=== PATIENT | female | born 1950 | race Caucasian/White ===

== ENCOUNTER 2019-02-12 22:46 | Inpatient (IN) | payer MEDICARE, OTHER, SELFPAY ==
[2018-12-08 14:09] VITALS: BMI 24.0
[2019-02-02 15:24] VITALS: BMI 24.0
--- NOTE | 2019-02-06 11:17 | EKG12_ITS ---
Test Reason : PRE-OP Blood Pressure : / mmHG Vent. Rate : 055 BPM Atrial Rate : 055 BPM P-R Int : 164 ms QRS Dur : 078 ms QT Int : 430 ms P-R-T Axes : 061 -02 071 degrees QTc Int : 411 ms Sinus bradycardia Otherwise normal ECG No previous ECGs available Confirmed by EDWIN GREGORY, JASSI ([id number]), editorial writer ELIZABETH ODOM ([id number]) on 02/09/2019 1:11:28 PM Referred By: Laurel Meier Confirmed By:JASSI PINEDA MD
[2019-02-06 11:29] LABS: Hematocrit 43.3 % (37-47); Hemoglobin 14.3 g/dl (12.0-15.0); Mean Corpuscular Hgb 28.9 pg (27.0-32.0); Mean Corpuscular Volume 87.5 fL (81-99); Mean Platelet Vol. 11.2 fl (6.2-12.0); Platelet Count 158 K/mm3 (150-450); RBC Distribution Width SD 41.7 fl (35.1-43.9); Red Blood Count 4.95 M/mm3 (4.2-5.4); Scan Indicated on CBC? Y/N NO; White Blood Count 7.2 K/mm3 (4.4-11.0)
[2019-02-06 11:50] LABS: Anion Gap 3 (5-15); BUN 8 mg/dL (7-18); Calcium,Total 8.2 mg/dL (8.5-10.1); Chloride 109 mmol/L (98-107); EST Glomerular Filtration Rate 75 mL/min (>60); Est Glom Filt Rate - Afr Amer 91 mL/min (>60); Glucose 91 mg/dL (74-106); Potassium 3.7 mmol/L (3.5-5.1); Sodium Level 141 mmol/L (136-145)
--- NOTE | 2019-02-11 16:24 | HP.PCM_ITS ---
- Problem List (1) Incomplete uterovaginal prolapse Status: Chronic Comment: TVH BSO combo case with dr rodriguez History and Physical Date of Admission: 02/12/19 Intake Vital Signs 02/02/19 Body Mass Index (BMI) 24.0 02/02/19 Height 5 ft 4 in 02/02/19 Weight: 138 lb 6 oz 02/02/19 Body Mass Index (BMI) 23.7 02/02/19 Blood Pressure 140/82 H Intake Visit Reasons: TVH BSO Chief Complaint: pre op appt [facility] BS Permastone Installer Required: No Is patient in pain?: No Allergies amoxicillin Allergy (Verified 02/02/19 15:23) Hives Medications clonazepam 0.5 mg tablet 0.5 mg PO BID 12/08/18 [History Confirmed 02/02/19] dicyclomine 10 mg capsule 10 mg PO ONCE 12/08/18 [History Confirmed 02/02/19] lisinopril 5 mg tablet 5 mg PO DAILY 12/08/18 [History Confirmed 02/02/19] lorazepam 1 mg tablet 1 mg PO QHS PRN 12/08/18 [History Confirmed 02/02/19] sertraline 100 mg tablet 100 mg PO DAILY 12/08/18 [History Confirmed 02/02/19] Is last menstrual period known: No Post menopausal: No Patient : No : No [facility] Medical History Anxiety (Acute) Fibromyalgia (Acute) Hyperlipidemia (Acute) IBS (irritable bowel syndrome) (Acute) Hypertension (Chronic) Surgical History H/O dilation and curettage (Acute) Family History Mother AAA (abdominal aortic aneurysm) Father Multiple sclerosis Brother Heart disease Myocardial infarction Kidney disease Sister Liver disease Social History Smoking Status: Unknown if ever smoked alcohol intake: never substance use type: does not use caffeine: Yes what type of physical activity do you participate in: walking seatbelt use: always do you feel safe at home: Yes additional social history: Ish AGUILAR [facility] BSO: Details: Details: JASON GRIGSBY is a 68 year old who presents for prolapse symptoms- difficulty urinating due to vaginal bulge. she has tried a pessary in the past and was unable to maintain the device in place. she is ready for surgery now. Pregancy History 3 Elective abortions Hx Para 3 Spontaneous abortions Hx # Term Pregnancies Ectopic pregnancies Hx # Pregnancies Multiple births # of living children ROS Const Constitutional: Denies fatigue, fever(s), headache(s), increased appetite, poor appetite, weight gain or weight loss Cardio Card: Denies chest pain Resp Resp: Denies cough or dyspnea GI GI: Reports as per HPI; denies abdominal pain, constipation, nausea or vomiting : Reports as per HPI; denies difficulty urinating, painful urination, nipple discharge, urinary frequency, urinary incontinence, urinary hesitancy, urinary urgency, vaginal discharge, vaginal dryness, vaginal odor or vaginal itching Skin Skin/Breast: Denies change in hair, breast lump, breast pain, breast skin changes or nipple discharge Exam Const General: cooperative, healthy appearing, comfortable, no acute distress, well developed Nutritional Appearance: average body habitus Orientation: alert HENMT Head: normal to inspection, normocephalic Neck Neck: normal visual inspection, trachea midline Thyroid: thyroid normal Resp Effort & Inspection: normal respiratory effort GI Inspection: normal to inspection, non-distended Palpation: soft, no hepatosplenomegaly General: bladder normal to palpation External Female Exam: normal external appearance, normal appearance of the urethra Urethra: normal appearance of the urethra, normal palpation, no discharge Speculum Exam - Vagina: normal appearance of the vagina, normal vaginal discharge Speculum Exam - Cervix: normal appearance of the cervix, nontender Bimanual Exam- Vagina & Uterus: normal bimanual exam, uterine size normal, bladder normal to palpation, uterine shape normal, No cervical tenderness, uterine mobility normal, uterine consistency normal, normal cervical palpation, uterus non-tender Bimanual Exam- Adnexa, other: normal adnexae, adnexae mobile, no adnexal masses, rectocele, cystocele Pelvic Support: cystocele, rectocele Skin General: no rashes or lesions noted Assessment & Plan Problems 1. Incomplete uterovaginal prolapse N81.2 TVH BSO combo case with dr rodriguez Plan discussed surgical risks including risks of anesthesia, infection, bleeding, injury to bowel, bladder or blood vessels, and patient wishes to proceed with surgery. plan TVH BSO combo case with Contreras Coding Level of Care Code No Charge Diagnoses Incomplete uterovaginal prolapse N81.2 UPDATE- I have seen the patient and performed any clinically relevant updates to the history and physical exam. Laurel Meier MD
[2019-02-12] VITALS (14 sets, daily range): BP systolic 107–158; BP diastolic 61–87; PULSE 53–81; RESP 14–18; TEMP 36–36.6; O2SAT 93–100; BMI 23.5
[2019-02-12 06:00] LABS: Bedside Glucose 89 mg/dL (70-110)
[2019-02-12] MEDS: Enoxaparin 40 MG/0.4 ML Syringe SC (06:36)
[2019-02-12] MEDS: Acetaminophen 500 MG Tablet 1000 MG PO ×3 (06:36→18:20)
[2019-02-12] MEDS: Celecoxib 200 MG Capsule 400 MG PO (06:36)
[2019-02-12] MEDS: Gabapentin 600 MG Tablet PO (06:37)
[2019-02-12] MEDS: Scopolamine 1mg/72hr Patch 1 PATCH TRANSDERM. (06:37)
[2019-02-12] MEDS: Lactated Ringers 1,000 ML 40 ML IV (06:50)
[2019-02-12] MEDS: Magnesium Sulfate 4gm/100mL 4 GM/100 ML IV.SOLN. IV (06:52)
[2019-02-12] MEDS: Ciprofloxacin 400 MG/200 ML BAG 200 MG IV (06:54)
[2019-02-12] MEDS: Ondansetron 4 MG/2 ML Vial IV (07:00)
--- NOTE | 2019-02-12 07:30 | HYST_PTH ---
PATIENT: JASON GRIGSBY LOC: MS3 U#:[id number] AGE/SX: 69/F ROOM: MS310 RE02/12/[address]: Dr. Laurel Meier MD : [id number] BED: 1 DIS: 02/13/2019 SPEC #: [id number] RECD: 02/12/19 10:15 STATUS: NATHALY RERadha #: [id number] MUSTAPHA: 02/12/19 07:[address]: Laurel Meier DEPT: SURGICAL PATHOLOGY RECD BY: Xu Singh ENTERED: 02/12/19 11:09 SP TYPE: HYSTERECT OTHR DR: MD Dr. Fe Cha MD Tissues: Uterus, NOS Procedures: Surgery Specimen Level V HEADER OPERATION: ERAS, vaginal hysterectomy PRE-OP DIAGNOSIS: Incomplete uterovaginal prolapse TISSUE SUBMITTED: Uterus MICROSCOPIC DIAGNOSIS Uterus, vaginal hysterectomy: Cervix - chronic inflammation, squamous metaplasia, hyperkeratosis and parakeratosis. Endometrium - proliferative endometrium with focal area of simple endometrial hyperplasia without atypia. Myometrium - focal superficial adenomyosis. SJ:devika 02/13/19 COMMENT Case has been reviewed in consultation with Dr. Floyd who concurs with the above diagnosis. IDC:AM MICROSCOPIC DESCRIPTION Slides are reviewed. GROSS DESCRIPTION Received in fixative is one container labeled with the patient's name and designated uterus. The specimen consists of a hysterectomy specimen consisting of uterus with cervix measuring 10.5 x 3.5 x 2.5 cm and weighing 52 gm. The serosal surface is chery, glistening. The ectocervical mucosa does not show any mass lesion. The external os is circular and pinpoint in contour. The endocervical canal measures 4.5 cm in length and the endocervical mucosa is chery, glistening and without any mass lesion. The triangular endometrial cavity measures 4.5 cm in length and 1.5 cm in width. The endometrium is chery, glistening without any mass lesion and measures <0.1 cm in thickness. Sections of the uterine wall do not reveal any mass lesion and it measures up to 1.5 cm in thickness. Computed Tomography Technologist sections are submitted in six cassettes as follows: 1 - anterior cervix, 2 - posterior cervix, 3 & 4 - anterior uterine wall, 5 & 6 - posterior uterine wall. / SJ:rg 02/12/19 TC:5 CPT: 97711
--- NOTE | 2019-02-12 08:06 | PCM.OPRPT ---
Problem List (1) Incomplete uterovaginal prolapse Status: Chronic Comment: TVH BSO combo case with dr rodriguez Report of Operation Date of Procedure: 02/12/19 Pre-Operative Diagnosis: prolapse Post-Operative Diagnosis: same Surgery/Procedure Performed:: tvh combo case Description of Surgical Findings:: prolapsed uterus pole inspector: Maggie Rodriguez Type of Anesthesia:: Spinal Special Medications: none Specimen's removed: uterus tubes ovaries Drains: dennis Estimated Blood Loss (mL): 100 Fluids Replaced: 1500 Description of Procedure: Patient was taken to the operating room and was placed under general anesthesia was prepped and draped in normal sterile fashion in the dorsal lithotomy position. Preoperative antibiotics and SCDs and Dennis catheter was placed inside the bladder. Weighted speculum was placed in the vagina and the anterior and posterior lip of the cervix was grasped with 2 Katina clamps and circumferentially injected with dilute vasopressin. A circumferential incision was made with a scalpel and the posterior cul-de-sac was entered into sharply and a longneck speculum was placed. The anterior cul-de-sac was also dissected down and entered into sharply and the uterosacral ligaments were clamped cut and suture ligated bilaterally followed by the cardinal ligaments which were Clamped cut and suture ligated bilaterally with 0 Monocryl. The uterus serially descended and progressive bites were taken bilaterally up to the level of the utero-ovarian ligament bilaterally which was clamped transected and double ligated with 0 Monocryl suture and 0 Vicryl free tie. Bilateral fallopian tubes and ovaries were well visualized and noted be within normal limits but severely elevated away from each so the decision was made to leave them in situ. The posterior peritoneum was reapproximated and the vagina was closed with [id number] 0 Vicryl pop offs including the posterior and anterior peritoneum in the reapproximation. Excellent hemostasis was noted. All instruments removed from the vagina clear urine was noted at the end of the procedure and dr rodriguez began her portion. Grafts/Implants Used: mesh, sling - Complications none - Admit VTE Documentation VTE Present on Admission: No VTE Mechan Device Prophylaxis: SCD's
--- NOTE | 2019-02-12 08:09 | OP.PCM_ITS ---
Problem List (1) Incomplete uterovaginal prolapse Status: Chronic Comment: TVH BSO combo case with dr rodriguez Report of Operation Date of Procedure: 02/12/19 Pre-Operative Diagnosis: prolapse Post-Operative Diagnosis: same Surgery/Procedure Performed:: tvh combo case Description of Surgical Findings:: prolapsed uterus hazardous materials tanker driver: Maggie Rodriguez Type of Anesthesia:: Spinal Special Medications: none Specimen's removed: uterus tubes ovaries Drains: dennis Estimated Blood Loss (mL): 100 Fluids Replaced: 1500 Description of Procedure: Patient was taken to the operating room and was placed under general anesthesia was prepped and draped in normal sterile fashion in the dorsal lithotomy position. Preoperative antibiotics and SCDs and Dennis catheter was placed inside the bladder. Weighted speculum was placed in the vagina and the anterior and posterior lip of the cervix was grasped with 2 Katina clamps and circumferentially injected with dilute vasopressin. A circumferential incision was made with a scalpel and the posterior cul-de-sac was entered into sharply and a longneck speculum was placed. The anterior cul-de-sac was also dissected down and entered into sharply and the uterosacral ligaments were clamped cut and suture ligated bilaterally followed by the cardinal ligaments which were Clamped cut and suture ligated bilaterally with 0 Monocryl. The uterus serially descended and progressive bites were taken bilaterally up to the level of the utero-ovarian ligament bilaterally which was clamped transected and double ligated with 0 Monocryl suture and 0 Vicryl free tie. Bilateral fallopian tubes and ovaries were well visualized and noted be within normal limits but severely elevated away from each so the decision was made to leave them in situ. The posterior peritoneum was reapproximated and the vagina was closed with [id number] 0 Vicryl pop offs including the posterior and anterior peritoneum in the reapproximation. Excellent hemostasis was noted. All instruments removed from the vagina clear urine was noted at the end of the procedure and dr rodriguez began her portion. Grafts/Implants Used: mesh, sling - Complications none - Admit VTE Documentation VTE Present on Admission: No VTE Mechan Device Prophylaxis: SCD's
[2019-02-12] MEDS: Vasopressin 20 UNITS/ML Vial (08:20)
[2019-02-12] MEDS: Estrogens,Conj. 1 Tube 1 DOSE (10:45)
--- NOTE | 2019-02-12 11:04 | PCM.OPRPT ---
Problem List (1) Stress incontinence Status: Acute (2) Incomplete uterovaginal prolapse Status: Chronic Comment: TVH BSO combo case with dr rodriguez Report of Operation Date of Procedure: 02/12/19 Pre-Operative Diagnosis: cystocele, rectocele, uterine prolapse, stress urinary incontinence Post-Operative Diagnosis: same Surgery/Procedure Performed:: anterior repair with mesh (Restorelle), posterior repair without mesh, midurethral sling (Altis), cystoscopy with bilatera ureteral catheterization Description of Surgical Findings:: no complications. bilateral ureters patent at conclusion of case. tear down matcher: None - Type of Anesthesia:: General Estimated Blood Loss (mL): 100cc Description of Procedure: The patient is a 69-year-old female with complete uterovaginal prolapse. She underwent office cystoscopy, urodynamics and informed consent was obtained. She agreed to proceed with surgical intervention with mesh in combination with hysterectomy. The patient was taken to the operating room and placed on the operating room table. Anesthesia monitored the head, neck, airway, IV access and vital signs throughout the case. Once anesthesia was appropriately administered the patient was placed in dorsolithotomy and Trendelenburg position and was prepped and draped in usual sterile fashion. I assisted Dr. Meier in vaginal hysterectomy and closure of the vaginal cuff. At this time I injected the submucosa of the anterior vaginal wall with dilute vasopressin for hydrostatic dissection and hemostatic control. A vertical midline incision approximately 2-1/2 cm in length was then made. Both sharp and blunt dissection continued until the ischial spines were palpable bilaterally. The sacrospinous ligaments were cleared and freed from surrounding tissues. The ureters were palpable medially. Due to the positioning of the ureters, I used the Capio to Place Ethibond sutures closer to the ischial spine on the area of the sacral spinous ligament bilaterally. The sutures were then brought through the mesh arms. The mesh was positioned in the medial aspect with 1 interrupted Vicryl suture. The mesh arms were then sutured laterally towards the obturator complexes bilaterally with interrupted Vicryl sutures as well. The mesh was trimmed to length. On the right aspect of the Ethibond suture was brought through the vaginal mucosa at the area of the cuff. The midline incision was closed using running locking 2-0 Vicryl. The Ethibond suture was then tied down. Attention was then turned towards the posterior vaginal wall. This was also sub-mucosally injected with dilute vasopressin. And a small incision was made and sharp and blunt dissection ensued until the rectovaginal fascia was identified. This was brought together in interrupted fashion with 2-0 Vicryl suture in a 2 layer closure. The overlying vaginal mucosa then was closed with running interlocking 2-0 Vicryl. Attention was then turned towards the mid urethra which was once again injected submucosally in an incision and was made in vertical fashion. Sharp and blunt dissection was used to open bilateral periurethral spaces. The alters mid urethral sling trochars were then used to pass the tines into the obturator complexes bilaterally. The sling was positioned in a flat location against the urethra and the tensioning suture was cut. The incision was closed using running interlocking 2-0 Vicryl. The Mathur catheter was removed. The patient was placed into a flat position and a cystourethroscopy was performed. There are no entrances into the urinary bladder or the urethra with mesh or foreign body. There was no bleeding within the urinary bladder. There are no masses, ulcerations or lesions identified. The left ureter had a good ureteral jet but it took quite some time. A 0.035 Glidewire was passed into the ureter without difficulty. There was no blood from the ureter. On the right side a whistle-tip catheter was passed without difficulty to 20 cm. Once again urine was seen coming from the ureter upon entry of the whistle-tip catheter. The Mathur catheter was replaced and the the vagina was packed with Premarin cream and vaginal packing. She was awakened and taken to the recovery room in good condition. There were no complications during this procedure. Grafts/Implants Used: Restorelle mesh and Altis midurethral sling from [employer] - Complications none - Admit VTE Documentation VTE Present on Admission: Yes VTE Mechan Device Prophylaxis: SCD's VTE Pharm Prophylaxis ordered?: No Reason prophylaxis not ordered:: Treatment Not Indicated
[2019-02-12] MEDS: Ketorolac 30 MG/ML Syringe IV ×2 (13:19→18:21)
[2019-02-12] MEDS: Docusate Sodium 100 MG Capsule PO ×2 (13:20→21:16)
[2019-02-12] MEDS: Lactated Ringers 1,000 ML 70 ML IV (13:21)
[2019-02-12] MEDS: Dicyclomine 10 MG Capsule PO (17:03)
[2019-02-12] MEDS: Smz/Tmp Ds Tablet 1 TABLET PO (17:03)
[2019-02-12] MEDS: clonazePAM 0.5 MG Tablet PO (21:16)
[2019-02-13] MEDS: Acetaminophen 500 MG Tablet 1000 MG PO ×2 (00:23→07:13)
[2019-02-13] MEDS: Ketorolac 30 MG/ML Syringe IV ×2 (01:54→06:29)
[2019-02-13 03:08] VITALS: BP 134/75; PULSE 85; RESP 18; TEMP 37.3; O2SAT 92
[2019-02-13] MEDS: Lactated Ringers 1,000 ML 70 ML IV (03:12)
--- NOTE | 2019-02-13 04:34 | DCINST_ITS ---
Discharge Diet: No Restrictions Discharge Activity: Return to Normal Activity, May Not Drive, May Shower May resume sexual activity in: 6-8 weeks Call your doctor if your incision/area has: Continuous Slow Oozing, Sudden Increased Bleeding, Increased Pain/ Swelling, Increased Redness, Foul Smelling Discharge Call your doctor if you observe: Fever of 101 or Higher, Inability to urinate, Inability to have a bowel movement, Using more than one pad per hour Allergies/Adverse Reactions: Allergies amoxicillin Allergy (Verified 02/05/19 13:08) Hives Medications to take at Discharge clonazepam 0.5 mg tablet 0.5 mg PO BID 12/08/18 dicyclomine 10 mg capsule 10 mg PO ONCE 12/08/18 lisinopril 5 mg tablet 5 mg PO DAILY 12/08/18 lorazepam 1 mg tablet 1 mg PO QHS PRN 12/08/18 sertraline 100 mg tablet 100 mg PO DAILY 12/08/18 Estradiol [Divigel] 1 gm TD UD 02/05/19 Naproxen [Naprosyn] 250 - 500 mg PO Q8H PRN PRN #30 tablet 02/13/19 Oxycodone HCl/Acetaminophen [Percocet 5-325] 1 - 2 tablet PO Q4H PRN PRN 7 Days #15 tablet 02/13/19 The following prescriptions were given: Oxycodone HCl/Acetaminophen [Percocet 5-325] 1 - 2 tablet PO Q4H PRN PRN 7 Days #15 tablet PRN Reason: Pain Naproxen [Naprosyn] 250 - 500 mg PO Q8H PRN PRN #30 tablet PRN Reason: MILD PAIN Primary Care Physician: Fe Urbina MD [Primary Care Provider] - Test Results: Test results from this visit will be discussed in further detail at your follow- up appointment, if applicable. Please Follow Up With: Laurel Meier MD - [phone]
[2019-02-13 06:46] LABS: Hematocrit 36.5 % (37-47); Hemoglobin 12.3 g/dl (12.0-15.0); Mean Corp Hgb Conc 33.7 g/gl (32-36); Mean Corpuscular Hgb 29.3 pg (27.0-32.0); Mean Corpuscular Volume 86.9 fL (81-99); Mean Platelet Vol. 11.4 fl (6.2-12.0); Platelet Count 184 K/mm3 (150-450); RBC Distribution Width CV 12.4 % (11.6-14.6); RBC Distribution Width SD 38.4 fl (35.1-43.9); White Blood Count 16.3 K/mm3 (4.4-11.0)
[2019-02-13 06:52] LABS: Scan Indicated on CBC? Y/N NO
[2019-02-13 07:25] VITALS: O2SAT 93
--- NOTE | 2019-02-13 07:54 | PCM.PN.OB ---
Patient Problems: Active and Suspected Problems (Last Reviewed 02/02/19 @ 15:24 by Tete Patel) Stress incontinence (Acute) Subjective: doing well no complaints no cp sob n v - Physical Exam General: Alert, Oriented x3, Cooperative Vital Signs Temp Pulse Resp BP Pulse Ox 99.1 F 85 18 134/75 H 92 02/13/19 03:08 02/13/19 03:08 02/13/19 03:08 02/13/19 03:08 02/13/19 03:08 Oxygen Flow Rate (L/min) 6 Oxygen Delivery Method Room Air Weight: 136 lb 14.513 oz Body Mass Index (BMI) 23.5 Intake and Output for Last 24 Hours 02/11/19 02/12/19 02/13/19 23:59 23:59 23:59 Intake Total 2773 / 2773 1269 / 1269 Output Total 800 / 800 1425 / 1425 Balance 1972 / 1972 -156 / -156 Laboratory Tests Past 24 Hrs 02/13/19 06:02 WBC 16.3 H RBC 4.20 Hgb 12.3 Hct 36.5 L MCV 86.9 MCH 29.3 MCHC 33.7 RDW 12.4 RDW Differential 38.4 Plt Count 184 MPV 11.4 Medical Necessity - Tobacco Use Smoking Status: Never smoker Assessment/Plan All Active Problems (Last Reviewed 02/02/19 @ 15:24 by Tete Patel) Stress incontinence (Acute) 69 yo s/p TVH and pelvic floor repair routine care dc home today
--- NOTE | 2019-02-13 08:43 | PCM.PN.GU ---
Physical Exam Subjective: Resting in bed. Pain controlled. No nausea. Dennis out. - Physical Exam Vital Signs Temp 99.1 F 02/13/19 03:08 Pulse 85 02/13/19 03:08 Resp 18 02/13/19 03:08 BP 134/75 H 02/13/19 03:08 Pulse Ox 93 02/13/19 07:25 Intake & Output 02/11/19 02/12/19 02/13/19 23:59 23:59 23:59 Intake Total 2773 / 2773 1269 / 1269 Output Total 800 / 800 1425 / 1425 Balance 1972 / 1972 -156 / -156 Weight: 62.1 kg Intake: Oral 600 / 600 700 / 700 IV fluid/meds 2173 / 2173 569 / 569 IV #2 1800 / 1800 Output: Urine 800 / 800 1425 / 1425 General: Alert, Oriented x3, Cooperative HEENT: Atraumatic, Normocephalic Oral: Moist Mucosa Neck: Trachea Midline Lungs: Normal air movement Cardiovascular: Regular rate Abdomen: Soft Rectal: Exam deferred Skin: No rashes Musculoskeletal: No Muscle Wasting Neurological: Cranial nerves II-XII grossly intact Psych/Mental Status: Normal Affect Laboratory Tests Past 24 Hrs 02/13/19 06:02 WBC 16.3 H RBC 4.20 Hgb 12.3 Hct 36.5 L MCV 86.9 MCH 29.3 MCHC 33.7 RDW 12.4 RDW Differential 38.4 Plt Count 184 MPV 11.4 Medical Necessity - Tobacco Use Smoking Status: Never smoker Assessment/Plan All Active Problems (Last Reviewed 02/02/19 @ 15:24 by Tete Patel) Stress incontinence (Acute) Trial of void today. Home later, with or without dennis.
--- NOTE | 2019-02-13 08:47 | DCINST_ITS ---
Discharge Diet: No Restrictions Discharge Activity: Return to Normal Activity, May Not Drive, May Shower, - - No tub bathing May resume sexual activity in: 6-8 weeks Additional Activity Instructions:: no lifting, pushing or pulling over 5 pounds. Call your doctor if your incision/area has: Continuous Slow Oozing, Sudden Increased Bleeding, Increased Pain/ Swelling, Increased Redness, Foul Smelling Discharge Call your doctor if you observe: Fever of 101 or Higher, Inability to urinate, Inability to have a bowel movement, Using more than one pad per hour, Chest pain, Calf discomfort, Uncontrolled pain Additional Dressing/Incision Instructions:: continue estrogen cream Allergies/Adverse Reactions: Allergies amoxicillin Allergy (Verified 02/05/19 13:08) Hives Medications to take at Discharge clonazepam 0.5 mg tablet 0.5 mg PO BID 12/08/18 dicyclomine 10 mg capsule 10 mg PO ONCE 12/08/18 lisinopril 5 mg tablet 5 mg PO DAILY 12/08/18 lorazepam 1 mg tablet 1 mg PO QHS PRN 12/08/18 sertraline 100 mg tablet 100 mg PO DAILY 12/08/18 Estradiol [Divigel] 1 gm TD UD 02/05/19 Naproxen [Naprosyn] 250 - 500 mg PO Q8H PRN PRN #30 tablet 02/13/19 Oxycodone HCl/Acetaminophen [Percocet 5-325] 1 - 2 tablet PO Q4H PRN PRN 7 Days #15 tablet 02/13/19 The following prescriptions were given: Oxycodone HCl/Acetaminophen [Percocet 5-325] 1 - 2 tablet PO Q4H PRN PRN 7 Days #15 tablet PRN Reason: Pain Naproxen [Naprosyn] 250 - 500 mg PO Q8H PRN PRN #30 tablet PRN Reason: MILD PAIN Primary Care Physician: Fe Urbina MD [Primary Care Provider] - Test Results: Test results from this visit will be discussed in further detail at your follow- up appointment, if applicable. Please Follow Up With: Maggie Chairez MD When: call office for appt. Proposed Discharge Date: 02/13/19
[2019-02-13 09:35] VITALS: BP 140/60; PULSE 75; RESP 16; TEMP 36.7; O2SAT 95
[2019-02-13] MEDS: Sertraline 100 MG Tablet PO (09:48)
[2019-02-13] MEDS: clonazePAM 0.5 MG Tablet PO (09:48)
[2019-02-13] MEDS: Lisinopril 5 MG Tablet PO (09:49)
[2019-02-13] MEDS: Docusate Sodium 100 MG Capsule PO (09:49)
[2019-02-13] MEDS: Smz/Tmp Ds Tablet 1 TABLET PO (09:49)
[2019-02-13] MEDS: Enoxaparin 40 MG/0.4 ML Syringe SC (09:49)
--- NOTE | 2019-02-13 10:10 | CASEMGMT ---
HANK REYNA Face to Face with patient for initial transition planning/care coordination assessment. RN MARIBELL introduced self and role at [facility]. Patient lying in bed, alert and oriented. Patient willing to participate in assessment and is able to answer all questions appropriately. Care providers, pharmacy, and demographics verified. Patient wishes to discharge home, denies need for home health at this time. Patient lives with in ranch styler home, has cane at home that she could use if needed. will provided transportation. Patient states she has no further needs or concerns at this time. CM to follow for discharge planning needs that may arise. Disposition Plan: Patient to discharge home with family support and follow-up plans in place. Marcela ANGEL, RN, CM
[2019-02-13 14:40] VITALS: BP 143/92; PULSE 67; RESP 16; TEMP 36.8; O2SAT 94
== END 2019-02-13 15:15 | disposition home or self-care (01) | DRG 743 ==
LOC: SDC 22:56 → MS3 02-13 07:18
PROVIDERS: Urology; Admitting Provider Obstetrics & Gynecology; Family Provider Internal Medicine; PCP Internal Medicine; Referring Provider Obstetrics & Gynecology; Visit Provider Obstetrics & Gynecology
PROC: 0UT97ZZ Resection of Uterus, Via Natural or Artificial Opening (ICD-10-PCS; CPT 58260; principal; 2019-02-12 07:10)
PROC: 0JUC0JZ Supplement of Pelvic Region Subcutaneous Tissue and Fascia with Synthetic Substitute, Open Approach (ICD-10-PCS; CPT 57260; 2019-02-12 07:10)
DX: N81.2 Incomplete uterovaginal prolapse (principal); N39.3 Stress incontinence (female) (male); N95.2 Postmenopausal atrophic vaginitis; N87.9 Dysplasia of cervix uteri, unspecified; N88.0 Leukoplakia of cervix uteri; N85.01 Benign endometrial hyperplasia; N80.0 Endometriosis of uterus; R39.14 Feeling of incomplete bladder emptying; I10 Essential (primary) hypertension; M79.7 Fibromyalgia; F41.9 Anxiety disorder, unspecified; K58.9 Irritable bowel syndrome, unspecified; E78.5 Hyperlipidemia, unspecified; Z79.899 Other long term (current) drug therapy
CPT/HCPCS: 36415; 80048; 82962; 85027; 86850; 86900; 87086; 87088; 88307; 93005; 94762; J7120; C1758; C1769; J0744; J2405

== ENCOUNTER 2019-08-04 10:45 | Emergency (ER) | payer MEDICARE, OTHER, SELFPAY ==
[2019-03-25 08:46] VITALS: BMI 23.5
[2019-08-04 10:46] VITALS: BP 154/87; PULSE 55; RESP 9; TEMP 37.1; O2SAT 95; BMI 25.9
--- NOTE | 2019-08-04 11:01 | EKG12_ITS ---
Test Reason : ANIEXTY Blood Pressure : / mmHG Vent. Rate : 055 BPM Atrial Rate : 055 BPM P-R Int : 186 ms QRS Dur : 090 ms QT Int : 430 ms P-R-T Axes : 021 002 068 degrees QTc Int : 411 ms Sinus bradycardia Low Votage QRS (Limb Leads) Poor R- wave progression Non- specific ST segment Abnormality Confirmed by DAVID GREGORY, ARY ([id number]), managing editor RUCHI MADISON ([id number]) on 08/05/2019 2:12:25 PM Referred By: MILI Confirmed By:ARY HERNANDEZ MD
--- NOTE | 2019-08-04 11:02 | ED.DCSUM_ITS ---
History of Present Illness Chief Complaint: Anxiety Informant: Patient, Family Narrative: 2 history sinus congestion with cough intermittent productive. Fever a week ago. Intermittent wheezing. No asthma or COPD history. No history of tobacco. No sick contacts. Last couple days due to coughing episodes, reports anxiety acting up secondary to this. Spouse states she had upper airway wheezing, EMS placed oxygen secondary to this. She did take her clonazepam, currently symptoms are improving. Denies chest pains or abdominal pain. No history of vomiting has chronic loose stools due to IBS history. No urinary symptoms. States had generalized weakness which is improving. Does not ambulate with a cane or walker. Prior similar symptoms: Yes Past Medical History - Allergies and Home Meds Allergies/Adverse Reactions: Allergies amoxicillin Allergy (Verified 08/04/19 10:51) Hives Primary Care Physician: Robert Barnard MD [STAFF PHYSICIAN] - Smoking Status: Never smoker Review of Systems General: Reports: Fever. Denies: Chills, Sweats Eyes: Denies: Visual changes - bilaterally, Diplopia ENT: Denies: Rhinorrhea, Sore throat Cardiovascular: Denies: Chest pain, Palpitations Respiratory: Reports: Dyspnea, Cough. Denies: Dyspnea on exertion Gastrointestinal: Denies: Abdominal pain, Nausea, Vomiting, Diarrhea, Melena, Hematochezia Genitourinary: Denies: Dysuria, Hematuria, Frequency Musculoskeletal: Denies: Back pain, Extremity Pain Skin: Denies: Rash, Wounds Neurological: Denies: Headache, Weakness, Numbness Physical Exam Vital Signs/Narrative: Vital Signs Temp Pulse Resp BP Pulse Ox 08/04/19 10:46 98.7 F 55 L 9 L 154/87 H 95 Inital Vital Signs reviewed: Yes General: Well nourished, Well developed, No Acute Distress Head: Normocephalic, Atraumatic Eyes: Perrl, EOMI ENT: Moist mucous membranes, No rhinorrhea, TM's clear, - - Hearing aids removed. Swollen turbinates bilaterally with no active drainage. No posterior pharyngeal erythema. Neck: Supple, Nontender Cardiovascular: Regular rate, Regular rhythm, No murmurs Respiratory: No distress, CTA bilaterally, Chest nontender Abdomen: Soft, Nontender, Nondistended, Normal bowel sounds Back: Nontender, Normal Inspection Extremities: Nontender, No edema Skin: Normal color, No rash Neurological: Alert, Oriented x3, Cranial nerves II-XII grossly intact, Normal Strength, Normal Sensation Psychological: Normal affect, Normal Mood Diagnostic/Tx/Re-eval Chest X-Ray - ED: 2 View, Read by ED Physician, No Acute Disease Abnormal Lab Results 08/04/19 08/04/19 10:10 10:10 WBC 6.2 RBC 5.01 Hgb 14.5 Hct 43.4 MCV 86.6 MCH 28.9 MCHC 33.4 RDW Std Deviation 39.6 RDW Coeff of Juan 12.6 Plt Count 154 MPV 10.4 Immature Gran % (Auto) 0.200 Neut % (Auto) 64.8 Lymph % (Auto) 23.8 [place] % (Auto) 7.1 Eos % (Auto) 3.5 Baso % (Auto) 0.6 Absolute Neuts (auto) 4.0 Absolute Lymphs (auto) 1.48 Nucleated RBC % 0 Sodium 141 Potassium 3.5 Chloride 111 H Carbon Dioxide 27.0 Anion Gap 3 L BUN 11 Creatinine 0.80 Estim Creat Clear Calc 56.50 Est GFR (MDRD) Af Amer 91 Est GFR (MDRD) Non-Af 75 BUN/Creatinine Ratio 13.7 Glucose 94 Calcium 8.4 L - EKG Initial EKG Interpretation: Sinus Rhythm - Sinus rate of 55, no ST or T wave changes. - Medical Decision Making Abnormal Lab Results 08/04/19 08/04/19 10:10 10:10 WBC 6.2 RBC 5.01 Hgb 14.5 Hct 43.4 MCV 86.6 MCH 28.9 MCHC 33.4 RDW Std Deviation 39.6 RDW Coeff of Juan 12.6 Plt Count 154 MPV 10.4 Immature Gran % (Auto) 0.200 Neut % (Auto) 64.8 Lymph % (Auto) 23.8 [place] % (Auto) 7.1 Eos % (Auto) 3.5 Baso % (Auto) 0.6 Absolute Neuts (auto) 4.0 Absolute Lymphs (auto) 1.48 Nucleated RBC % 0 Sodium 141 Potassium 3.5 Chloride 111 H Carbon Dioxide 27.0 Anion Gap 3 L BUN 11 Creatinine 0.80 Estim Creat Clear Calc 56.50 Est GFR (MDRD) Af Amer 91 Est GFR (MDRD) Non-Af 75 BUN/Creatinine Ratio 13.7 Glucose 94 Calcium 8.4 L Patient currently in no respiratory distress, speaking full sentences on my evaluation. EKG sinus bradycardia with no acute changes. Labs stable chest x- ray reviewed by myself was negative. This time with evaluate concern for sinus congestion with URI symptoms causing her anxiety with symptoms. Pulse ox stable, she is ambulated on room air oxygen actually improved. With her sinus symptoms persisting for 2 weeks now more symptomatic we will place on antibiotics. Due to amoxicillin allergy will place on Zithromax. First dose in the ED. Patient will follow with PCP, signs and symptoms discussed to return. All questions were answered. ED Disposition - Plan for ED Patient: Disposition: Home or Assisted Living Diagnosis: Acute sinusitis, Anxiety Instructions: Anxiety Reaction, SINUSITIS, Abx Tx Prescriptions: Azithromycin [Zithromax] 250 mg PO DAILY #4 tablet Referrals: Robert Barnard MD [STAFF PHYSICIAN] - 3-5 Days
[2019-08-04 11:09] VITALS: O2SAT 95
[2019-08-04 11:18] LABS: Absolute Lymphocyte Count 1.48 X10^3/uL (0.83-4.51); Basophil# 0.04 X10^3/uL; Basophil% 0.6 % (0-1); Eosinophil# 0.22 X10^3/uL; Eosinophils% 3.5 % (0-5); Hematocrit 43.4 % (37-47); Hemoglobin 14.5 g/dL (12.0-15.0); Lymphocyte # 1.48 X10^3/ul (4.0); Lymphocyte % 23.8 % (19-41); Mean Corp Hgb Conc 33.4 g/dL (32-36); Mean Corpuscular Hgb 28.9 pg (27.0-32.0); Mean Corpuscular Volume 86.6 fL (81-99); Mean Platelet Vol. 10.4 fl (6.2-12.0); Monocyte# 0.44 X10^3/uL; Monocyte% 7.1 % (0-10); NRBC Flagged by Analyzer 0 % (0-5); Neutrophil # 4.02 X10^3/uL (2.7-7.7); Neutrophil % 64.8 % (47-70); Platelet Count 154 K/mm3 (150-450); RBC Distribution Width CV 12.6 % (11.6-14.6); RBC Distribution Width SD 39.6 fl (35.1-43.9); Red Blood Count 5.01 M/mm3 (4.2-5.4); White Blood Count 6.2 K/mm3 (4.4-11.0)
--- NOTE | 2019-08-04 11:20 | RAD_ITS ---
STUDY: X-RAY CHEST REASON FOR EXAM: Female, 69 years old. Cough. Anxiety. TECHNIQUE: Frontal and lateral views of the chest. COMPARISON: None. FINDINGS: Mild hyperexpansion. There is no demonstrated pleural abnormality. Borderline cardiomegaly. Normal mediastinum and leila. Normal visualized pulmonary arteries. Aortic tortuosity. Thoracic spondylosis. Normal visualized ribs, clavicles, and shoulders. There is no demonstrated abnormality of the visualized soft tissue structures of the upper abdomen. RAD/Chest PA and Lateral IMPRESSION: No active or acute cardiopulmonary disease. Electronically Signed: Raghav Benoit MD at 12:27 EDT , Service support ,
[2019-08-04 11:33] LABS: Anion Gap 3 (5-15); BUN 11 mg/dL (7-18); BUN/Creat Ratio 13.7 RATIO (10-20); Calcium,Total 8.4 mg/dL (8.5-10.1); Chloride 111 mmol/L (98-107); EST Glomerular Filtration Rate 75 mL/min (>60); Est Glom Filt Rate - Afr Amer 91 mL/min (>60); Glucose 94 mg/dL (74-106); Potassium 3.5 mmol/L (3.5-5.1); Sodium Level 141 mmol/L (136-145)
[2019-08-04 11:55] VITALS: O2SAT 94
[2019-08-04 12:11] VITALS: BP 119/65; PULSE 54; RESP 14; O2SAT 95
[2019-08-04] MEDS: Azithromycin 250 MG Tablet 500 MG PO (12:11)
== END 2019-08-04 12:14 | disposition home or self-care (01) ==
PROVIDERS: Emergency Provider Emergency Medicine; Family Provider Internal Medicine; PCP Internal Medicine
DX: J01.90 Acute sinusitis, unspecified (principal); F41.9 Anxiety disorder, unspecified; K58.9 Irritable bowel syndrome, unspecified; Z79.899 Other long term (current) drug therapy
CPT/HCPCS: 71046; 80048; 85025; 93005; 99285; A4216

== ENCOUNTER 2021-01-31 11:32 | Outpatient (RCR) | payer MEDICARE, OTHER, SELFPAY ==
[2021-01-31] MEDS: COVID-19 VACC, MRNA(PFIZER)/PF 30 MCG/0.3 ML SYRINGE IM (14:32)
[2021-02-21] MEDS: COVID-19 VACC, MRNA(PFIZER)/PF 30 MCG/0.3 ML SYRINGE IM (14:22)
== END 2021-04-25 23:59 ==
LOC: IMMUN 11:32
PROVIDERS: PCP Internal Medicine; Visit Provider Family Medicine
DX: Z23 Encounter for immunization (principal)
CPT/HCPCS: 0001A; 0002A; 91300

== ENCOUNTER 2021-12-24 19:14 | Inpatient (IN) | payer MEDICARE, OTHER, SELFPAY ==
[2021-12-24 19:15] VITALS: BP 99/65; PULSE 88; RESP 16; TEMP 35.8; O2SAT 100; BMI 22.6
--- NOTE | 2021-12-24 19:33 | EDS_ITS ---
HPI History of Present Illness Chief Complaint: Abd Pain Detail of Chief Complaint: Loss of appetite Informant: patient Onset/Context/Timing Onset: Month(s) (2-months) Context: Gradual Onset Narrative Narrative: Patient presents secondary to decreased appetite unable to eat over the past 2 months. Patient states he just has no interest in food and if she does eat only eats 1 or 2 bites. She feels that she has lost weight but is unable to tell me how much. She has not seen her primary care physician about this. She denies fever, chills, vomiting. [facility] Medical History (Updated 12/24/21 @ 21:[address] Irma Lawrence MD) Anxiety Fibromyalgia Hyperlipidemia Hypertension IBS (irritable bowel syndrome) Home Medications clonazepam 0.5 mg tablet 0.5 mg PO BID 12/08/18 [History Last Taken 02/12/19 04:15 0.5 MG] dicyclomine 10 mg capsule 10 mg PO ONCE 12/08/18 [History Last Taken Unknown] lisinopril 5 mg tablet 5 mg PO DAILY 12/08/18 [History Last Taken 02/12/19 04:15 5 MG] lorazepam 1 mg tablet 1 mg PO QHS PRN 12/08/18 [History Last Taken Unknown] sertraline 100 mg tablet 100 mg PO DAILY 12/08/18 [History Last Taken 02/12/19 04:15 100 MG] Allergy/AdvReac Type Severity Reaction Status Date / Time amoxicillin Allergy Hives Verified 08/04/19 10:51 Family History Mother AAA (abdominal aortic aneurysm) Father Multiple sclerosis Brother Heart disease Myocardial infarction Kidney disease Sister Liver disease Surgical History H/O dilation and curettage History of total vaginal hysterectomy (TVH) pelvic floor repair Social History Smoking Status: Never smoker alcohol intake: never substance use type: does not use caffeine: Yes what type of physical activity do you participate in: walking seatbelt use: always do you feel safe at home: Yes additional social history: Ish BELL ED Constitutional Constitutional ED: Denies chills or fever(s) Eyes Eyes: Denies change in vision ENT ENT ED: Denies sore throat Cardiovascular Cardiovascular: Denies chest pain Respiratory/Chest Respiratory/Chest: Denies cough or dyspnea Gastrointestinal Gastrointestinal: Denies abdominal pain, nausea or vomiting Genitourinary Genitourinary ED: Denies dysuria Musculoskeletal Musculoskeletal: Denies back pain or neck pain Integumentary Denies rash Neurologic Neurologic: Reports weakness; Denies headache(s) Allergic/Immunologic Allergic/Immunologic ED: Denies urticaria EXAM Physical Exam Const Vital Signs: 12/24/21 19:15 Temperature 96.5 F L Temperature Source Temporal Pulse Rate 88 Respiratory Rate 16 Blood Pressure 99/65 Blood Pressure Mean 76 Pulse Ox 100 Oxygen Delivery Method Room Air Positive well nourished and well developed General Appearance ED: well developed HEENT Reports moist mucous membranes Eyes PERRL and EOMs intact bilaterally Neck supple Chest Wall inspection of chest normal and palpation of chest normal Resp normal respiratory effort and clear to auscultation bilaterally GI non-tender Auscultation: hypoactive bowel sounds Palpation: soft Extremity normal to inspection Neuro oriented x3 Sensorium / Orientation: alert Psych mental status grossly normal Skin no rashes or lesions noted MDM MDM MDM Narrative Medical decision making narrative: Lab work obtained and patient given IV f luids. Lab Data Attestation: I reviewed the patient's lab results. Labs: Laboratory Results - last 24 hr 12/24/21 12/24/21 19:30 19:30 WBC 14.4 H RBC 4.78 Hgb 14.1 Hct 41.2 MCV 86.2 MCH 29.5 MCHC 34.2 RDW Std Deviation 40.7 RDW Coeff of Juan 13.0 Plt Count 232 MPV 10.7 Immature Gran % (Auto) 0.300 Neut % (Auto) 60.9 Lymph % (Auto) 12.8 L [place] % (Auto) 6.1 Eos % (Auto) 19.4 H Baso % (Auto) 0.5 Absolute Neuts (auto) 8.8 H Absolute Lymphs (auto) 1.83 Nucleated RBC % 0 Differential Comment SCANNED Diff Path Review May foll Sodium 136 Potassium 4.3 Chloride 114 H Carbon Dioxide 12.0 L Anion Gap 10 BUN 77 H Creatinine 8.12 H* Estim Creat Clear Calc 5.41 Est GFR (MDRD) Af Amer 6 L Est GFR (MDRD) Non-Af 5 L BUN/Creatinine Ratio 9.5 L Glucose 106 Calcium 8.6 Total Bilirubin 0.30 Direct Bilirubin 0.12 AST 9 L ALT 10 L Alkaline Phosphatase 107 Total Protein 7.7 Albumin 3.1 L Globulin 4.6 H Radiography Diagnostic Testing: Clinical Impression(s) from Imaging Studies Abdomen/Pelvis CT 12/24/21 20:17 IMPRESSION: No acute or inflammatory disease or bowel obstruction. Electronically Signed: Jean Marie Chaves MD at 21:22 EST , Treatment and Re-Evaluation Comments:: Lab work significant for renal failure with a BUN of 77 and creatinine of 8.12. Last lab work available for comparison is from 2019 at that time she had normal renal function. CT flank is obtained that shows no acute abnormalities of the renal system. Patient is being given IV hydration and will be discussed with hospitalist for admission. Discharge Plan Triage Chief Complaint: Abd Pain ED Provider: Irma Lawrence Dx/Rx/DC Orders Clinical Impression: Renal failure Prescriptions: No Action lisinopril 5 mg tablet 5 mg PO DAILY RF: 0 lorazepam [Ativan] 1 mg tablet 1 mg PO QHS PRN (Reason: Anxiety) RF: 0 clonazepam 0.5 mg tablet 0.5 mg PO BID RF: 0 sertraline [Zoloft] 100 mg tablet 100 mg PO DAILY RF: 0 dicyclomine 10 mg capsule 10 mg PO ONCE RF: 0 Primary Care Provider: Fe Urbina Referrals: Fe Urbina MD [Primary Care Provider] - Disposition Disposition: Acute Care [facility]
[2021-12-24] MEDS: 0.9% Normal Saline 1,000 ML 999 ML IV ×2 (19:40→20:50)
[2021-12-24 19:50] LABS: Absolute Lymphocyte Count 1.83 X10^3/uL (0.83-4.51); Absolute Neutrophil Count 8.8 X10^3/uL (2.0-7.7); Basophil# 0.07 X10^3/uL; Basophil% 0.5 % (0-1); Eosinophils% 19.4 % (0-5); Hematocrit 41.2 % (37-47); Hemoglobin 14.1 g/dL (12.0-15.0); Lymphocyte # 1.83 X10^3/ul (0.83-4.51); Lymphocyte % 12.8 % (19-41); Mean Corp Hgb Conc 34.2 g/dL (32-36); Mean Corpuscular Hgb 29.5 pg (27.0-32.0); Mean Corpuscular Volume 86.2 fL (81-99); Mean Platelet Vol. 10.7 fl (6.2-12.0); Monocyte# 0.87 X10^3/uL; Monocyte% 6.1 % (0-10); NRBC Flagged by Analyzer 0 % (0-5); Neutrophil # 8.75 X10^3/uL (2.7-7.7); Neutrophil % 60.9 % (47-70); POSITIVE DIFFERENTIAL YES; Platelet Count 232 K/mm3 (150-450); RBC Distribution Width SD 40.7 fl (35.1-43.9); Red Blood Count 4.78 M/mm3 (4.2-5.4); White Blood Count 14.4 K/mm3 (4.4-11.0)
[2021-12-24 20:11] LABS: AST(SGOT) 9 U/L (15-37); Alanine Aminotransfer ALT/SGPT 10 U/L (13-56); Albumin, Serum 3.1 g/dL (3.2-5.0); Alkaline Phosphatase 107 U/L (45-117); Anion Gap 10 (5-15); BUN 77 mg/dL (7-18); BUN/Creat Ratio 9.5 RATIO (10-20); Bilirubin, Direct 0.12 mg/dL (0.00-0.30); Calcium,Total 8.6 mg/dL (8.5-10.1); Chloride 114 mmol/L (98-107); Creatinine, Serum 8.12 mg/dL (0.55-1.02); EST Glomerular Filtration Rate 5 mL/min (>60); Est Glom Filt Rate - Afr Amer 6 mL/min (>60); Estimated Creatinine Clearance 5.41 ml/min; Globulin 4.6 g/dL (2.2-4.2); Glucose 106 mg/dL (74-106); Potassium 4.3 mmol/L (3.5-5.1); Protein, Total 7.7 g/dL (6.4-8.2); Sodium Level 136 mmol/L (136-145)
[2021-12-24 20:14] LABS: Differential Indicated SCAN CRITERIA MET; Eosinophil# 2.78 X10^3/uL
[2021-12-24 20:15] LABS: Differential Comment SCANNED
--- NOTE | 2021-12-24 20:17 | CT_ITS ---
EXAM: CT ABDOMEN AND PELVIS WITHOUT INTRAVENOUS CONTRAST CLINICAL INDICATION: renal failure TECHNIQUE: Helically acquired images were obtained of the abdomen and pelvis without intravenous contrast. CTDIvol = ( 6.30 ) mGy, DLP = ( 310.18 ) mGycm This CT exam was performed using one or more of the following dose reduction techniques: automated exposure control, adjustment of the mA and/or kV according to patient size, and/or use of iterative reconstruction technique. This report was created using Pre[employer] report generation technology. COMPARISON: None. FINDINGS: LOWER THORAX: Small hiatal hernia. Lung bases are clear. No cardiomegaly. No significant pericardial effusion. ABDOMEN: LIVER: Unremarkable. Homogeneous. GALLBLADDER AND BILE DUCTS: Unremarkable. No calcified gallstones. No gallbladder distention or wall edema. No intra- or extrahepatic biliary ductal dilation. PANCREAS: Unremarkable. No focal cystic mass. SPLEEN: Unremarkable. Normal size without focal cystic or solid mass. ADRENALS: Unremarkable. No nodules. KIDNEYS AND URETERS: Right extra renal pelvis. Small exophytic right renal cyst. No other renal abnormalities. Normal renal size and position. No hydronephrosis. STOMACH AND BOWEL: Unremarkable. No stomach or bowel distention. No focal inflammatory change. PELVIS: APPENDIX: No evidence of acute appendicitis. BLADDER: Unremarkable. REPRODUCTIVE: Unremarkable as visualized. No mass. ABDOMEN and PELVIS: INTRAPERITONEAL SPACE: Unremarkable. No ascites or other fluid collection. No free air. BONES/JOINTS: Degenerative changes of the pubic symphysis and SI joints. No unusual lytic or sclerotic lesions of bone. SOFT TISSUES: Unremarkable. No discrete abdominal or pelvic wall hernia. VASCULATURE: Unremarkable. Abdominal aorta is non-dilated. LYMPH NODES: Unremarkable. No enlarged lymph nodes. CT/Abdomen/Pelvis without Cont IMPRESSION: No acute or inflammatory disease or bowel obstruction. Electronically Signed: Jean Marie Chaves MD at 21:22 EST ,
[2021-12-24 21:15] VITALS: BP 119/59; PULSE 84; RESP 14
[2021-12-24] MEDS: 0.9% Normal Saline 1,000 ML 150 ML IV (21:30)
--- NOTE | 2021-12-24 22:03 | PCM.HP.STD ---
[facility] - General General Date of Admission: 12/24/21 HPI Narrative JASON GRIGSBY, is a 71 F with a significant history of fibromyalgia; IBS; depression anxiety on clonazepam who presents to the emergency department with anorexia that started since the middle of November 2021. Her symptoms are progressively worsening. She eats only about 1 or 2 bites of food. Associated with her symptoms is weakness and lethargy. Her who was at the bedside reported that patient has been sleeping excessively and when she wakes up she appears very tired. She reports loose yellow stools and occasionally pencil thin stools. She thinks that her current stool pattern is different from her history of irritable bowel disease. However on the day of presentation she had no loose stools. She reports left upper quadrant abdominal pain. She has an appointment scheduled with Dr. Sneed, wallcovering hanger for January 2022. She reports chronic tremor that has increased recently. [facility] Medical History Anxiety Fibromyalgia Hyperlipidemia Hypertension IBS (irritable bowel syndrome) Home Medications clonazepam 0.5 mg tablet 0.5 mg PO BID 12/08/18 [History Last Taken 02/12/19 04:15 0.5 MG] dicyclomine 10 mg capsule 10 mg PO ONCE 12/08/18 [History Last Taken Unknown] lisinopril 5 mg tablet 5 mg PO DAILY 12/08/18 [History Last Taken 02/12/19 04:15 5 MG] lorazepam 1 mg tablet 1 mg PO QHS PRN 12/08/18 [History Last Taken Unknown] sertraline 100 mg tablet 100 mg PO DAILY 12/08/18 [History Last Taken 02/12/19 04:15 100 MG] cholecalciferol (vitamin D3) [Vitamin D3] 2,000 unit PO DAILY 12/24/21 [History Last Taken Unknown] omeprazole 40 mg PO DAILY 12/24/21 [History Last Taken Unknown] rosuvastatin 5 mg PO QHS 12/24/21 [History Last Taken Unknown] Allergy/AdvReac Type Severity Reaction Status Date / Time amoxicillin Allergy Hives Verified 08/04/19 10:51 Family History Mother AAA (abdominal aortic aneurysm) Father Multiple sclerosis Brother Heart disease Myocardial infarction Kidney disease Sister Liver disease Surgical History H/O dilation and curettage History of total vaginal hysterectomy (TVH) pelvic floor repair Social History Smoking Status: Never smoker alcohol intake: never substance use type: does not use caffeine: Yes what type of physical activity do you participate in: walking seatbelt use: always do you feel safe at home: Yes additional social history: Ish Thacker Constitutional: Reports fatigue and anorexia. Denies fever, chills, and change in weight Eyes: Denies blurry vision, change in eye color, change in vision, discharge from eye(s), double vision, erythema, eye pain, loss of vision or other HEENT: Denies abnormal hearing, dysphagia, ear pain, epistaxis, headache(s), hearing loss, nasal congestion, nasal discharge, post nasal drip, sinus pressure, sore throat or other Cardiovascular: Denies chest pain or palpitations. Denies dyspnea on exertion, orthopnea and paroxysmal nocturnal dyspnea Respiratory/Chest: Denies cough, excessive phlegm production, shortness of breath with exertion and wheezing Gastrointestinal: Reports abdominal pain. Reports loose stools. Denies abdominal pain, coffee ground emesis, constipation, dyspepsia, hematemesis, hematochezia, melena, nausea, vomiting or other Genitourinary: Denies burning urination, difficulty urinating, dysuria, hematuria, nocturia, urinary frequency, urinary hesitancy, urinary incontinence, urinary urgency or other Musculoskeletal: Denies arthralgias, back pain, joint pain, joint stiffness, joint swelling, myalgias, neck pain or other Neurologic: Reports tremors. Denies abnormal gait, abnormal speech, confusion, disequilibrium, dizziness, focal weakness, headache(s), numbness, paresthesias, seizure-like activity, seizures, syncope, tingling, or other Psychiatric: Denies anxiety, homicidal ideation, suicidal ideation or other Endocrinology: Denies change in body appearance, cold intolerance, excessive sweating, heat intolerance, polydipsia, polyuria or other Hematologic/Lymphatic: Denies anemia, easy bleeding, easy bruising, lymphadenopathy or other Integumentary: Denies rashes Allergic/Immunologic: Denies rhinitis, hives, eczema, asthma or other Vital Signs Vital Signs Vital Signs: 12/24/21 19:15 12/24/21 21:15 Temperature 96.5 F L Temperature Source Temporal Pulse Rate 88 84 Respiratory Rate 16 14 Blood Pressure 99/65 119/59 L Blood Pressure Mean 76 79 Pulse Ox 100 Oxygen Delivery Method Room Air Weight Weight: 59.874 kg Body Mass Index (BMI) 22.6 Physical Exam Narrative Physical exam: General: Well-nourished, well-developed. Head: Normocephalic, atraumatic, no tenderness Eyes: PERRLA, EOMI ENT, no trauma, moist mucous membranes, no rhinorrhea Neck: Nontender, full range of motion, no spinal tenderness, deformities, step-off CVS: Regular rate and rhythm. S1-S2 present. No murmur, gallop or rub. Respiratory : clear to auscultation bilaterally, chest wall nontender, no wheezing Abdomen: Soft, nontender, nondistended, normal bowel sounds, no masses : Deferred Back: Nontender, no CVA tenderness, no midline spinal tenderness, deformities, step-offs Extremities: Nontender full range of motion, no trauma Skin: Normal color, no trauma, abrasions Neuro: Alert, oriented, cranial nerves II through XII grossly intact. Psychiatry: Appears depressed and anxious. Results Lab / Micro Data Result Diagrams: 12/24/21 19:30 12/24/21 19:30 Labs: Laboratory Results - last 24 hr 12/24/21 19:30: WBC 14.4 H, RBC 4.78, Hgb 14.1, Hct 41.2, MCV 86.2, MCH 29.5, MCHC 34.2, RDW Std Deviation 40.7, RDW Coeff of Juan 13.0, Plt Count 232, MPV 10.7, Immature Gran % (Auto) 0.300, Neut % (Auto) 60.9, Lymph % (Auto) 12.8 L, [place] % (Auto) 6.1, Eos % (Auto) 19.4 H, Baso % (Auto) 0.5, Absolute Neuts (auto) 8.8 H, Absolute Lymphs (auto) 1.83, Nucleated RBC % 0, Differential Comment SCANNED, Diff Path Review March12/24/21 19:30: Sodium 136, Potassium 4.3, Chloride 114 H, Carbon Dioxide 12.0 L, Anion Gap 10, BUN 77 H, Creatinine 8.12 H*, Estim Creat Clear Calc 5.41, Est GFR (MDRD) Af Amer 6 L, Est GFR (MDRD) Non-Af 5 L, BUN/Creatinine Ratio 9.5 L, Glucose 106, Calcium 8.6, Total Bilirubin 0.30, Direct Bilirubin 0.12, AST 9 L, ALT 10 L, Alkaline Phosphatase 107, Total Protein 7.7, Albumin 3.1 L, Globulin 4.6 H Radiology Impression Abdomen/Pelvis CT 12/24/21 20:17 IMPRESSION: No acute or inflammatory disease or bowel obstruction. Electronically Signed: Jean Marie Chaves MD at 21:22 EST , Assessment & Plan Assessment/Plan (1) Renal failure: PLAN: LIBERTAD Her creatinine on presentation was 8.12. Review of records show that her creatinine in 2019 was 0.80. BUN is 77. BUN over creatinine is 9.5. Abdomen pelvis CT was visualized and independently interpreted at the radiologist impression of no acute or inflammatory disease or bowel obstruction. Small exophytic right renal cyst noted. Also with right extra renal pelvis. We will get ultrasound of kidney and bladder to further evaluate right kidney. Likely prerenal and ATN Urine electrolytes ordered. Also noted to have chronic hyperchloremia. Lactated Ringer's ordered. Trend BMP. Avoid nephrotoxins. Hold lisinopril. Anorexia Nutrition consult. Glucerna ordered Hypertension Blood pressure is stable. Hold lisinopril in the setting of LIBERTAD. Trend blood pressure . As needed hydralazine ordered. Leukocytosis Review of labs showed white count of 14.4. Urinalysis reviewed showed 1+ bacteria with 10-25 squamous cells. Denies urinary symptoms. Denies respiratory symptoms. Likely reactive. Trend CBC. DVT prophylaxis: Subcutaneous Lovenox ordered Charges/Coding Visit Charges Inpatient E&M: 16977 Init Hosp L3
[2021-12-24 22:16] LABS: Color, Urine Straw (Yellow); Glucose, Dipstick Normal (Normal); Ketone-Dipstick Negative (Negative); Leukocyte Esterase-Dipstick 500 /ul (Negative); Mucous, Urine 0 SEEN /hpf (<or=2+); Nitrite-Dipstick Negative (Negative); Occult Blood-Urine 50 /ul (Negative); Protein-Dipstick 30 mg/dl (Negative); Red Blood Cells-Urine 0 SEEN /hpf (0-5); Urine Bilirubin Dipstick Negative (Negative); Urine Clarity Sl. Cloudy (Clear); Urine Urobilinogen Normal (Normal)
[2021-12-24 22:28] LABS: Squamous Epithelial Cells - UA 10-25 SEEN /hpf (5-10); White Blood Cells 25-50 SEEN /hpf (0-5)
[2021-12-24 22:29] LABS: Bacteria 1+ /hpf (None Seen)
[2021-12-24 22:46] VITALS: BP 111/89; PULSE 80; RESP 16; TEMP 36.6
[2021-12-24 22:52] VITALS: BMI 22.2
--- NOTE | 2021-12-24 23:08 | US_ITS ---
STUDY: RENAL ULTRASOUND - COMPLETE REASON FOR EXAM: Female, 71 years old. LIBERTAD TECHNIQUE: Ultrasound evaluation of the kidneys was performed with real-time and static finch-scale imaging. COMPARISON: None. FINDINGS: RIGHT KIDNEY: Normal location of the right kidney, which is normal in size. The right kidney measures 10.6 cm x 5.1 cm x 5.7 cm. There is a normal cortex of the right kidney. The renal cortex measures 1.4 cm. 2 cysts are seen. The larger measures 1.3 cm x 1.3 cm x 1.4 cm. There are no right renal calculi. There is an extra-renal pelvis of the right kidney. There is no distention of the renal calyces. DISTAL RIGHT URETER: There is non-visualization of the distal right ureter. There is no demonstrated right ureterovesical junction calculus. There is a visualized right ureteral jet. LEFT KIDNEY: Normal location of the left kidney, which is normal in size. The left kidney measures 9.85 x 4.6 cm x 5.5 cm. There is a normal cortex of the left kidney. The renal cortex measures 1.5 cm. There is no left renal mass or cyst. There are no left renal calculi. There is no left hydronephrosis. DISTAL LEFT URETER: There is non-visualization of the distal left ureter. There is no demonstrated left ureterovesical junction calculus. There is no demonstrated left ureteral jet. BLADDER: The distended urinary bladder has a volume of 138 ml. There is a normal wall thickness of the distended urinary bladder. There is no demonstrated mass within the urinary bladder. There are no demonstrated bladder calculi. US/Kidney and Bladder IMPRESSION: There are 2 right renal cysts. Electronically Signed: Scott Joya MD at 15:34 EST ,
[2021-12-24 23:24] VITALS: BP 101/40; PULSE 70; RESP 16; TEMP 36.6; O2SAT 97
[2021-12-24] MEDS: Lactated Ringers 1,000 ML 100 ML IV (23:41)
[2021-12-25 03:51] LABS: Osmolality, Urine 211 mOsm/KG
[2021-12-25 04:03] LABS: Urine Sodium 69 mmol/L (Not Establ.)
[2021-12-25 05:24] VITALS: BP 117/58; PULSE 86; RESP 16; TEMP 36.6; O2SAT 97
[2021-12-25 06:02] LABS: Absolute Lymphocyte Count 0.99 X10^3/uL (0.83-4.51); Absolute Neutrophil Count 6.5 X10^3/uL (2.0-7.7); Basophil# 0.07 X10^3/uL; Basophil% 0.7 % (0-1); Eosinophil# 1.66 X10^3/uL; Eosinophils% 16.9 % (0-5); Hematocrit 33.6 % (37-47); Hemoglobin 11.2 g/dL (12.0-15.0); Lymphocyte # 0.99 X10^3/ul (0.83-4.51); Lymphocyte % 10.1 % (19-41); Mean Corp Hgb Conc 33.3 g/dL (32-36); Mean Corpuscular Hgb 28.9 pg (27.0-32.0); Mean Corpuscular Volume 86.6 fL (81-99); Mean Platelet Vol. 10.6 fl (6.2-12.0); Monocyte# 0.57 X10^3/uL; Monocyte% 5.8 % (0-10); NRBC Flagged by Analyzer 0 % (0-5); Neutrophil % 66.2 % (47-70); Platelet Count 145 K/mm3 (150-450); RBC Distribution Width CV 13.2 % (11.6-14.6); Red Blood Count 3.88 M/mm3 (4.2-5.4); White Blood Count 9.8 K/mm3 (4.4-11.0)
[2021-12-25 06:21] LABS: Anion Gap 9 (5-15); BUN 73 mg/dL (7-18); BUN/Creat Ratio 10.4 RATIO (10-20); Calcium,Total 7.7 mg/dL (8.5-10.1); Chloride 123 mmol/L (98-107); Creatinine, Serum 7.04 mg/dL (0.55-1.02); EST Glomerular Filtration Rate 6 mL/min (>60); Est Glom Filt Rate - Afr Amer 7 mL/min (>60); Estimated Creatinine Clearance 6.24 ml/min; Glucose 87 mg/dL (74-106); Sodium Level 143 mmol/L (136-145)
--- NOTE | 2021-12-25 08:11 | PCM.PN.HOSP ---
Subjective Subjective Patient admitted with acute kidney injury with symptoms of lethargy, sleepiness, tiredness, weakness, not very communicative since mid November 2021. Patient had mild loose bowel movement with history of IBD, diarrhea predominant but denies any severe and prolonged diarrhea. Objective Data Objective Data Vital Signs: Vital Signs Temp Pulse Resp BP Pulse Ox 97.9 F 86 16 117/58 L 97 12/25/21 05:24 12/25/21 05:24 12/25/21 05:24 12/25/21 05:24 12/25/21 05:24 Oxygen Delivery Method Room Air Weight: 130 lb 4.691 oz Body Mass Index (BMI) 22.2 Intake & Output: Intake and Output for Last 24 Hours 12/23/21 12/24/21 12/25/21 23:59 23:59 23:59 Intake Total 2360 / 2360 200 / 200 Output Total 450 / 450 Balance 2360 / 2360 -250 / -250 Lab / Micro Data Result Diagrams: 12/25/21 05:40 12/25/21 05:40 Labs: Laboratory Results - last 24 hr 12/24/21 19:30: WBC 14.4 H, RBC 4.78, Hgb 14.1, Hct 41.2, MCV 86.2, MCH 29.5, MCHC 34.2, RDW Std Deviation 40.7, RDW Coeff of Juan 13.0, Plt Count 232, MPV 10.7, Immature Gran % (Auto) 0.300, Neut % (Auto) 60.9, Lymph % (Auto) 12.8 L, [place] % (Auto) 6.1, Eos % (Auto) 19.4 H, Baso % (Auto) 0.5, Absolute Neuts (auto) 8.8 H, Absolute Lymphs (auto) 1.83, Nucleated RBC % 0, Differential Comment SCANNED, Diff Path Review March12/24/21 19:30: Sodium 136, Potassium 4.3, Chloride 114 H, Carbon Dioxide 12.0 L, Anion Gap 10, BUN 77 H, Creatinine 8.12 H*, Estim Creat Clear Calc 5.41, Est GFR (MDRD) Af Amer 6 L, Est GFR (MDRD) Non-Af 5 L, BUN/Creatinine Ratio 9.5 L, Glucose 106, Calcium 8.6, Total Bilirubin 0.30, Direct Bilirubin 0.12, AST 9 L, ALT 10 L, Alkaline Phosphatase 107, Total Protein 7.7, Albumin 3.1 L, Globulin 4.6 H 12/24/21 21:50: Urine Color Straw, Urine Clarity Sl. Cloudy, Urine pH 6.0, Ur Specific [place] 1.010, Urine Protein 30 H, Urine Glucose (UA) Normal, Urine Ketones Negative, Urine Occult Blood 50 H, Urine Nitrite Negative, Urine Bilirubin Negative, Urine Urobilinogen Normal, Ur Leukocyte Esterase 500 H, Urine RBC 0 SEEN, Urine WBC 25-50 SEEN, Ur Squamous Epith Cells 10-25 SEEN, Urine Bacteria 1+, Urine Mucus 0 SEEN 12/25/21 03:30: Urine Osmolality 211, Ur Random Sodium 69, Urine Creatinine 23.70 12/25/21 05:40: WBC 9.8, RBC 3.88 L, Hgb 11.2 L, Hct 33.6 L, MCV 86.6, MCH 28.9, MCHC 33.3, RDW Std Deviation 41.0, RDW Coeff of Juan 13.2, Plt Count 145 L, MPV 10.6, Immature Gran % (Auto) 0.300, Neut % (Auto) 66.2, Lymph % (Auto) 10.1 L, [place] % (Auto) 5.8, Eos % (Auto) 16.9 H, Baso % (Auto) 0.7, Absolute Neuts (auto) 6.5, Absolute Lymphs (auto) 0.99, Nucleated RBC % 0 12/25/21 05:40: Sodium 143, Potassium 5.0, Chloride 123 H, Carbon Dioxide 11.0 L, Anion Gap 9, BUN 73 H, Creatinine 7.04 H, Estim Creat Clear Calc 6.24, Est GFR (MDRD) Af Amer 7 L, Est GFR (MDRD) Non-Af 6 L, BUN/Creatinine Ratio 10.4, Glucose 87, Calcium 7.7 L Radiography Diagnostic Testing: Radiology Impression Abdomen/Pelvis CT 12/24/21 20:17 IMPRESSION: No acute or inflammatory disease or bowel obstruction. Electronically Signed: Jean Marie Chaves MD at 21:22 EST , Physical Exam Narrative General: Lethargic, oriented x3. HEENT: Atraumatic, PERRLA, EOMI, Normocephalic Oral: No Gingival or Mucosal Lesions/ Ulcerations Neck: Supple, No JVD, Negative Carotid Bruits Lungs: Air entry diminished in bilateral lung bases. No crepitation/rhonchi Cardiovascular: Regular rate, Regular Rhythm, Normal S1, Normal S2, No murmurs Abdomen: Bowel Sounds Present, Soft, Non Tender, Non-Distended : No renal angle tenderness. No suprapubic tenderness. Extremities: No edema, Capillary Refill Less than 3 Seconds Skin: No rashes, No breakdown Musculoskeletal: No Tenderness to Palpation of Joints or Extremities Neurological: Tremors of both hands cranial nerves II-XII grossly intact, DTR 2+/4 Psych/Mental Status: Flat affect Assessment & Plan Assessment/Plan (1) Renal failure: PLAN: 1. Acute kidney injury with normal anion gap metabolic acidosis with high-priority of progression to ATN: [facility]. Patient admitted with creatinine 8.12. Her creatinine was 0.[address] abdomen reviewed and does not show clinical cause for LIBERTAD. Ultrasound kidney and bladder ordered. I talked to home restoration service cleaner and requested for consult. Patient on Ringer lactate. Avoid nephrotoxins. Hold lisinopril. Urine osmolarity 211, random sodium 69. Serum sodium normal. Hyperchloremia. 2 genitourinary surgery: It is unclear whether patient had obstructive LIBERTAD. Bladder scan every 6 hourly. Patient had surgery for cystocele, rectocele uterine prolapse and stress related incontinence in January [address] Chairez and Dr. Cazares anterior repair with mesh (Restorelle), posterior repair without mesh, midurethral sling (Altis), cystoscopy with bilatera ureteral catheterization. Patient denies any recent decrease in urine output, although color dark yellow. UA RBC 0, WBC 25-50 cells, squamous epithelial 825 cells. 3. Hypertension Blood pressure is stable. On IV hydralazine as needed 4 leukocytosis with neutrophilia, uncertain significance: Repeat WBC count is normal. No fever. More probably reactive. DVT prophylaxis: Heparin 5000 units subcutaneous twice daily Charges/Coding Visit Charges Inpatient E&M: 07039 Subs Hosp L2
[2021-12-25] MEDS: Glucerna Shake 120 ML LIQUID PO ×2 (08:53→12:51)
[2021-12-25] MEDS: Lactated Ringers 1,000 ML 100 ML IV (08:53)
[2021-12-25 08:54] VITALS: BP 103/56; PULSE 76; RESP 18; TEMP 36.8; O2SAT 98
[2021-12-25] MEDS: Cholecalciferol (VIT D3) 25 MCG TABLET (1,000 UNITS) 50 MCG PO (09:13)
[2021-12-25] MEDS: Sertraline 100 MG Tablet PO (09:14)
[2021-12-25] MEDS: Pantoprazole Sodium 40 MG Tablet PO (09:14)
[2021-12-25] MEDS: Heparin Injection (Vial) 5,000 UNIT/ML VIAL 5000 UNIT SC ×2 (09:14→21:01)
--- NOTE | 2021-12-25 11:00 | CASEMGMT ---
RN CM Face to Face with patient for initial transition planning/care coordination assessment. RN CM introduced self and role at [facility]. Patient sitting in chair, alert and oriented, at bedside. Patient willing to participate in assessment and is able to answer all questions appropriately. Care providers, pharmacy, and demographics verified. Patient wishes to discharge home, denies need for home health at this time. Patient states she has no further needs or concerns at this time. CM to follow for discharge planning needs that may arise. PCP: Carlitos Specialists: kerline Chairez Preferred Pharmacy: [facility] Insurance: [facility], [facility] Prescription Benefit: yes Living Will/HPOA: none LNOK: Living Arrangements: Patient lives with in a single story home with 2 steps to enter the home. Patient states she is independent at home. Transportation: self, DME/HHC: patient states she has cane at home. No previous HHC or SNF. Disposition Plan: Patient to discharge home with family support and follow-up plans in place. Marcela ANGEL, RN, CM
[2021-12-25 13:47] VITALS: O2SAT 99
[2021-12-25 15:07] LABS: Pathologist Review Reviewed
--- NOTE | 2021-12-25 15:07 | PCM.CONS.R ---
Assessment & Plan Assessment/Plan (1) Acute kidney injury: (2) Hypertension: (3) Leukocytosis: (4) Metabolic acidosis: PLAN: Patient was admitted after she presented to the emergency room with extreme fatigue, weakness, and poor oral intake for the past month, lab work in the emergency room showed creatinine of 8.12 mg/dL. LIBERTAD is likely prerenal in setting of extreme poor oral intake, diarrhea, dehydration with concurrent LILLIE inhibitor use. Patient has normal baseline creatinine as of July 2019, creatinine was 0.80. Today creatinine 7.04 mg/dL. Patient is nonoliguric. Upon exam patient appears to be hypovolemic. Recommend to continue with IV fluids but will change to bicarb drip. Lisinopril is on hold. Recommend to continue holding lisinopril. Blood pressures on the low side. She is not on any antihypertensives except for hydralazine as needed. At this time there is no acute indication for PRE SALES TECHNICAL CONSULTANT, no significant uremic symptoms, potassium acceptable and patient is making urine. Renal ultrasound done, report pending. Random UA showed 30 of protein, 50 occult blood, 0 RBCs. Urine Osmo 211, urine random sodium 69. Urinalysis did show leukocyte esterase, can send urine culture. Okay for patient to be on a regular diet, she does not need any renal diet restrictions. Further orders will be forthcoming as hospitalization evolves. Thank you for letting us participate in the care of Ms. Grigsby. HPI Consult Data Date of Consult: 12/25/21 HPI Narrative HPI Narrative: JASON GRIGSBY, is a 71 F who has past medical history significant for fibromyalgia, irritable bowel syndrome, depression/anxiety, hypertension was brought to the emergency room by her as patient was noted to become more weaker, lethargic, and confused at home. Patient had lab work in the emergency room which showed a creatinine of 8, hemoglobin 14, bicarb 12. Patient was started on IV fluids and admitted for further evaluation and treatment. We were consulted for renal insufficiency. Patient has not been evaluated by a tube inspector in the past. Most information is gathered from patient however her is at bedside and able to confirm information as patient has some intermittent confusion. Apparently patient was diagnosed with Covid end of October and since then appetite has been poor. No nausea or vomiting per patient or however patient does have a history of irritable bowel syndrome and recently stools have been watery/loose and yellow in color. No NSAIDs. Despite not feeling well patient continued to take her medications which included lisinopril. Patient stated she had some dizziness upon standing at home with difficult time getting from chair to the bathroom because of weakness and dizziness. No falls. Patient states she lost weight but unable to say how much. [facility] Medical History (Updated 12/25/21 @ 15:15 by MADISON Sprague) Anxiety Fibromyalgia Hyperlipidemia Hypertension IBS (irritable bowel syndrome) Home Medications clonazepam 0.5 mg tablet 0.5 mg PO BID 12/08/18 [History Last Taken 02/12/19 04:15 0.5 MG] dicyclomine 10 mg capsule 10 mg PO ONCE PRN 12/08/18 [History Last Taken Unknown] lisinopril 5 mg tablet 5 mg PO DAILY 12/08/18 [History Last Taken 02/12/19 04:15 5 MG] lorazepam 1 mg tablet 1 mg PO QHS PRN 12/08/18 [History Last Taken Unknown] sertraline 100 mg tablet 100 mg PO DAILY 12/08/18 [History Last Taken 02/12/19 04:15 100 MG] cholecalciferol (vitamin D3) [Vitamin D3] 2,000 unit PO DAILY 12/24/21 [History Last Taken Unknown] omeprazole 40 mg PO DAILY 12/24/21 [History Last Taken Unknown] rosuvastatin 5 mg PO QHS 12/24/21 [History Last Taken Unknown] Allergy/AdvReac Type Severity Reaction Status Date / Time amoxicillin Allergy Hives Verified 08/04/19 10:51 Family History Mother AAA (abdominal aortic aneurysm) Father Multiple sclerosis Brother Heart disease Myocardial infarction Kidney disease Sister Liver disease Surgical History H/O dilation and curettage History of total vaginal hysterectomy (TVH) pelvic floor repair Social History Smoking Status: Never smoker alcohol intake: never substance use type: does not use caffeine: Yes what type of physical activity do you participate in: walking seatbelt use: always do you feel safe at home: Yes additional social history: Ish Physical Exam Narrative Const: Alert and oriented x3, NAD HEENT: oral mucosa dry, lips dry Respiratory: Lung sounds clear anteriorly and posteriorly, no wheezes rhonchi rales noted Cardiovascular: S1, S2, rhythm rate regular GI: Abdomen soft, nontender, positive bowel sounds Extremities: No pitting edema Medical Records Data Medical Nutrition Assessment Dietitian: Malnutrition Criteria Met Start: 12/25/21 13:30 Freq: Status: Active Protocol: Document 12/25/21 13:31 [facility] (Rec: 12/25/21 13:31 [facility] [id number]) Nutrition Malnutrition Evidence of Malnutrition Exists Yes Malnutrition (severe): Acute Illness/Injury Evidenced By Suboptimal Energy Intake ( Severe),Weight Loss (Severe) Clinical Problem Acute Disease or Injury Related Malnutrition Etiology related to acute illness making it difficulty for pt to consume adequate nutrition to meet est nutritional needs Signs/Symptoms as evidenced by 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 Problem Recommendation Dietitian Recommendations/Changes Will change diet to liberal Regular d/t signs/symptoms of malnutrition Will change glucerna shake to ensure compact tid w/ medpass Lab / Micro Data Result Diagrams: 12/25/21 05:40 12/25/21 05:40 Labs: Laboratory Results - last 24 hr 12/24/21 19:30: WBC 14.4 H, RBC 4.78, Hgb 14.1, Hct 41.2, MCV 86.2, MCH 29.5, MCHC 34.2, RDW Std Deviation 40.7, RDW Coeff of Juan 13.0, Plt Count 232, MPV 10.7, Immature Gran % (Auto) 0.300, Neut % (Auto) 60.9, Lymph % (Auto) 12.8 L, [place] % (Auto) 6.1, Eos % (Auto) 19.4 H, Baso % (Auto) 0.5, Absolute Neuts (auto) 8.8 H, Absolute Lymphs (auto) 1.83, Nucleated RBC % 0, Differential Comment SCANNED, Diff Path Review Reviewed 12/24/21 19:30: Sodium 136, Potassium 4.3, Chloride 114 H, Carbon Dioxide 12.0 L, Anion Gap 10, BUN 77 H, Creatinine 8.12 H*, Estim Creat Clear Calc 5.41, Est GFR (MDRD) Af Amer 6 L, Est GFR (MDRD) Non-Af 5 L, BUN/Creatinine Ratio 9.5 L, Glucose 106, Calcium 8.6, Total Bilirubin 0.30, Direct Bilirubin 0.12, AST 9 L, ALT 10 L, Alkaline Phosphatase 107, Total Protein 7.7, Albumin 3.1 L, Globulin 4.6 H 12/24/21 21:50: Urine Color Straw, Urine Clarity Sl. Cloudy, Urine pH 6.0, Ur Specific [place] 1.010, Urine Protein 30 H, Urine Glucose (UA) Normal, Urine Ketones Negative, Urine Occult Blood 50 H, Urine Nitrite Negative, Urine Bilirubin Negative, Urine Urobilinogen Normal, Ur Leukocyte Esterase 500 H, Urine RBC 0 SEEN, Urine WBC 25-50 SEEN, Ur Squamous Epith Cells 10-25 SEEN, Urine Bacteria 1+, Urine Mucus 0 SEEN 12/25/21 03:30: Urine Osmolality 211, Ur Random Sodium 69, Urine Creatinine 23.70 12/25/21 05:40: WBC 9.8, RBC 3.88 L, Hgb 11.2 L, Hct 33.6 L, MCV 86.6, MCH 28.9, MCHC 33.3, RDW Std Deviation 41.0, RDW Coeff of Juan 13.2, Plt Count 145 L, MPV 10.6, Immature Gran % (Auto) 0.300, Neut % (Auto) 66.2, Lymph % (Auto) 10.1 L, [place] % (Auto) 5.8, Eos % (Auto) 16.9 H, Baso % (Auto) 0.7, Absolute Neuts (auto) 6.5, Absolute Lymphs (auto) 0.99, Nucleated RBC % 0 12/25/21 05:40: Sodium 143, Potassium 5.0, Chloride 123 H, Carbon Dioxide 11.0 L, Anion Gap 9, BUN 73 H, Creatinine 7.04 H, Estim Creat Clear Calc 6.24, Est GFR (MDRD) Af Amer 7 L, Est GFR (MDRD) Non-Af 6 L, BUN/Creatinine Ratio 10.4, Glucose 87, Calcium 7.7 L Radiology Impression Abdomen/Pelvis CT 12/24/21 20:17 IMPRESSION: No acute or inflammatory disease or bowel obstruction. Electronically Signed: Jean Marie Chaves MD at 21:22 EST ,
--- NOTE | 2021-12-25 15:09 | CHAPLAIN ---
Type of Pastoral Visit _x__ Initial Visit ___ Follow-up Visit ___ On-call Visit ___ General Patient Visit ___ Spiritual Assessment ___ Family Conference ___ Bereavement ___ Rapid Response ___ Code Blue ___ Other (describe below) Pastoral Care Referral From _x__ Patient ___ Family ___ Nurse ___ Physician ___ Compensation Business Partner ___ Chemical Equipment Repairer ___ Other (describe below) Sacrament/Intervention _x__ Active listening ___ Anointing ___ Hinduism ___ Bereavement ___ Communion ___ Candida exploration ___ ___ Life review _x__ Prayer ___ Reconciliation ___ Sacrament of Sick _x__ Supportive presence ___ Wedding ___ Other (describe below) Pastoral Comments patient initially does not seek more than a prayer; however with a couple of questions the patient begins to give more life details and reveals some family concerns; support and prayer given; spouse is also in the room
[2021-12-25 16:27] VITALS: BP 109/45; PULSE 75; RESP 18; TEMP 36.8; O2SAT 98
[2021-12-25 20:58] VITALS: BP 113/58; PULSE 82; RESP 16; TEMP 36.4; O2SAT 97
[2021-12-25] MEDS: Atorvastatin Calcium 10 MG Tablet PO (21:01)
[2021-12-26] VITALS (8 sets, daily range): BP systolic 121–143; BP diastolic 49–58; PULSE 69–88; RESP 16–18; TEMP 36.6–36.9; O2SAT 95–98
[2021-12-26 04:24] LABS: Absolute Lymphocyte Count 1.33 X10^3/uL (0.83-4.51); Absolute Neutrophil Count 3.4 X10^3/uL (2.0-7.7); Basophil# 0.03 X10^3/uL; Basophil% 0.5 % (0-1); Eosinophil# 0.77 X10^3/uL; Eosinophils% 12.5 % (0-5); Hematocrit 28.1 % (37-47); Hemoglobin 9.5 g/dL (12.0-15.0); Lymphocyte # 1.33 X10^3/ul (0.83-4.51); Lymphocyte % 21.7 % (19-41); Mean Corp Hgb Conc 33.8 g/dL (32-36); Mean Corpuscular Hgb 27.9 pg (27.0-32.0); Mean Corpuscular Volume 82.6 fL (81-99); Mean Platelet Vol. 10.7 fl (6.2-12.0); Monocyte# 0.56 X10^3/uL; Monocyte% 9.1 % (0-10); NRBC Flagged by Analyzer 0 % (0-5); Neutrophil # 3.44 X10^3/uL (2.7-7.7); Platelet Count 137 K/mm3 (150-450); RBC Distribution Width SD 39.4 fl (35.1-43.9); White Blood Count 6.1 K/mm3 (4.4-11.0)
[2021-12-26 04:48] LABS: Anion Gap 7 (5-15); BUN 61 mg/dL (7-18); BUN/Creat Ratio 10.3 RATIO (10-20); Calcium,Total 7.3 mg/dL (8.5-10.1); Chloride 117 mmol/L (98-107); Creatinine, Serum 5.95 mg/dL (0.55-1.02); EST Glomerular Filtration Rate 7 mL/min (>60); Est Glom Filt Rate - Afr Amer 9 mL/min (>60); Estimated Creatinine Clearance 7.38 ml/min; Glucose 132 mg/dL (74-106); Potassium 3.3 mmol/L (3.5-5.1); Sodium Level 145 mmol/L (136-145)
[2021-12-26] MEDS: Pantoprazole Sodium 40 MG Tablet PO (10:25)
[2021-12-26] MEDS: Sertraline 100 MG Tablet PO (10:25)
[2021-12-26] MEDS: Cholecalciferol (VIT D3) 25 MCG TABLET (1,000 UNITS) 50 MCG PO (10:25)
[2021-12-26] MEDS: Heparin Injection (Vial) 5,000 UNIT/ML VIAL 5000 UNIT SC ×2 (10:25→20:14)
--- NOTE | 2021-12-26 11:45 | PCM.PN.REN ---
Subjective Subjective No new complaints. Still has diarrhea. Urine output is better. No breathing difficulties. Objective Data Objective Data Vital Signs: Vital Signs Temp Pulse Resp BP Pulse Ox 97.8 F 75 18 122/58 H 98 12/26/21 08:58 12/26/21 08:58 12/26/21 09:22 12/26/21 08:58 12/26/21 10:22 Oxygen Delivery Method Room Air Weight: 59.1 kg Body Mass Index (BMI) 22.2 Intake & Output: Intake and Output for Last 24 Hours 12/24/21 12/25/21 12/26/21 23:59 23:59 23:59 Intake Total 2360 / 2360 3970 / 3970 1425 / 1425 Output Total 1900 / 1900 Balance 2360 / 2360 2070 / 2070 1425 / 1425 Medical Nutrition Assessment Dietitian: Malnutrition Criteria Met Start: 12/25/21 13:30 Freq: Status: Active Protocol: Document 12/25/21 13:31 ANDREW (Rec: 12/25/21 13:31 ANDREW [id number]) Nutrition Malnutrition Evidence of Malnutrition Exists Yes Malnutrition (severe): Acute Illness/Injury Evidenced By Suboptimal Energy Intake ( Severe),Weight Loss (Severe) Clinical Problem Acute Disease or Injury Related Malnutrition Etiology related to acute illness making it difficulty for pt to consume adequate nutrition to meet est nutritional needs Signs/Symptoms as evidenced by 7% wt loss 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 Problem Recommendation Dietitian Recommendations/Changes Will change diet to liberal Regular d/t signs/symptoms of malnutrition Will change glucerna shake to ensure compact tid w/ medpass Lab / Micro Data Result Diagrams: 12/26/21 03:43 12/26/21 03:43 Labs: Laboratory Results - last 24 hr 12/24/21 19:30: Diff Path Review Reviewed 12/26/21 03:43: Sodium 145, Potassium 3.3 L, Chloride 117 H, Carbon Dioxide 21.0, Anion Gap 7, BUN 61 H, Creatinine 5.95 H, Estim Creat Clear Calc 7.38, Est GFR (MDRD) Af Amer 9 L, Est GFR (MDRD) Non-Af 7 L, BUN/Creatinine Ratio 10.3, Glucose 132 H, Calcium 7.3 L 12/26/21 03:43: WBC 6.1, RBC 3.40 L, Hgb 9.5 L, Hct 28.1 L, MCV 82.6, MCH 27.9, MCHC 33.8, RDW Std Deviation 39.4, RDW Coeff of Juan 13.0, Plt Count 137 L, MPV 10.7, Immature Gran % (Auto) 0.200, Neut % (Auto) 56.0, Lymph % (Auto) 21.7, [place] % (Auto) 9.1, Eos % (Auto) 12.5 H, Baso % (Auto) 0.5, Absolute Neuts (auto) 3.4, Absolute Lymphs (auto) 1.33, Nucleated RBC % 0 Radiography Diagnostic Testing: Radiology Impression Renal Ultrasound 12/24/21 23:08 IMPRESSION: There are 2 right renal cysts. Electronically Signed: Scott Joya MD at 15:34 EST , Physical Exam Narrative Alert awake oriented x 3 no obvious distress no pallor no icterus no JVD s1s2 no murmurs lungs clear abdomen soft no organomegaly no edema no cyanosis Assessment & Plan Assessment/Plan (1) Acute kidney injury: PLAN: Normal baseline creatinine as of 2 years ago. Likely all volume depletion. Renal ultrasound without any hydronephrosis. Urine analysis does show some leukocytes, urine culture shows gram-positive. Management as per primary team. Creatinine is significantly better with fluids alone. Continue fluids 1 more day. If creatinine continues to trend down tomorrow, can discharge home. (2) Hypertension: (3) Leukocytosis: (4) Metabolic acidosis: PLAN: [place] acidosis, due to diarrhea. Bicarbonate levels are improved. Stop IV bicarbonate and change to IV normal saline.
[2021-12-26] MEDS: 0.9% Normal Saline 1,000 ML 100 ML IV ×2 (13:15→22:05)
--- NOTE | 2021-12-26 15:28 | PCM.PN.HOSP ---
Subjective Subjective Patient urine output 1600 mL. 2 bowel movement. No burning micturition.I went over the ultrasound findings Objective Data Objective Data Vital Signs: Vital Signs Temp Pulse Resp BP Pulse Ox 97.8 F 75 18 122/58 H 98 12/26/21 08:58 12/26/21 08:58 12/26/21 09:22 12/26/21 08:58 12/26/21 10:22 Oxygen Delivery Method Room Air Weight: 130 lb 4.691 oz Body Mass Index (BMI) 22.2 Intake & Output: Intake and Output for Last 24 Hours 12/24/21 12/25/21 12/26/21 23:59 23:59 23:59 Intake Total 2360 / 2360 3970 / 3970 3375 / 3375 Output Total 1900 / 1900 800 / 800 Balance 2360 / 2360 2070 / 2070 2575 / 2575 Medical Nutrition Assessment Dietitian: Malnutrition Criteria Met Start: 12/25/21 13:30 Freq: Status: Active Protocol: Document 12/25/21 13:31 ANDREW (Rec: 12/25/21 13:31 ANDREW [id number]) Nutrition Malnutrition Evidence of Malnutrition Exists Yes Malnutrition (severe): Acute Illness/Injury Evidenced By Suboptimal Energy Intake ( Severe),Weight Loss (Severe) Clinical Problem Acute Disease or Injury Related Malnutrition Etiology related to acute illness making it difficulty for pt to consume adequate nutrition to meet est nutritional needs Signs/Symptoms as evidenced by 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 Problem Recommendation Dietitian Recommendations/Changes Will change diet to liberal Regular d/t signs/symptoms of malnutrition Will change glucerna shake to ensure compact tid w/ medpass Lab / Micro Data Result Diagrams: 12/26/21 03:43 12/26/21 03:43 Labs: Laboratory Results - last 24 hr 12/26/21 03:43: Sodium 145, Potassium 3.3 L, Chloride 117 H, Carbon Dioxide 21.0, Anion Gap 7, BUN 61 H, Creatinine 5.95 H, Estim Creat Clear Calc 7.38, Est GFR (MDRD) Af Amer 9 L, Est GFR (MDRD) Non-Af 7 L, BUN/Creatinine Ratio 10.3, Glucose 132 H, Calcium 7.3 L 12/26/21 03:43: WBC 6.1, RBC 3.40 L, Hgb 9.5 L, Hct 28.1 L, MCV 82.6, MCH 27.9, MCHC 33.8, RDW Std Deviation 39.4, RDW Coeff of Juan 13.0, Plt Count 137 L, MPV 10.7, Immature Gran % (Auto) 0.200, Neut % (Auto) 56.0, Lymph % (Auto) 21.7, [place] % (Auto) 9.1, Eos % (Auto) 12.5 H, Baso % (Auto) 0.5, Absolute Neuts (auto) 3.4, Absolute Lymphs (auto) 1.33, Nucleated RBC % 0 Radiography Diagnostic Testing: Radiology Impression Renal Ultrasound 12/24/21 23:08 IMPRESSION: There are 2 right renal cysts. Electronically Signed: Scott Joya MD at 15:34 EST Reading Location ID and State: [address] [place] [address] , Service support , Physical Exam Narrative General: Alert, awake and oriented x3 HEENT: Atraumatic, PERRLA, EOMI, Normocephalic Oral: No Gingival or Mucosal Lesions/ Ulcerations Neck: Supple, No JVD, Negative Carotid Bruits Lungs: Air entry diminished in bilateral lung bases. No crepitation/rhonchi Cardiovascular: Regular rate, Regular Rhythm, Normal S1, Normal S2, No murmurs Abdomen: Bowel Sounds Present, Soft, Non Tender, Non-Distended : No renal angle tenderness. No suprapubic tenderness. Urine output adequate. Extremities: No edema, Capillary Refill Less than 3 Seconds Skin: No rashes, No breakdown Musculoskeletal: No Tenderness to Palpation of Joints or Extremities Neurological: Tremors of both hands cranial nerves II-XII grossly intact, DTR 2+/4 Psych/Mental Status: Flat affect Assessment & Plan Assessment/Plan (1) Renal failure: PLAN: 1. Acute kidney injury with normal anion gap metabolic acidosis with high-priority of progression to [facility]N: [facility]. Patient admitted with creatinine 8.12. Her creatinine was 0.[address] abdomen reviewed and does not show clinical cause for LIBERTAD. Ultrasound kidney and bladder ordered. I talked to manager of project management and requested for consult. Patient on Ringer lactate. Avoid nephrotoxins. Hold lisinopril. Urine osmolarity 211, random sodium 69. Serum sodium normal. Hyperchloremia. 12/26: Improvement in BUN/creatinine. Discussed with the manager of project management. Ultrasound findings discussed with the patient shows 2 right renal cysts. Mild hypokalemia, potassium replaced. Wildlife Control Agent note reviewed. Stop IV bicarb drip continues to worsen. 2 genitourinary surgery: It is unclear whether patient had obstructive LIBERTAD. Bladder scan every 6 hourly. Patient had surgery for cystocele, rectocele uterine prolapse and stress related incontinence in January [address] Chairez and Dr. Cazares anterior repair with mesh (Restorelle), posterior repair without mesh, midurethral sling (Altis), cystoscopy with bilatera ureteral catheterization. Patient denies any recent decrease in urine output, although color dark yellow. UA RBC 0, WBC 25-50 cells, squamous epithelial 825 cells. 3. Hypertension Blood pressure is stable. On IV hydralazine as needed 4 leukocytosis with neutrophilia, uncertain significance: Repeat WBC count is normal. No fever. More probably reactive. DVT prophylaxis: Heparin 5000 units subcutaneous twice daily Charges/Coding Visit Charges Inpatient E&M: 30364 Subs Hosp L2
[2021-12-26] MEDS: Potassium Chloride Oral Tablet 20 MEQ 40 MEQ PO (16:48)
[2021-12-26] MEDS: Atorvastatin Calcium 10 MG Tablet PO (20:14)
[2021-12-26] MEDS: Sodium Chloride 0.65% 1 SPRAY SPRAY.BTL NASAL (22:43)
[2021-12-27 02:24] VITALS: BP 139/50; PULSE 73; RESP 16; TEMP 36.9; O2SAT 96
[2021-12-27 07:37] VITALS: O2SAT 97
--- NOTE | 2021-12-27 08:08 | PCM.DC ---
Discharge Instructions Diet Discharge Diet: 2000 mg Sodium Diet Activity Discharge Activity: Return to Normal Activity and May Not Drive Weight Bearing Status: Weight bearing as tolerated Dressing / Incision Call your doctor if you observe: Fever of 101 or Higher, Coldness, Increased Pain, Numbness or Tingling, Change in Color, Inability to urinate, Inability to have a bowel movement, Using more than 1 pad per hour, Shortness of breath, Dizziness, Fainting spells, Swelling in the ankles, Chest pain, Prolonged hiccupping, Increased palpitations (irregular heartbeat), Calf discomfort and Uncontrolled pain Follow Up Care Test Results: Test results from this visit will be discussed in further detail at your follow-up appointment, if applicable. Discharge Plan Admission Admit Date/Time: 12/24/21 22:05 Primary Reason for Your Visit: Acute kidney injury Attending Provider: Miles Kraus Primary Care Provider: Fe Urbina Consulting Providers: Tiesha Magana Discharge Orders/Prescriptions Prescriptions: Continued lorazepam [Ativan] 1 mg tablet 1 mg PO QHS PRN (Reason: Anxiety) RF: 0 clonazepam 0.5 mg tablet 0.5 mg PO BID RF: 0 sertraline [Zoloft] 100 mg tablet 100 mg PO DAILY RF: 0 dicyclomine 10 mg capsule 10 mg PO ONCE PRN (Reason: IBS) RF: 0 omeprazole 40 mg capsule,delayed release(DR/EC) 40 mg PO DAILY RF: 0 rosuvastatin 5 mg tablet 5 mg PO QHS RF: 0 cholecalciferol (vitamin D3) [Vitamin D3] 50 mcg (2,000 unit) Capsule 2,000 unit PO DAILY RF: 0 Held lisinopril 5 mg tablet 5 mg PO DAILY RF: 0 Hold Instructions: Hold for about 2 weeks until kidney function returns to normal baseline. BMP 1 week from now follow-up with dicer operator Referrals / Follow Up: Fe Urbina MD [Primary Care Provider] - Disposition Disposition (needs filled in before D/C Order can be placed): Home, Self Care
--- NOTE | 2021-12-27 08:09 | DS.PCM_ITS ---
Providers Date of Admission: 12/24/21 Date of Discharge: 12/27/21 Primary Care Physician: Dr. Fe Urbina MD Consultations 12/25/21 08:15 Consult: Nephrology Routine Consulting Provider: Tiesha Magana Reason for Consult: LIBERTAD EMERGENT Consult: No MD Notified: Yes Date Notified: 12/25/21 Time Notified: 08:15 Method of Notification: Verbal Reason For Visit: LIBERTAD Diagnosis Discharge Diagnosis (1) Renal failure: Status: Acute Code(s): N19 - Unspecified kidney failure Medications at Discharge Home Medications clonazepam 0.5 mg tablet 0.5 mg PO BID 12/08/18 dicyclomine 10 mg capsule 10 mg PO ONCE PRN 12/08/18 lisinopril 5 mg tablet 5 mg PO DAILY 12/08/18 lorazepam 1 mg tablet 1 mg PO QHS PRN 12/08/18 sertraline 100 mg tablet 100 mg PO DAILY 12/08/18 cholecalciferol (vitamin D3) [Vitamin D3] 2,000 unit PO DAILY 12/24/21 omeprazole 40 mg PO DAILY 12/24/21 rosuvastatin 5 mg PO QHS 12/24/21 Hospital Course Summary of Care Provided Hospital Course: 71-year-old female with multiple comorbidities was admitted with generalized weakness, lethargy, hypersomnia since mid-November 2021. In ED she was found to be LIBERTAD 1. Acute kidney injury with normal anion gap metabolic acidosis most likely prerenal with possibility of ATN: Patient admitted to [facility] floor. Patient admitted with creatinine 8.12. Her creatinine was 0.[address] abdomen reviewed and does not show clinical cause for LIBERTAD. Ultrasound kidney and bladder ordered. I talked to promotions representative and requested for consult. Patient on Ringer lactate. Avoid nephrotoxins. Hold lisinopril. Urine osmolarity 211, random sodium 69. Serum sodium normal. Hyperchloremia. During hospital course, there was improvement in BUN/creatinine. Discussed with the promotions representative. Ultrasound findings discussed with the patient shows 2 right renal cysts. Mild hypokalemia, potassium replaced. Patient was treated with IV fluid sodium bicarbonate and normal saline. Advised BMP in 1 week and follow-up with promotions representative. 2 genitourinary surgery: It is unclear whether patient had obstructive LIBERTAD. Bladder scan every 6 hourly. Patient had surgery for cystocele, rectocele uterine prolapse and stress related incontinence in January [address] Chairez and Dr. Cazares anterior repair with mesh (Restorelle), posterior repair without mesh, midurethral sling (Altis), cystoscopy with bilatera ureteral catheterization. Patient denies any recent decrease in urine output, although color dark yellow. UA RBC 0, WBC 25-50 cells, squamous epithelial 825 cells. 3. Hypertension Blood pressure is stable. On IV hydralazine as needed 4 leukocytosis with neutrophilia, uncertain significance: Repeat WBC count is normal. No fever. More probably reactive. DVT prophylaxis: Heparin 5000 units subcutaneous twice daily Discharge medication reconciliation done. Discharge follow-up instructions completed. Discharge process discussed with the patient and all questions were answered to patient's satisfaction. Hold lisinopril at least 2 weeks and then decide after BMP result. BMP 1 week from now and follow with PCP or promotions representative. Total time spent, exact 35 minutes on discharge meds reconciliation, examination, coordination of care with nurses and ancillary staff, review of imaging and blood test and discussion with the patient on follow-up instructions Physical Exam Narrative Seen and examined. The patient does not have burning micturition. UA shows a squamous epithelial cells 10-25 cells therefore not a good sample is usually less than 5 cells per hpf, LE 500 patient has not had burning micturition. Urine output 2000 mL in the last 24 hours. Creatinine improving General: Alert, awake and oriented x3 HEENT: Atraumatic, PERRLA, EOMI, Normocephalic Oral: No Gingival or Mucosal Lesions/ Ulcerations Neck: Supple, No JVD, Negative Carotid Bruits Lungs: Air entry diminished in bilateral lung bases. No crepitation/rhonchi Cardiovascular: Regular rate, Regular Rhythm, Normal S1, Normal S2, No murmurs Abdomen: Bowel Sounds Present, Soft, Non Tender, Non-Distended : No renal angle tenderness. No suprapubic tenderness. Urine output adequate. Extremities: No edema, Capillary Refill Less than 3 Seconds Skin: No rashes, No breakdown Musculoskeletal: No Tenderness to Palpation of Joints or Extremities Neurological: Tremors of both hands cranial nerves II-XII grossly intact, DTR 2+/4 Psych/Mental Status: Flat affect Medical Records Data Medical Nutrition Assessment Dietitian: Malnutrition Criteria Met Start: 12/25/21 13:30 Freq: Status: Active Protocol: Document 12/25/21 13:31 ANDREW (Rec: 12/25/21 13:31 SLA [id number]) Nutrition Malnutrition Evidence of Malnutrition Exists Yes Malnutrition (severe): Acute Illness/Injury Evidenced By Suboptimal Energy Intake ( Severe),Weight Loss (Severe) Clinical Problem Acute Disease or Injury Related Malnutrition Etiology related to acute illness making it difficulty for pt to consume adequate nutrition to meet est nutritional needs Signs/Symptoms as evidenced by 7% wt loss and <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 Problem Recommendation Dietitian Recommendations/Changes Will change diet to liberal Regular d/t signs/symptoms of malnutrition Will change glucerna shake to ensure compact tid w/ medpass Weight / BMI Weight Weight: 130 lb 4.691 oz Body Mass Index (BMI) 22.2 ABG / Lab / Microbiology Data Result Diagrams: 12/26/21 03:43 12/27/21 08:27 Meaningful Use Info Meaningful Use Diagnoses (Choose all that apply): None applicable Discharge Plan Admission Admit Date/Time: 12/24/21 22:05 Primary Reason for Your Visit: Acute kidney injury Attending Provider: Miles Kraus Primary Care Provider: Fe Urbina Consulting Providers: Tiesha Magana Discharge Orders/Prescriptions Prescriptions: Continued lorazepam [Ativan] 1 mg tablet 1 mg PO QHS PRN (Reason: Anxiety) RF: 0 clonazepam 0.5 mg tablet 0.5 mg PO BID RF: 0 sertraline [Zoloft] 100 mg tablet 100 mg PO DAILY RF: 0 dicyclomine 10 mg capsule 10 mg PO ONCE PRN (Reason: IBS) RF: 0 omeprazole 40 mg capsule,delayed release(DR/EC) 40 mg PO DAILY RF: 0 rosuvastatin 5 mg tablet 5 mg PO QHS RF: 0 cholecalciferol (vitamin D3) [Vitamin D3] 50 mcg (2,000 unit) Capsule 2,000 unit PO DAILY RF: 0 Held lisinopril 5 mg tablet 5 mg PO DAILY RF: 0 Hold Instructions: Hold for about 2 weeks until kidney function returns to normal baseline. BMP 1 week from now follow-up with promotions representative Referrals / Follow Up: Fe Urbina MD [Primary Care Provider] - Disposition Disposition (needs filled in before D/C Order can be placed): Home, Self Care Charges/Coding Visit Charges Inpatient E&M: 22739 Disch Hosp
[2021-12-27] MEDS: Pantoprazole Sodium 40 MG Tablet PO (08:12)
[2021-12-27] MEDS: Heparin Injection (Vial) 5,000 UNIT/ML VIAL 5000 UNIT SC (08:12)
[2021-12-27] MEDS: Sertraline 100 MG Tablet PO (08:12)
[2021-12-27] MEDS: Cholecalciferol (VIT D3) 25 MCG TABLET (1,000 UNITS) 50 MCG PO (08:12)
[2021-12-27] MEDS: 0.9% Normal Saline 1,000 ML 100 ML IV (08:14)
[2021-12-27] MEDS: Potassium Chloride Oral Tablet 20 MEQ 40 MEQ PO (08:17)
[2021-12-27 08:27] VITALS: O2SAT 95
[2021-12-27 08:59] LABS: Anion Gap 5 (5-15); BUN 46 mg/dL (7-18); BUN/Creat Ratio 9.5 RATIO (10-20); Calcium,Total 7.3 mg/dL (8.5-10.1); Chloride 117 mmol/L (98-107); Creatinine, Serum 4.85 mg/dL (0.55-1.02); EST Glomerular Filtration Rate 9 mL/min (>60); Est Glom Filt Rate - Afr Amer 11 mL/min (>60); Estimated Creatinine Clearance 9.05 ml/min; Glucose 105 mg/dL (74-106); Potassium 3.7 mmol/L (3.5-5.1); Sodium Level 146 mmol/L (136-145)
[2021-12-27 11:00] VITALS: BP 133/82; PULSE 80; RESP 16; TEMP 36.8; O2SAT 96
--- NOTE | 2021-12-27 11:05 | CASEMGMT ---
HANK CM in to pt room. Pt getting dressed to go home, at bedside. Pt states she feels fine to go home. States she goes line dancing every . Pt denies further needs.
== END 2021-12-27 11:15 | disposition home or self-care (01) | DRG 682 ==
LOC: ED 22:11 → MS3 12-25 01:26
PROVIDERS: Nurse Practitioner Adult Health; Admitting Provider Hospitalist; Emergency Provider Emergency Medicine; PCP Internal Medicine; Visit Provider Internal Medicine
DX: N17.0 Acute kidney failure with tubular necrosis (principal); E43 Unspecified severe protein-calorie malnutrition; E87.2 Acidosis; E87.8 Other disorders of electrolyte and fluid balance, not elsewhere classified; E78.5 Hyperlipidemia, unspecified; I10 Essential (primary) hypertension; M79.7 Fibromyalgia; F41.9 Anxiety disorder, unspecified; E87.6 Hypokalemia; K58.9 Irritable bowel syndrome, unspecified; N28.1 Cyst of kidney, acquired; Z68.22 Body mass index [BMI] 22.0-22.9, adult; Z79.899 Other long term (current) drug therapy; F32.A Depression, unspecified; R63.0 Anorexia
CPT/HCPCS: 36415; 74176; 76770; 80048; 80076; 81001; 82570; 83935; 84300; 85025; 97110; 97162; 97166; 97530; 97535; 97802; 99284; J7030; J7120; A4216

== ENCOUNTER 2022-01-31 16:11 | Outpatient (CLI) | payer MEDICARE, OTHER, SELFPAY ==
[2022-01-31 16:16] LABS: Mucous, Urine 0 SEEN /hpf (<or=2+)
[2022-01-31 16:53] LABS: Absolute Lymphocyte Count 1.32 X10^3/uL (0.83-4.51); Absolute Neutrophil Count 6.2 X10^3/uL (2.0-7.7); Basophil# 0.06 X10^3/uL; Basophil% 0.7 % (0-1); Eosinophil# 0.27 X10^3/uL; Eosinophils% 3.2 % (0-5); Hematocrit 28.2 % (37-47); Hemoglobin 9.3 g/dL (12.0-15.0); Lymphocyte # 1.32 X10^3/ul (0.83-4.51); Lymphocyte % 15.7 % (19-41); Mean Corpuscular Hgb 28.5 pg (27.0-32.0); Mean Corpuscular Volume 86.5 fL (81-99); Mean Platelet Vol. 10.7 fl (6.2-12.0); Monocyte# 0.52 X10^3/uL; Monocyte% 6.2 % (0-10); NRBC Flagged by Analyzer 0 % (0-5); Neutrophil # 6.22 X10^3/uL (2.7-7.7); Neutrophil % 73.8 % (47-70); Platelet Count 171 K/mm3 (150-450); RBC Distribution Width SD 47.8 fl (35.1-43.9); Red Blood Count 3.26 M/mm3 (4.2-5.4); White Blood Count 8.4 K/mm3 (4.4-11.0)
[2022-01-31 17:01] LABS: Color, Urine Straw (Yellow); Glucose, Dipstick Normal (Normal); Ketone-Dipstick Negative (Negative); Leukocyte Esterase-Dipstick 500 /ul (Negative); Nitrite-Dipstick Negative (Negative); Occult Blood-Urine 150 /ul (Negative); Protein-Dipstick Negative (Negative); Specific Gravity, Urine 1.015 (1.002-1.030); Urine Bilirubin Dipstick Negative (Negative); Urine Clarity Sl. Cloudy (Clear); Urine Urobilinogen Normal (Normal)
[2022-01-31 17:20] LABS: White Blood Cells 25-50 SEEN /hpf (0-5)
[2022-01-31 17:21] LABS: Squamous Epithelial Cells - UA 5-10 SEEN /hpf (5-10)
[2022-01-31 17:23] LABS: Bacteria RARE /hpf (None Seen); Red Blood Cells-Urine 0-5 SEEN /hpf (0-5)
[2022-01-31 17:30] LABS: AST(SGOT) 14 U/L (15-37); Alanine Aminotransfer ALT/SGPT 15 U/L (13-56); Albumin, Serum 3.5 g/dL (3.2-5.0); Alkaline Phosphatase 67 U/L (45-117); Anion Gap 6 (5-15); BUN 45 mg/dL (7-18); BUN/Creat Ratio 15.3 RATIO (10-20); CPK Total, Creatine Kinase 49 U/L (26-192); CRP < 2.90 mg/L (0.0-3.0); Calcium,Total 8.4 mg/dL (8.5-10.1); Chloride 113 mmol/L (98-107); Creatinine, Serum 2.94 mg/dL (0.55-1.02); EST Glomerular Filtration Rate 17 mL/min (>60); Est Glom Filt Rate - Afr Amer 20 mL/min (>60); Ferritin 370 ng/mL (8-252); Globulin 3.6 g/dL (2.2-4.2); Glucose 92 mg/dL (74-106); Iron 82 ug/dL (50-170); Iron Binding Capacity,Total 258 ug/dL (250-450); LDH 162 U/L (84-246); PERCENT IRON SATURATION 31.8 % (15.0-55.0); Potassium 3.9 mmol/L (3.5-5.1); Protein, Total 7.1 g/dL (6.4-8.2); Sodium Level 139 mmol/L (136-145)
[2022-01-31 17:37] LABS: Erythrocyte Sedimentation Rate 31 mm/hr (0-30)
[2022-02-02 13:08] LABS: Anti-Centromere B Ab <0.2 AI (0.0-0.9); Anti-Chromatin <0.2 AI (0.0-0.9); Anti-Jo <0.2 AI (0.0-0.9); Anti-Scleroderma-70 AB <0.2 AI (0.0-0.9); RNP Ab <0.2 AI (0.0-0.9); SJOGREN'S Anti-SS-A test < 0.2 AI (0.0-0.9); SJOGREN'S Anti-SS-B test < 0.2 AI (0.0-0.9); Smith Ab <0.2 AI (0.0-0.9)
[2022-02-02 16:07] LABS: Anti-dsDNA Ab <1 IU/mL (0-9)
[2022-02-05 12:09] LABS: Complement C3 141 mg/dL (82-167); Cytoplasmic Ab (C-ANCA) <1:20 titer (Neg:<1:20); Endomysial Antibody IgA Negative (Negative); Immunoglobulin A 234 mg/dL (64-422); Immunoglobulin E 12 IU/mL (6-495); Immunoglobulin G 1067 mg/dL (586-1602); Immunoglobulin M 59 mg/dL (26-217)
[2022-02-05 13:27] LABS: Complement CH50 > 60 U/mL (>41); Perinuclear Ab (P-ANCA) <1:20 titer (Neg:<1:20); t-Transglutaminase IgA <2 U/mL (0-3)
== END 2022-01-31 23:59 | disposition home or self-care (01) ==
LOC: LAB 16:12
PROVIDERS: PCP Internal Medicine; Visit Provider Internal Medicine Gastroenterology
DX: N19 Unspecified kidney failure (principal)
CPT/HCPCS: 36415; 80053; 81001; 82550; 82728; 82784; 82785; 83516; 83540; 83550; 83615; 85025; 85652; 86140; 86160; 86162; 86225; 86235; 86255; 86256

== ENCOUNTER 2022-02-20 12:00 | Outpatient (CLI) | payer MEDICARE, OTHER, SELFPAY ==
[2022-02-20 13:21] LABS: Albumin, Serum 3.6 g/dL (3.2-5.0); BUN 35 mg/dL (7-18); Calcium,Total 8.8 mg/dL (8.5-10.1); Chloride 112 mmol/L (98-107); Creatinine, Serum 2.69 mg/dL (0.55-1.02); EST Glomerular Filtration Rate 18 mL/min (>60); Est Glom Filt Rate - Afr Amer 22 mL/min (>60); Glucose 93 mg/dL (74-106); Phosphorus 3.2 mg/dL (2.5-4.9); Potassium 4.1 mmol/L (3.5-5.1); Sodium Level 140 mmol/L (136-145)
== END 2022-02-20 23:59 | disposition home or self-care (01) ==
LOC: POLAB3 12:02
PROVIDERS: PCP Internal Medicine; Visit Provider Internal Medicine Nephrology
DX: N17.9 Acute kidney failure, unspecified (principal)
CPT/HCPCS: 36415; 80069

== ENCOUNTER → 2022-03-19 | Outpatient (CLI) | payer MEDICARE, OTHER, SELFPAY ==
[2022-03-19 12:43] LABS: Albumin, Serum 3.3 g/dL (3.2-5.0); BUN 38 mg/dL (7-18); Calcium,Total 8.5 mg/dL (8.5-10.1); Chloride 112 mmol/L (98-107); Creatinine, Serum 2.38 mg/dL (0.55-1.02); EST Glomerular Filtration Rate 21 mL/min (>60); Est Glom Filt Rate - Afr Amer 26 mL/min (>60); Glucose 98 mg/dL (74-106); Phosphorus 3.4 mg/dL (2.5-4.9); Potassium 4.2 mmol/L (3.5-5.1); Sodium Level 140 mmol/L (136-145)
== END | disposition home or self-care (01) ==
LOC: POLAB3 09:29
PROVIDERS: PCP Internal Medicine; Visit Provider Internal Medicine Nephrology
DX: N17.9 Acute kidney failure, unspecified (principal)
CPT/HCPCS: 36415; 80069

== ENCOUNTER 2022-04-19 07:51 | Day surgery (SDC) | payer MEDICARE, OTHER, SELFPAY ==
--- NOTE | 2022-04-18 10:55 | PCM.HP.STD ---
HPI - General HPI Narrative JASON GRIGSBY, is a 72 F who presentsIntake Intake Visit Reasons: TROUBLE EATING/ABDOMEN PAIN Chief Complaint: inability to keep food down. weakness Allergies amoxicillin Allergy (Verified 08/04/19 10:51) Hives [facility] Medical History (Updated 01/31/22 @ 18:[address] Campbell Friend, DO) Acute kidney injury Anxiety Fibromyalgia Hyperlipidemia Hypertension IBS (irritable bowel syndrome) Surgical History H/O dilation and curettage History of total vaginal hysterectomy (TVH) pelvic floor repair Family History Mother AAA (abdominal aortic aneurysm) Father Multiple sclerosis Brother Heart disease Myocardial infarction Kidney disease Sister Liver disease Social History Smoking Status: Never smoker alcohol intake: never substance use type: does not use caffeine: Yes what type of physical activity do you participate in: walking seatbelt use: always do you feel safe at home: Yes additional social history: [facility] HPI Chief Complaint: inability to keep food down. weakness Details: JASON GRIGSBY, is a 72 F who presents to the office today for Evaluation of abdominal pain and difficulty eating. Jason established with this clinic 01.31.22 for small pebble stools alternating with diarrhea with associated abdominal pain/cramping and difficulty eating. She has lost approximately 12 pounds in the last 2 months. Additional medical history includes anxiety and depression, IBS, fibromyalgia, COVID infection . She was recently hospitalized 12.24.21 through 12.27.21 for management of LIBERTAD with possible obstructive origin; genitourinary surgery for cystocele, rectocele uterine prolapse and stress related incontinence [address]airez and Dr. Cazares; hypertension, stable; leukocytosis with neutrophilia, likely reactive state.While she was in the hospital she was also discovered to have acute anemia and thrombocytopenia. When she was discharged from the hospital her creatinine was 4.3. She does have a scheduled visit with urologist in approximately [address] abd/pel 2.05.09 found no acute or chronic disease state. ROS Const Constitutional: No anorexia, fatigue, fever(s), weight change or sleep problems Eyes Eyes: No change in vision ENT ENT: No abnormal hearing, difficulty swallowing, mouth lesions, tongue swelling or throat swelling Resp Respiratory: No cough or shortness of breath Cardio Cardiology: No chest pain at rest, chest pain with exertion, shortness of breath or dyspnea on exertion Gastro GI: No difficulty swallowing Genitourinary-Female: No difficulty urinating or burning urination Musc Musculoskeletal: No joint pain, joint swelling, muscle weakness or decreased muscle mass Skin Skin: No hair loss in leg, yellowing of the eye, itchy eyes, rash, skin ulcer or skin swelling Neuro Neurology: No abnormal hearing, abnormal movements, confusion, unsteady gait/balance or memory loss Psych Psychiatric: No anxiety, No confusion and No memory loss Endo Endocrine: No fatigue or weight change Aller/Imm Allergy/Immunologic: No itchy eyes, throat swelling or tongue swelling Ric/Lymp Hematologic/Lymphatic: No easy bleeding, easy bruising or enlarged lymph nodes Exam Const General: cooperative and comfortable Nutritional Appearance: average body habitus and well nourished HENMT Head: normal to inspection Ears: hearing grossly normal bilaterally Nose: external nose normal Face and sinus: normal facial exam Mouth: oral mucosae normal Throat: posterior oropharynx normal Eyes General: appearance normal, both eyes and all related structures Neck Neck: normal visual inspection Chest Chest palpation & inspection: normal inspection of the chest and normal palpation of entire chest wall Resp Effort & Inspection: normal respiratory effort Auscultation: Bilateral: Clear to Auscultation Cardio Palpation: normal PMI Rate: regular rate Rhythm: regular rhythm GI Inspection: normal to inspection Auscultation: normal bowel sounds Percussion: normal to percussion Palpation: no hepatosplenomegaly Skin General: no rashes or lesions noted Neuro General: patient alert Extrem General: normal to inspection Psych Affect: normal affect Quality Reporting Tobacco Screening ([facility] 138) Smoking Status: Never smoker Assessment and Plan Assessment and Plan (1) Anemia: Status: Acute Plan - Dr. Campbell Friend, DO: The differential diagnosis for anemia could be chronic blood loss anemia secondary to celiac disease, peptic ulcer disease, neoplasia. She should undergo an upper endoscopy evaluate her upper and lower GI tract and also to perform biopsies to look for signs of villous atrophy associated with celiac disease or a enteropathy.Also different diagnosis would include bone marrow suppression given the fact that her platelet count is also depressed. (2) Thrombocytopenia: Status: Acute Plan - Dr. Campbell Friend, DO: Thrombocytopenia could be secondary to acute phase reactant. We will recheck her CBC along with iron studies. (3) Diarrhea: Status: Acute Plan - Dr. Campbell Friend, DO: Differential diagnosis for her diarrhea could be IBS with diarrhea, microscopic colitis, infectious colitis. She should undergo colonoscopy for evaluation of her lower GI tract. She was explained alternatives, risk, benefits including not withstanding bleeding, infection, sepsis, perforation, need for emergent surgery . She will have an ASA of 1. Coding Level of Care Code Off vis,new,level 3 Diagnoses Anemia D64.9 Thrombocytopenia D69.6 Diarrhea R19.7 01/31/22 1840<Electronically signed by Adrian Sneed DO>Date Adrian Sneed DO Cosigner Signature:Date (if applicable) CC: ~ I agree with the information contained within this document and have no updates to contribute; allow it to serve as my H&P. [facility] Medical History (Updated 04/17/22 @ 13:48 by Yolanda Del Real) Acute kidney injury Anxiety Benign essential tremor Bruising Fibromyalgia Gastric reflux High cholesterol History of edema History of hiatal hernia History of IBS History of renal disease Hyperlipidemia Hypertension IBS (irritable bowel syndrome) Non-smoker Wears glasses Wears hearing aid Home Medications clonazepam 0.5 mg tablet 0.5 mg PO BID 12/08/18 [History Last Taken 02/12/19 04:15 0.5 MG] lorazepam 1 mg tablet 1 mg PO QHS PRN 12/08/18 [History Last Taken Unknown] sertraline 100 mg tablet 100 mg PO DAILY 12/08/18 [History Last Taken 02/12/19 04:15 100 MG] cholecalciferol (vitamin D3) [Vitamin D3] 2,000 unit PO DAILY 12/24/21 [History Last Taken Unknown] omeprazole 40 mg PO DAILY 12/24/21 [History Last Taken Unknown] rosuvastatin 5 mg PO QHS 12/24/21 [History Last Taken Unknown] Allergy/AdvReac Type Severity Reaction Status Date / Time amoxicillin Allergy Hives Verified 08/04/19 10:51 Family History Mother AAA (abdominal aortic aneurysm) Father Multiple sclerosis Brother Heart disease Myocardial infarction Kidney disease Sister Liver disease Surgical History H/O dilation and curettage History of total vaginal hysterectomy (TVH) pelvic floor repair Social History Smoking Status: Never smoker alcohol intake: never substance use type: does not use caffeine: Yes what type of physical activity do you participate in: walking seatbelt use: always do you feel safe at home: Yes additional social history: [employer]
[2022-04-19] VITALS (7 sets, daily range): BP systolic 82–136; BP diastolic 41–66; PULSE 53–61; RESP 16; TEMP 35.9–36.5; O2SAT 95–100; BMI 22.3
[2022-04-19] MEDS: Lactated Ringers 1,000 ML 15 ML IV (08:28)
--- NOTE | 2022-04-19 09:00 | IMM_PTH ---
PATIENT: JASON GRIGSBY LOC: EN U#:[id number] AGE/SX: 72/F ROOM: RE04/19/[address]: Dr. Adrian Sneed DO : 1950 BED: DIS: 04/19/2022 SPEC #: [id number] RECD: 04/19/22 14:20 STATUS: NATHALY REQ #: [id number] MUSTAPHA: 04/19/22 09:[address]: Adrian Sneed DEPT: IMMUNOHISTOCHEMISTRY RECD BY: Jihan Blank ENTERED: 04/19/22 14:20 SP TYPE: IMMUNO OTHR DR: Dr. Fe Urbina MD Tissues: B - Stomach, NOS Procedures: H Pylori (initial) KI-67 (add) P53 (add) PHYSICIAN & INSTITUTION [place] [id number] SPECIMEN INFORMATION: Tissue Source: B ? Gastric body biopsy Clinical Info: Anemia, thrombocytopenia, diarrhea, anemia Specimen Number: [id number] CPT code: 11792, 67399 x2 METHODOLOGY: Deparaffinized sections of prefer/formalin-fixed tissue or PAP/DQ stained slides are incubated with monoclonal/polyclonal antibodies/oligonucleotide probes. Localization is made via biotin free immunoperoxidase method. Appropriate controls are performed and reacted as expected. Results on target cell population are indicated in the following table: RESULTS: ANTIBODY / CLONE RESULT Block B H Pylori (polyclonal) negative P53 (DO-7) negative Ki-67 (30-9) positive, low These tests were developed and their performance characteristics determined by [facility]. They may not have been cleared or approved by the U.S. Food and Drug Administration. The FDA has determined that such clearance or approval is not necessary. The above immunohistochemical/dualISH markers are ordered and reviewed by the Pathologist. INTERPRETATION: B. Gastric body, biopsy: Negative for Helicobacter pylori organisms. No evidence of dysplasia. AM:devika 04/24/2022
--- NOTE | 2022-04-19 09:00 | EGD_PTH ---
PATIENT: JASON GRIGSBY LOC: EN U#:[id number] AGE/SX: 72/F ROOM: RE04/19/[address]: Dr. Adrian Sneed DO : 1950 BED: DIS: 04/19/2022 SPEC #: [id number] RECD: 04/19/22 11:26 STATUS: NATHALY PAULINO #: [id number] MUSTAPHA: 04/19/22 09:[address]: Adrian Sneed DEPT: SURGICAL PATHOLOGY RECD BY: Lesli Morrissey ENTERED: 04/19/22 13:01 SP TYPE: EGD BIOPSY [facility]: Dr. Fe Urbina MD Tissues: A - Pylorus B - Gastric mucous membrane C - Esophagus, NOS D - COLON BIOPSY Procedures: Special Stain Group II Surgery Specimen Level IV Alcian Blue/PAS (control) HEADER OPERATION: [place] [place] PRE-OP DIAGNOSIS: Anemia, thrombocytopenia, diarrhea TISSUE SUBMITTED: A ? Pylorus biopsy, B ? Gastric body biopsy, C ? Distal esophagus biopsy, D ? Random colon biopsy MICROSCOPIC DIAGNOSIS A. Pylorus, biopsy: Mild chronic inflammation. Focal intestinal metaplasia. No evidence of dysplasia. See comment. B. Gastric body, biopsy: Chronic gastritis. C. Distal esophagus, biopsy: Gastroesophageal junctional mucosa with mild chronic inflammation. Focal changes of reflux. No evidence of goblet cell metaplasia. See comment. D. Colon, random biopsy: No pathologic change. AM:devika 04/20/2022 COMMENT A. The results of immunohistochemistry for Helicobacter pylori will be reported separately ([id number]). Alcian blue/PAS stain with matched control supports the above diagnosis. Immunohistochemistry ([id number]) for P53 and Ki-67 will be performed and results will be reported separately. C. Alcian blue/PAS stain with matched control supports the above diagnosis. MICROSCOPIC DESCRIPTION Slides are reviewed. GROSS DESCRIPTION A - Received in fixative is one container labeled with the patient's name and designated pylorus biopsy. The specimen consists of two irregular fragments of light chery soft tissue that in aggregate measure 0.6 x 0.5 x 0.1 cm. The specimen is totally submitted in one cassette. B - Received in fixative is one container labeled with the patient's name and designated gastric body biopsy. The specimen consists of two irregular fragments of light chery soft tissue that in aggregate measure 0.6 x 0.6 x 0.1 cm. The specimen is totally submitted in one cassette. C - Received in fixative is one container labeled with the patient's name and designated distal esophagus biopsy. The specimen consists of two irregular fragments of light chery soft tissue that in aggregate measure 0.5 x 0.3 x 0.1 cm. The specimen is totally submitted in one cassette. D - Received in fixative is one container labeled with the patient's name and designated random colon biopsy. The specimen consists of multiple irregular fragments of light chery soft tissue that in aggregate measure 2 x 0.6 x 0.1 cm. The specimen is totally submitted in one cassette. / AM:devika 04/19/2022 TC:3 CPT: 82391 x4, 05569 x2
--- NOTE | 2022-04-19 09:53 | OP.EGD_ITS ---
Patient Name: Abril Christine Procedure Date: 04/19/2022 8:58 AM Date of : 1950 Age: 72 Procedure: Upper GI endoscopy Indications: Dysphagia Providers: Adrian Sneed DO Medicines: Monitored Anesthesia Care Patient Profile: This is a 72 year old female. Refer to note in patient chart for documentation of history and physical. Patient has symptoms of chronic abdominal cramping, chronic abdominal distention, acute epigastric abdominal pain and acute dysphagia. Complications: No immediate complications. Procedure: Pre-Anesthesia Assessment: - Prior to the procedure, a History and Physical was performed, and patient medications and allergies were reviewed. The risks and benefits of the procedure and the sedation options and risks were discussed with the patient. All questions were answered and informed consent was obtained. Patient identification and proposed procedure were verified by the physician in the pre-procedure area. Mental Status Examination: alert and oriented. Airway Examination: normal oropharyngeal airway and neck mobility. Respiratory Examination: clear to auscultation. CV Examination: normal. Prophylactic Antibiotics: The patient does not require prophylactic antibiotics. Prior Anticoagulants: The patient has taken no previous anticoagulant or antiplatelet agents. ASA Grade Assessment: II - A patient with mild systemic disease. After reviewing the risks and benefits, the patient was deemed in satisfactory condition to undergo the procedure. The anesthesia plan was to use moderate sedation / analgesia (conscious sedation). Immediately prior to administration of medications, the patient was re-assessed for adequacy to receive sedatives. The heart rate, respiratory rate, oxygen saturations, blood pressure, adequacy of pulmonary ventilation, and response to care were monitored throughout the procedure. The physical status of the patient was re-assessed after the procedure. After obtaining informed consent, the endoscope was passed under direct vision. Throughout the procedure, the patient's blood pressure, pulse, and oxygen saturations were monitored continuously. The colonoscope was introduced through the mouth, and advanced to the second part of duodenum. The upper GI endoscopy was accomplished without difficulty. The patient tolerated the procedure well. Scope In: 9:11:52 AM Scope Out: 9:18:04 AM Total Procedure Duration Time 0 hours 6 minutes 12 seconds Findings: One benign-appearing, intrinsic stenosis was found 20 to 21 cm from the incisors. This stenosis was moderately severe and measured 3 mm (inner diameter) x 3 cm (in length). The stenosis was traversed. A guidewire was placed under fluoroscopic guidance and the scope was withdrawn. Dilation was performed with a Savary dilator with no resistance at 36 Fr. The dilation site was examined following endoscope reinsertion and showed mild improvement in luminal narrowing. Estimated blood loss was minimal. LA Grade A (one or more mucosal breaks less than 5 mm, not extending between tops of 2 mucosal folds) esophagitis with no bleeding was found 35 to 37 cm from the incisors. Biopsies were taken with a cold forceps for histology. Verification of patient identification for the specimen was done. Estimated blood loss was minimal. Patchy erythematous mucosa without bleeding was found in the gastric body. Biopsies were taken with a cold forceps for histology. Verification of patient identification for the specimen was done. Estimated blood loss was minimal. A benign-appearing, intrinsic moderate stenosis was found at the pylorus. This was traversed. There also was a small hiatal hernia seen in the stomach. The second portion of the duodenum was normal. Biopsies were taken with a cold forceps for histology. Impression: - Benign-appearing esophageal stenosis. Dilated. - LA Grade A reflux esophagitis. Biopsied. - Erythematous mucosa in the gastric body. Biopsied. - Gastric stenosis was found at the pylorus. - Normal second portion of the duodenum. Biopsied. Recommendation: - Await pathology results. - Continue present medications. Procedure Code(s): --- Professional --- 82507, Esophagogastroduodenoscopy, flexible, transoral; with insertion of guide wire followed by passage of dilator(s) through esophagus over guide wire 04104, 59, Esophagogastroduodenoscopy, flexible, transoral; with biopsy, single or multiple 58881, 26, Intraluminal dilation of strictures and/or obstructions (eg, esophagus), radiological supervision and interpretation CPT copyright 2017 [employer]. All rights reserved. The codes documented in this report are preliminary and upon ems educator review may be revised to meet current compliance requirements. Adrian Sneed DO 04/19/2022 9:53:12 AM This report has been signed electronically. Number of Addenda: 1 Note Initiated On: 04/19/2022 8:58 AM Addendum Number: 1 Addendum Date: 08/21/2022 6:30:59 AM MAC was used as sedation for this procedure. Adrian Sneed DO 08/21/2022 6:31:03 AM This report has been signed electronically.
--- NOTE | 2022-04-19 09:54 | OP.CCLET_ITS ---
08/21/2022 [address] [place] [address] Re : Upper GI endoscopy procedure for Abril [place] Dear Dr. Urbina This procedure was performed on April. My impressions and recommendations are as follows: Impressions : - Benign-appearing esophageal stenosis. Dilated. - LA Grade A reflux esophagitis. Biopsied. - Erythematous mucosa in the gastric body. Biopsied. - Gastric stenosis was found at the pylorus. - Normal second portion of the duodenum. Biopsied. Recommendations : - Await pathology results. - Continue present medications. My findings are described in the full procedure note, which is enclosed. If I can be of further assistance, please feel free to contact me at . Sincerely, Adrian Sneed, 04/19/2022 9:53:12 AM This report has been signed electronically.
--- NOTE | 2022-04-19 09:58 | OP.COLON_ITS ---
Patient Name: Abril Christine Procedure Date: 04/19/2022 9:18 AM Date of : 1950 Age: 72 Procedure: Colonoscopy Indications: Abdominal pain in the left lower quadrant, Iron deficiency anemia Providers: Adrian Sneed DO Medicines: Monitored Anesthesia Care Patient Profile: This is a 72 year old female. Refer to note in patient chart for documentation of history and physical. Patient has symptoms of chronic abdominal cramping, chronic abdominal distention, acute epigastric abdominal pain and acute dysphagia. Last Colonoscopy: none. The patient's first colonoscopy is today. Complications: No immediate complications. Procedure: Pre-Anesthesia Assessment: - Prior to the procedure, a History and Physical was performed, and patient medications and allergies were reviewed. The risks and benefits of the procedure and the sedation options and risks were discussed with the patient. All questions were answered and informed consent was obtained. Patient identification and proposed procedure were verified by the physician in the pre-procedure area. Mental Status Examination: alert and oriented. Airway Examination: normal oropharyngeal airway and neck mobility. Respiratory Examination: clear to auscultation. CV Examination: normal. Prophylactic Antibiotics: The patient does not require prophylactic antibiotics. Prior Anticoagulants: The patient has taken no previous anticoagulant or antiplatelet agents. ASA Grade Assessment: II - A patient with mild systemic disease. After reviewing the risks and benefits, the patient was deemed in satisfactory condition to undergo the procedure. The anesthesia plan was to use moderate sedation / analgesia (conscious sedation). Immediately prior to administration of medications, the patient was re-assessed for adequacy to receive sedatives. The heart rate, respiratory rate, oxygen saturations, blood pressure, adequacy of pulmonary ventilation, and response to care were monitored throughout the procedure. The physical status of the patient was re-assessed after the procedure. After I obtained informed consent, the scope was passed under direct vision. Throughout the procedure, the patient's blood pressure, pulse, and oxygen saturations were monitored continuously. The colonoscope was introduced through the anus and advanced to the terminal ileum. The colonoscopy was performed without difficulty. The patient tolerated the procedure well. The quality of the bowel preparation was good. Scope In: 9:20:12 AM Scope Withdrawal Time 0 hours 14 minutes 50 seconds Scope Out: 9:37:48 AM Total Procedure Duration Time 0 hours 17 minutes 36 seconds Findings: A few small-mouthed diverticula were found in the sigmoid colon. An area of mildly congested mucosa was found in the recto-sigmoid colon, at the splenic flexure and at the hepatic flexure. Biopsies were taken with a cold forceps for histology. Verification of patient identification for the specimen was done. Estimated blood loss was minimal. There was also poor rectal tone and mild rectal prolapse seen. The terminal ileum appeared normal. Impression: - Diverticulosis in the sigmoid colon. - Congested mucosa in the recto-sigmoid colon, at the splenic flexure and at the hepatic flexure. Biopsied. - The examined portion of the ileum was normal. -Poor rectal tone and mild rectal prolapse. Recommendation: - Written discharge instructions were provided to the patient. - The signs and symptoms of potential delayed complications were discussed with the patient. - Patient has a contact number available for emergencies. - Return to normal activities tomorrow. - Resume previous diet. - Continue present medications. - Await pathology results. - Repeat colonoscopy is recommended for surveillance. The colonoscopy date will be determined after pathology results from today's exam become available for review. Procedure Code(s): --- Professional --- 63289, Colonoscopy, flexible; with biopsy, single or multiple CPT copyright 2017 [employer]. All rights reserved. The codes documented in this report are preliminary and upon surgical services asst review may be revised to meet current compliance requirements. Adrian Sneed DO 04/19/2022 9:57:52 AM This report has been signed electronically. Number of Addenda: 1 Note Initiated On: 04/19/2022 9:18 AM Addendum Number: 1 Addendum Date: 08/21/2022 6:31:12 AM MAC was used as sedation for this procedure. Adrian Sneed DO 08/21/2022 6:31:16 AM This report has been signed electronically.
--- NOTE | 2022-04-19 09:59 | OP.CCLET_ITS ---
08/21/2022 [address] [place] [address] Re : Colonoscopy procedure for Abril [place] Dear Dr. Urbina This procedure was performed on April. My impressions and recommendations are as follows: Impressions : - Diverticulosis in the sigmoid colon. - Congested mucosa in the recto-sigmoid colon, at the splenic flexure and at the hepatic flexure. Biopsied. - The examined portion of the ileum was normal. -Poor rectal tone and mild rectal prolapse. Recommendations : - Written discharge instructions were provided to the patient. - The signs and symptoms of potential delayed complications were discussed with the patient. - Patient has a contact number available for emergencies. - Return to normal activities tomorrow. - Resume previous diet. - Continue present medications. - Await pathology results. - Repeat colonoscopy is recommended for surveillance. The colonoscopy date will be determined after pathology results from today's exam become available for review. My findings are described in the full procedure note, which is enclosed. If I can be of further assistance, please feel free to contact me at . Sincerely, Adrian Sneed, 04/19/2022 9:57:52 AM This report has been signed electronically.
== END 2022-04-19 10:39 | disposition home or self-care (01) ==
LOC: EN 07:52 → AC 07:53
PROVIDERS: PCP Internal Medicine; Referring Provider Internal Medicine; Visit Provider Internal Medicine Gastroenterology
PROC: 0DJD8ZZ Inspection of Lower Intestinal Tract, Via Natural or Artificial Opening Endoscopic (ICD-10-PCS; CPT 45378; principal; 2022-04-19 08:55)
DX: K29.50 Unspecified chronic gastritis without bleeding (principal); N17.9 Acute kidney failure, unspecified; D69.6 Thrombocytopenia, unspecified; K21.00 Gastro-esophageal reflux disease with esophagitis, without bleeding; K31.A19 Gastric intestinal metaplasia without dysplasia, unspecified site; F41.9 Anxiety disorder, unspecified; M79.7 Fibromyalgia; E78.5 Hyperlipidemia, unspecified; K58.9 Irritable bowel syndrome, unspecified; Z79.899 Other long term (current) drug therapy; Z86.16 Personal history of COVID-19; F32.A Depression, unspecified; D50.9 Iron deficiency anemia, unspecified; K57.30 Diverticulosis of large intestine without perforation or abscess without bleeding; K62.3 Rectal prolapse; K22.2 Esophageal obstruction; K44.9 Diaphragmatic hernia without obstruction or gangrene
CPT/HCPCS: 45380; 43239; 43248; 36415; 80069; 88305; 88313; 88341; 88342; J7120; J2405

== ENCOUNTER → 2022-04-19 | Outpatient (CLI) | payer MEDICARE, OTHER, SELFPAY ==
[2022-04-19 12:47] LABS: Albumin, Serum 3.4 g/dL (3.2-5.0); BUN 23 mg/dL (7-18); BUN/Creat Ratio 11.9 RATIO (10-20); Calcium,Total 8.7 mg/dL (8.5-10.1); Chloride 108 mmol/L (98-107); Creatinine, Serum 1.94 mg/dL (0.55-1.02); EST Glomerular Filtration Rate 27 mL/min (>60); Est Glom Filt Rate - Afr Amer 33 mL/min (>60); Glucose 95 mg/dL (74-106); Phosphorus 3.4 mg/dL (2.5-4.9); Potassium 4.1 mmol/L (3.5-5.1); Sodium Level 135 mmol/L (136-145)
== END | disposition home or self-care (01) ==
LOC: POLAB3 10:57
PROVIDERS: PCP Internal Medicine; Visit Provider Internal Medicine Nephrology
DX: N17.9 Acute kidney failure, unspecified (principal)
CPT/HCPCS: 36415; 80069

== ENCOUNTER → 2022-04-26 | Outpatient (CLI) | payer MEDICARE, OTHER, SELFPAY ==
[2022-04-26 11:49] LABS: Mucous, Urine 0 SEEN /hpf (<or=2+)
[2022-04-26 12:16] LABS: Color, Urine Yellow (Yellow); Glucose, Dipstick Normal (Normal); Ketone-Dipstick Negative (Negative); Leukocyte Esterase-Dipstick 500 /ul (Negative); Nitrite-Dipstick Negative (Negative); Occult Blood-Urine 25 /ul (Negative); Protein-Dipstick Negative (Negative); Urine Bilirubin Dipstick Negative (Negative); Urine Clarity Sl. Cloudy (Clear); Urine Urobilinogen Normal (Normal)
[2022-04-26 12:28] LABS: Bacteria 1+ /hpf (None Seen); Red Blood Cells-Urine 0-5 SEEN /hpf (0-5); Squamous Epithelial Cells - UA 0-5 SEEN /hpf (5-10); White Blood Cells 25-50 SEEN /hpf (0-5)
== END | disposition home or self-care (01) ==
LOC: LABSPEC 11:47
PROVIDERS: PCP Internal Medicine; Visit Provider Internal Medicine Nephrology
DX: N17.9 Acute kidney failure, unspecified (principal); R82.81 Pyuria
CPT/HCPCS: 81001

== ENCOUNTER → 2022-05-08 | Outpatient (CLI) | payer MEDICARE, OTHER, SELFPAY ==
[2022-05-08] VITALS (13 sets, daily range): BP systolic 128–178; BP diastolic 42–121; PULSE 52–63; RESP 10–20; TEMP 36.7; O2SAT 99–100; BMI 22.4
--- NOTE | 2022-05-08 07:58 | CT_ITS ---
PROCEDURE: CT-guided random left renal biopsy. DATE OF EXAMINATION: 05/08/2022 INDICATION: Female, 72 years old. Acute kidney failure. PHYSICIAN: Cameron Coker DO RADIATION DOSAGE (If Supplied By Facility): CTDIvol = ( 27.89 ) mGy, DLP = ( 1246.72 ) mGycm CONSENT: The risks, benefits and alternatives to the procedure were explained to the patient, and the patient agreed to the procedure and signed the consent. SEDATION: 1 mg of VERSED. 50 mcg of FENTANYL. Sedation start time: 11:02 AM Sedation stop time: 12:10 AM STERILE BARRIER TECHNIQUE: The following sterile barrier precautions were used during the procedure: hand hygiene, mask, sterile gown, sterile gloves, and a large sterile sheet. PROCEDURE/TECHNIQUE: (All elements of maximal sterile barrier technique followed, including US elements as applicable) The risks, benefits, and alternatives to the procedure were explained to patient, and the patient agreed to the procedure and signed a consent form for the procedure. A timeout was performed to confirm the patient''s identity, the type of procedure, to be performed and the site of entry. Initial negative cutter CT of the abdomen was performed. An appropriate trajectory in the patient''s left kidney, lower pole was selected and the skin was marked. The skin surface was prepared with IODINE prep. 10 mL of LIDOCAINE was used for local anesthetic and injected to the cortex of the left kidney using CT guidance. A 17-gauge trocar introducer was guided into the left lower pole renal cortex using periodic CT guidance. An 18-gauge Corvacet biopsy needle was then inserted and 3 core samples were obtained and sent for pathology. Immediate CT intraoperative image demonstrated a small amount of perinephric/left retroperitoneal hemorrhage and foci of iatrogenic air. The needle was removed and the exam was completed. There were no immediate complications and the patient tolerated the procedure well. The patient was observed in the nursing bay and was reimaged with CT 2.5 hours post procedure. There was no change in the small amount of perinephric/left retroperitoneal hemorrhage and foci of iatrogenic air. The patient was discharged home in stable condition with appropriate discharge instructions. CT/Biopsy/Inj or Needle Placement IMPRESSION: CT-guided random left renal biopsy as detailed above. Electronically Signed: Cameron Coker, at 15:30 EDT ,
[2022-05-08 08:00] LABS: Hematocrit 39.2 % (37-47); Hemoglobin 12.9 g/dL (12.0-15.0); Mean Corp Hgb Conc 32.9 g/dL (32-36); Mean Corpuscular Hgb 29.9 pg (27.0-32.0); Mean Corpuscular Volume 90.7 fL (81-99); Mean Platelet Vol. 10.7 fl (6.2-12.0); Platelet Count 162 K/mm3 (150-450); RBC Distribution Width CV 11.5 % (11.6-14.6); RBC Distribution Width SD 38.2 fl (35.1-43.9); Red Blood Count 4.32 M/mm3 (4.2-5.4); White Blood Count 7.4 K/mm3 (4.4-11.0)
[2022-05-08 08:57] LABS: Prothrombin Time (Protime)PT. 12.8 SECONDS (11.7-14.9)
[2022-05-08 08:58] LABS: Partial Thromboplast Time 27.9 Seconds (24.1-36.2)
[2022-05-08] MEDS: 0.9% Normal Saline 250 ML IV.SOLN. (11:01)
[2022-05-08] MEDS: Midazolam 2 MG/2 ML Syringe IV (11:02)
[2022-05-08] MEDS: fentaNYL 100 MCG/2 ML Ampul IV (11:05)
[2022-05-08] MEDS: Lidocaine 2% (20 ml mdv) 20 ML Vial INFILT (11:30)
--- NOTE | 2022-05-08 11:55 | KID_PTH ---
PATIENT: JASON GRIGSBY LOC: CT U#:[id number] AGE/SX: 72/F ROOM: RE05/08/[address]: Dr. Delmi Odom DO : 1950 BED: DIS: 05/08/2022 SPEC #: [id number] RECD: 05/08/22 12:32 STATUS: NATHALY PAULINO #: [id number] MUSTAPHA: 05/08/22 11:[address]: Delmi Odom DEPT: SURGICAL PATHOLOGY RECD BY: Lesli Morrissey ENTERED: 05/08/22 12:42 SP TYPE: KIDNEY OTHR DR: MD Delmi Aldridge MD Tissues: Kidney, NOS Procedures: Electron Microscopy (ACH) Fluorescent Antibody (ACH) Sp St Grp II Kidney (ACH) Kidney Biopsy (ACH) Fluorescent antibody (ACH) add'l HEADER OPERATION: CT-guided renal biopsy PRE-OP DIAGNOSIS: Acute renal failure TISSUE SUBMITTED: Lower pole left kidney 18-gauge core x3 MICROSCOPIC DIAGNOSIS Kidney, left, renal biopsy: Acute/allergic interstitial nephritis, moderate. Hypertensive vascular (large and intermediate-sized) disease, moderate. Hypertensive glomerulosclerosis, mild to moderate. Interstitial fibrosis (25%). COMMENT The findings are those of mild to moderate hypertensive vascular and small vascular disease as well as glomerulosclerosis with a total of 7 sclerotic glomeruli out of total of 23 (total) glomeruli present for evaluation. Also identified throughout the biopsy specimen and better evaluated by thin sections (H&E as well as ultrastructural ?operations and maintenance specialist? Toluidine blue sections) are multifocal lymphocyte predominant inflammatory infiltrates within tubular interstitium. Some of these also demonstrate an admixture of eosinophils. Pattern best fits with allergic/acute interstitial nephritis, mild to moderate. Also present are hypertensive vascular disease, moderate and hypertensive glomerulosclerosis, mild to moderate. Clinical correlation is essential. MICROSCOPIC DESCRIPTION LIGHT MICROSCOPY: Good biopsy specimen consisting of roughly equal portions of renal cortex and medulla and up to 12 glomeruli or portions of glomeruli for histologic evaluation. Four glomeruli demonstrate global sclerosis and oval shrunken nature/diameter while remaining glomeruli demonstrate open capillary loops with normal mesangial matrix and cellularity and normal thickness glomerular basement membranes. Mild to moderate arteriolar hyalinosis is seen. Intermediate sized vascular structures demonstrate mild hypertensive change. Large diameter artery demonstrates a moderate intimal fibrosis. Intact tubules are seen throughout. Multifocal interstitial chronic inflammation is seen both in cortex and medulla, some foci of which demonstrate an admixture of rare eosinophils. No areas of infarct are seen. No glomerular epithelial crescents are seen. PAS stain highlights globally sclerotic glomeruli in addition to thyroidization of tubules associated with sclerotic glomeruli. Multifocal interstitial inflammatory infiltrates are seen. These consists predominantly of lymphocytes with rare, admixed eosinophils mesangial matrix within open glomeruli is otherwise unremarkable. No protein resorption droplets are identified. Cisneros (silver) stain demonstrates normal thickness glomerular basement membranes within open glomeruli without areas of ?splits,? ?breaks? or irregular luminal outlines. Ischemic changes and collapse are identified in 1 open glomerulus with Holland capsule fibrosis (ischemic/vascular change). Trichrome stain is negative for fuchsinophilic deposits within open glomeruli and demonstrates glomerular sclerosis and rare glomeruli and arteriosclerosis and intermediate sized vascular structures and mild to moderate anterior hyalinosis. Interstitial inflammatory infiltrates are seen, multifocal, throughout with rare admixture of eosinophils in addition to predominantly lymphocyte population. Interstitial (cortical) fibrosis is estimated at 25%. Congo red stain is negative for congophilia as well as birefringence and dichromatism by polarization microscopy. IMMUNOFLUORESCENCE: Tissue submitted for immunofluorescence microscopy demonstrates renal cortex and medulla and up to 4 glomeruli or portions of glomeruli for histologic evaluation. All glomeruli demonstrate open capillary loops with normal mesangial matrix and cellularity. IgA demonstrates 2+ positivity within tubular contents (nonspecific), but is negative in glomeruli and vascular strictures. Lambda light chain demonstrates 1+ positivity within tubular contents (nonspecific staining), but is negative in vascular structures and glomeruli. Lambda light chain demonstrates 2+ positivity within tubular contents (nonspecific staining), but is negative in vascular structures and glomeruli. IgG, IgM, C3, C1q, fibrin and albumin are negative in glomeruli, tubules and vascular structures. ELECTRON MICROSCOPY: Toluidine blue-stained sections (thick/?operations and maintenance specialist? sections) reveal 7 (total) glomeruli, 3 of which demonstrate global sclerosis and overall shrunken nature while 4 glomeruli demonstrate open capillary loops with normal mesangial matrix and cellularity. Of note, multifocal interstitial inflammatory infiltrates (lymphocyte-rich) are also identified. Ultrastructure examination interstitial inflammatory infiltrates with lymphocytes predominant as well as an admixture of eosinophils are identified within interstitium of the renal parenchyma. Glomeruli demonstrate normal thickness glomerular basement membranes without electron dense deposits. Normal pattern podocyte arrangement is also identified. No epithelial crescents are seen. GROSS DESCRIPTION The specimen is sent entirely to [facility] for diagnosis. Received in transport medium labeled with the patient?s name and ?left kidney,? the specimen consists of four cylindrical pieces of chery-yellow renal parenchyma that are 0.7 to 1.7 cm in maximum dimension. Freezer Worker section is submitted for immunofluorescent microscopy. Freezer Worker section is submitted for electron microscopy studies. The remainder of the specimen is entirely submitted as A1.
== END | disposition home or self-care (01) ==
PROVIDERS: PCP Internal Medicine; Visit Provider Internal Medicine Nephrology
DX: N10 Acute pyelonephritis (principal); N17.9 Acute kidney failure, unspecified; M79.7 Fibromyalgia; E78.5 Hyperlipidemia, unspecified; K21.9 Gastro-esophageal reflux disease without esophagitis; E55.9 Vitamin D deficiency, unspecified; K58.9 Irritable bowel syndrome, unspecified; Z79.899 Other long term (current) drug therapy
CPT/HCPCS: 50200; 36415; 77012; 85027; 85610; 85730; 88305; 88313; 88346; 88348; 88350; 99156; 99157; J7050; A4216

== ENCOUNTER → 2022-05-31 | Outpatient (CLI) | payer MEDICARE, OTHER, SELFPAY ==
[2022-05-31 12:49] LABS: Hematocrit 38.3 % (37-47); Hemoglobin 12.4 g/dL (12.0-15.0); Mean Corp Hgb Conc 32.4 g/dL (32-36); Mean Corpuscular Volume 89.7 fL (81-99); Mean Platelet Vol. 11.5 fl (6.2-12.0); Platelet Count 153 K/mm3 (150-450); RBC Distribution Width SD 39.2 fl (35.1-43.9); Red Blood Count 4.27 M/mm3 (4.2-5.4); White Blood Count 6.2 K/mm3 (4.4-11.0)
[2022-05-31 12:57] LABS: Albumin, Serum 3.3 g/dL (3.2-5.0); BUN 35 mg/dL (7-18); BUN/Creat Ratio 18.5 RATIO (10-20); Calcium,Total 8.6 mg/dL (8.5-10.1); Chloride 111 mmol/L (98-107); Creatinine, Serum 1.89 mg/dL (0.55-1.02); EST Glomerular Filtration Rate 28 mL/min (>60); Est Glom Filt Rate - Afr Amer 34 mL/min (>60); Glucose 96 mg/dL (74-106); Phosphorus 3.6 mg/dL (2.5-4.9); Potassium 4.5 mmol/L (3.5-5.1); Sodium Level 140 mmol/L (136-145)
== END | disposition home or self-care (01) ==
LOC: POLAB3 10:23
PROVIDERS: PCP Internal Medicine; Visit Provider Internal Medicine Nephrology
DX: N17.9 Acute kidney failure, unspecified (principal)
CPT/HCPCS: 36415; 80069; 85027

== ENCOUNTER 2022-06-23 13:00 | Emergency (ER) | payer MEDICARE, OTHER, SELFPAY ==
[2022-06-23 13:01] VITALS: BP 160/74; PULSE 61; RESP 17; TEMP 36.8; O2SAT 99; BMI 22.9
--- NOTE | 2022-06-23 13:51 | EX.ED.DYSGE1 ---
HPI History of Present Illness Chief Complaint: Anxiety Informant: patient Narrative Narrative: Patient is a 72-year-old female with history of longstanding anxiety as well as renal failure presenting after panic attack. Patient states they have a puppy and the dog chewed up her 's phone in the case of an iPad. Patient states she had not taken her daily clonazepam yet and this set her off. She then started hyperventilating and then started having numbness and spasm around her mouth as well as in her hands. She did take her clonazepam as well as her rescue lorazepam however her grandson called EMS and she was brought to the emergency room. Patient initially was having stuttering speech however this is since resolved. Patient feels that she is currently back at her baseline. She feels that she is calm down. She has no complaints at this time. She does not see a counselor or psychiatrist. She states she is not interested in that. [facility] Medical History Acute kidney injury Anxiety Benign essential tremor Bruising Fibromyalgia Gastric reflux High cholesterol History of edema History of hiatal hernia History of IBS History of renal disease Hyperlipidemia Hypertension IBS (irritable bowel syndrome) Non-smoker Wears glasses Wears hearing aid Home Medications clonazepam 0.5 mg tablet 0.5 mg PO BID FIBROMYALGIA 12/08/18 [History Last Taken 06/23/22 12:10] lorazepam 1 mg tablet (Ativan) 1 mg PO QHS PRN Anxiety 12/08/18 [History Last Taken 06/23/22 12:10] sertraline 100 mg tablet (Zoloft) 100 mg PO DAILY Check with primary doctor 12/08/18 [History Last Taken 05/08/22] cholecalciferol (vitamin D3) 50 mcg (2,000 unit) capsule (Vitamin D3) 2,000 unit PO DAILY supplement 12/24/21 [History Last Taken 05/08/22] omeprazole 40 mg capsule,delayed release 40 mg PO DAILY indigestion 12/24/21 [History Last Taken 05/07/22] rosuvastatin 5 mg tablet 5 mg PO QHS cholesterol 12/24/21 [History Last Taken 05/07/22] doxycycline monohydrate 100 mg capsule 100 mg PO DAILY 05/03/22 [History Last Taken 05/07/22] Allergy/AdvReac Type Severity Reaction Status Date / Time amoxicillin Allergy Hives Verified 06/23/22 13:04 Family History Mother AAA (abdominal aortic aneurysm) Father Multiple sclerosis Brother Heart disease Myocardial infarction Kidney disease Sister Liver disease Surgical History H/O dilation and curettage History of total vaginal hysterectomy (TVH) pelvic floor repair Social History Smoking Status: Never smoker alcohol intake: never substance use type: does not use caffeine: Yes what type of physical activity do you participate in: walking seatbelt use: always do you feel safe at home: Yes additional social history: Ish BELL ED Constitutional Constitutional ED: Denies chills or fever(s) Eyes Eyes: Denies blurry vision or change in vision ENT ENT ED: Denies rhinorrhea or sore throat Cardiovascular Cardiovascular: Denies chest pain or palpitations Respiratory/Chest Respiratory/Chest: Denies cough Gastrointestinal Gastrointestinal: Denies abdominal pain, nausea or vomiting Genitourinary Genitourinary ED: Denies dysuria Musculoskeletal Musculoskeletal: Denies arthralgias or myalgias Integumentary Denies rash Neurologic Neurologic: Reports paresthesias; Denies headache(s) or weakness Psychiatric Psychiatric: Reports anxiety; Denies depression, suicidal ideation or suicidal thoughts EXAM Physical Exam Const Vital Signs: 06/23/22 13:01 Temperature 98.2 F Temperature Source Oral Pulse Rate 61 Respiratory Rate 17 Blood Pressure 160/74 H Blood Pressure Mean 102 Pulse Ox 99 Positive well nourished and well developed General Appearance ED: well developed and NAD HEENT Reports moist mucous membranes Eyes PERRL and EOMs intact bilaterally Neck supple and no JVD Chest Wall inspection of chest normal and palpation of chest normal Resp normal respiratory effort and clear to auscultation bilaterally Cardio regular rate and regular rhythm GI normal to inspection, nondistended, normoactive bowel sounds and non-tender Neuro oriented x3, CN's II-XII intact bilaterally and no sensory deficits noted Sensorium / Orientation: alert Motor Exam: Negative for general weakness Skin no rashes or lesions noted and no wounds MDM MDM MDM Narrative Medical decision making narrative: Patient is evaluated for what sounds like a panic attack. She has no neurologic deficits. She seems calm down. She does have an extensive history of anxiety. I do not think this was a [employer] process or TIA. Patient will be discharged back home. She is amenable for this. She has no further concerns. She will follow-up with her primary care doctor as needed. She is encouraged to work with a counselor to help with her anxiety if she feels up to it. Patient feels that she has good support from her at home. Discharged home in stable condition. Discharge Plan Triage Chief Complaint: Anxiety ED Provider: Nikkie Muñoz Dx/Rx/DC Orders Clinical Impression: Anxiety attack Instructions: ED Panic Attack Prescriptions: No Action lorazepam [Ativan] 1 mg tablet 1 mg PO QHS PRN (Reason: Anxiety) clonazepam 0.5 mg tablet 0.5 mg PO BID sertraline [Zoloft] 100 mg tablet 100 mg PO DAILY doxycycline monohydrate 100 mg capsule 100 mg PO DAILY Label Comments: TAKE 1 CAPSULE BY MOUTH TWICE A DAY FOR 5 DAYS omeprazole 40 mg capsule,delayed release(DR/EC) 40 mg PO DAILY Label Comments: TAKE 1 CAPSULE BY MOUTH EVERY DAY rosuvastatin 5 mg tablet 5 mg PO QHS Label Comments: TAKE 1 TABLET BY MOUTH EVERYDAY AT BEDTIME cholecalciferol (vitamin D3) [Vitamin D3] 50 mcg (2,000 unit) Capsule 2,000 unit PO DAILY Primary Care Provider: Fe Urbina Referrals: Fe Urbina MD [Primary Care Provider] - Activity Restrictions/Additional Instructions: Please follow-up with your primary care doctor as needed. If you start to have more panic attacks please discuss this with your primary care doctor to see if any medication changes can be made to help you. Please return if you have any further symptoms or concerns. Disposition Disposition: Home, Self Care
[2022-06-23 14:05] VITALS: BP 135/74
== END 2022-06-23 14:05 | disposition home or self-care (01) ==
PROVIDERS: Emergency Provider Emergency Medicine; PCP Internal Medicine; Visit Provider Emergency Medicine
DX: F41.0 Panic disorder [episodic paroxysmal anxiety] (principal); I10 Essential (primary) hypertension; E78.00 Pure hypercholesterolemia, unspecified; M79.7 Fibromyalgia; K58.9 Irritable bowel syndrome, unspecified; G25.0 Essential tremor; Z79.899 Other long term (current) drug therapy
CPT/HCPCS: 99285

== ENCOUNTER → 2022-09-06 | Outpatient (CLI) | payer MEDICARE, OTHER, SELFPAY ==
[2022-09-06 12:20] LABS: Mean Corp Hgb Conc 33.3 g/dL (32-36); Mean Corpuscular Hgb 29.7 pg (27.0-32.0); Mean Corpuscular Volume 89.2 fL (81-99); Mean Platelet Vol. 11.3 fl (6.2-12.0); Platelet Count 146 K/mm3 (150-450); RBC Distribution Width CV 12.6 % (11.6-14.6); RBC Distribution Width SD 41.4 fl (35.1-43.9); Red Blood Count 4.37 M/mm3 (4.2-5.4); White Blood Count 6.4 K/mm3 (4.4-11.0)
[2022-09-06 12:34] LABS: Albumin, Serum 3.3 g/dL (3.2-5.0); BUN 32 mg/dL (7-18); BUN/Creat Ratio 18.7 RATIO (10-20); Calcium,Total 8.3 mg/dL (8.5-10.1); Chloride 109 mmol/L (98-107); Creatinine, Serum 1.71 mg/dL (0.55-1.02); EST Glomerular Filtration Rate 31 mL/min (>60); Est Glom Filt Rate - Afr Amer 38 mL/min (>60); Glucose 92 mg/dL (74-106); Phosphorus 3.1 mg/dL (2.5-4.9); Potassium 4.2 mmol/L (3.5-5.1); Sodium Level 140 mmol/L (136-145)
[2022-09-06 12:44] LABS: PTHIN 161.5 pg/mL (18.4-80.1)
== END | disposition home or self-care (01) ==
LOC: POLAB3 10:10
PROVIDERS: PCP Internal Medicine; Visit Provider Internal Medicine Nephrology
DX: N17.9 Acute kidney failure, unspecified (principal)
CPT/HCPCS: 36415; 80069; 83970; 85027

== ENCOUNTER → 2022-12-20 | Outpatient (CLI) | payer MEDICARE, OTHER, SELFPAY ==
[2022-12-20 13:29] LABS: 24HR. UA Prot. Total Volume 2800 mL
[2022-12-20 13:46] LABS: Albumin, Serum 3.3 g/dL (3.2-5.0); BUN 26 mg/dL (7-18); BUN/Creat Ratio 15.7 RATIO (10-20); Calcium,Total 8.4 mg/dL (8.5-10.1); Chloride 109 mmol/L (98-107); Creatinine, Serum 1.66 mg/dL (0.55-1.02); EST Glomerular Filtration Rate 32 mL/min (>60); Est Glom Filt Rate - Afr Amer 39 mL/min (>60); Glucose 110 mg/dL (74-106); Phosphorus 3.2 mg/dL (2.5-4.9); Potassium 3.9 mmol/L (3.5-5.1); Sodium Level 141 mmol/L (136-145)
[2022-12-20 13:48] LABS: Urine Protein (24 Hour) < 6.0 mg/dL (<11.9)
[2022-12-20 13:51] LABS: Creat.Clear Total Volume 2800 mL; Creatinine Clearance 30 ml/min (100-200); Creatinine Serum Creat 1.7 mg/dL (0.6-1.0); Creatinine Urine 25.6 mg/dL (NO RANGE EST.); EST Glomerular Filtration Rate 32 mL/min (>60); Est Glom Filt Rate - Afr Amer 39 mL/min (>60)
== END | disposition home or self-care (01) ==
LOC: POLAB3 12:07
PROVIDERS: PCP Internal Medicine; Visit Provider Internal Medicine Nephrology
DX: N17.9 Acute kidney failure, unspecified (principal)
CPT/HCPCS: 36415; 80069; 81050; 82575

== ENCOUNTER 2023-04-29 07:07 | Day surgery (SDC) | payer MEDICARE, OTHER, SELFPAY ==
[2023-04-29] VITALS (7 sets, daily range): BP systolic 108–145; BP diastolic 53–71; PULSE 53–59; RESP 14; TEMP 36.3–36.5; O2SAT 94–98; BMI 22.4
[2023-04-29] MEDS: Lactated Ringers 1,000 ML 15 ML IV (07:37)
--- NOTE | 2023-04-29 08:03 | PCM.HP.BLA ---
History and Physical Date of Admission: 04/29/23 73 F who presents to the office today for [facility] hospitalization 2.05.09-12.27.21 for management of LIBERTAD with possible obstructive origin; genitourinary surgery for cystocele, rectocele uterine prolapse and stress related incontinence by Dr. Chairez and Dr. Cazares; hypertension, stable; leukocytosis with neutrophilia, likely reactive state. ?CT abd/pel 12.24.21?found no acute or chronic disease state. *BGI established 01.31.22 for small pebble stools alternating with diarrhea with associated abdominal pain/cramping and difficulty eating. PMH includes anxiety and depression, IBS, fibromyalgia, COVID infection . EGD and colonoscopy 04.19.22.?EGD found Benign esophageal stenosis, Savary dilation 36F; LA Grade A reflux esophagitis; erythematous mucosa of gastric body; gastric stenosis at pylorus with metaplasia without dysplasia. H.Pylori negative. Colonoscopy found diverticulosis in sigmoid colon; congested mucosa of RS colon, splenic flexure and hepatic flexure; poor rectal tone with mild rectal prolapse. No pathological changes. OV 6.16. with occasional fecal incontinence; increase fiber intake. Diarrhea?doxycycline. GI metaplasia in stomach without ability to use PPI r/t renal failure. OV 9.8.22 BM approximately two times a week which will vary between hard small trini, normal and loose stools. Does not recall taking doxycycline and if it was helpful. OV 1.6.23 with improvement using fiber supplement. Diarrhea now occurring 1-2/month. OV 3.28.23 BM are now alternating between no BM with lower abdominal discomfort and flatulence for several days and then looser, multiple movements with abdominal discomfort resolution when she does have a BM. Will also have normal BM 2-3 days/week. Feels diet is a factor (greasy foods). Fiber supplement continues. ROS Musc Musculoskeletal: Positive for back pain Psych Psychiatric: Positive for anxiety and Positive for depression Exam Const General: cooperative and comfortable Nutritional Appearance: average body habitus and well nourished [facility] Head: normal to inspection Ears: hearing grossly normal bilaterally Nose: external nose normal Face and sinus: normal facial exam Mouth: oral mucosae normal Throat: posterior oropharynx normal Eyes General: appearance normal, both eyes and all related structures Neck Neck: normal visual inspection Chest Chest palpation & inspection: normal inspection of the chest and normal palpation of entire chest wall Resp Effort & Inspection: normal respiratory effort Auscultation: Bilateral: Clear to Auscultation Cardio Palpation: normal PMI Rate: regular rate Rhythm: regular rhythm GI Inspection: normal to inspection Auscultation: normal bowel sounds Percussion: normal to percussion Palpation: no hepatosplenomegaly Skin General: no rashes or lesions noted Neuro General: patient alert Extrem General: normal to inspection Psych Affect: normal affect Quality Reporting Tobacco Screening ([facility] 138) Smoking Status: Never smoker Assessment and Plan Assessment and Plan (1) Alternating constipation and diarrhea: ?Status:?Chronic ?Plan: We will introduce Amitiza 8mcg twice a day (2) Rectal prolapse: ?Status:?Chronic ?Plan: I would like her to take a fiber supplement such as a Metamucil tablet nightly to thicken up her stools for her grade 2 rectal prolapse.? She is comfortable wearing a adult diaper when she goes out.? We also talked about pelvic floor retraining but due to some problems with her grandson currently living with her she does not feel that she can get to appointments for pelvic floor training. ( (3) Gastric intestinal metaplasia: ?Status:?Chronic ?Plan: She will undergo repeat upper endoscopy in a year we will do surveillance on the gastrointestinal metaplasia.? If it looks like it is starting to transform into dysplasia then we will offer her ablation. (4) Diarrhea: ?Status:?Inactive ?Plan: . (2) Diarrhea: ?Status:?Chronic ?Plan: I think her diarrhea is overflow incontinence secondary to poor rectal compliance.? Again I encourage supplements and if that does not work we will add cholestyramine or colestipol. ? ? ? Medications: New lubiprostone (Amitiza) 8 mcg PO BID 120 caps 3RF 60 days ? ? I have examined the patient and the H&P has been reviewed. There are no clinical changes since date of exam.
--- NOTE | 2023-04-29 08:15 | IMM_PTH ---
PATIENT: JASON GRIGSBY LOC: EN U#:[id number] AGE/SX: 73/F ROOM: RE04/29/[address]: Dr. Adrian Sneed DO : 1950 BED: DIS: 04/29/2023 SPEC #: [id number] RECD: 04/29/23 13:08 STATUS: NATHALY RERadha #: [id number] MUSTAPHA: 04/29/23 08:[address]: Adrian Sneed DEPT: IMMUNOHISTOCHEMISTRY RECD BY: Jihan Blank ENTERED: 04/29/23 13:08 SP TYPE: IMMUNO OTHR DR: Dr. Fe Urbina MD Tissues: Stomach, NOS Procedures: H Pylori (initial) PHYSICIAN & INSTITUTION [place] [address] SPECIMEN INFORMATION: Tissue Source: Gastric ulcer Clinical Info: GI metaplasia Specimen Number: [id number] CPT code: 82394 METHODOLOGY: Deparaffinized sections of prefer/formalin-fixed tissue or PAP/DQ stained slides are incubated with monoclonal/polyclonal antibodies/oligonucleotide probes. Localization is made via biotin free immunoperoxidase method. Appropriate controls are performed and reacted as expected. Results on target cell population are indicated in the following table: RESULTS: ANTIBODY / CLONE RESULT H Pylori (polyclonal) negative These tests were developed and their performance characteristics determined by [facility]. They may not have been cleared or approved by the U.S. Food and Drug Administration. The FDA has determined that such clearance or approval is not necessary. The above immunohistochemical/dualISH markers are ordered and reviewed by the Pathologist. INTERPRETATION: Gastric ulcer, biopsy: Negative for Helicobacter pylori organisms. SJ:devika 04/30/2023
--- NOTE | 2023-04-29 08:15 | EGD_PTH ---
PATIENT: JASON GRIGSBY LOC: EN U#:[id number] AGE/SX: 73/F ROOM: RE04/29/[address]: Dr. Adrian Sneed DO : 1950 BED: DIS: 04/29/2023 SPEC #: [id number] RECD: 04/29/23 09:37 STATUS: NATHALY PAULINO #: [id number] MUSTAPHA: 04/29/23 08:[address]: Adrian Sneed DEPT: SURGICAL PATHOLOGY RECD BY: Boni Porter ENTERED: 04/29/23 11:59 SP TYPE: EGD BIOPSY OT DR: Dr. Fe Urbina MD Tissues: Gastric mucous membrane Procedures: Special Stain Group II Surgery Specimen Level IV Alcian Blue/PAS (control) HEADER OPERATION: EGD ([facility]) with biopsies and bipolar electrohemostasis PRE-OP DIAGNOSIS: GI metaplasia TISSUE SUBMITTED: Gastric ulcer biopsy MICROSCOPIC DIAGNOSIS Gastric ulcer, biopsy: Fragments of gastric mucosa with ulceration, fibrinous exudation, acute and chronic inflammation. Focal intestinal metaplasia (goblet cell metaplasia). Negative for dysplasia. See comment. NASH:devika 04/30/2023 COMMENT The results of immunohistochemistry for Helicobacter pylori will be reported separately ([id number]). Alcian blue/PAS stain with matched control is used in the evaluation of the specimen. MICROSCOPIC DESCRIPTION Slides are reviewed. GROSS DESCRIPTION Received in fixative is one container labeled with the patient's name and designated gastric ulcer biopsy. The specimen consists of two irregular fragments of light chery soft tissue that in aggregate measure 0.8 x 0.3 x 0.1 cm. The specimen is totally submitted in one cassette. / NASH:devika 04/29/2023 TC:2 CPT: 78551, 77571
--- NOTE | 2023-04-29 08:37 | OP.CCLET_ITS ---
04/29/2023 Fe Urbina [address] [place] [address] Re : Upper GI endoscopy procedure for Abril Bradford Dear Dr. Urbina This procedure was performed on Saturday, April 29, 2023. My impressions and recommendations are as follows: Impressions : - LA Grade B reflux esophagitis. - Small hiatal hernia. - Oozing gastric ulcer with a visible vessel. Injected. - Oozing gastric ulcer with pigmented material. Treated with a heater probe. - Non-bleeding gastric ulcer with no stigmata of bleeding. Biopsied. - No gross lesions in the first portion of the duodenum. Recommendations : - Discharge patient to home. - Resume previous diet. - No aspirin, ibuprofen, naproxen, or other non-steroidal anti-inflammatory drugs for 12 weeks. - Await pathology results. - Repeat upper endoscopy in 3 months for surveillance. - Use Protonix (pantoprazole) 40 mg PO BID for 3 months. My findings are described in the full procedure note, which is enclosed. If I can be of further assistance, please feel free to contact me at . Sincerely, Adrian Sneed, 04/29/2023 8:37:29 AM This report has been signed electronically.
--- NOTE | 2023-04-29 08:37 | OP.EGD_ITS ---
Patient Name: Abril Christine Procedure Date: 04/29/2023 8:12 AM Date of : 1950 Age: 73 Procedure: Upper GI endoscopy Indications: Chronic peptic ulcer with hemorrhage Providers: Adrian Sneed DO Medicines: Monitored Anesthesia Care Patient Profile: This is a 73 year old female. Refer to note in patient chart for documentation of history and physical. Patient has symptoms of acute epigastric abdominal pain. Complications: No immediate complications. Procedure: Pre-Anesthesia Assessment: - Prior to the procedure, a History and Physical was performed, and patient medications and allergies were reviewed. The risks and benefits of the procedure and the sedation options and risks were discussed with the patient. All questions were answered and informed consent was obtained. Patient identification and proposed procedure were verified by the physician in the pre-procedure area. Mental Status Examination: alert and oriented. Airway Examination: normal oropharyngeal airway and neck mobility. Respiratory Examination: clear to auscultation. Prophylactic Antibiotics: The patient does not require prophylactic antibiotics. Prior Anticoagulants: The patient has taken no previous anticoagulant or antiplatelet agents. After reviewing the risks and benefits, the patient was deemed in satisfactory condition to undergo the procedure. The anesthesia plan was to use minimal sedation / analgesia (anxiolysis). Immediately prior to administration of medications, the patient was re-assessed for adequacy to receive sedatives. The heart rate, respiratory rate, oxygen saturations, blood pressure, adequacy of pulmonary ventilation, and response to care were monitored throughout the procedure. The physical status of the patient was re-assessed after the procedure. After obtaining informed consent, the endoscope was passed under direct vision. Throughout the procedure, the patient's blood pressure, pulse, and oxygen saturations were monitored continuously. The gastroscope was introduced through the mouth, and advanced to the second part of duodenum. The upper GI endoscopy was accomplished without difficulty. The patient tolerated the procedure well. Scope In: 8:15:42 AM Scope Out: 8:28:16 AM Total Procedure Duration Time 0 hours 12 minutes 34 seconds Findings: LA Grade B (one or more mucosal breaks greater than 5 mm, not extending between the tops of two mucosal folds) esophagitis with no bleeding was found 36 to 39 cm from the incisors. A small hiatal hernia was present. One oozing cratered gastric ulcer with a visible vessel was found in the prepyloric region of the stomach. The lesion was 6 mm in largest dimension. Area was successfully injected with 5 mL of a 1:10,000 solution of epinephrine for drug delivery. Estimated blood loss was minimal. One oozing cratered gastric ulcer with pigmented material was found in the prepyloric region of the stomach. The lesion was 6 mm in largest dimension. Coagulation for hemostasis using heater probe was successful. Estimated blood loss was minimal. One non-bleeding cratered gastric ulcer with no stigmata of bleeding was found in the prepyloric region of the stomach. The lesion was 6 mm in largest dimension. Biopsies were taken with a cold forceps for histology. Verification of patient identification for the specimen was done. Estimated blood loss was minimal. No gross lesions were noted in the first portion of the duodenum. Impression: - LA Grade B reflux esophagitis. - Small hiatal hernia. - Oozing gastric ulcer with a visible vessel. Injected. - Oozing gastric ulcer with pigmented material. Treated with a heater probe. - Non-bleeding gastric ulcer with no stigmata of bleeding. Biopsied. - No gross lesions in the first portion of the duodenum. Recommendation: - Discharge patient to home. - Resume previous diet. - No aspirin, ibuprofen, naproxen, or other non-steroidal anti-inflammatory drugs for 12 weeks. - Await pathology results. - Repeat upper endoscopy in 3 months for surveillance. - Use Protonix (pantoprazole) 40 mg PO BID for 3 months. Procedure Code(s): --- Professional --- 88277, 59, Esophagogastroduodenoscopy, flexible, transoral; with control of bleeding, any method 91370, 59, Esophagogastroduodenoscopy, flexible, transoral; with directed submucosal injection(s), any substance 05764, Esophagogastroduodenoscopy, flexible, transoral; with biopsy, single or multiple CPT copyright 2017 [employer]. All rights reserved. The codes documented in this report are preliminary and upon haulpak driver review may be revised to meet current compliance requirements. Adrian Sneed DO 04/29/2023 8:37:29 AM This report has been signed electronically. Number of Addenda: 0 Note Initiated On: 04/29/2023 8:12 AM
== END 2023-04-29 09:31 | disposition home or self-care (01) ==
LOC: EN 07:10 → AC 07:11
PROVIDERS: PCP Internal Medicine; Referring Provider Internal Medicine; Visit Provider Internal Medicine Gastroenterology
PROC: 0DJ08ZZ Inspection of Upper Intestinal Tract, Via Natural or Artificial Opening Endoscopic (ICD-10-PCS; CPT 43235; principal; 2023-04-29 08:10)
DX: K25.9 Gastric ulcer, unspecified as acute or chronic, without hemorrhage or perforation (principal); K44.9 Diaphragmatic hernia without obstruction or gangrene; K31.89 Other diseases of stomach and duodenum; R19.7 Diarrhea, unspecified; K62.3 Rectal prolapse; K21.00 Gastro-esophageal reflux disease with esophagitis, without bleeding
CPT/HCPCS: 43239; 43255; 88305; 88313; 88342; J7120; J2405

== ENCOUNTER → 2023-06-24 | Outpatient (CLI) | payer MEDICARE, OTHER, SELFPAY ==
[2023-06-24 12:51] LABS: Hematocrit 43.7 % (37-47); Hemoglobin 13.9 g/dL (12.0-15.0); Mean Corp Hgb Conc 31.8 g/dL (32-36); Mean Platelet Vol. 11.4 fl (6.2-12.0); Platelet Count 146 K/mm3 (150-450); RBC Distribution Width CV 12.7 % (11.6-14.6); RBC Distribution Width SD 42.1 fl (35.1-43.9); White Blood Count 5.7 K/mm3 (4.4-11.0)
[2023-06-24 13:06] LABS: Albumin, Serum 3.3 g/dL (3.2-5.0); BUN 24 mg/dL (7-18); BUN/Creat Ratio 14.4 RATIO (10-20); Calcium,Total 8.5 mg/dL (8.5-10.1); Chloride 111 mmol/L (98-107); Creatinine, Serum 1.67 mg/dL (0.55-1.02); EST Glomerular Filtration Rate 32 mL/min (>60); Est Glom Filt Rate - Afr Amer 39 mL/min (>60); Glucose 94 mg/dL (74-106); Phosphorus 2.8 mg/dL (2.5-4.9); Potassium 4.1 mmol/L (3.5-5.1); Sodium Level 141 mmol/L (136-145)
[2023-06-24 13:15] LABS: PTHIN 91.5 pg/mL (18.4-80.1)
== END | disposition home or self-care (01) ==
LOC: POLAB3 06-25 12:41
PROVIDERS: PCP Internal Medicine; Visit Provider Internal Medicine Nephrology
DX: N18.32 Chronic kidney disease, stage 3b (principal)
CPT/HCPCS: 36415; 80069; 83970; 85027

== ENCOUNTER 2023-07-09 09:25 | Emergency (ER) | payer MEDICARE, OTHER, SELFPAY ==
[2023-07-09 09:25] VITALS: BP 196/96; PULSE 70; RESP 22; TEMP 35.9; O2SAT 100
[2023-07-09 09:31] VITALS: BMI 23.0
--- NOTE | 2023-07-09 09:41 | CT_ITS ---
INDICATION: Head Injury EXAMINATION: CT BRAIN - CT Head or Brain W/O Contrast Injection TECHNIQUE: Multiple axial images were obtained of the head without intravenous contrast. A radiation dose optimization technique was used for this scan. IV Contrast dosage and agent: None. RADIATION DOSAGE (If Supplied By Facility): CTDIvol = ( 44.99 ) mGy, DLP = ( 762.36 ) mGycm COMPARISON: No prior examinations are available for comparison. FINDINGS: BRAIN PARENCHYMA: No intra- or extra-axial hemorrhage. No evidence of acute infarct. No intracranial mass or mass effect. There is preservation of the bazzi/white matter interface. Posterior fossa structures are unremarkable. Atherosclerotic calcifications of the cavernous internal carotid arteries. CSF SPACES: Appropriate for age. No hydrocephalus. Basal cisterns are patent. CALVARIUM, SKULL BASE, PARANASAL SINUSES AND MASTOID AIR CELLS: Large right occipital scalp hematoma. No evidence of calvarial fracture. ORBITS: Both globes, extraocular muscles, optic nerves and retrobulbar fat appear unremarkable. CT/Brain/Head without Contrast IMPRESSION: 1. No acute intracranial process. 2. Large right occipital scalp hematoma. Electronically Signed: Stan Kenyon MD at 10:21 EDT ,
--- NOTE | 2023-07-09 09:41 | EDS_ITS ---
HPI History of Present Illness Chief Complaint: Head Injury Narrative Narrative: 73-year-old female presents with her because of mechanical fall when she took the dog out this morning. They state that they have relatively large, strong dog who pulled on its leash. The chain snapped and the patient fell backwards, striking her head against the concrete. While she does not take blood thinners, she does state that there is now a large knot on the back of her head mainly on the right side. She denies any neck pain, no loss of consciousness, no other injury except for pain in her left wrist. She is right- hand dominant. She was able to get up eventually and ambulate. She does state that when she gets a panic attack, sometimes she has problems moving her left side. She is having a minor panic attack currently. She presents mainly because of the head injury, and left wrist pain. [facility] Medical History Acute kidney injury Anxiety Benign essential tremor Bruising Fibromyalgia Gastric reflux High cholesterol History of edema History of hiatal hernia History of IBS History of renal disease Hyperlipidemia Hypertension IBS (irritable bowel syndrome) Non-smoker Wears glasses Wears hearing aid Home Medications clonazepam 0.5 mg tablet 0.5 mg PO BID FIBROMYALGIA 12/08/18 [History Last Taken 07/09/23] lorazepam 1 mg tablet (Ativan) 1 mg PO QHS PRN Anxiety 12/08/18 [History Last Taken 06/23/22 12:10] sertraline 100 mg tablet (Zoloft) 75 mg PO DAILY Check with primary doctor 12/08/18 [History Last Taken 07/09/23] cholecalciferol (vitamin D3) 50 mcg (2,000 unit) capsule (Vitamin D3) 2,000 unit PO DAILY supplement 12/24/21 [History Last Taken 07/09/23] rosuvastatin 5 mg tablet 5 mg PO QHS cholesterol 12/24/21 [History Last Taken 07/08/23] pantoprazole 40 mg tablet,delayed release (Protonix) 40 mg PO DAILY #30 tabs 05/22/23 [Rx Last Taken 07/09/23] Allergy/AdvReac Type Severity Reaction Status Date / Time amoxicillin Allergy Hives Verified 07/09/23 09:25 Family History Mother AAA (abdominal aortic aneurysm) Father Multiple sclerosis Brother Heart disease Myocardial infarction Kidney disease Sister Liver disease Surgical History H/O dilation and curettage History of esophagogastroduodenoscopy (EGD) History of total vaginal hysterectomy (TVH) pelvic floor repair Social History Smoking Status: Never smoker alcohol intake: never substance use type: does not use caffeine: Yes what type of physical activity do you participate in: walking seatbelt use: always do you feel safe at home: Yes additional social history: Ish BELL ED ROS Narrative Constitutional: No fever, no chills. HEENT: No sore throat. No neck pain. No loss of vision. No rhinorrhea. Large knot on back of right hand. Cardiovascular: No chest pain. No palpitations. No pedal edema. Respiratory: No cough, no shortness of breath. Abdominal: No abdominal pain. No nausea. No vomiting. Genitourinary: No dysuria. No hematuria. Musculoskeletal: No myalgias. Left wrist pain worse with movement. Neurologic: No headaches. No dizziness. No lightheadedness. Skin: No rash. No change in color. Psychiatric: No depression. No anxiety. EXAM Physical Exam Narrative Exam Narrative: Afebrile. Vital signs noted. GCS 15. ABCs are intact. HEENT: Normocephalic. Positive hematoma with tenderness on the right portion of occiput. PERRL, EOMI. Neck soft and supple. No point tenderness or step off. Cardiovascular: Regular rate and rhythm. No murmurs, rubs, or gallops appreciated. Respiratory: No tachypnea. Lungs clear to auscultation bilaterally. Gastrointestinal: Abdomen soft, nontender, with normoactive bowel sounds. No rebound or guarding. Neurological: Awake. Alert. Nonfocal, nonlateralizing. Skin: No rash. Normal color. No pallor. Musculoskeletal: No pedal edema. Full range of motion extremities. Mild tenderness to palpation left distal radius, no obvious deformity. Palpable radial pulse. Able to oppose thumb without difficulty. Good capillary refill. Const Vital Signs: 07/09/23 09:25 07/09/23 09:45 Temperature 96.7 F L Temperature Source Temporal Pulse Rate 70 Respiratory Rate 22 H Respiratory Effort Normal Non-Labored Respiratory Depth Normal Respiratory Pattern Normal Blood Pressure 196/96 H Blood Pressure Mean 129 Pulse Ox 100 Oxygen Delivery Method Room Air Room Air MDM MDM MDM Narrative Medical decision making narrative: Given the patient's large hematoma, initial concern would be for intracranial hemorrhage or skull fracture. She may just have a closed head injury with scalp hematoma. I do feel CT imaging is indicated. She has full range of motion of her neck without step-off so I do not feel that CT of the C-spine is indicated. I will obtain x-rays of her left wrist to rule out fracture versus sprain. With the thought that she may have an intracranial hemorrhage, initially I will wait on administering any type of oral analgesic. I did review and interpreted her CT imaging and see no evidence of an intracranial hemorrhage, but there is a large right occipital scalp hematoma. I reviewed the radiology report which confirms my independent interpretation. Additionally, I reviewed and interpreted her left wrist x-rays in 3 views, and see no evidence of an acute fracture. I do feel she has more of a wrist sprain. Additionally, I reviewed the radiology report which confirms my independent interpretation of her left wrist x-rays. She was offered a Velcro splint versus Uriah wrap and declined both. She will continue ice and elevation at home. She agreed to Tylenol here in the emergency department for analgesia and will take [id number] medication as needed. I do not feel she requires observation at this time, and I feel that she can be discharged to follow-up with her [facility] care provider. Return instructions to the emergency department were reviewed. Disposition is discharged home in stable condition. History & Record Review Discussion w/independent historian: Patient and Family Additional record(s) reviewed:: Prior ED visit (Previous anxiety attacks.) Radiography Diagnostic Testing: Clinical Impression(s) from Imaging Studies Brain CT 07/09/23 09:41 IMPRESSION: 1. No acute intracranial process. 2. Large right occipital scalp hematoma. Electronically Signed: Stan Kenyon MD at 10:21 EDT , Wrist X-Ray 07/09/23 10:00 IMPRESSION: No evidence of acute osseous injury. Electronically Signed: Stan Kenyon MD at 10:25 EDT , Discharge Plan Triage Chief Complaint: Head Injury ED Provider: Naresh Jean Dx/Rx/DC Orders Clinical Impression: Hematoma of occipital region of scalp, Fall, Left wrist sprain Instructions: ED Scalp Contusion, ED Head Injury (Adult), ED Hematoma, ED Wrist Sprain Prescriptions: No Action lorazepam [Ativan] 1 mg tablet 1 mg PO QHS PRN (Reason: Anxiety) clonazepam 0.5 mg tablet 0.5 mg PO BID sertraline [Zoloft] 100 mg tablet 75 mg PO DAILY rosuvastatin 5 mg tablet 5 mg PO QHS Patient Comments: TAKE 1 TABLET BY MOUTH EVERYDAY AT BEDTIME cholecalciferol (vitamin D3) [Vitamin D3] 50 mcg (2,000 unit) Capsule 2,000 unit PO DAILY pantoprazole [Protonix] 40 mg tablet,delayed release (DR/EC) 40 mg PO DAILY Qty: 30 3RF Primary Care Provider: Fe Urbina Referrals: Fe Urbina MD [Primary Care Provider] - 1 Week if not improving Activity Restrictions/Additional Instructions: Take [id number] Tylenol as needed for pain. Continue ice and elevation of your left wrist, and apply ice to your hematoma on your scalp as needed. Disposition Disposition: Home, Self Care
--- NOTE | 2023-07-09 10:00 | RAD_ITS ---
INDICATION: Trauma EXAMINATION/TECHNIQUE: X-RAY - LEFT XR Wrist Min 3 Views 3 VIEWS COMPARISON: None. FINDINGS: SOFT TISSUES: No soft tissue swelling or gas. No radiopaque foreign body. BONES/JOINTS: No acute fracture or subluxation.. Normal alignment. Preservation of the joint space.. No sclerotic or destructive changes observed. RAD/Wrist min 3 Views IMPRESSION: No evidence of acute osseous injury. Electronically Signed: Stan Kenyon MD at 10:25 EDT ,
[2023-07-09] MEDS: Acetaminophen 325 MG Tablet 650 MG PO (10:45)
[2023-07-09 10:49] VITALS: BP 157/70; PULSE 53; RESP 16; TEMP 36.8; O2SAT 98
--- NOTE | 2023-07-09 10:52 | CM.ED ---
Social Work SW performed chart review, AD not on file. SW met with patient and patient's and introduced self and role as [facility] SW. Patient lying on hospital bed and agreeable to speak with SW with present. SW inquired about completion of advanced directives. Patient reports both are completed but is unable to recall HCPOA, explaining it would be either her or daughter. SW encouraged patient to review documents and provide a copy to be added to her chart. Patient voiced understanding and voices no other needs. Keke Whitehead SEARCH DIRECTOR, [place]
== END 2023-07-09 10:51 | disposition home or self-care (01) ==
PROVIDERS: Emergency Provider Emergency Medicine; PCP Internal Medicine; Visit Provider Emergency Medicine
DX: S00.03XA Contusion of scalp, initial encounter (principal); I10 Essential (primary) hypertension; E78.00 Pure hypercholesterolemia, unspecified; S63.92XA Sprain of unspecified part of left wrist and hand, initial encounter; M79.7 Fibromyalgia; F41.9 Anxiety disorder, unspecified; K21.9 Gastro-esophageal reflux disease without esophagitis; Z79.899 Other long term (current) drug therapy; Z90.710 Acquired absence of both cervix and uterus; W18.39XA Other fall on same level, initial encounter; Y93.K9 Activity, other involving animal care
CPT/HCPCS: 70450; 73110; 99283

== ENCOUNTER 2023-12-18 07:48 | Day surgery (SDC) | payer MEDICARE, OTHER, SELFPAY ==
[2023-12-18] VITALS (7 sets, daily range): BP systolic 91–145; BP diastolic 50–82; PULSE 51–64; RESP 16–18; TEMP 36–36.6; O2SAT 93–98; BMI 23.1
--- OUTSIDE RECORDS SUMMARY | 2023-12-18 08:18 | XMS RPT_ITS | CCD ---
Author Name Unknown Address [address] [place] [address] Organization [facility] Care Team Providers Care Stunt Double Name Role Phone Guzman Urbina MD Primary Care Provider GUZMAN URBINA Primary Care Unavailable CARLIE BOWENS Referring Unavailable TALAMPSWETHA GUZMAN D Primary Care Unavailable TALAYO GUZMAN Moses Primary Care Unavailable SAMEERA VALLE Attending Unavailable GUZMAN URBINA Attending Unavailable CHALINO GUZMAN Moses Primary Care Unavailable SAMEERA VALLE Referring Unavailable TALAMPSWETHA, GUZMAN D Primary Care Unavailable TALAMPSWETHA, GUZMAN D Primary Care Unavailable Allergies Allergy Classification Reported Allergen(s) Allergy Type Date of Onset Reaction(s) Facility (15 sources) Amoxicillin; Translations: [AMOXICILLIN] Drug Allergy 11-15-[address] [facility] (15 sources) atorvastatin; Translations: [ATORVASTATIN CALCIUM] Drug Allergy 06-12-20 16 Other: See Comments [facility] (15 sources) Erythromycin; Translations: [ERYTHROMYCIN] Drug Allergy 11-15-20 05 GI Upset [facility] (15 sources) hydroCHLOROthiazide / Triamterene; Translations: [TRIAMTERENE-HYDROCHLOR OTHIAZID] Drug Allergy 05-20-20 [address] [facility] (15 sources) Ramipril; Translations: [RAMIPRIL] Drug Allergy 08-28-20 13 Mental Status Change [facility] Medications Current Medications Medication Drug Class(es) Dates Sig (Normalized) Sig (Original) ciprofloxacin 500 mg oral tablet (1 source) Quinolone Antimicrobial Start: 04-10-2022 End: 04-13-2022 take 1 tablet by mouth once daily ciprofloxacin HCl (CIPRO) 500 mg tablet Take 1 tablet by mouth once daily for 3 days. 3 tablet 0 04/10/2022 04/13/2022 Active Completed/Discontinued Medications Medication Drug Class(es) Dates Sig (Normalized) Sig (Original) benzocaine 15 mg / menthol 2.6 mg oral lozenge (3 sources) Standardized Chemical Allergen Start: 11-30-2021 End: 04-10-2022 benzocaine-menthol (CEPACOL SORE THROAT, SHAYLA-MEN,) 15-2.6 mg lozg lozenge Take 1 Lozenge by mouth every 3 hours as needed. 30 Lozenge 1 11/30/2021 04/10/2022 Discontinued Problems Active Problems Problem Classification Problem Date Documented Da te Episodic/Chronic Acute and unspecified renal failure (1 source) Acute injury of kidney; Translations: [Acute kidney failure, unspecified] Episodic Adjustment disorders (18 sources) Stress and adjustment reaction; Translations: [Adjustment disorder with other symptoms] Onset: 6 01-11-2016 Chronic Anxiety disorders (20 sources) Anxiety state; Translations: [Generalized anxiety disorder] Onset: 6 Chronic Chronic kidney disease (9 sources) Chronic kidney disease stage 3B ; Translations: [Stage 3b chronic kidney disease (HCC)] Onset: 3 Chronic Chronic kidney disease (1 source) Chronic kidney disease; Translations: [Stage 3b chronic kidney disease (HCC)] Onset: 3 Coagulation and hemorrhagic disorders (2 sources) Thrombocytopenic disorder; Translations: [Thrombocytopenia, unspecified] Onset: 3 Chronic Deficiency and other anemia (2 sources) Anemia; Translations: [Anemia, unspecified] Episodic Disorders of lipid metabolism (17 sources) Hyperlipidemia; Translations: [Hyperlipidemia, unspecified] Onset: 2 10-23-2012 Chronic E Codes: Natural/environment (1 source) Dog bite - wound; Translations: [Bitten by dog, initial encounter] Episodic Essential hypertension (19 sources) Hypertensive disorder; Translations: [Essential (primary) hypertension] Onset: 3 08-30-2013 Chronic Gastroduodenal ulcer (except hemorrhage) (1 source) Personal history of peptic ulcer disease; Translations: [History of bleeding peptic ulcer] Onset: 3 Episodic Genitourinary symptoms and ill-defined conditions (1 source) Increased frequency of urination; Translations: [Frequency of micturition] Episodic Nutritional deficiencies (2 sources) Vitamin D deficiency; Translations: [Vitamin D deficiency, unspecified] Onset: 3 Chronic Other aftercare (6 sources) Patient encounter status; Translations: [Other exterminator termite (current) drug therapy] Episodic Other diseases of kidney and ureters (2 sources) Renal impairment; Translations: [Disorder of kidney and ureter, unspecified] Episodic Other gastrointestinal disorders (16 sources) Irritable bowel syndrome; Translations: [Irritable bowel syndrome without diarrhea] Onset: 5 07-08-2015 Chronic Other gastrointestinal disorders (1 source) Irritable bowel syndrome without diarrhea; Translations: [Irritable bowel syndrome, unspecified type] Onset: 5 Chronic Other lower respiratory disease (1 source) Cough; Translations: [Acute cough] Episodic Other lower respiratory disease (1 source) Pleuritic pain; Translations: [Pleurodynia] Episodic Other nervous system disorders (3 sources) Tremor; Translations: [Tremor, unspecified] Episodic Other upper respiratory infections (1 source) Acute pansinusitis; Translations: [Acute pansinusitis, unspecified] 08-30-2023 Episodic Prolapse of female genital organs (14 sources) Third degree uterine prolapse; Translations: [Complete uterovaginal prolapse] Onset: 4 11-15-2014 Chronic Residual codes; unclassified (1 source) Asymptomatic menopausal state; Translations: [Asymptomatic postmenopausal status] Onset: 3 Episodic Spondylosis; intervertebral disc disorders; other back problems (1 source) Lumbago with sciatica, left side; Translations: [Acute left-sided low back pain with left-sided sciatica] Onset: 3 Episodic Unclassified (1 source) Acute cough; Translations: [Acute cough] Onset: 3 Past or Other Problems Problem Classification Problem Date Documented Date Episodic/Chronic Fracture of upper limb (14 sources) Fracture of distal end of radius and ulna ; Translations: [Unspecified fracture of the lower end of unspecified radius, initial encounter for closed fracture] Onset: 01-11-2014 01-11-2014 Episodic Immunizations and screening for infectious disease (2 sources) Vaccination needed; Translations: [Encounter for immunization] Onset: 04-19-2023 Episodic Other connective tissue disease (14 sources) Metatarsalgia of left foot; Translations: [Metatarsalgia, left foot] Onset: 10-23-2012 10-23-2012 Episodic Other female genital disorders (14 sources) Disorder of female genital system; Translations: [Unspecified condition associated with female genital organs and menstrual cycle] Onset: 01-11-2017 01-11-2017 Episodic Other nervous system disorders (1 source) Tremor, unspecified; Translations: [Tremor] Onset: 04-19-2023 Episodic Other screening for suspected conditions (not mental disorders or infectious disease) (3 sources) Serum ferritin high; Translations: [Other specified abnormal findings of blood chemistry] Onset: 04-19-2023 Episodic Other skin disorders (14 sources) Vesicular eczema; Translations: [Dyshidrosis [pompholyx]] Onset: 10-23-2012 10-23-2012 Episodic Other skin disorders (14 sources) Dry skin dermatitis; Translations: [Xerosis cutis] Onset: 11-09-2019 11-09-2019 Episodic Results Test Name Value Interpretation Reference Range Facil ity Vital Signs Date Time Vital Sign Value Performing Clinician Faci lity 08-30-2023 12:43-0400 Body temperature 98.91 [degF] Rosa Reardon APRN.CNP Work Phone: [facility] 08-30-2023 12:43-0400 Body weight 61.42 kg Rosa Reardon APRN.CNP Work Phone: [facility] 08-30-2023 12:43-0400 Diastolic blood pressure 66 mm[Hg] Rosa Reardon APRN.CNP Work Phone: [facility] 08-30-2023 12:43-0400 Heart rate 60 /min Rosa Reardon APRN.CNP Work Phone: [facility] 08-30-2023 12:43-0400 Respiratory rate 18 /min Rosa Reardon APRN.CNP Work Phone: [facility] 08-30-2023 12:43-0400 SaO2% (BldA) [Mass fraction] 99 % Rosa Reardon APRN.CNP Work Phone: [facility] 08-30-2023 12:43-0400 Systolic blood pressure 144 mm[Hg] Rosa Alvesk ORE FEEDER.PLASTICS FACTORY WORKER Work Phone: [facility] 05-17-2023 11:47-0400 Body temperature 98.01 [degF] Carlie Praisler-Wood ORE FEEDER.PLASTICS FACTORY WORKER Work Phone: [facility] 05-17-2023 11:47-0400 Body weight 60.78 kg Carlie Praisler-Wood ORE FEEDER.PLASTICS FACTORY WORKER Work Phone: [facility] 05-17-2023 11:47-0400 Diastolic blood pressure 76 mm[Hg] Carlie Praisler-Wood ORE FEEDER.PLASTICS FACTORY WORKER Work Phone: [facility] 05-17-2023 11:47-0400 Heart rate 55 /min Carlie Praisler-Wood ORE FEEDER.PLASTICS FACTORY WORKER Work Phone: [facility] 05-17-2023 11:47-0400 Respiratory rate 18 /min Carlie Praisler-Wood ORE FEEDER.PLASTICS FACTORY WORKER Work Phone: [facility] 05-17-2023 11:47-0400 SaO2% (BldA) [Mass fraction] 99 % Carlie Praisler-Wood ORE FEEDER.PLASTICS FACTORY WORKER Work Phone: [facility] 05-17-2023 11:47-0400 Systolic blood pressure 138 mm[Hg] Carlie Praisler-Wood ORE FEEDER.PLASTICS FACTORY WORKER Work Phone: [facility] 04-19-2023 13:35-0400 Body weight 59.88 kg Sameera Valle ORE FEEDER.SERVICE CREW SUPERVISOR Work Phone: [facility] 04-19-2023 13:35-0400 Diastolic blood pressure 70 mm[Hg] Sameera Valle ORE FEEDER.SERVICE CREW SUPERVISOR Work Phone: [facility] 04-19-2023 13:35-0400 Heart rate 70 /min Sameera Valle ORE FEEDER.SERVICE CREW SUPERVISOR Work Phone: [facility] 04-19-2023 13:35-0400 Respiratory rate 16 /min Sameera Valle ORE FEEDER.SERVICE CREW SUPERVISOR Work Phone: [facility] 04-19-2023 13:35-0400 Systolic blood pressure 154 mm[Hg] Sameeravipul Colonroselyn MCGOWAN.SERVICE CREW SUPERVISOR Work Phone: [facility] 10-19-2022 16:05-0500 Body weight 59.42 kg Guzman Urbina MD Work Phone: [facility] 10-19-2022 16:05-0500 Diastolic blood pressure 80 mm[Hg] Guzman Urbina MD Work Phone: [facility] 10-19-2022 16:05-0500 Heart rate 65 /min Guzman Urbina MD Work Phone: [facility] 10-19-2022 16:05-0500 Respiratory rate 18 /min Guzman Urbina MD Work Phone: [facility] 10-19-2022 16:05-0500 SaO2% (BldA) [Mass fraction] 96 % Guzman Urbina MD Work Phone: [facility] 10-19-2022 16:05-0500 Systolic blood pressure 136 mm[Hg] Guzman Urbina MD Work Phone: [facility] 04-28-2022 12:09-0400 Body temperature 98.2 [degF] Brandy Pinzon APRN.PLASTICS FACTORY WORKER Work Phone: [facility] 04-28-2022 12:09-0400 Body weight 59.51 kg Brandy Pinzon APRN.PLASTICS FACTORY WORKER Work Phone: [facility] 04-28-2022 12:09-0400 Diastolic blood pressure 64 mm[Hg] Brandy Pinzon APRN.PLASTICS FACTORY WORKER Work Phone: [facility] 04-28-2022 12:09-0400 Heart rate 70 /min Brandy Pinzon APRN.PLASTICS FACTORY WORKER Work Phone: [facility] 04-28-2022 12:09-0400 Respiratory rate 21 /min Brandy Pinzon APRN.PLASTICS FACTORY WORKER Work Phone: [facility] 04-28-2022 12:09-0400 SaO2% (BldA) [Mass fraction] 98 % Brandy James ORE FEEDER.PLASTICS FACTORY WORKER Work Phone: [facility] 04-28-2022 12:09-0400 Systolic blood pressure 142 mm[Hg] Brandy Jeromy ORE FEEDER.PLASTICS FACTORY WORKER Work Phone: [facility] 04-10-2022 10:09-0400 Diastolic blood pressure 71 mm[Hg] Sameera Valle ORE FEEDER.SERVICE CREW SUPERVISOR Work Phone: [facility] 04-10-2022 10:09-0400 Heart rate 55 /min Sameera Valle ORE FEEDER.SERVICE CREW SUPERVISOR Work Phone: [facility] 04-10-2022 10:09-0400 Systolic blood pressure 147 mm[Hg] Sameera Valle ORE FEEDER.SERVICE CREW SUPERVISOR Work Phone: [facility] 04-10-2022 10:00-0400 Body weight 59.42 kg Sameera Valle ORE FEEDER.SERVICE CREW SUPERVISOR Work Phone: [facility] 04-10-2022 10:00-0400 Respiratory rate 16 /min [facility] ORE FEEDER.SERVICE CREW SUPERVISOR Work Phone: [facility] 04-10-2022 10:00-0400 SaO2% (BldA) [Mass fraction] 100 % [facility] ORE FEEDER.SERVICE CREW SUPERVISOR Work Phone: [facility] Encounters Encounter Date Encounter Type Care Provider Facility Start: 10-22-2023 End: 10-23-2023 ambulatory GUZMAN URBINA Facility:[facility] Start: 10-16-2023 End: 10-17-2023 ambulatory SAMEERA VALLE Facility:[facility] Start: 09-18-2023 ambulatory Guzman dempsey MD Work Phone: [facility] Start: 08-30-2023 End: 08-30-2023 ambulatory Guzman Urbina MD Work Phone: [facility] Procedures Date Procedure Procedure Detail Performing Clinician Start: 10-15-2022 Lipid 1996 panel - S lucina or Plasma Guzman Urbina MD Work Phone: Start: 04-19-2022 Colonoscopy Brandy Pinzon APRN.CNP Work Phone: Start: 04-17-2022 PFIZER-BIONTECH COVI D-19 VACCINE, AGE 12+ YR (MEDINA TOP) Guzman Urbina MD Work Phone: Start: 06-28-2021 Adult depression scr eening assessment Guzman Urbina MD Work Phone: Start: 09-23-2020 Mammography Guzman marie MD Work Phone: Plan of Treatment Date Care Activity Detail Author Start: 10-15-2027 Lipid 1996 panel - S lucina or Plasma Lipid Screening [facility] Start: 10-15-2027 LIPID SCREEN LIPID SCREEN [facility] Start: 06-23-2026 LIPID SCREEN LIPID SCREEN [facility] Start: 10-15-2025 DIABETES SCREEN DIABETES SCREEN [facility] Start: 10-15-2025 Diabetes Screening Diabetes Screenin g [facility] Start: 04-03-2025 DIABETES SCREEN DIABETES SCREEN [facility] Start: 01-15-2025 DIABETES SCREEN DIABETES SCREEN [facility] Start: 04-19-2024 BP CONTROLLED (<130/80) BP CONTROLLE D (<130/80) [facility] Start: 02-23-2024 Urine microalbumin profile [facility] Start: 10-19-2023 ANNUAL PCP TEAM GROUP HOME WORKER BECCA DISEASE VISIT ANNUAL PCP TEAM CHRONIC DISEASE VISIT [facility] Start: 10-19-2023 Pneumococcal Vaccine : 65+ (1 - PCV) Pneumococcal Vaccine: 65+ (1 - PCV) [facility] Immunizations Immunization Date Immunization Notes Care Provider Fa cility 04-17-2022 COVID-19 vaccine, ag e 12+ yr (PFIZER-BIONTECH - MEDINA TOP) [facility] Work Phone: [facility] Work Phone: 10-28-2018 influenza virus vaccine, unspecified formulation Guzman Urbina MD Work Phone: [facility] 02-22-2014 tetanus toxoid, redu emily diphtheria toxoid, and acellular pertussis vaccine, adsorbed Guzman Urbina MD Work Phone: [facility] 05-13-1995 diphtheria and tetan us toxoids, adsorbed for pediatric use Guzman Urbina MD Work Phone: [facility] Work Phone: Payers Date Payer Category Payer Medicare MEDICARE MEDICAR E A AND B [id number] 2015-Present [phone] [place] [address] Medicare [id number] 2015 Medicare MEDICARE MEDICAR E A AND B [id number] 2015-Present [phone] [place] [address] Medicare [id number] 2015 Medicare [id number] 2015 Medicare [id number] 2015 Unknown [employer] [place] [employer] [place] MEDICARE SUPPLEMENT [id number] 2015-Present [id number] [place] [address] Indemnity [id number] 2015 Unknown [employer] [place] [employer] [place] MEDICARE SUPPLEMENT [id number] 2015-Present [phone] [place] [address] Indemnity [id number] Social History Date Type Detail Facility Start: 04-17-2013 End: 10-19-2022 Tobacco smoking status NHIS Never smoked tobacco [facility] Start: 01-15-2022 End: 08-30-2023 Alcohol intake Current drinker of alcohol (finding) [facility] Start: 11-15-2020 History SDOH Alcohol Frequency [address] [facility] Start: 01-11-2017 History SDOH Alcohol Comment Rarely [facility] Start: 11-15-2020 History SDOH Social Connections Phone [address] [facility] Start: 11-15-2020 History SDOH Social Connections Get Together [address] [facility] Start: 11-15-2020 History SDOH Financial [address] [facility] Start: 11-15-2020 Education [address] [facility] Start: 1950 Sex Assigned At Female [facility] Start: 02-25-2022 End: 10-19-2022 Exposure to SARS-CoV-2 (event) Not sure [facility] Work Phone: Start: 04-17-2013 End: 10-19-2022 Tobacco use and exposure Smokeless tobacco non-user [facility] Start: 11-15-2020 End: 04-19-2023 History of Social function [facility] Start: 11-15-2020 End: 04-19-2023 Social connection and isolation panel [facility] Do you belong to any clubs or organizations such as yarsanism groups, unions, fraSimplesurance or athletic groups, or school groups? Yes [facility] Are you now , , , , never or living with a partner? [facility] How often to you hav e a drink containing alcohol? Never [facility] Average Number of Drinks Not on file [facility] Work Phone: How hard is it for y ou to pay for the very basics like food, housing, medical care, and heating Not very hard [facility] (I/We) worried whechacho er (my/our) food would run out before (I/we) got money to buy more. Sometimes true [facility] The food that (I/we) bought just didn't last, and (I/we) didn't have money to get more. Never true [facility] In the past 12 month s, was there a time when you were not able to pay the mortgage or rent on time? No [facility] Start: 09-27-2020 Gender identity Identifies as female gender (finding) [facility] Clinical Notes 06-12-2016 to 10-22-2023 Rosa eRardon APRN.PLASTICS FACTORY WORKER - 08/30/2023 12:54 PM EDTPatient InstructionsTelephone Encounter - Desean MaIno - 08/30/2023 11:52 AM EDTTelephone Encounter - Maritza Ramirez - 08/30/2023 10:57 AM EDT Note Date & Type Note Facility 10-22-2023 Note HNO ID: [id number] Author: GUZMAN URBINA MD Service: ? Author Type: Physician Type: Progress Notes Filed: 11/24/2023 01:29 Note Text: This note was created using [employer]. Subjective Abril Grigsby is a 73 year old female. HISTORY Abril Grigsby is a 73 year old lady here for yearly exam and follow up appointment. Noted has had some falls from dog. Also outside when hit head on sidewalk--hit head and had hematoma; also had face plant and hit left knee. Also dog jumped on back and lost her balance and landed on linoleum. Another time tripped on dog and landed on buttock--hurts around lower rib cage and buttocks; knots along lateral thigh. Noted has been to ER at [facility] in June--Ct scan noted large hematoma in occipital area; on ICH. Has sore at edge of hairline that keeps picking at. Can gets sore and sometimes swell up. Left occipital area. Left face tingling can come and go. Doesn't last long and does not pay too much attention to it. Reviewed had bleeding ulcers on EGD done April [address] Sneed. Has follow up November. Follow up with computing services director. Getting tired of drinking water but still drinking water. Getting 6 to 8 cups water in every day. Noted stressors dealing with grandson. Issues with car deal. Had more panic attacks when he was living with her and her . Triggers tremors. Decreased clonazepam to once daily most days since had issue with pharmacy not wanting to fill refills monthly. Ativan for panic attacks. Clonazepam for tremors. Also noted dog bites on hand. No signs of infection. See assessment and plan for other issues addressed. PAST MEDICAL HISTORY Diagnosis Date Anxiety state, unspecified Depressive disorder, not elsewhere classified Irritable bowel syndrome Myalgia and myositis, unspecified Fibromyalgia Thrombocytopenia (HCC) 04/19/2023 Current Outpatient Medications Medication Sig pantoprazole DR (PROTONIX) 40 mg tablet Take 40 mg by mouth once daily. GEMTESA 75 mg tablet rosuvastatin (CRESTOR) 5 mg tablet Take 1 tablet by mouth daily at bedtime. sertraline (ZOLOFT) 50 mg tablet Take 1 tablet by mouth once daily. Take this in addition to 25 mg tablet once daily for a total of 75 mg daily sertraline (ZOLOFT) 25 mg tablet Take 1 tablet by mouth once daily. Take this in addition to 50 mg tablet once daily for a total of 75 mg daily Cholecalciferol, Vitamin D3, 50 mcg (2,000 unit) cap Take 1 capsule by mouth once daily. clonazePAM (KLONOPIN) 0.5 mg tablet Take 1 tablet by mouth every morning. May also take 1 tablet once daily as needed (Breakthrough tremor in the evening). Do all this for 120 days. LORazepam (ATIVAN) 1 mg tablet Take 1 tablet by mouth once daily as needed (Panic attacks) for up to 30 days. sucralfate (CARAFATE) 1 gram tablet Take 1 g by mouth three times daily. lactulose 10 gram/15 mL solution (Patient not taking: Reported on 05/17/2023) lubiprostone (AMITIZA) 8 mcg capsule psyllium husk 0.4 gram cap Take by mouth. dicyclomine (BENTYL) 10 mg capsule Take 1 capsule by mouth four times daily as needed. With meals estriol 0.1% cream (CPD) Use 1 g vaginally two times a week. No current facility-administered medications for this visit. ALLERGIES Allergen Reactions Amoxicillin Hives yeast infections, urticaria Erythromycin GI Upset can take Zpak Lipitor [Atorvastat* Other: See Comments didnt feel right Maxzide [Triamteren* Intolerance back pain,santiago,fatigue/trial / tab same Ramipril Mental Status Change sleepy FAMILY HISTORY Problem Relation Age of Onset Emphysema Mother AAA other (MS) Father Aneurysm other ([place]) Daughter other (Testicular Cancer) Son other (Abd. Aneurysm) Maternal Uncle Cancer Maternal Grandfather skin Cancer Maternal Uncle Throat Diabetes Brother Heart Brother Kidney Disease Brother other (IBS) Brother Thyroid Sister other (Primary Biliary Cirrhosis) Sister Heart Maternal Grandmother Heart Paternal Grandfather Social History Tobacco Use Smoking status: Never Smokeless tobacco: Never Substance Use Topics Alcohol use: Yes Comment: Rarely Drug use: No Review of Systems Objective BP 160/92 Pulse 65 Temp 36 ?C (96.8 ?F) Resp 18 Ht 157.3 cm (5' 1.91 ) Wt 57.3 kg (126 lb 6.4 oz) SpO2 100% BMI 23.19 kg/m? Physical Exam Component Latest Ref Rng AND Units 01/15/2022 04/03/2022 10/15/2022 10/16/2023 WBC 3.70 - 11.00 k/uL 7.58 6.24 7.40 7.41 RBC 3.90 - 5.20 m/uL 3.78 (L) 3.85 (L) 4.55 4.74 Hemoglobin 11.5 - 15.5 g/dL 10.6 (L) 11.5 13.2 13.6 Hematocrit 36.0 - 46.0 % 33.9 (L) 35.9 (L) 40.4 42.6 MCV 80.0 - 100.0 fL 89.7 93.2 88.8 89.9 MCH 26.0 - 34.0 pg 28.0 29.9 29.0 28.7 MCHC 30.5 - 36.0 g/dL 31.3 32.0 32.7 31.9 RDW-CV 11.5 - 15.0 % 13.7 12.5 12.3 13.1 Platelet Count 150 - 400 k/uL 223 173 197 169 MPV 9.0 - 12.7 fL 11.5 11.3 11.0 11.7 Neut% % 64.9 68.2 64.8 Abs Neut (ANC) 1.45 - 7.50 k/uL 4.92 (more content not included)... [facility] 09-18-2023 Note Patient Outreach (IN [facility]) ABRIL GRIGSBY ([id number]) 1950 F Date Time Provider Department 09/18/23 GUZMAN URBINA During your visit today, we recorded the following information about you: Allergies As of Date: 09/18/2023 Noted Allergy Reaction AMOXICILLIN 11/15/2005 4 - Hives Comments: yeast infections, urticaria ERYTHROMYCIN 11/15/2005 8 - GI Upset Comments: can take Zpak LIPITOR (ATORVASTATIN CALCIUM) 06/12/2016 14 - Other: See Comments Comments: didnt feel right MAXZIDE (TRIAMTERENE-HYDROCHLOROT*2012 5 - Intolerance Comments: back pain,santiago,fatigue/trial 11/19 tab same RAMIPRIL 08/28/2013 1 - Mental Status Change Comments: sleepy Date Reviewed: 08/30/2023 Reviewed by: Rosa Reardon APRN.PLASTICS FACTORY WORKER - Fully Assessed Visit Diagnosis:Encounter for screening mammogram for breast cancer [Z12.31] Order(s):[facility] SCREENING [[id number]] Order #: [id number] FUTURE Prescriptions as of 09/23/2023 - GEMTESA 75 mg tablet - sucralfate (CARAFATE) 1 gram tablet Take 1 g by mouth three times daily. - lactulose 10 gram/15 mL solution - rosuvastatin (CRESTOR) 5 mg tablet Take 1 tablet by mouth daily at bedtime. - lubiprostone (AMITIZA) 8 mcg capsule - sertraline (ZOLOFT) 50 mg tablet Take 1 tablet by mouth once daily. Take this in addition to 25 mg tablet once daily for a total of 75 mg daily - sertraline (ZOLOFT) 25 mg tablet Take 1 tablet by mouth once daily. Take this in addition to 50 mg tablet once daily for a total of 75 mg daily - clonazePAM (KLONOPIN) 0.5 mg tablet Take 1 tablet by mouth twice daily for 120 days. - LORazepam (ATIVAN) 1 mg tablet Take 1 mg by mouth as needed. - psyllium husk 0.4 gram cap Take by mouth. - dicyclomine (BENTYL) 10 mg capsule Take 1 capsule by mouth four times daily as needed. With meals - omeprazole (PRILOSEC) 40 mg capsule Take 40 mg by mouth once daily. - estriol 0.1% cream (CPD) Use 1 g vaginally two times a week. - Cholecalciferol, Vitamin D3, 50 mcg (2,000 unit) cap Take 1 capsule by mouth once daily. 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 Author Type: Nurse Practitioner Type: Progress Notes Filed: 08/30/2023 1:04 PM Note Text: Subjective The history is provided by the patient. No speech and language clinician was used. HPI Abril Grigsby is a 73 year old female who presents today for CC of sinus pressure, congestion and green drainage for 1. 5 weeks. She has tried otc cough drops with out relief. No testing done. Denies any known exposure. BP 144/66 Pulse 60 Temp 37.2 ?C (98.9 ?F) Resp 18 Wt 61.4 kg (135 lb 6.4 oz) SpO2 99% BMI 23.80 kg/m? Social History Tobacco Use Smoking status: Never Smokeless tobacco: Never Substance Use Topics Alcohol use: Yes Comment: Rarely Drug use: No PAST MEDICAL HISTORY Diagnosis Date Anxiety state, unspecified Depressive disorder, not elsewhere classified Irritable bowel syndrome Myalgia and myositis, unspecified Fibromyalgia Thrombocytopenia (HCC) 04/19/2023 I have confirmed and edited as necessary, the [facility] Review of Systems Constitutional: Negative for chills and fever. HENT: Positive for congestion and sinus pain. Negative for ear pain and sore throat. Respiratory: Positive for cough. Negative for sputum production, shortness of breath and wheezing. Cardiovascular: Negative for chest pain. Musculoskeletal: Negative for myalgias. Neurological: Positive for headaches. Objective Physical Exam Vitals and nursing note reviewed. HENT: Head: Normocephalic and atraumatic. Right Ear: Tympanic membrane, ear canal and external ear normal. Left Ear: Tympanic membrane, ear canal and external ear normal. Nose: Mucosal edema, congestion and rhinorrhea present. Right Sinus: No maxillary sinus tenderness or frontal sinus tenderness. Left Sinus: No maxillary sinus tenderness or frontal sinus tenderness. Mouth/Throat: Pharynx: Uvula midline. No oropharyngeal exudate or posterior oropharyngeal erythema. Cardiovascular: Rate and Rhythm: Normal rate and regular rhythm. Heart sounds: Normal heart sounds. Pulmonary: Effort: Pulmonary effort is normal. Breath sounds: Normal breath sounds. Lymphadenopathy: Head: Right side of head: No submental, submandibular or tonsillar adenopathy. Left side of head: No submental, submandibular or tonsillar adenopathy. Cervical: No cervical adenopathy. Skin: General: Skin is warm and dry. Neurological: Mental Status: She is alert. Psychiatric: Mood and Affect: Affect normal. ASSESSMENT/PLAN: 1. Acute non-recurrent pansinusitis - ICD9: 461.8, ICD10: J01.40 - Will begin treatment with Doxycycline - Supportive care with plenty of fluids, rest, and analgesia prn. - Follow up in one week if symptoms persist or worsen. Diagnosis and treatment plan were discussed and questions were answered to the patient's satisfaction. Pt acknowledged understanding of concepts and follow up plan. Specific signs and symptoms that would indicate the need for higher level of care were discussed in detail warranting prompt ER evaluation. Rosa Reardon APRN.[facility] 08-30-2023 History of Presen t illness Narrative Subjective The history is provided by the patient. No speech and language clinician was used. HPI Abril Grigsby is a 73 year old female who presents today for CC of sinus pressure, congestion and green drainage for 1. 5 weeks. She has tried otc cough drops with out relief. No testing done. Denies any known exposure. BP 144/66 Pulse 60 Temp 37.2 C (98.9 F) Resp 18 Wt 61.4 kg (135 lb 6.4 oz) SpO2 99% BMI 23.80 kg/m Social History Tobacco Use Smoking status: Never Smokeless tobacco: Never Substance Use Topics Alcohol use: Yes Comment: Rarely Drug use: No PAST MEDICAL HISTORY Diagnosis Date Anxiety state, unspecified Depressive disorder, not elsewhere classified Irritable bowel syndrome Myalgia and myositis, unspecified Fibromyalgia Thrombocytopenia (HCC) 04/19/2023 I have confirmed and edited as necessary, the [facility] Review of Systems Constitutional: Negative for chills and fever. HENT: Positive for congestion and sinus pain. Negative for ear pain and sore throat. Respiratory: Positive for cough. Negative for sputum production, shortness of breath and wheezing. Cardiovascular: Negative for chest pain. Musculoskeletal: Negative for myalgias. Neurological: Positive for headaches. Objective Physical Exam Vitals and nursing note reviewed. HENT: Head: Normocephalic and atraumatic. Right Ear: Tympanic membrane, ear canal and external ear normal. Left Ear: Tympanic membrane, ear canal and external ear normal. Nose: Mucosal edema, congestion and rhinorrhea present. Right Sinus: No maxillary sinus tenderness or frontal sinus tenderness. Left Sinus: No maxillary sinus tenderness or frontal sinus tenderness. Mouth/Throat: Pharynx: Uvula midline. No oropharyngeal exudate or posterior oropharyngeal erythema. Cardiovascular: Rate and Rhythm: Normal rate and regular rhythm. Heart sounds: Normal heart sounds. Pulmonary: Effort: Pulmonary effort is normal. Breath sounds: Normal breath sounds. Lymphadenopathy: Head: Right side of head: No submental, submandibular or tonsillar adenopathy. Left side of head: No submental, submandibular or tonsillar adenopathy. Cervical: No cervical adenopathy. Skin: General: Skin is warm and dry. Neurological: Mental Status: She is alert. Psychiatric: Mood and Affect: Affect normal. ASSESSMENT/PLAN: 1. Acute non-recurrent pansinusitis - ICD9: 461.8, ICD10: J01.40 - Will begin treatment with Doxycycline - Supportive care with plenty of fluids, rest, and analgesia prn. - Follow up in one week if symptoms persist or worsen. Diagnosis and treatment plan were discussed and questions were answered to the patient's satisfaction. Pt acknowledged understanding of concepts and follow up plan. Specific signs and symptoms that would indicate the need for higher level of care were discussed in detail warranting prompt ER evaluation. Rosa Reardon APRN.CNP documented in this encounter [facility] 08-30-2023 Instructions Rosa Rearodn APRN.CNP - 08/30/2023 12:53 PM EDT Doxycycline as ordered Hold Carafate while taking -Increase fluid intake. --Rest as much as possible. - Nasal saline spray, elzbieta pot, flonase Take the entire course of antibiotics as prescribed. DO NOT stop taking it early, even if you are feeling better. -Monitor for signs of worsening infection: increased temperature, pain in face, ear pain or headaches or increase in nasal congestion/mucous that is not improving. -Educated patient on side effects of medication. documented in this encounter [facility] 08-30-2023 Miscellaneous Notes Spoke with patient - [facility]. Abril Grigsby is calling Guzman Urbina MD today with concern regarding stuffy nose, cough and sore throat. Patient has had these symptoms for two weeks, Please call to advise at phone Patient has been identified by name and birthdate. Duration of symptoms: 2 weeks Person calling: self Call patient at: on cell [phone] (cell) Was an appointment scheduled: No Closing statement: Symptom Call: Thank you for calling [facility], your call is very important. A nurse will call in approximately 2-4 hours during business hours. If this is an emergency, please contact 911Mari Jerome documented in this encounter [facility] 05-17-2023 Note HNO ID: [id number] Author: RT Graeme(R) Service: Radiology Author Type: Technologist Type: Progress Notes Filed: 05/17/2023 12:34 PM Note Text: Radiology Service Progress Note PATIENT NAME: Abril Grigsby DATE OF SERVICE: May 17, 2023 TIME: 12:25 PM PATIENT IDENTITY VERIFICATION COMPLETED USING TWO (2) IDENTIFIERS: Name and Date of confirmed by patient verbally. FALL SCREENING: Has the patient had 2 falls in the last year or 1 fall with injury or currently using an Ambulatory Assistive Device (Walker, Cane, Wheelchair, Crutches, etc.)? No PATIENT GENDER DATA: Female. status: : No status: NO. PATIENT RELEVANT IMPLANT DATA REVIEWED: Yes RADIOLOGY DEPARTMENT: General X-ray: Exam(s) Completed: Chest X-Ray PERIPHERAL IV DATA: Not applicable SIGNED BY: RT Graeme(R) May 17, 2023 12:25 PM [facility] 05-17-2023 Note HNO ID: [id number] Author: Carlie Bowens APRN.[employer] FACTORY WORKER Service: ? Author Type: Nurse Practitioner Type: Progress Notes Filed: 05/17/2023 1:27 PM Note Text: Subjective Shortness of Breath Pertinent negatives include no fever, sputum production or wheezing. Abril Grigsby is a 73 year old female who presents with a cough and nasal congestion for the past 3 days. She also has pain in her right upper back. Pain increases with deep breaths. She has not had a fever. Cough is not productive. She denies shortness of breath. Review of Systems Constitutional: Negative for chills, fever and malaise/fatigue. HENT: Positive for congestion. Respiratory: Positive for cough. Negative for sputum production, shortness of breath and wheezing. Cardiovascular: Negative. Musculoskeletal: Positive for back pain. BP 138/76 Pulse (!) 55 Temp 36.7 ?C (98 ?F) (Temporal) Resp 18 Wt 60.8 kg (134 lb) SpO2 99% BMI 23.55 kg/m? PAST MEDICAL HISTORY Diagnosis Date Anxiety state, unspecified Depressive disorder, not elsewhere classified Irritable bowel syndrome Myalgia and myositis, unspecified Fibromyalgia Thrombocytopenia (HCC) 04/19/2023 PAST SURGICAL HISTORY Procedure Laterality Date DILATION AND CURETTAGE DXAND/THER NONOBSTETRIC Dilation AND curettage PAST SURGICAL HISTORY OF cervical conization S PROLIFT ANTERIOR REPAIR PFRA01 02/12/2019 S PROLIFT REPAIR POSTERIOR PFRP01 02/12/2019 VAG HYST 250 GM/< W/RMVL TUBEAND/OVARY 02/12/2019 ALLERGIES Amoxicillin, Erythromycin, Lipitor [Atorvastatin Calcium], Maxzide [Triamterene-Hydrochlorothiazid] , and Ramipril MEDICATIONS rosuvastatin (CRESTOR) 5 mg tablet Take 1 tablet by mouth daily at bedtime. lubiprostone (AMITIZA) 8 mcg capsule sertraline (ZOLOFT) 50 mg tablet Take 1 tablet by mouth once daily. Take this in addition to 25 mg tablet once daily for a total of 75 mg daily sertraline (ZOLOFT) 25 mg tablet Take 1 tablet by mouth once daily. Take this in addition to 50 mg tablet once daily for a total of 75 mg daily LORazepam (ATIVAN) 1 mg tablet Take 1 tablet by mouth as needed (breakthrough anxiety if clonazepam not effective) for up to 30 days. clonazePAM (KLONOPIN) 0.5 mg tablet Take 1 tablet by mouth twice daily for 120 days. LORazepam (ATIVAN) 1 mg tablet Take 1 mg by mouth as needed. psyllium husk 0.4 gram cap Take by mouth. dicyclomine (BENTYL) 10 mg capsule Take 1 capsule by mouth four times daily as needed. With meals estriol 0.1% cream (CPD) Use 1 g vaginally two times a week. Cholecalciferol, Vitamin D3, 50 mcg (2,000 unit) cap Take 1 capsule by mouth once daily. sucralfate (CARAFATE) 1 gram tablet Take 1 g by mouth three times daily. lactulose 10 gram/15 mL solution (Patient not taking: Reported on 05/17/2023) omeprazole (PRILOSEC) 40 mg capsule Take 40 mg by mouth once daily. (Patient not taking: Reported on 05/17/2023) FAMILY HISTORY Problem Relation Age of Onset Emphysema Mother AAA other (MS) Father Aneurysm other ([place] Palsey) Daughter other (Testicular Cancer) Son other (Abd. Aneurysm) Maternal Uncle Cancer Maternal Grandfather skin Cancer Maternal Uncle Throat Diabetes Brother Heart Brother Kidney Disease Brother other (IBS) Brother Thyroid Sister other (Primary Biliary Cirrhosis) Sister Heart Maternal Grandmother Heart Paternal Grandfather Social History Tobacco Use Smoking status: Never Smokeless tobacco: Never Substance Use Topics Alcohol use: Yes Comment: Rarely Drug use: No Objective Physical Exam Vitals and nursing note reviewed. Constitutional: General: She is not in acute distress. Appearance: Normal appearance. She is not ill-appearing. HENT: Nose: Nose normal. No mucosal edema, congestion or rhinorrhea. Mouth/Throat: Mouth: Mucous membranes are moist. Pharynx: Oropharynx is clear. Cardiovascular: Rate and Rhythm: Normal rate and regular rhythm. Heart sounds: Normal heart sounds. Pulmonary: Effort: Pulmonary effort is normal. No respiratory distress. Breath sounds: Normal breath sounds. No wheezing or rales. Skin: General: Skin is warm and dry. Neurological: Mental Status: She is alert. ASSESSMENT/PLAN: 1. Acute cough - ICD9: 786.2, ICD10: R05.1 (primary diagnosis) - XR CHEST 2V FRONTAL/LAT Radiologist RESULT: Lines, tubes, and devices: None. Lungs and pleura: No consolidation. No lung mass. No pleural effusion. No pneumothorax. Cardiomediastinal silhouette: Normal cardiomediastinal silhouette. Bones and soft tissues: Unremarkable. IMPRESSION: No acute radiographic abnormality. Ingredient Mixer: KENIA Transcribe Date/Time: May 17 2023 12:40P Dictated by : DIPESH PARHAM MD 2. Pleuritic pain - ICD9: 786.52, ICD10: R07.81 Atypical chest pain, symptoms are not consistent with cardiac ischemia due to nonexertional nature of symptom, pleuritic nature of pain, and localization of the pain possible etiology (more content not included)... [facility] 05-17-2023 Instructions Carlie Bowens APRN.[facility] - 05/17/2023 1:26 PM EDT ASSESSMENT/PLAN: 1. Acute cough - ICD9: 786.2, ICD10: R05.1 (primary diagnosis) - XR CHEST 2V FRONTAL/LAT Radiologist RESULT: Lines, tubes, and devices: None. Lungs and pleura: No consolidation. No lung mass. No pleural effusion. No pneumothorax. Cardiomediastinal silhouette: Normal cardiomediastinal silhouette. Bones and soft tissues: Unremarkable. IMPRESSION: No acute radiographic abnormality. Ingredient Mixer: KENIA Transcribe Date/Time: May 17 2023 12:40P Dictated by : DIPESH PARHAM MD 2. Pleuritic pain - ICD9: 786.52, ICD10: R07.81 Atypical chest pain, symptoms are not consistent with cardiac ischemia due to nonexertional nature of symptom, pleuritic nature of pain, and localization of the pain possible etiology include Costochondritis/chest wall pain, musculoskeletal, and Pleurisy - Treatment with prednisone - Chest X-ray today. My reading: normal, no signs of acute disease. Discussed my reading with patient. Radiologist report to follow. - Oxygen saturation 99% - PREDNISONE 20 MG TABLET - Follow-up with your PCP in 3-5 days if symptoms have not improved or sooner if symptoms worsen - Discussed red flags and need for immediate medical evaluation if any occur. - Discussed supportive care treatment with fluids, rest and analgesia. - Discussed expected course of illness Carlie Bowens APRN.PLAST[employer] FACTORY WORKER documented in this encounter [facility] 05-17-2023 History of Presen t illness Narrative Subjective Shortness of Breath Pertinent negatives include no fever, sputum production or wheezing. Abril Grigsby is a 73 year old female who presents with a cough and nasal congestion for the past 3 days. She also has pain in her right upper back. Pain increases with deep breaths. She has not had a fever. Cough is not productive. She denies shortness of breath. Review of Systems Constitutional: Negative for chills, fever and malaise/fatigue. HENT: Positive for congestion. Respiratory: Positive for cough. Negative for sputum production, shortness of breath and wheezing. Cardiovascular: Negative. Musculoskeletal: Positive for back pain. BP 138/76 Pulse (!) 55 Temp 36.7 C (98 F) (Temporal) Resp 18 Wt 60.8 kg (134 lb) SpO2 99% BMI 23.55 kg/m PAST MEDICAL HISTORY Diagnosis Date Anxiety state, unspecified Depressive disorder, not elsewhere classified Irritable bowel syndrome Myalgia and myositis, unspecified Fibromyalgia Thrombocytopenia (HCC) 04/19/2023 PAST SURGICAL HISTORY Procedure Laterality Date DILATION & CURETTAGE DX&/THER NONOBSTETRIC Dilation & curettage PAST SURGICAL HISTORY OF cervical conization S PROLIFT ANTERIOR REPAIR PFRA01 02/12/2019 S PROLIFT REPAIR POSTERIOR PFRP01 02/12/2019 VAG HYST 250 GM/< W/RMVL TUBE&/OVARY 02/12/2019 ALLERGIES Amoxicillin, Erythromycin, Lipitor [Atorvastatin Calcium], Maxzide [Triamterene-Hydrochlorothiazid] , and Ramipril MEDICATIONS rosuvastatin (CRESTOR) 5 mg tablet Take 1 tablet by mouth daily at bedtime. lubiprostone (AMITIZA) 8 mcg capsule sertraline (ZOLOFT) 50 mg tablet Take 1 tablet by mouth once daily. Take this in addition to 25 mg tablet once daily for a total of 75 mg daily sertraline (ZOLOFT) 25 mg tablet Take 1 tablet by mouth once daily. Take this in addition to 50 mg tablet once daily for a total of 75 mg daily LORazepam (ATIVAN) 1 mg tablet Take 1 tablet by mouth as needed (breakthrough anxiety if clonazepam not effective) for up to 30 days. clonazePAM (KLONOPIN) 0.5 mg tablet Take 1 tablet by mouth twice daily for 120 days. LORazepam (ATIVAN) 1 mg tablet Take 1 mg by mouth as needed. psyllium husk 0.4 gram cap Take by mouth. dicyclomine (BENTYL) 10 mg capsule Take 1 capsule by mouth four times daily as needed. With meals estriol 0.1% cream (CPD) Use 1 g vaginally two times a week. Cholecalciferol, Vitamin D3, 50 mcg (2,000 unit) cap Take 1 capsule by mouth once daily. sucralfate (CARAFATE) 1 gram tablet Take 1 g by mouth three times daily. lactulose 10 gram/15 mL solution (Patient not taking: Reported on 05/17/2023) omeprazole (PRILOSEC) 40 mg capsule Take 40 mg by mouth once daily. (Patient not taking: Reported on 05/17/2023) FAMILY HISTORY Problem Relation Age of Onset Emphysema Mother AAA other (MS) Father Aneurysm other ([place] Palsey) Daughter other (Testicular Cancer) Son other (Abd. Aneurysm) Maternal Uncle Cancer Maternal Grandfather skin Cancer Maternal Uncle Throat Diabetes Brother Heart Brother Kidney Disease Brother other (IBS) Brother Thyroid Sister other (Primary Biliary Cirrhosis) Sister Heart Maternal Grandmother Heart Paternal Grandfather Social History Tobacco Use Smoking status: Never Smokeless tobacco: Never Substance Use Topics Alcohol use: Yes Comment: Rarely Drug use: No Objective Physical Exam Vitals and nursing note reviewed. Constitutional: General: She is not in acute distress. Appearance: Normal appearance. She is not ill-appearing. HENT: Nose: Nose normal. No mucosal edema, congestion or rhinorrhea. Mouth/Throat: Mouth: Mucous membranes are moist. Pharynx: Oropharynx is clear. Cardiovascular: Rate and Rhythm: Normal rate and regular rhythm. Heart sounds: Normal heart sounds. Pulmonary: Effort: Pulmonary effort is normal. No respiratory distress. Breath sounds: Normal breath sounds. No wheezing or rales. Skin: General: Skin is warm and dry. Neurological: Mental Status: She is alert. ASSESSMENT/PLAN: 1. Acute cough - ICD9: 786.2, ICD10: R05.1 (primary diagnosis) - XR CHEST 2V FRONTAL/LAT Radiologist RESULT: Lines, tubes, and devices: None. Lungs and pleura: No consolidation. No lung mass. No pleural effusion. No pneumothorax. Cardiomediastinal silhouette: Normal cardiomediastinal silhouette. Bones and soft tissues: Unremarkable. IMPRESSION: No acute radiographic abnormality. Ingredient Mixer: KENIA Transcribe Date/Time: May 17 2023 12:40P Dictated by : DIPESH PARHAM MD 2. Pleuritic pain - ICD9: 786.52, ICD10: R07.81 Atypical chest pain, symptoms are not consistent with cardiac ischemia due to nonexertional nature of symptom, pleuritic nature of pain, and localization of the pain possible etiology include Costochondritis/chest wall pain, musculoskeletal, and Pleurisy - Treatment with prednisone - Chest X-ray today. My reading: normal, no signs of acute disease. Discussed my reading with patient. Radiologist report to follow. - Oxygen saturation 99% - PREDNISONE 20 MG TABLET - Follow-up with your PCP in 3-5 days if symptoms have not improved or sooner if symptoms worsen - Discussed red flags and need for immediate medical evaluation if any occur. - Discussed supportive care treatment with fluids, rest and analgesia. - Discussed expected course of illness Carlie Bowens APRN.PL[employer] FACTORY WORKER documented in this encounter [facility] 04-19-2023 Note HNO ID: [id number] Author: Sameera Valle APRN.SERVICE CREW SUPERVISOR Service: ? Author Type: Nurse Specialist Type: Progress Notes Filed: 04/19/2023 2:04 PM Note Text: SUBJECTIVE: MAMMOGRAM due on 09/23/2021 COVID-19 VACCINE(4 - Booster for Pfizer series) due on 06/12/2022 DEPRESSION ASSESSMENT Never done HPI Abril Grigsby is a 73 year old female. PMH signficnt for ACTIVE PROBLEM LIST Anxiety State Stress and Adjustment Reaction Metatarsalgia of Left Foot Dyshidrotic Eczema Hyperlipidemia Essential Hypertension Fracture of Radius and Ulna, Distal Uterine Procidentia Ibs (Irritable Bowel Syndrome) Genital Atrophy of Female Dry Skin Dermatitis Stage 3b Chronic Kidney Disease (Hcc) HPI excerpted from previous visits: She was admitted to [facility] December 24 through December 27 for acute kidney injury, renal failure. She presents the emergency department with generalized weakness lethargy and hypersomnia since mid November 2021. In the emergency department she is found to be in acute kidney injury status. Creatinine 8.[address] abdomen was completed and did not show concerning findings regarding kidney. Ultrasound kidney and bladder were completed. To renal cysts were noted. No obstructive renal findings were found. Teletypewriter Operator was consulted. Lisinopril was held. Avoid nephrotoxins recommended. She was rehydrated during hospitalization with improvement in BUN and creatinine. She was advised to follow-up in 1 week with metabolic panel and follow-up with computing services director as an outpatient. Today notes she is feeling improved but not yet back to baseline. Notes she is feeling less fatigue. Not sleeping as much as she was before. She feels less fuzzy than previous to admission. Notes she has increased fluid intake. Notes she had Covid infection and perhaps dehydration occurred related to that. She has not made an appointment with computing services director yet. She notes normal urine output since discharge home. She has remained off of lisinopril. Seen by Guzman Urbina MD 12/2021. Noted to still have signs of LIBERTAD. Advised to push fluids. Complete lab work. Since last seen she has been in to see Dr. Odom, computing services director. She is getting lab work every [address] [facility]. No additional testing ordered for patient. She reports EGD and colonoscopy have been scheduled April [address] Sneed. She notes no dysuria, frequency and urgency is present. Lower abdominal and low back pain present. Afebrile. She notes routinely taking clonazepam, typically 1- 2 tablets/day for anxiety or panic attack. Occasional use of lorazepam if not feeling sufficiently improved with clonazepam. Continues on Zoloft. No known counseling. Sees Dr. Connor, urologist. She notes some urge incontinence recently. Has upcoming appointment. Has been using topical estrogen cream. Last seen by PCP October 2022. Continued with lorazepam for anxiety. Today reports feeling shaky all over. Stress in increased lately.Counseling: No current.Continues on Zoloft. Notes has cancer. Family in home and having legal problems. Teletypewriter Operator, Dr. Odom CKD. Last seen December 2022. Customer Service Administrator, Friend : EGD/colonoscopy completed 04/19/2022 [facility].Last visit November 23, 2022. Noted rectal prolapse, diarrhea, metaplasia of gastric mucosa. Lactulose and luboprostone per Dr Sneed. Has upcoming EGD scheduled. Urologist, Dr. Connor: Review of Systems Constitutional: Positive for fatigue. Respiratory: Negative. Cardiovascular: Negative. Genitourinary: Negative. Objective BP 154/70 Pulse 70 Resp 16 Wt 59.9 kg (132 lb) BMI 23.20 kg/m? Physical Exam Vitals and nursing note reviewed. Constitutional: Appearance: Normal appearance. HENT: Head: Normocephalic and atraumatic. Eyes: Conjunctiva/sclera: Conjunctivae normal. Cardiovascular: Rate and Rhythm: Normal rate and regular rhythm. Pulses: Carotid pulses are 2+ on the right side and 2+ on the left side. Radial pulses are 2+ on the right side and 2+ on the left side. Heart sounds: Normal heart sounds. Pulmonary: Effort: Pulmonary effort is normal. Breath sounds: Normal breath sounds. Musculoskeletal: Right lower leg: No edema. Left lower leg: No edema. Skin: General: Skin is warm and dry. Neurological: Mental Status: She is alert. Mental status is at baseline. ALLERGIES Allergen Reactions Amoxicillin Hives yeast infections, urticaria Erythromycin GI Upset can take Zpak Lipitor [Atorvastat* Other: See Comments didnt feel right Maxzide [Triamteren* Intolerance back pain,santiago,fatigue/trial 1/2 tab same Ramipril Mental Status Change sleepy Medications lactulose 10 gram/15 mL solution clonazePAM (KLONOPIN) 0.5 mg tablet Take 1 tablet by mouth twice daily for 120 days. LORazepam (ATIVAN) 1 mg tablet Take 1 mg by mouth as needed. dicyclomine (BENTYL) 10 mg capsule Take 1 capsule by (more content not included)... [facility] documented as of this encounter (statuses as of 04/19/2023) [facility]06-02-2023 History of Past illness Narrative* Problem Noted Date Resolved Date Thrombocytopenia 04/19/2023 04/19/2023 Myalgia and myositis, unspecified 06/12/2016 Overview: Fibromyalgia documented as of this encounter (statuses as of 05/17/2023) [facility]06-02-2023 History of Past illness Narrative* Problem Noted Date Diagnosed Date Resolved Date Thrombocytopenia 04/19/2023 04/19/2023 Myalgia and myositis, unspecified 06/12/2016 Overview: Fibromyalgia documented as of this encounter (statuses as of 08/30/2023) [facility]-02[facility] History of Past illness Narrative* Problem Noted Date Diagnosed Date Resolved Date Thrombocytopenia 04/19/2023 04/19/2023 Myalgia and myositis, unspecified 06/12/2016 Overview: Fibromyalgia documented as of this encounter (statuses as of 08/30/2023) [facility]-02[facility]20[facility] History of Past illness Narrative* Problem Noted Date Diagnosed Date Resolved Date Thrombocytopenia 04/19/2023 04/19/2023 Myalgia and myositis, unspecified 06/12/2016 Overview: Fibromyalgia documented as of this encounter (statuses as of 09/24/2023) [facility]06-02-2023 Instructions* Patient Instructions* Sameera Valle APRN.CNS - 04/19/2023 1:52 PM EDT Stop taking one half 100 mg sertraline daily (50 mg daily) Start taking sertraline 25 mg and 50 mg once daily for a total of 75 mg daily Let us know if you are interested in counseling. documented in this [facility] History of Present illness Narrative* Sameera Valle APRN.CNS - 04/19/2023 1:20 PM EDT SUBJECTIVE: MAMMOGRAM due on 09/23/2021 COVID-19 VACCINE(4 - Booster for Pfizer series) due on 06/12/2022 DEPRESSION ASSESSMENT Never done HPI Abril Grigsby is a 73 year old female. PMH signficnt for ACTIVE PROBLEM LIST Anxiety State Stress and Adjustment Reaction Metatarsalgia of Left Foot Dyshidrotic Eczema Hyperlipidemia Essential Hypertension Fracture of Radius and Ulna, Distal Uterine Procidentia Ibs (Irritable Bowel Syndrome) Genital Atrophy of Female Dry Skin Dermatitis Stage 3b Chronic Kidney Disease (Hcc) HPI excerpted from previous visits: She was admitted to [facility] December 24 through December 27 for acute kidney injury, renal failure. She presents the emergency department with generalized weakness lethargy and hypersomnia since mid November 2021. In the emergency department she is found to be in acute kidney injurystatus. Creatinine 8.[address] abdomen was completed and did not show concerning findings regarding kidney. Ultrasound kidney and bladder were completed. To renal cysts were noted. No obstructive renal findings were found. Teletypewriter Operator was consulted. Lisinopril was held. Avoid nephrotoxins recommended. She was rehydrated during hospitalization with improvement in BUN and creatinine. She was advised to follow-up in 1 week with metabolic panel and follow-up with computing services director as an outpatient. Today notes she is feeling improved but not yet back to baseline. Notes she is feeling less fatigue. Not sleeping as much as she was before. She feels less fuzzy than previous to admission. Notes shehas increased fluid intake. Notes she had Covid infection and perhaps dehydration occurred related to that. She has not made an appointment with computing services director yet. She notes normal urine output since discharge home. She has remained off of lisinopril. Seen by Guzman Urbina MD 12/2021. Noted to still have signs of LIBERTAD. Advised to push fluids. Complete lab work. Since last seen she has been in to see Dr. Odom, computing services director. She is getting lab work every 2 weeksat the office/[facility]. No additional testing ordered for patient. She reports EGD and colonoscopy have been scheduled [address] Sneed. She notes no dysuria, frequency and urgency is present. Lower abdominal and low back pain present. Afebrile. She notes routinely taking clonazepam, typically 1- 2 tablets/day for anxiety or panic attack. Occasional use of lorazepam if not feeling sufficiently improved with clonazepam. Continues on Zoloft. No known counseling. Sees Dr. oCnnor, urologist. She notes some urge incontinence recently. Has upcoming appointment. Has been using topical estrogen cream. Last seen by PCP October 2022. Continued with lorazepam for anxiety. Today reports feeling shaky all over. Stress in increased lately.Counseling: No current.Continues on Zoloft. Notes has cancer. Family in home and having legal problems. Teletypewriter Operator, Dr. Odom CKD. Last seen December 2022. Customer Service Administrator, Dr. Sneed : EGD/colonoscopy completed 04/19/2022 [facility].Last visit November 23, 2022.Noted rectal prolapse, diarrhea, metaplasia of gastric mucosa. Lactulose and luboprostone per Dr Sneed. Has upcoming EGD scheduled. Urologist, Dr. Connor: Review of Systems Constitutional: Positive for fatigue. Respiratory: Negative. Cardiovascular: Negative. Genitourinary: Negative. Objective BP 154/70 Pulse 70 Resp 16 Wt 59.9 kg (132 lb) BMI 23.20 kg/m Physical Exam Vitals and nursing note reviewed. Constitutional: Appearance: Normal appearance. HENT: Head: Normocephalic and atraumatic. Eyes: Conjunctiva/sclera: Conjunctivae normal. Cardiovascular: Rate and Rhythm: Normal rate and regular rhythm. Pulses: Carotid pulses are 2+ on the right side and 2+ on the left side. Radial pulses are 2+ on the right side and 2+ on the left side. Heart sounds: Normal heart sounds. Pulmonary: Effort: Pulmonary effort is normal. Breath sounds: Normal breath sounds. Musculoskeletal: Right lower leg: No edema. Left lower leg: No edema. Skin: General: Skin is warm and dry. Neurological: Mental Status: She is alert. Mental status is at baseline. ALLERGIES Allergen Reactions Amoxicillin Hives yeast infections, urticaria Erythromycin GI Upset can take Zpak Lipitor [Atorvastat* Other: See Comments didnt feel right Maxzide [Triamteren* Intolerance back pain,santiago,fatigue/trial 1/2 tab same Ramipril Mental Status Change sleepy Medications lactulose 10 gram/15 mL solution clonazePAM (KLONOPIN) 0.5 mg tablet Take 1 tablet by mouth twice daily for 120 days. LORazepam (ATIVAN) 1 mg tablet Take 1 mg by mouth as needed. dicyclomine (BENTYL) 10 mg capsule Take 1 capsule by mouth four times daily as needed. With meals estriol 0.1% cream (CPD) Use 1 g vaginally two times a week. Cholecalciferol, Vitamin D3, 50 mcg (2,000 unit) cap Take 1 capsule by mouth once daily. rosuvastatin (CRESTOR) 5 mg tablet Take 1 tablet by mouth daily at bedtime. lubiprostone (AMITIZA) 8 mcg capsule sertraline (ZOLOFT) 50 mg tablet Take 1 tablet by mouth once daily. Take this in addition to 25 mg tablet once daily for a total of 75 mg daily sertraline (ZOLOFT) 25 mg tablet Take 1 tablet by mouth once daily. Take this in addition to 50 mg tablet once daily for a total of 75 mg daily LORazepam (ATIVAN) 1 mg tablet Take 1 tablet by mouth as needed (breakthrough anxiety if clonazepamnot effective) for up to 30 days. psyllium husk 0.4 gram cap Take by mouth. (Patient not taking: Reported on 04/19/2023) omeprazole (PRILOSEC) 40 mg capsule Take 40 mg by mouth once daily. (Patient not taking: No sig reported) PAST MEDICAL HISTORY Diagnosis Date Anxiety state, unspecified Depressive disorder, not elsewhere classified Irritable bowel syndrome Myalgia and myositis, unspecified Fibromyalgia Thrombocytopenia (HCC) 04/19/2023 Social History Tobacco Use Smoking status: Never Smokeless tobacco: Never Substance Use Topics Alcohol use: Yes Comment: Rarely Drug use: No Component Latest Ref Rng & Units 04/03/2022 10/15/2022 WBC 3.70 - 11.00 k/uL 6.24 7.40 RBC 3.90 - 5.20 m/uL 3.85 (L) 4.55 Hemoglobin 11.5 - 15.5 g/dL 11.5 13.2 Hematocrit 36.0 - 46.0 % 35.9 (L) 40.4 MCV 80.0 - 100.0 fL 93.2 88.8 MCH 26.0 - 34.0 pg 29.9 29.0 MCHC 30.5 - 36.0 g/dL 32.0 32.7 RDW-CV 11.5 - 15.0 % 12.5 12.3 Platelet Count 150 - 400 k/uL 173 197 MPV 9.0 - 12.7 fL 11.3 11.0 Neut% % 68.2 Abs Neut (ANC) 1.45 - 7.50 k/uL 5.04 Lymph% % 20.4 Abs Lymph 1.00 - 4.00 k/uL 1.51 [place]% % 6.6 Abs [place] <0.87 k/uL 0.49 Eosin% % 3.6 Abs Eosin <0.46 k/uL 0.27 Baso% % 0.9 Abs Baso <0.11 k/uL 0.07 Immature Gran % % 0.3 IMMATURE GRANS (ABS) <0.10 k/uL <0.03 NRBC /100 WBC 0.0 Absolute nRBC <0.01 k/uL <0.01 <0.01 DTYPE Auto Protein, Total 6.3 - 8.0 g/dL 6.7 6.6 Albumin 3.9 - 4.9 g/dL 4.1 3.7 (L) Calcium 8.5 - 10.2 mg/dL 9.0 8.8 Bilirubin, Total 0.2 - 1.3 mg/dL 0.3 0.2 Alkaline Phosphatase 34 - 123 U/L 85 79 AST 13 - 35 U/L 18 19 ALT 7 - 38 U/L 10 10 Glucose 74 - 99 mg/dL 87 89 BUN 7 - 21 mg/dL 29 (H) 25 (H) Creatinine 0.58 - 0.96 mg/dL 2.24 (H) 1.68 (H) Sodium 136 - 144 mmol/L 143 143 Potassium 3.7 - 5.1 mmol/L 4.0 4.4 Chloride 97 - 105 mmol/L 111 (H) 110 (H) CO2 22 - 30 mmol/L 20 (L) 24 Anion Gap 9 - 18 mmol/L 12 9 eGFR >=60 mL/min/1.73m 23 (L) 32 (L) Cholesterol, Total <200 mg/dL 162 Triglyceride <150 mg/dL 186 (H) HDL Cholesterol >39 mg/dL 45 Non HDL Cholesterol <130 mg/dL 117 Fasting Time hrs 13 VLDL Cholesterol <30 mg/dL 37 (H) TC:HDL Ratio <5.10 3.60 LDL Cholesterol <100 mg/dL 80 LDL:HDL Ratio <2.54 1.78 Iron 41 - 186 ug/dL 56 TIBC 232 - 386 ug/dL 259 Transferrin Saturation 15 - 57 % 22 Ferritin 14.7 - 205.1 ng/mL 291.0 (H) Magnesium 1.7 - 2.3 mg/dL 2.2 Vitamin D 25 Hydroxy 31.0 - 80.0 ng/mL 36.0 Component Latest Ref Rng & Units 06/23/2021 01/15/2022 04/03/2022 10/15/2022 WBC 3.70 - 11.00 k/uL 6.43 7.58 6.24 7.40 RBC 3.90 - 5.20 m/uL 5.02 3.78 (L) 3.85 (L) 4.55 Hemoglobin 11.5 - 15.5 g/dL 14.6 10.6 (L) 11.5 13.2 Hematocrit 36.0 - 46.0 % 45.5 33.9 (L) 35.9 (L) 40.4 MCV 80.0 - 100.0 fL 90.6 89.7 93.2 88.8 MCH 26.0 - 34.0 pg 29.1 28.0 29.9 29.0 MCHC 30.5 - 36.0 g/dL 32.1 31.3 32.0 32.7 RDW-CV 11.5 - 15.0 % 12.7 13.7 12.5 12.3 Platelet Count 150 - 400 k/uL 157 223 173 197 MPV 9.0 - 12.7 fL 11.7 11.5 11.3 11.0 Neut% % 64.9 68.2 Abs Neut (ANC) 1.45 - 7.50 k/uL 4.92 5.04 Lymph% % 17.4 20.4 Abs Lymph 1.00 - 4.00 k/uL 1.32 1.51 [place]% % 7.9 6.6 Abs [place] <0.87 k/uL 0.60 0.49 Eosin% % 8.7 3.6 Abs Eosin <0.46 k/uL 0.66 (H) 0.27 Baso% % 0.8 0.9 Abs Baso <0.11 k/uL 0.06 0.07 Immature Gran % % 0.3 0.3 IMMATURE GRANS (ABS) <0.10 k/uL <0.03 <0.03 NRBC /100 WBC 0.0 0.0 Absolute nRBC <0.01 k/uL <0.01 <0.01 <0.01 <0.01 DTYPE Auto Auto Depression Screening 12/18/2016 06/17/2018 06/28/2021 04/19/2023 PHQ-2 Score 2 0 0 4 Depression screening tool completed and reviewed. Based on score and interview, patient is already diagnosed with depression. Screening tool discussed with patient, and I recommended no further intervention at this time. ASSESSMENT/PLAN: 1. Encounter for immunization - ICD9: V03.89, ICD10: Z23 - [employer] COVID-19 BIVALENT VACCINE, AGE 12+ YR 2. Screening for colon cancer - ICD9: V76.51, ICD10: Z12.[address] Sneed 3. Tremor - ICD9: 781.0, ICD10: R25.1 4. Anxiety state - ICD9: 300.00, ICD10: F41.1 (primary diagnosis) 5. Stress and adjustment reaction - ICD9: 309.89, ICD10: F43.29 Recommend increasing sertraline from 50 mg to 75 mg daily Consider counseling - SERTRALINE 50 MG TABLET - LORAZEPAM 1 MG TABLET 6. Stage 3b chronic kidney disease (HCC) - ICD9: 585.3, ICD10: N18.32 Stable, followed by computing services director 7. Thrombocytopenia (HCC) - ICD9: 287.5, ICD10: D69.6 resolved 6 mo follow up Guzman Urbina MD, labs prior Sameera Valle APRN.SERVICE CREW SUPERVISOR Medical Decision Making: Medical Decision Making Level: 1 - N/A documented [facility] Miscellaneous Notes* Telephone Encounter - Guzman Urbina MD - 02/15/2023 7:53 PM EDT The following approved medication requests have been transmitted electronically. Requested Prescriptions Signed Prescriptions Disp Refills clonazePAM (KLONOPIN) 0.5 mg tablet 60 tablet 3 Sig: Take 1 tablet by mouth twice daily for 120 days. Authorizing Provider: GUZMAN URBINA LORazepam (ATIVAN) 1 mg tablet 30 tablet 0 Sig: Take 1 tablet by mouth as needed (breakthrough anxiety if clonazepam not effective) for up to 30 days. Authorizing Provider: GUZMAN URBINA MD * Telephone Encounter - Nasrin Wright RN - 02/14/2023 10:51 AM EDT Medication refill requested by Patient Please review and advise. Requested Prescriptions Pending Prescriptions Disp Refills clonazePAM (KLONOPIN) 0.5 mg tablet 60 tablet 3 Sig: Take 1 tablet by mouth twice daily for 120 days. LORazepam (ATIVAN) 1 mg tablet 30 tablet 0 Sig: Take 1 tablet by mouth as needed (breakthrough anxiety if clonazepam not effective) for up to 30 days. Last appt: 10/19/2022 Next appt: 04/19/2023 Last 1 Encounter BP Readings: Date: BP: 10/19/2022 136/80 WBC (k/uL) Date Value 10/15/2022 7.40 Hemoglobin (g/dL) Date Value 10/15/2022 13.2 Platelet Count (k/uL) Date Value 10/15/2022 197 Glucose (mg/dL) Date Value 10/15/2022 89 BUN (mg/dL) Date Value 10/15/2022 25 (H) Creatinine (mg/dL) Date Value 10/15/2022 1.68 (H) Sodium (mmol/L) Date Value 10/15/2022 143 Potassium (mmol/L) Date Value 10/15/2022 4.4 Calcium, Total (mg/dL) Date Value 10/15/2022 8.8 Alkaline Phosphatase (U/L) Date Value 10/15/2022 79 Bilirubin, Total (mg/dL) Date Value 10/15/2022 0.2 AST (U/L) Date Value 10/15/2022 19 ALT (U/L) Date Value 10/15/2022 10 Cholesterol, Total (mg/dL) Date Value 10/15/2022 162 Triglyceride (mg/dL) Date Value 10/15/2022 186 (H) TSH (uU/mL) Date Value 08/25/2021 2.770 Current Outpatient Medications on File Prior to Visit Medication Sig LORazepam (ATIVAN) 1 mg tablet Take 1 mg by mouth as needed. psyllium husk (METAMUCIL) 0.4 gram cap Take by mouth. clonazePAM (KLONOPIN) 0.5 mg tablet Take 1 tablet by mouth twice daily for 120 days. rosuvastatin (CRESTOR) 5 mg tablet Take 1 tablet by mouth daily at bedtime. dicyclomine (BENTYL) 10 mg capsule Take 1 capsule by mouth four times daily as needed. With meals sertraline (ZOLOFT) 100 mg tablet Take 0.5 tablets by mouth once daily. omeprazole (PRILOSEC) 40 mg capsule Take 40 mg by mouth once daily. (Patient not taking: Reported on 10/19/2022) estriol 0.1% cream (CPD) Use 1 g vaginally two times a week. Cholecalciferol, Vitamin D3, 50 mcg (2,000 unit) cap Take 1 capsule by mouth once daily. Nasrin Wright RN documented in this [facility]12[facility] History of Present illness Narrative* Guzman Urbina MD - 10/19/2022 4:43 PM EST This note was created using NoteWriter. Subjective Abril Grigsby is a 72 year old female. Patient presents with: Follow Up: 6 month SUBJECTIVE: Abril Grigsby is a 72 year old year old lady here today for 6 month follow up appointment for reviewof medical conditions. Had report from Dr. Sneed evaluation Noted that did not tolerate the metamucil wafer. Taking the capsules Metamucil 3-in-1 Fiber one daily. Seemed to help so fewer episodes of loose stools--just once or twice a month. Is better than before. Does have follow up with Dr. Sneed. Since doing better, no need to add cholestyramine or colestipol at this time. Follows with Dr. Delmi Odom. Drinking 8 glasses of water daily. Needs to avoid straws. Cr has slowly improved Had panic attack and went to [facility] ER 06/23/22. Family called 911. Completed antibiotic for ears and sinus infection. Treated by Dr. Lopez. Still not hearing as well as did prior to infection. Tendency to back upper lumbar area. Can be sharp. Hard to get out of chair. Noted that nails break off easy. Reviewed had neuro eval for tremors. MRI was okay. Gets depressed easy. Anxious and does not want to leave home. Has dog. Big dog that does not listen. Dog has bitten her or scratched her skin. Ring finger laceration from when but her hand. Noted stressors with taking care of family. PAST MEDICAL HISTORY Diagnosis Date Anxiety state, unspecified Depressive disorder, not elsewhere classified Irritable bowel syndrome Myalgia and myositis, unspecified Fibromyalgia Current Outpatient Medications Medication Sig LORazepam (ATIVAN) 1 mg tablet Take 1 mg by mouth as needed. psyllium husk (METAMUCIL) 0.4 gram cap Take by mouth. rosuvastatin (CRESTOR) 5 mg tablet Take 1 tablet by mouth daily at bedtime. dicyclomine (BENTYL) 10 mg capsule Take 1 capsule by mouth four times daily as needed. With meals sertraline (ZOLOFT) 100 mg tablet Take 0.5 tablets by mouth once daily. estriol 0.1% cream (CPD) Use 1 g vaginally two times a week. Cholecalciferol, Vitamin D3, 50 mcg (2,000 unit) cap Take 1 capsule by mouth once daily. clonazePAM (KLONOPIN) 0.5 mg tablet Take 1 tablet by mouth twice daily for 90 days. omeprazole (PRILOSEC) 40 mg capsule Take 40 mg by mouth once daily. (Patient not taking: Reported on 10/19/2022) No current facility-administered medications for this visit. Review of Systems Objective BP 136/80 Pulse 65 Resp 18 Wt 59.4 kg (131 lb) SpO2 96% BMI 23.02 kg/m Physical Exam Constitutional: Appearance: Normal appearance. HENT: Head: Normocephalic. Eyes: Conjunctiva/sclera: Conjunctivae normal. Cardiovascular: Rate and Rhythm: Normal rate and regular rhythm. Heart sounds: Normal heart sounds. Pulmonary: Effort: Pulmonary effort is normal. Breath sounds: Normal breath sounds. Skin: General: Skin is warm and dry. Neurological: General: No focal deficit present. Mental Status: She is alert and oriented to person, place, and time. Psychiatric: Mood and Affect: Mood normal. Behavior: Behavior normal. Thought Content: Thought content normal. Judgment: Judgment normal. Component Latest Ref Rng & Units 01/15/2022 04/03/2022 10/15/2022 WBC 3.70 - 11.00 k/uL 7.58 6.24 7.40 RBC 3.90 - 5.20 m/uL 3.78 (L) 3.85 (L) 4.55 Hemoglobin 11.5 - 15.5 g/dL 10.6 (L) 11.5 13.2 Hematocrit 36.0 - 46.0 % 33.9 (L) 35.9 (L) 40.4 MCV 80.0 - 100.0 fL 89.7 93.2 88.8 MCH 26.0 - 34.0 pg 28.0 29.9 29.0 MCHC 30.5 - 36.0 g/dL 31.3 32.0 32.7 RDW-CV 11.5 - 15.0 % 13.7 12.5 12.3 Platelet Count 150 - 400 k/uL 223 173 197 MPV 9.0 - 12.7 fL 11.5 11.3 11.0 Neut% % 64.9 68.2 Abs Neut (ANC) 1.45 - 7.50 k/uL 4.92 5.04 Lymph% % 17.4 20.4 Abs Lymph 1.00 - 4.00 k/uL 1.32 1.51 [place]% % 7.9 6.6 Abs [place] <0.87 k/uL 0.60 0.49 Eosin% % 8.7 3.6 Abs Eosin <0.46 k/uL 0.66 (H) 0.27 Baso% % 0.8 0.9 Abs Baso <0.11 k/uL 0.06 0.07 Immature Gran % % 0.3 0.3 IMMATURE GRANS (ABS) <0.10 k/uL <0.03 <0.03 NRBC /100 WBC 0.0 0.0 Absolute nRBC <0.01 k/uL <0.01 <0.01 <0.01 DTYPE Auto Auto Protein, Total 6.3 - 8.0 g/dL 7.2 6.7 6.6 Albumin 3.9 - 4.9 g/dL 4.0 4.1 3.7 (L) Calcium 8.5 - 10.2 mg/dL 8.9 9.0 8.8 Bilirubin, Total 0.2 - 1.3 mg/dL 0.2 0.3 0.2 Alkaline Phosphatase 34 - 123 U/L 73 85 79 AST 13 - 35 U/L 15 18 19 ALT 7 - 38 U/L 9 10 10 Glucose 74 - 99 mg/dL 89 87 89 BUN 7 - 21 mg/dL 41 (H) 29 (H) 25 (H) Creatinine 0.58 - 0.96 mg/dL 3.99 (H) 2.24 (H) 1.68 (H) Sodium 136 - 144 mmol/L 140 143 143 Potassium 3.7 - 5.1 mmol/L 4.4 4.0 4.4 Chloride 97 - 105 mmol/L 110 (H) 111 (H) 110 (H) CO2 22 - 30 mmol/L 16 (L) 20 (L) 24 Anion Gap 9 - 18 mmol/L 14 12 9 eGFR >=60 mL/min/1.73m 11 (L) 23 (L) 32 (L) Cholesterol, Total <200 mg/dL 162 Triglyceride <150 mg/dL 186 (H) HDL Cholesterol >39 mg/dL 45 Non HDL Cholesterol <130 mg/dL 117 Fasting Time hrs 13 VLDL Cholesterol <30 mg/dL 37 (H) TC:HDL Ratio <5.10 3.60 LDL Cholesterol <100 mg/dL 80 LDL:HDL Ratio <2.54 1.78 Iron 41 - 186 ug/dL 78 56 TIBC 232 - 386 ug/dL 256 259 Transferrin Saturation 15 - 57 % 30 22 Vitamin B12 232-1,245 pg/mL 625 Folate >4.7 ng/mL 6.1 Ferritin 14.7 - 205.1 ng/mL 656.0 (H) 291.0 (H) Vitamin D 25 Hydroxy 31.0 - 80.0 ng/mL 37.9 36.0 Magnesium 1.7 - 2.3 mg/dL 1.9 2.2 Assessment and Plan Encounter Diagnosis ICD-10-CM 1. Anxiety state F41.1 LORazepam (ATIVAN) 1 mg tablet clonazePAM (KLONOPIN) 0.5 mg tablet LORazepam (ATIVAN) 1 mg tablet lorazepam to take as needed for severe anxiety not covered by clonazepam 2. Essential hypertension I10 3. Irritable bowel syndrome, unspecified type K58.9 4. Stage 3b chronic kidney disease (HCC) N18.32 Improving eGFR; continues to follow with Dr. Odom 5. Stress and adjustment reaction F43.29 6. Tremor R25.1 LORazepam (ATIVAN) 1 mg tablet clonazePAM (KLONOPIN) 0.5 mg tablet Above issues addressed with patient. Patient involved in shared decision making for management of medical issues. History and medications reviewed. Epic updated as needed Refills and/or prescriptions taken care of and meds adjusted as indicated after reviewed history, exam and labs. Health Maintenance reviewed. Updated record and/or ordered tests as recorded. Encouraged on efforts at healthy diet and regular exercise and adequate sleep. Stable with control of anxiety. At this time benefits outweigh risks. Continue to monitor for adverse effects and indications for decreasing dose or tapering off. No signs of diversion or abuse of medication(s); no adverse effects. Continue present management. Guzman Urbina MD documented in this encounterMer[facility]07-[facility]-2022 Miscellaneous Notes* Telephone Encounter - Julia Perry APRN.CNP - 06/01/2022 1:53 PM EDT Patient completed course of antibiotics, no longer relevant Julia Perry APRN.CNP documented in this encounterMercy Health St. [facility]06-11-2022 History of Present illness Narrative* Brandy Pinzon APRN.CNP - 04/28/2022 12:17 PM EDT Images from the original note were not included. Subjective Patient came in with complaints of dog bite on right hand. patient has a new puppy and was being aggressive during play. Patient has some swelling. Has two lacerations on hand. Bleeding has stopped. The history is provided by the patient. No speech and language clinician was used. Animal Bite Review of Systems Constitutional: Negative. Skin: Negative. Objective Physical Exam Constitutional: Appearance: Normal appearance. Pulmonary: Effort: Pulmonary effort is normal. Musculoskeletal: Hands: Comments: Patient has two 1cm lacerations superficial. Mild swelling noted. No briusing. Neurological: Mental Status: She is alert. PAST MEDICAL HISTORY Diagnosis Date Anxiety state, unspecified Depressive disorder, not elsewhere classified Irritable bowel syndrome Myalgia and myositis, unspecified Fibromyalgia PAST SURGICAL HISTORY Procedure Laterality Date DILATION & CURETTAGE DX&/THER NONOBSTETRIC Dilation & curettage PAST SURGICAL HISTORY OF cervical conization S PROLIFT ANTERIOR REPAIR [id number] 02/12/2019 S PROLIFT REPAIR POSTERIOR [id number] 02/12/2019 VAG HYST 250 GM/< W/RMVL TUBE&/OVARY 02/12/2019 ALLERGIES Amoxicillin, Erythromycin, Lipitor [Atorvastatin Calcium], Maxzide [Triamterene-Hydrochlorothiazid], and Ramipril MEDICATIONS rosuvastatin (CRESTOR) 5 mg tablet Take 1 tablet by mouth daily at bedtime. dicyclomine (BENTYL) 10 mg capsule Take 1 capsule by mouth four times daily as needed. With meals LORazepam (ATIVAN) 1 mg tablet Lorazepam Active 1 MG AT BEDTIME December 08, 2018 2:03pm clonazePAM (KLONOPIN) 0.5 mg tablet Take 1 tablet by mouth twice daily for 90 days. sertraline (ZOLOFT) 100 mg tablet Take 0.5 tablets by mouth once daily. omeprazole (PRILOSEC) 40 mg capsule Take 40 mg by mouth once daily. estriol 0.1% cream (CPD) Use 1 g vaginally two times a week. Cholecalciferol, Vitamin D3, 50 mcg (2,000 unit) cap Take 1 capsule by mouth once daily. doxycycline monohydrate (MONODOX) 100 mg capsule Take 1 capsule by mouth twice daily for 5 days. metroNIDAZOLE (FLAGYL) 500 mg tablet Take 1 tablet by mouth three times daily for 5 days. FAMILY HISTORY Problem Relation Age of Onset Emphysema Mother AAA other (MS) Father Aneurysm other ([place] Palsey) Daughter other (Testicular Cancer) Son other (Abd. Aneurysm) Maternal Uncle Cancer Maternal Grandfather skin Cancer Maternal Uncle Throat Diabetes Brother Heart Brother Kidney Disease Brother other (IBS) Brother Thyroid Sister other (Primary Biliary Cirrhosis) Sister Heart Maternal Grandmother Heart Paternal Grandfather Social History Tobacco Use Smoking status: Never Smoker Smokeless tobacco: Never Used Substance Use Topics Alcohol use: Yes Comment: Rarely Drug use: No ASSESSMENT/PLAN: 1. Dog bite, initial encounter - ICD9: 879.8, E906.0, ICD10: W54.0XXA Doxycycline bid for 5 days and flagyl 3 times a day for 5 days. refused an updated tetanus vaccine.Educated about red flags and tetanus to watch for and report to ER if any of these red flags occur.Patient was okay with this care plan. Brandy Pinzon APRN.CNP documented in this [facility] History of Present illness Narrative* Tiesha Gill LPN - 04/17/2022 10:29 AM EDT Patient presents for COVID booster. Denies any problems at this time. Tolerated injection well. Tiesha Gill LPN documented in this [facility]05-24-2022 Instructions* Patient Instructions* Sameera Valle APRN.CNS - 04/10/2022 10:25 AM EDT Need to keep up efforts at staying hydrated and getting at least 8 cups noncaffeinated fluids per day. documented in this [facility]05-24-2022 History of Present illness Narrative* Sameera Valle APRN.CNS - 04/10/2022 9:40 AM EDT SUBJECTIVE: SHINGRIX VACCINE(1 of 2) Never done PNEUMOCOCCAL: 65+(1 - PCV) Never done COVID-19 VACCINE(3 - Booster for Pfizer series) due on 07/24/2021 MAMMOGRAM due on 09/23/2021 ADVANCE DIRECTIVE DISCUSSION Never done HPI Abril Grigsby is a 71 year old female. PMH signficnt for ACTIVE PROBLEM LIST Anxiety State Stress and Adjustment Reaction Metatarsalgia of Left Foot Dyshidrotic Eczema Hyperlipidemia Hypertension Fracture of Radius and Ulna, Distal Uterine Procidentia Ibs (Irritable Bowel Syndrome) Genital Atrophy of Female Dry Skin Dermatitis HPI excerpted from previous visit: She was admitted to [facility] December 24 through December 27 for acute kidney injury, renal failure. She presents the emergency department with generalized weakness lethargy and hypersomnia since mid November 2021. In the emergency department she is found to be in acute kidney injurystatus. Creatinine 8.[address] abdomen was completed and did not show concerning findings regarding kidney. Ultrasound kidney and bladder were completed. To renal cysts were noted. No obstructive renal findings were found. Teletypewriter Operator was consulted. Lisinopril was held. Avoid nephrotoxins recommended. She was rehydrated during hospitalization with improvement in BUN and creatinine. She was advised to follow-up in 1 week with metabolic panel and follow-up with computing services director as an outpatient. Today notes she is feeling improved but not yet back to baseline. Notes she is feeling less fatigue. Not sleeping as much as she was before. She feels less fuzzy than previous to admission. Notes shehas increased fluid intake. Notes she had Covid infection and perhaps dehydration occurred related to that. She has not made an appointment with computing services director yet. She notes normal urine output since discharge home. She has remained off of lisinopril. Seen by Guzman Urbina MD 12/2021. Noted to still have signs of LIBERTAD. Advised to push fluids. Complete lab work. Since last seen she has been in to see Dr. Odom, computing services director. She is getting lab work every [facility] weeksat the office/[facility]. No additional testing ordered for patient. She reports EGD and colonoscopy have been scheduled April [address] Sneed. She notes no dysuria, frequency and urgency is present. Lower abdominal and low back pain present. Afebrile. She notes routinely taking clonazepam, typically 1- 2 tablets/day for anxiety or panic attack. Occasional use of lorazepam if not feeling sufficiently improved with clonazepam. Continues on Zoloft. No known counseling. Sees Dr. Connor, urologist. She notes some urge incontinence recently. Has upcoming appointment. Has been using topical estrogen cream. Review of Systems Constitutional: Positive for fatigue. Respiratory: Negative. Cardiovascular: Negative. Genitourinary: Negative. Objective BP 147/71 Pulse (!) 55 Resp 16 Wt 59.4 kg (131 lb) SpO2 100% BMI 23.02 kg/m Physical Exam Vitals and nursing note reviewed. Constitutional: Appearance: Normal appearance. HENT: Head: Normocephalic and atraumatic. Eyes: Conjunctiva/sclera: Conjunctivae normal. Cardiovascular: Rate and Rhythm: Normal rate and regular rhythm. Pulses: Carotid pulses are 2+ on the right side and 2+ on the left side. Radial pulses are 2+ on the right side and 2+ on the left side. Heart sounds: Normal heart sounds. Pulmonary: Effort: Pulmonary effort is normal. Breath sounds: Normal breath sounds. Musculoskeletal: Right lower leg: No edema. Left lower leg: No edema. Skin: General: Skin is warm and dry. Neurological: Mental Status: She is alert. Mental status is at baseline. ALLERGIES Allergen Reactions Amoxicillin Hives yeast infections, urticaria Erythromycin GI Upset can take Zpak Lipitor [Atorvastat* Other: See Comments didnt feel right Maxzide [Triamteren* Intolerance back pain,santiago,fatigue/trial 1/2 tab same Ramipril Mental Status Change sleepy Medications rosuvastatin (CRESTOR) 5 mg tablet, Take 1 tablet by mouth daily at bedtime. dicyclomine (BENTYL) 10 mg capsule, Take 1 capsule by mouth four times daily as needed. With meals clonazePAM (KLONOPIN) 0.5 mg tablet, Take 1 tablet by mouth twice daily for 90 days. sertraline (ZOLOFT) 100 mg tablet, Take 0.5 tablets by mouth once daily. omeprazole (PRILOSEC) 40 mg capsule, Take 40 mg by mouth once daily. estriol 0.1% cream (CPD), Use 1 g vaginally two times a week. Cholecalciferol, Vitamin D3, 50 mcg (2,000 unit) cap, Take 1 capsule by mouth once daily. LORazepam (ATIVAN) 1 mg tablet, Lorazepam Active 1 MG AT BEDTIME December 08, 2018 2:03pm ciprofloxacin HCl (CIPRO) 500 mg tablet, Take 1 tablet by mouth once daily for 3 days. PAST MEDICAL HISTORY Diagnosis Date Anxiety state, unspecified Depressive disorder, not elsewhere classified Irritable bowel syndrome Myalgia and myositis, unspecified Fibromyalgia Social History Tobacco Use Smoking status: Never Smoker Smokeless tobacco: Never Used Substance Use Topics Alcohol use: Yes Comment: Rarely Drug use: No Component Latest Ref Rng & Units 11/14/2021 01/02/2022 01/11/2022 01/15/2022 04/03/2022 WBC 3.70 - 11.00 k/uL 7.58 6.24 RBC 3.90 - 5.20 m/uL 3.78 (L) 3.85 (L) Hemoglobin 11.5 - 15.5 g/dL 10.6 (L) 11.5 Hematocrit 36.0 - 46.0 % 33.9 (L) 35.9 (L) MCV 80.0 - 100.0 fL 89.7 93.2 MCH 26.0 - 34.0 pg 28.0 29.9 MCHC 30.5 - 36.0 g/dL 31.3 32.0 RDW-CV 11.5 - 15.0 % 13.7 12.5 Platelet Count 150 - 400 k/uL 223 173 MPV 9.0 - 12.7 fL 11.5 11.3 Neut% % 64.9 Abs Neut (ANC) 1.45 - 7.50 k/uL 4.92 Lymph% % 17.4 Abs Lymph 1.00 - 4.00 k/uL 1.32 [place]% % 7.9 Abs [place] <0.87 k/uL 0.60 Eosin% % 8.7 Abs Eosin <0.46 k/uL 0.66 (H) Baso% % 0.8 Abs Baso <0.11 k/uL 0.06 Immature Gran % % 0.3 IMMATURE GRANS (ABS) <0.10 k/uL <0.03 NRBC /100 WBC 0.0 Absolute nRBC <0.01 k/uL <0.01 <0.01 DTYPE Auto Color Yellow Light Yellow Straw Clarity Clear Cloudy (A) Cloudy (A) Glucose, Urine Negative 1+ (A) Negative Bilirubin, Urine Negative Negative Negative Ketones, Urine Negative Negative Negative Specific [place], Ur 1.005 - 1.030 1.005 1.020 Hemoglobin/Blood,Ur Negative 2+ (A) 3+ (A) pH, Urine 5.0 - 8.0 6.0 6.0 Protein, Urine Negative 1+ (A) Negative Urobilinogen 0.2-1.0 EU/dL Negative 0.2 EU/dL Nitrites Negative Negative Negative Leukest Negative 3+ (A) 3+ (A) WBC, Urine 0-5 /HPF >25 /HPF (A) 6-10 /HPF (A) RBC, Urine 0-3 /HPF 6-10 /HPF (A) 11-25 /HPF (A) Bacteria None Seen /HPF Few (A) Epithelial Cells /HPF Few Moderate Protein, Total 6.3 - 8.0 g/dL 7.2 6.7 Albumin 3.9 - 4.9 g/dL 4.0 4.1 Calcium 8.5 - 10.2 mg/dL 9.2 9.2 8.9 9.0 Bilirubin, Total 0.2 - 1.3 mg/dL 0.2 0.3 Alkaline Phosphatase 34 - 123 U/L 73 85 AST 13 - 35 U/L 15 18 ALT 7 - 38 U/L 9 10 Glucose 74 - 99 mg/dL 87 101 (H) 89 87 BUN 7 - 21 mg/dL 39 (H) 44 (H) 41 (H) 29 (H) Creatinine 0.58 - 0.96 mg/dL 3.68 (H) 4.36 (H) 3.99 (H) 2.24 (H) Sodium 136 - 144 mmol/L 138 136 140 143 Potassium 3.7 - 5.1 mmol/L 4.2 4.6 4.4 4.0 Chloride 97 - 105 mmol/L 107 (H) 105 110 (H) 111 (H) CO2 22 - 30 mmol/L 20 (L) 17 (L) 16 (L) 20 (L) Anion Gap 9 - 18 mmol/L 11 14 14 12 eGFR >=60 mL/min/1.73m 11 (L) 23 (L) eGFR- 15 12 eGFR-All Other Races . 12 10 COVID 19 Source BIAS CUTTER HELPER UPPER RESPIRATORY TRACT SWAB Influenza A PCR Negative for Influenza A by RT PCR Influenza B PCR Negative for Influenza B by RT PCR COVID 19 Result BIAS CUTTER HELPER Negative for COVID19 (SARS CoV2) by RT-PCR or equivalent method. Positive for COVID19 (SARS CoV2) by RT-PCR or equivalent method. (A) Iron 41 - 186 ug/dL 78 56 TIBC 232 - 386 ug/dL 256 259 Transferrin Saturation 15 - 57 % 30 22 Vitamin B12 232-1,245 pg/mL 625 Folate >4.7 ng/mL 6.1 Ferritin 14.7 - 205.1 ng/mL 656.0 (H) 291.0 (H) Vitamin D 25 Hydroxy 31.0 - 80.0 ng/mL 37.9 36.0 Magnesium 1.7 - 2.3 mg/dL 1.9 2.2 ASSESSMENT/PLAN: 1. LIBERTAD (acute kidney injury) (HCC) - ICD9: 584.9, ICD10: N17.9 (primary diagnosis) 6. Renal insufficiency - ICD9: 593.9, ICD10: N28.9 Kidney function slowly improving. Has been drinking more fluids. Encouraged to get sufficient fluiddaily. Notes she has been seen by Dr. Odom, computing services director. Getting lab work every 2 weeks at [facility]. 2. Anxiety state - ICD9: 300.00, ICD10: F41.1 4. Stress and adjustment reaction - ICD9: 309.89, ICD10: F43.29 Continue with current treatments unchanged. Continue to monitor. Refer to counseling if so desires. - CLONAZEPAM 0.5 MG TABLET - LORAZEPAM 1 MG TABLET 3. Irritable bowel syndrome, unspecified type - ICD9: 564.1, ICD10: K58.9 Stable, currently controlled, continue to monitor. - DICYCLOMINE 10 MG CAPSULE 5. Urinary frequency - ICD9: 788.41, ICD10: R35.0 We will treat with Cipro x3 days, renal dosing 7. Anemia, unspecified type - ICD9: 285.9, ICD10: D64.9 Improving 6 mo follow up Guzman Urbina MD, labs prior Sameera Valle APRN.SERVICE CREW SUPERVISOR Medical Decision Making: Problems: Low: Acute, uncomplicated illness or injury Data: Unique test(s) ordered: 3+ Risk: Moderate: Drug management Medical Decision Making Level: 4 - Moderate documented in this [facility] Miscellaneous Notes* Telephone Encounter - Britt Waldron Ma - 03/26/2022 11:27 AM EDT Patient viewed on [employer] * Telephone Encounter - Guzman Urbina MD - 03/24/2022 9:48 PM EDT Added result note for patient to view: Vitamin D improved. Continue present management. Anemic but getting close to normal range 10.6--was 9.5 in December at the hospital. Iron studies, B12, folate within normal limits Ferritin high, but could be related to acute kidney problems in December. Metabolic panel showed Cr was improving from the 4.36 down to 3.99. BUN down a little from 44 to 41. CO2 still low; chloride up to 110. Need to keep up efforts at staying hydrated and getting at least 6 cups noncaffeinated fluids if not able to get up to 8 cups per day. Urinalysis with white blood cells and red blood cells but negative nitrates. Would check labs before sees April 10 to make sure continuing to improve Lab orders filed so may do anytime before 04/10. See how patient has been doing since last appointment. Has she been getting enough fluids in daily? Note that labs ordered for her to do anytime. * Telephone Encounter - Jennifer Carias Pss - 03/23/2022 10:02 AM EDT Patient would like someone to call and discuss her lab results from 01-15-22. Jennifer Carias Pss documented in this [facility]22 Miscellaneous Notes* Telephone Encounter - Nneka Stein LPN - 03/23/2022 10:27 AM EDT Last seen pcp 01/15/22 Next appt with BIAS CUTTER HELPER 04/10/22. * Telephone Encounter - Jennifer Jv Pss - 03/23/2022 9:57 AM EDT Patient has been identified by name and date of : Yes Pending Prescriptions Disp Refills SERTRALINE 100 MG TABLET 45 tablet 3 Sig: Take 0.5 tablets by mouth once daily. MANOLO: No RX INSTRUCTIONS: Patient aware RX will be sent to pharmacy. No need to notify patient. Jenniferchavo Staleyhl Pss documented in this encounter[facility] History of Past illness Narrative* Problem Noted Date Resolved Date Myalgia and myositis, unspecified 06/12/2016 Overview: Fibromyalgia documented as of this encounter (statuses as of 03/23/2022) [facility] History of Past illness Narrative* Problem Noted Date Resolved Date Myalgia and myositis, unspecified 06/12/2016 Overview: Fibromyalgia documented as of this encounter (statuses as of 03/26/2022) [facility] History of Past illness Narrative* Problem Noted Date Resolved Date Myalgia and myositis, unspecified 06/12/2016 Overview: Fibromyalgia documented as of this encounter (statuses as of 04/10/2022) [facility] of Past illness Narrative* Problem Noted Date Resolved Date Myalgia and myositis, unspecified 06/12/2016 Overview: Fibromyalgia documented as of this encounter (statuses as of 04/17/2022) [facility] of Past illness Narrative* Problem Noted Date Resolved Date Myalgia and myositis, unspecified 06/12/2016 Overview: Fibromyalgia documented as of this encounter (statuses as of 04/28/2022) [facility] of Past illness Narrative* Problem Noted Date Resolved Date Myalgia and myositis, unspecified 06/12/2016 Overview: Fibromyalgia documented as of this encounter (statuses as of 06/01/2022) [facility] of Past illness Narrative* Problem Noted Date Resolved Date Myalgia and myositis, unspecified 06/12/2016 Overview: Fibromyalgia documented as of this encounter (statuses as of 10/15/2022) [facility] of Past illness Narrative* Problem Noted Date Resolved Date Myalgia and myositis, unspecified 06/12/2016 Overview: Fibromyalgia documented as of this encounter (statuses as of 11/22/2022) [facility] of Past illness Narrative* Problem Noted Date Resolved Date Myalgia and myositis, unspecified 06/12/2016 Overview: Fibromyalgia documented as of this encounter (statuses as of 02/16/2023) [facility] Diagnosis Anxiety state Anxiety state, unspecified documented in this encounter [facility]* Diagnosis Vitamin D deficiency- Primary Unspecified vitamin D deficiency Anemia, unspecified type Renal insufficiency Unspecified disorder of kidney and ureter Essential hypertension Unspecified essential hypertension Encounter for long-term current use of medication High serum ferritin documented in this encounter [facility]* Diagnosis LIBERTAD (acute kidney injury) (HCC)- Primary Acute kidney failure, unspecified Anxiety state Anxiety state, unspecified Irritable bowel syndrome, unspecified type Stress and adjustment reaction Other specified adjustment reaction Urinary frequency Renal insufficiency Unspecified disorder of kidney and ureter Anemia, unspecified type Mixed hyperlipidemia Primary hypertension Unspecified essential hypertension documented in this encounter [facility]* Diagnosis Need for vaccination- Primary Need for prophylactic vaccination and inoculation against unspecified single disease documented in this encounter [facility]* Diagnosis Dog bite, initial encounter- Primary documented in this [facility]* Diagnosis Encounter for screening mammogram for breast cancer documented [facility] this [facility]* Diagnosis Anxiety state- Primary Anxiety state, unspecified Essential hypertension Unspecified essential hypertension Irritable bowel syndrome, unspecified type Stage 3b chronic kidney disease (HCC) Stress and adjustment reaction Other specified adjustment reaction Tremor Abnormal involuntary movements documented in this [facility]* Diagnosis Anxiety state Anxiety state, unspecified Tremor Abnormal involuntary movements [facility] Diagnosis Encounter for immunization- Primary Need for other specified prophylactic vaccination against single bacterial disease Screening for colon cancer Special screening for malignant neoplasms, colon Tremor Abnormal involuntary movements Anxiety state Anxiety state, unspecified Stress and adjustment reaction Other specified adjustment reaction Stage 3b chronic kidney disease (HCC) Thrombocytopenia (HCC) Thrombocytopenia, unspecified Mixed hyperlipidemia Essential hypertension Unspecified essential hypertension Encounter for observation for other suspected diseases and conditions ruled out documented in this encounter [facility]* Diagnosis Acute cough- Primary Pleuritic pain Painful respiration documented in this [facility]* Diagnosis Acute non-recurrent pansinusitis- Primary [facility]* Diagnosis Encounter for screening mammogram for breast cancer documented in this encounter [facility] for referral (narrative)* Diagnostic Procedure Only (Routine) - Pending Review Specialty Diagnoses / Procedures Referred By Milka rivera Referred To Contact [facility] Diagnoses Encounter for screening mammogram for breast cancer Procedures YAEL SCREENING SCREENING MAMMOGRAPHY BI 2-VIEW BREAST INC Guzman Weston MD [facility] [place] [address] [place] [address] Referral ID Status Reason Start Date Expiration Date Visits Requested Visits Authorized [id number] Pending Review Auto-Generat ed Referral 2 11/09/2023 1 1 [facility] for referral (narrative)* Diagnostic Procedure Only (Routine) - Pending Review Specialty Diagnoses / Procedures Referred By Milka rivera Referred To Contact [facility] Diagnoses Encounter for screening mammogram for breast cancer Procedures YAEL SCREENING SCREENING MAMMOGRAPHY BI 2-VIEW BREAST INC Guzman Weston MD [address] [place] [address] [facility] [address] [address] Referral ID Status Reason Start Date Expiration Date Visits Requested Visits Authorized [id number] Pending Review Auto-Generat ed Referral 09/18/2023 10/17/2024 [address] [facility] Summary Purpose Family History No Family History Records Found Advance Directives No Advanced Directives Records Found Additional Source Comments Source Comments (unrecognize d section and content) In the event this informatio n is protected by the Federal Confidentiality of Alcohol and Drug Abuse Patient Records regulations: The Federal rules restrict any use of the information to criminally investigate or prosecute any alcohol or drug abuse patient.[facility] HospitalIn the event this information is protected by the Federal Confidentiality of Alcohol and Drug Abuse Patient Records regulations: The Federal rules restrict any use of the information to criminally investigate or prosecute any alcohol or drug abuse patient.[facility] HospitalIn the event this information is protected by the Federal Confidentiality of Alcohol and Drug Abuse Patient Records regulations: The Federal rules restrict any use of the information to criminally investigate or prosecute any alcohol or drug abuse patient.[facility] HospitalIn the event this information is protected by the Federal Confidentiality of Alcohol and Drug Abuse Patient Records regulations: The Federal rules restrict any use of the information to criminally investigate or prosecute any alcohol or drug abuse patient.[facility] HospitalIn the event this information is protected by the Federal Confidentiality of Alcohol and Drug Abuse Patient Records regulations: The Federal rules restrict any use of the information to criminally investigate or prosecute any alcohol or drug abuse patient.[facility] HospitalIn the event this information is protected by the Federal Confidentiality of Alcohol and Drug Abuse Patient Records regulations: The Federal rules restrict any use of the information to criminally investigate or prosecute any alcohol or drug abuse patient.[facility] HospitalIn the event this information is protected by the Federal Confidentiality of Alcohol and Drug Abuse Patient Records regulations: The Federal rules restrict any use of the information to criminally investigate or prosecute any alcohol or drug abuse patient.[facility] HospitalIn the event this information is protected by the Federal Confidentiality of Alcohol and Drug Abuse Patient Records regulations: The Federal rules restrict any use of the information to criminally investigate or prosecute any alcohol or drug abuse patient.[facility] HospitalIn the event this information is protected by the Federal Confidentiality of Alcohol and Drug Abuse Patient Records regulations: The Federal rules restrict any use of the information to criminally investigate or prosecute any alcohol or drug abuse patient.[facility] HospitalIn the event this information is protected by the Federal Confidentiality of Alcohol and Drug Abuse Patient Records regulations: The Federal rules restrict any use of the information to criminally investigate or prosecute any alcohol or drug abuse patient.[facility] HospitalIn the event this information is protected by the Federal Confidentiality of Alcohol and Drug Abuse Patient Records regulations: The Federal rules restrict any use of the information to criminally investigate or prosecute any alcohol or drug abuse patient.[facility] HospitalIn the event this information is protected by the Federal Confidentiality of Alcohol and Drug Abuse Patient Records regulations: The Federal rules restrict any use of the information to criminally investigate or prosecute any alcohol or drug abuse patient.[facility] HospitalIn the event this information is protected by the Federal Confidentiality of Alcohol and Drug Abuse Patient Records regulations: The Federal rules restrict any use of the information to criminally investigate or prosecute any alcohol or drug abuse patient.[facility] HospitalIn the event this information is protected by the Federal Confidentiality of Alcohol and Drug Abuse Patient Records regulations: The Federal rules restrict any use of the information to criminally investigate or prosecute any alcohol or drug abuse patient.[facility] Reason for Visit (unrecogniz ed section and content) Reason Onset Date Comments Results, Lab 03/23/2022 Reason Comments Follow Up Reason Comments Imm/Inj Reason Comments Animal Bite right hand swelling/ abrasions x 1 day Reason Comments Follow Up 6 month Reason Onset Date Comments Refill Request 02/14/2023 Reason Comments F/U 6 Month Reason Comments Shortness of Breath Pt reported cough, n reji congestion, (RT) upper back pain, x3 days. Reason Onset Date Comments Flu Like Symptoms 08/30/2023 Reason Comments Cough Nasal and chest cosmo estion, drainage x 2 wks Care Teams (unrecognized sec tion and content) Stunt Double Relationship Specialty Start Date End Date Guzman Urbina MD [address] [place] [address], [place] [address] PCP - General Internal Medicine 01/11/17 Stunt Double Relationship Specialty Start Date End Date Guzman Urbina MD [address] [place] [address], [place] [address] PCP - General Internal Medicine 01/11/17 Stunt Double Relationship Specialty Start Date End Date Guzman Urbina MD [address] [place] [address], [place] [address] PCP - General Internal Medicine 01/11/17 Stunt Double Relationship Specialty Start Date End Date Guzman Urbina MD [address] [place] [address], [place] [address] PCP - General Internal Medicine 01/11/17 Stunt Double Relationship Specialty Start Date End Date Guzman Urbina MD [address] [place] [address], [place] [address] PCP - General Internal Medicine 01/11/17 Stunt Double Relationship Specialty Start Date End Date Guzman Urbina MD [address] [place] [address], [place] [address] PCP - General Internal Medicine 01/11/17 Stunt Double Relationship Specialty Start Date End Date Guzman Urbina MD [address] [place] [address], [place] [address] PCP - General Internal Medicine 01/11/17 Stunt Double Relationship Specialty Start Date End Date Guzman Urbina MD [address] [place] [address], [place] [address] PCP - General Internal Medicine 01/11/17 Stunt Double Relationship Specialty Start Date End Date Guzman Urbina MD [address] [place] [address] PCP - General Internal Medicine 01/11/17 Stunt Double Relationship Specialty Start Date End Date Guzman Urbina MD [address] [place], [place] [id number] PCP - General Internal Medicine 01/11/17 Stunt Double Relationship Specialty Start Date End Date Guzman Urbina MD [address] [place], [place] [id number] PCP - General Internal Medicine 01/11/17 INFORMATION SOURCE (unrecogn ized section and content) FOR RECORDS PERTAINING TO PATIENTS WHO ARE OR HAVE BEEN ENROLLED IN A CHEMICAL DEPENDENCY/SUBSTANCEABUSE PROGRAM, SOME INFORMATION MAY BE OMITTED. This clinical summary was aggregated from multiple sources. Caution should be exercised in using it in the provision of clinical care. This summary normalizes information from multiple sources, and as a consequence, information in this document may materially change the coding, format and clinical context of patient data. In addition, data may be omitted in some cases. CLINICAL DECISIONS SHOULD BE BASED ON THE PRIMARY CLINICAL RECORDS. [facility] [employer] [facility]. provides no warranty or guarantee of the accuracy or completeness of information in this document.
[2023-12-18] MEDS: Lactated Ringers 1,000 ML 15 ML IV (08:26)
--- NOTE | 2023-12-18 08:58 | PCM.HP.BLA ---
History and Physical Date of Admission: 12/18/23 JASON GRIGSBY, is a 73 F who presents to the office today for [facility] hospitalization .05.09-12.27.21 for management of LIBERTAD with possible obstructive origin; genitourinary surgery for cystocele, rectocele uterine prolapse and stress related incontinence by Dr. Chairez and Dr. Cazares; hypertension, stable; leukocytosis with neutrophilia, likely reactive state. ? CT abd/pel 12.24.21 found no acute or chronic disease state. *BGI established 01.31.22 for small pebble stools alternating with diarrhea with associated abdominal pain/cramping and difficulty eating. PMH includes anxiety and depression, IBS, fibromyalgia, COVID infection . EGD and colonoscopy 04.19.22. EGD found Benign esophageal stenosis, Savary dilation 36F; LA Grade A reflux esophagitis; erythematous mucosa of gastric body; gastric stenosis at pylorus with metaplasia without dysplasia. H.Pylori negative. Colonoscopy found diverticulosis in sigmoid colon; congested mucosa of RS colon, splenic flexure and hepatic flexure; poor rectal tone with mild rectal prolapse. No pathological changes. OV 05.03.22 with occasional fecal incontinence; increase fiber intake. Diarrhea doxycycline. GI metaplasia in stomach without ability to use PPI r/t renal failure. OV 9.8. BM approximately two times a week which will vary between hard small trini, normal and loose stools. Does not recall taking doxycycline and if it was helpful. OV 11.23.22 with improvement using fiber supplement. Diarrhea now occurring 1-2/month. OV 02.12. BM are now alternating between no BM with lower abdominal discomfort and flatulence for several days and then looser, multiple movements with abdominal discomfort resolution when she does have a BM. Will also have normal BM 2-3 days/week. Feels diet is a factor (greasy foods). Fiber supplement continues. EGD 04.29.23 LA Grade B esophagitis; small hiatal hernia; two oozing cratered prepyloric gastric ulcers, epinepherine and heater probe; one non-bleeding cratered prepyloric gastric ulcer. Metaplasia +, dysplasia neg, h.pylori neg. Contact 05.07.23 with results. OV 8.. reports one BM each day but takes an extended period of time to BM to complete, up to 30 minutes; will occasionally have problems with having a BM when she has to urinate. Continues with protonix; she stopped lactulose as it did not taste good and she found expensive. OV 11.26.23 Reports small formed BM daily. Occasional small blood seen after BM after wiping. One episode of bright red blood seen in toilet, reports possibly has hemorroids. Ocassional abdominal pain, cramping, gas, bloating, constipation and diarrhea. No acute concerns. ROS Const Constitutional: Positive for fatigue, weakness and weight change (Loss); No fever(s), frequent falls or headache(s) ENT ENT: No headache(s) or difficulty swallowing Cardio Cardiology: No leg pain with exertion Gastro GI: Positive for abdominal pain (Occasional), bloating, constipation (Occasional) and diarrhea (Occasional ); No change in bowel habits, heartburn, difficulty swallowing, excessive flatus, Vomiting blood/hematemesis, Blood in stool, nausea/dyspepsia or vomiting Musc Musculoskeletal: Positive for stiffness and Arthritis; No joint pain, back pain, joint swelling, muscle cramps, muscle weakness, numbness, tingling, sciatica, restless legs, leg pain at night or leg pain with exertion Skin Skin: Positive for dry skin and itchy eyes; No lesions or rash Neuro Neurology: Positive for weakness and tremor(s); No behavioral changes, unsteady gait/balance, frequent falls, headache(s), numbness, tingling, restless legs, Increased tone in limbs, paralysis or seizures Psych Psychiatric: Positive for anxiety, No behavioral changes, Positive for depression, No paranoia, No Compulsive Behavior, No hyperactivity, No inattentiveness, No obsessions/compulsions, No Temper Tantrums and No suicidal ideation Endo Endocrine: Positive for fatigue and weight change (Loss) Aller/Imm Allergy/Immunologic: Positive for itchy eyes Ric/Lymp Hematologic/Lymphatic: Positive for easy bleeding and easy bruising Exam Const General: cooperative and comfortable Nutritional Appearance: average body habitus and well nourished HENMT Head: normal to inspection Ears: hearing grossly normal bilaterally Nose: external nose normal Face and sinus: normal facial exam Mouth: oral mucosae normal Throat: posterior oropharynx normal Eyes General: appearance normal, both eyes and all related structures Neck Neck: normal visual inspection Chest Chest palpation & inspection: normal inspection of the chest and normal palpation of entire chest wall Resp Effort & Inspection: normal respiratory effort Auscultation: Bilateral: Clear to Auscultation Cardio Palpation: normal PMI Rate: regular rate Rhythm: regular rhythm GI Inspection: normal to inspection Auscultation: normal bowel sounds Percussion: normal to percussion Palpation: no hepatosplenomegaly Skin General: no rashes or lesions noted Neuro General: patient alert Extrem General: normal to inspection Psych Affect: normal affect Quality Reporting Tobacco Screening ([facility] 138) Smoking Status: Never smoker Assessment and Plan Assessment and Plan (1) Alternating constipation and diarrhea: Status: Chronic Plan: She is going to the bathroom with lactulose or Amitiza with the increase in Fiber that we recommended. We will continue that for now. (2) Rectal prolapse: Status: Chronic Plan: I would like her to take a fiber supplement such as a Metamucil tablet nightly to thicken up her stools for her grade 2 rectal prolapse.? She is comfortable wearing a adult diaper when she goes out.? We also talked about pelvic floor retraining but due to some problems with her grandson currently living with her she does not feel that she can get to appointments for pelvic floor training. ( (3) Gastric intestinal metaplasia: Status: Chronic Plan: She will undergo repeat upper endoscopy in a year we will do surveillance on the gastrointestinal metaplasia.? If it looks like it is starting to transform into dysplasia then we will offer her ablation. (4) Diarrhea: Status: Inactive Qualifiers: Diarrhea type: functional diarrhea Qualified Code(s): K59.1 - Functional diarrhea Plan: . (2) Diarrhea: ?Status:?Chronic ?Plan: I think her diarrhea is overflow incontinence secondary to poor rectal compliance.? Again I encourage supplements and if that does not work we will add cholestyramine or colestipol. (5) Anemia: Status: Acute Qualifiers: Anemia type: iron deficiency Iron deficiency anemia type: other iron deficiency Qualified Code(s): D50.8 - Other iron deficiency anemias Plan: Her blood count is improved. Abnormality on her labs which she had a GI bleed she dropped down to 11 and her hemoglobin is up to 13.6. Her platelet count was 169 her white blood cell count is 7.4 with an MCV of 89.9. Her BUN/creatinine ratio after her GI bleed is also improved from 29 or 2.2 to now 24/1.5. She has not started any new medicines. She does have occasional blood on the toilet paper but I believe that this is secondary to her previous diagnosis of rectal prolapse. We will repeat her upper endoscopy to make sure the gastric ulcer is all healed and continue PPI therapy for now until we performed upper endoscopy. I have examined the patient and the H&P has been reviewed. There are no clinical changes since date of exam.
--- NOTE | 2023-12-18 09:00 | IMM_PTH ---
PATHOLOGY RESULTS PATIENT: JASON GRIGSBY LOC: EN U#:[id number] AGE/SX: 73/F ROOM: RE12/18/[address]: Dr. Adrian Sneed DO : 1950 BED: DIS: 12/18/2023 SPEC #: [id number] RECD: 12/18/23 14:47 STATUS: NATHALY REQ #: [id number] MUSTAPHA: 12/18/23 09:[address]: Adrian Sneed DEPT: IMMUNOHISTOCHEMISTRY RECD BY: Jihan Blank ENTERED: 12/18/23 14:48 SP TYPE: IMMUNO OTHR DR: Dr. Fe Urbina MD Tissues: Stomach, NOS Procedures: H Pylori (initial) PHYSICIAN & INSTITUTION [place] [id number] SPECIMEN INFORMATION: Tissue Source: A - Gastric ulcer Clinical Info: Constipation/diarrhea, anemia Specimen Number: [id number] CPT code: 54462 METHODOLOGY: Deparaffinized sections of prefer/formalin-fixed tissue or PAP/DQ stained slides are incubated with monoclonal/polyclonal antibodies/oligonucleotide probes. Localization is made via biotin free immunoperoxidase method. Appropriate controls are performed and reacted as expected. Results on target cell population are indicated in the following table: RESULTS: ANTIBODY / CLONE RESULT Block A H Pylori (polyclonal) negative These tests were developed and their performance characteristics determined by [facility]. They may not have been cleared or approved by the U.S. Food and Drug Administration. The FDA has determined that such clearance or approval is not necessary. The above immunohistochemical/dualISH markers are ordered and reviewed by the Pathologist. INTERPRETATION: A. Gastric ulcer, biopsy: Negative for Helicobacter pylori organisms. SJ:devika 12/19/2023
--- NOTE | 2023-12-18 09:00 | EGD_PTH ---
PATHOLOGY RESULTS PATIENT: JASNO GRIGSBY LOC: EN U#:[id number] AGE/SX: 73/F ROOM: RE12/18/[address]: Dr. Adrian Sneed DO : 1950 BED: DIS: 12/18/2023 SPEC #: [id number] RECD: 12/18/23 12:17 STATUS: NATHALY PAULINO #: [id number] MUSTAPHA: 12/18/23 09:[address]: Adrian Sneed DEPT: SURGICAL PATHOLOGY RECD BY: Rox Dave ENTERED: 12/18/23 12:17 SP TYPE: EGD BIOPSY JOSÉ MIGUEL DR: Dr. Fe Urbina MD Tissues: Gastric mucous membrane Esophageal mucous membrane Procedures: Surgery Specimen Level IV HEADER OPERATION: EGD, biopsy PRE-OP DIAGNOSIS: Constipation/diarrhea TISSUE SUBMITTED: A - Gastric ulcer biopsy, B - Distal esophagus biopsy MICROSCOPIC DIAGNOSIS A. Gastric ulcer, biopsy: Fragments of gastric mucosa with acute and chronic inflammation. See comment. B. Distal esophagus, biopsy: Fragments of gastric mucosa with chronic inflammation. Intestinal metaplasia (goblet cell metaplasia) not identified. See comment. NASH:devika 12/19/2023 COMMENT A. The results of immunohistochemistry for Helicobacter pylori will be reported separately ([id number]). B. Alcian blue/PAS stain with matched control is used in the evaluation of the specimen. MICROSCOPIC DESCRIPTION Slides are reviewed. GROSS DESCRIPTION A - Received in fixative is one container labeled with the patient's name and designated gastric ulcer biopsy. The specimen consists of multiple irregular fragments of light chery soft tissue that in aggregate measure 1.2 x 0.2 x 0.1 cm. The specimen is totally submitted in one cassette. B - Received in fixative is one container labeled with the patient's name and designated distal esophagus. The specimen consists of multiple irregular fragments of light chery soft tissue that in aggregate measure 1.0 x 0.3 x 0.1 cm. The specimen is totally submitted in one cassette. / NASH:devika 12/18/2023 TC:3 CPT: 71573 x2, 66245
--- NOTE | 2023-12-18 09:32 | OP.CCLET_ITS ---
12/18/2023 Fe Urbina [address] [place] [address] Re : Upper GI endoscopy procedure for Abril [place] Dear Dr. Urbina This procedure was performed on Monday, December 18, 2023. My impressions and recommendations are as follows: Impressions : - Esophageal mucosal changes suspicious for Hurley's esophagus. Biopsied. - Non-bleeding gastric ulcer with no stigmata of bleeding. Biopsied. - Normal first portion of the duodenum. Recommendations : - Discharge patient to home. - Resume previous diet. - Continue present medications. - Await pathology results. My findings are described in the full procedure note, which is enclosed. If I can be of further assistance, please feel free to contact me at . Sincerely, Adiran Sneed, 12/18/2023 9:32:10 AM This report has been signed electronically.
--- NOTE | 2023-12-18 09:32 | OP.EGD_ITS ---
Patient Name: Abril Christine Procedure Date: 12/18/2023 9:01 AM Date of : 1950 Age: 73 Procedure: Upper GI endoscopy Indications: Follow-up of Hurley's esophagus, Peptic ulcer Providers: Adrian Sneed DO Referring MD: Fe Urbina Medicines: Monitored Anesthesia Care Patient Profile: This is a 73 year old female. Refer to note in patient chart for documentation of history and physical. Patient has symptoms of chronic epigastric abdominal pain. Complications: No immediate complications. Procedure: Pre-Anesthesia Assessment: - Prior to the procedure, a History and Physical was performed, and patient medications and allergies were reviewed. The patient is competent. The risks and benefits of the procedure and the sedation options and risks were discussed with the patient. All questions were answered and informed consent was obtained. Patient identification and proposed procedure were verified by the physician in the pre-procedure area. Mental Status Examination: alert and oriented. Airway Examination: normal oropharyngeal airway and neck mobility. Respiratory Examination: clear to auscultation. CV Examination: normal. Prophylactic Antibiotics: The patient does not require prophylactic antibiotics. Prior Anticoagulants: The patient has taken no anticoagulant or antiplatelet agents. ASA Grade Assessment: II - A patient with mild systemic disease. After reviewing the risks and benefits, the patient was deemed in satisfactory condition to undergo the procedure. The anesthesia plan was to use monitored anesthesia care (MAC). Immediately prior to administration of medications, the patient was re-assessed for adequacy to receive sedatives. The heart rate, respiratory rate, oxygen saturations, blood pressure, adequacy of pulmonary ventilation, and response to care were monitored throughout the procedure. The physical status of the patient was re-assessed after the procedure. After obtaining informed consent, the endoscope was passed under direct vision. Throughout the procedure, the patient's blood pressure, pulse, and oxygen saturations were monitored continuously. The Endoscope was introduced through the mouth, and advanced to the second part of duodenum. The upper GI endoscopy was accomplished without difficulty. The patient tolerated the procedure well. Scope In: 9:14:55 AM Scope Out: 9:20:23 AM Total Procedure Duration Time 0 hours 5 minutes 28 seconds Findings: There were esophageal mucosal changes suspicious for Hurley's esophagus present in the lower third of the esophagus. The maximum longitudinal extent of these mucosal changes was 2 cm in length. Mucosa was biopsied with a cold forceps for histology in a targeted manner at intervals of 1 cm in the lower third of the esophagus. One specimen bottle was sent to pathology. Verification of patient identification for the specimen was done. Estimated blood loss was minimal. One non-bleeding linear gastric ulcer with no stigmata of bleeding was found in the gastric antrum. The lesion was 3 mm in largest dimension. Biopsies were taken with a cold forceps for histology. Verification of patient identification for the specimen was done. Estimated blood loss was minimal. Biopsies were taken with a cold forceps for Helicobacter pylori testing. Verification of patient identification for the specimen was done. Estimated blood loss was minimal. The first portion of the duodenum was normal. Impression: - Esophageal mucosal changes suspicious for Hurley's esophagus. Biopsied. - Non-bleeding gastric ulcer with no stigmata of bleeding. Biopsied. - Normal first portion of the duodenum. Recommendation: - Discharge patient to home. - Resume previous diet. - Continue present medications. - Await pathology results. Procedure Code(s): --- Professional --- 44077, Esophagogastroduodenoscopy, flexible, transoral; with biopsy, single or multiple CPT copyright 2021 [employer]. All rights reserved. The codes documented in this report are preliminary and upon household appliance mechanic review may be revised to meet current compliance requirements. Adrian Sneed DO 12/18/2023 9:32:10 AM This report has been signed electronically. Number of Addenda: 0 Note Initiated On: 12/18/2023 9:01 AM
== END 2023-12-18 10:06 | disposition home or self-care (01) ==
LOC: EN 07:49 → AC 07:50
PROVIDERS: PCP Internal Medicine; Referring Provider Internal Medicine; Visit Provider Internal Medicine Gastroenterology
PROC: 0DJ08ZZ Inspection of Upper Intestinal Tract, Via Natural or Artificial Opening Endoscopic (ICD-10-PCS; CPT 43235; principal; 2023-12-18 08:55)
DX: K59.00 Constipation, unspecified (principal); K25.9 Gastric ulcer, unspecified as acute or chronic, without hemorrhage or perforation; K62.3 Rectal prolapse; K31.A0 Gastric intestinal metaplasia, unspecified; D50.8 Other iron deficiency anemias; K59.1 Functional diarrhea; K22.89 Other specified disease of esophagus
CPT/HCPCS: 43239; 88305; 88342; J7120; J2405

== ENCOUNTER → 2024-03-17 | Outpatient (CLI) | payer MEDICARE, OTHER, SELFPAY ==
[2024-03-17 11:20] LABS: Hematocrit 41.3 % (37-47); Hemoglobin 13.1 g/dL (12.0-15.0); Mean Corp Hgb Conc 31.7 g/dL (32-36); Mean Corpuscular Hgb 27.6 pg (27.0-32.0); Mean Corpuscular Volume 87.1 fL (81-99); Mean Platelet Vol. 10.8 fl (6.2-12.0); Platelet Count 129 K/mm3 (150-450); RBC Distribution Width CV 12.9 % (11.6-14.6); RBC Distribution Width SD 40.5 fl (35.1-43.9); Red Blood Count 4.74 M/mm3 (4.2-5.4); White Blood Count 9.6 K/mm3 (4.4-11.0)
[2024-03-17 11:48] LABS: PTHIN 123.3 pg/mL (18.4-80.1)
[2024-03-17 11:56] LABS: Albumin, Serum 2.5 g/dL (3.2-5.0); BUN 22 mg/dL (7-18); BUN/Creat Ratio 15.6 RATIO (10-20); Calcium,Total 8.3 mg/dL (8.5-10.1); Chloride 112 mmol/L (98-107); Creatinine, Serum 1.41 mg/dL (0.55-1.02); EST Glomerular Filtration Rate 39 mL/min (>60); Est Glom Filt Rate - Afr Amer 47 mL/min (>60); Glucose 103 mg/dL (74-106); Phosphorus 2.4 mg/dL (2.5-4.9); Potassium 3.9 mmol/L (3.5-5.1); Sodium Level 141 mmol/L (136-145)
== END | disposition home or self-care (01) ==
LOC: POLAB3 10:12
PROVIDERS: PCP Internal Medicine; Visit Provider Internal Medicine Nephrology
DX: N18.32 Chronic kidney disease, stage 3b (principal)
CPT/HCPCS: 36415; 80069; 83970; 85027

== ENCOUNTER 2024-07-01 15:24 | Emergency (ER) | payer MEDICARE, OTHER, SELFPAY ==
[2024-07-01] VITALS (13 sets, daily range): BP systolic 111–177; BP diastolic 60–102; PULSE 56–84; RESP 14–18; TEMP 36–36.7; O2SAT 95–99; BMI 23.5
--- NOTE | 2024-07-01 06:00 | RAD_ITS ---
INDICATION: Neuro deficit, acute, stroke suspected EXAMINATION/TECHNIQUE: X-RAY - XR Chest 1 View COMPARISON: August 04, 2019 FINDINGS: LINES/DEVICES: None. LUNGS: No consolidation, edema or effusion. No pneumothorax. MEDIASTINUM AND CARDIOVASCULAR STRUCTURES: Cardiac silhouette not enlarged. Central airways and mediastinal contour are unremarkable. BONES AND SOFT TISSUES: Degenerative vertebral changes. RAD/Chest 1 View IMPRESSION: No radiographic evidence of acute cardiopulmonary disease. Electronically Signed: Atif Cadet DO at 16:23 EDT ,
--- NOTE | 2024-07-01 15:29 | CT_ITS ---
STUDY: CT HEAD STROKE PROTOCOL W/O CONTRAST INJECTION REASON FOR EXAM: Female, 74 years old. Neuro deficit, acute, stroke suspected RADIATION DOSAGE (If Supplied By Facility): CTDIvol = ( 44.99 ) mGy, DLP = ( 745.49 ) mGycm TECHNIQUE: Transaxial CT imaging of the brain was performed without administration of intravenous contrast material. Individualized dose optimization techniques were used for this CT. COMPARISON: Comparison is made with prior study July 09, 2023. FINDINGS: Normal soft tissue structures. Normal calvarium. There is mild cerebral atrophy with widening of the extra-axial spaces and ventricular dilatation. Normal white matter tracts of the cerebral hemispheres. Normal basal ganglia and thalami. Normal brainstem. Normal cerebellum. There is no intracranial hemorrhage. There are no findings of an acute ischemic infarction. Normal visualized paranasal sinuses. ASPECT score: 10 CT/STROKE Brain/Head without Cont IMPRESSION: Chronic involutional changes of the brain. N.B. : The above Results were Read Back by Scott Joya MD to Zechariah Burciaga and understanding confirmed on 07/01/2024 15:47:39 (ET). Electronically Signed: Scott Joya MD at 15:50 EDT ,
--- NOTE | 2024-07-01 15:29 | CT_ITS ---
STUDY: CTA HEAD AND NECK WITH CONTRAST REASON FOR EXAM: Female, 74 years old. Neuro deficit, acute, stroke suspected RADIATION DOSAGE (If Supplied By Facility): CTDIvol = ( 17.27 ) mGy, DLP = ( 643.21 ) mGycm TECHNIQUE: CT angiography was performed with a multi-detector CT scanner. Data acquisition was obtained from the skull base through the vertex following intravenous administration of IV 100mL Isovue-370. MIP images were reconstructed from the axial data set. Post-processing of the angiographic images was performed, with multiplanar reformation and 3D reconstruction. Individualized dose optimization techniques were used for this CT. COMPARISON: No relevant priors. FINDINGS: Normal bilateral petrous carotid arteries. There is calcified plaque formation of the right cavernous carotid artery, without a cross-sectional luminal stenosis. There is calcified plaque formation of the left cavernous carotid artery, without a cross-sectional luminal stenosis. Normal right A1 segments of the anterior cerebral artery. Normal left A1 segments of the anterior cerebral artery. Normal intact anterior communicating artery (ACOM). Normal bilateral A2 segments of the anterior cerebral arteries. Normal right M1 and M2 segments of the middle cerebral arteries, with a normal M1 bifurcation. Normal left M1 and M2 segments of the middle cerebral arteries, with a normal M1 bifurcation. Normal right posterior communicating artery (PCOM). Normal left posterior communicating artery (PCOM). Normal bilateral vertebral arteries. Normal basilar artery with a normal basilar bifurcation. The visualized bilateral superior cerebellar (SCA) arteries are normal. Normal bilateral P1, P2 and visualized P3 segments of the posterior cerebral arteries. There is no demonstrated aneurysm of the [place]. AORTIC ARCH: Normal visualized aortic arch. Normal origins of the brachiocephalic, left common carotid, and left subclavian arteries. RIGHT CAROTID ARTERIES: Normal right common carotid artery (CCA). Normal right common carotid bulb. There is mild atherosclerotic plaque formation of the origin of the right internal carotid artery with less than 50% cross sectional diameter stenosis. Normal visualized cervical portion of the right internal carotid artery. Normal origin of the right external carotid artery (ECA). LEFT CAROTID ARTERIES: Normal left common carotid artery (CCA). Normal left common carotid bulb. There is mild atherosclerotic plaque formation of the origin of the left internal carotid artery with less than 50% cross sectional diameter stenosis. Normal visualized cervical portion of the left internal carotid artery. Normal origin of the left external carotid artery (ECA). VERTEBRAL ARTERIES: There is enhancement within the bilateral vertebral arteries with a small right vertebral artery, and a dominant left vertebral artery. CT/STROKE CTA Head AND Neck W/Con IMPRESSION: Calcific plaque at the origin of the right and left internal carotid arteries causing less than 50% stenosis. N.B. : The above Results were Read Back by Scott Joya MD to Zechariah Burciaga and understanding confirmed on 07/01/2024 15:55:01 (ET). Electronically Signed: Scott Joya MD at 15:56 EDT ,
--- NOTE | 2024-07-01 15:30 | EDS_ITS ---
HPI History of Present Illness Chief Complaint: Neuro S/Sx Informant: patient Onset/Context/Timing Onset: Today Context: Sudden Onset Timing: Continuous Quality and Location: Positive for Left Facial Droop, Left Arm Weakness, Left Leg Weakness and Slurred Speech Onset: 10:30 AM today Worsened by: Nothing Relieved by: Nothing Associated Symptoms Associated Symptoms: Negative for Headache, Nausea, Vomiting or Chest Pain Narrative Narrative: Patient presents with left facial weakness, left arm and left leg weakness that began today. Patient states that she woke up at 8 AM today and was feeling normal. Patient states she went to breakfast with some friends. Patient states that approximately 1030 she was walking from the restaurant and her left leg felt like it was heavy. Patient states that approximately 10 minutes ago she noted to her face becoming weak and she was having difficulty speaking. Patient denies any visual changes. Able patient also states her left arm feels heavy. Patient denies any sensation abnormalities. [facility] Medical History Injury of head and neck Wears hearing aid Wears glasses Bruising History of renal disease High cholesterol Benign essential tremor History of hiatal hernia Gastric reflux History of IBS Non-smoker History of edema Acute kidney injury Fibromyalgia IBS (irritable bowel syndrome) Hyperlipidemia Hypertension Anxiety Home Medications ?Medication ?Instructions ?Recorded ?Last Taken ?Type clonazepam 0.5 mg tablet 0.5 mg PO BID FIBROMYALGIA 12/08/18 07/09/23 History lorazepam 1 mg tablet (Ativan) 1 mg PO QHS PRN Anxiety 12/08/18 06/23/22 12:10 History sertraline 100 mg tablet (Zoloft) 75 mg PO DAILY Check with primary 12/08/18 07/09/23 History doctor cholecalciferol (vitamin D3) 50 2,000 unit PO DAILY supplement 12/24/21 07/09/23 History mcg (2,000 unit) capsule (Vitamin D3) rosuvastatin 5 mg tablet 5 mg PO QHS cholesterol 12/24/21 07/08/23 History estriol (bulk) 100 % powder 4 ea miscellaneous UD 12/06/23 Unknown History vibegron 75 mg tablet (Gemtesa) 75 mg PO DAILY 12/06/23 Unknown History pantoprazole 40 mg tablet,delayed 40 mg PO DAILY #90 TABLETS 06/12/24 Unknown Rx release Allergy/AdvReac Type Severity Reaction Status Date / Time amoxicillin Allergy Hives Verified 12/18/23 08:16 Penicillins AdvReac Severe Upset Verified 12/18/23 08:16 Stomach Family History Mother AAA (abdominal aortic aneurysm) Father Multiple sclerosis Brother Heart disease Myocardial infarction Kidney disease Sister Liver disease Surgical History History of esophagogastroduodenoscopy (EGD) pelvic floor repair History of total vaginal hysterectomy (TVH) H/O dilation and curettage Social History Smoking Status: Never smoker alcohol intake: never substance use type: does not use caffeine: Yes what type of physical activity do you participate in: walking seatbelt use: always do you feel safe at home: Yes additional social history: Ish BELL ED Constitutional Constitutional ED: Denies chills or fever(s) Eyes Eyes: Denies blurry vision or change in vision ENT ENT ED: Denies rhinorrhea or sore throat Cardiovascular Cardiovascular: Denies chest pain or palpitations Respiratory/Chest Respiratory/Chest: Reports dyspnea; Denies cough Gastrointestinal Gastrointestinal: Denies nausea or vomiting Genitourinary Genitourinary ED: Denies dysuria or hematuria Musculoskeletal Musculoskeletal: Denies back pain or neck pain Integumentary Denies abscess or rash Neurologic Neurologic: Reports weakness; Denies headache(s) Allergic/Immunologic Allergic/Immunologic ED: Denies mouth swelling or urticaria EXAM Physical Exam Const Vital Signs: 07/01/24 15:25 07/01/24 15:34 07/01/24 15:45 Temperature 96.8 F L 96.8 F L Temperature Source Temporal Temporal Pulse Rate 69 69 70 Respiratory Rate 14 14 16 Blood Pressure 167/70 H 111/76 Blood Pressure Mean 102 87 Pulse Ox 99 99 99 Oxygen Delivery Method Room Air Room Air Room Air 07/01/24 15:46 07/01/24 16:15 07/01/24 16:24 Temperature Temperature Source Pulse Rate 61 58 L Respiratory Rate 18 16 Blood Pressure 144/60 H 151/64 H Blood Pressure Mean 88 93 Pulse Ox 98 95 Oxygen Delivery Method Room Air Room Air 07/01/24 16:45 07/01/24 17:00 07/01/24 17:15 Temperature Temperature Source Pulse Rate 60 57 L 84 Respiratory Rate 18 16 16 Blood Pressure 151/64 H 151/84 H 131/102 H Blood Pressure Mean 93 106 111 Pulse Ox 98 98 Oxygen Delivery Method Room Air Room Air 07/01/24 18:00 Temperature Temperature Source Pulse Rate 56 L Respiratory Rate 16 Blood Pressure 177/76 H Blood Pressure Mean 109 Pulse Ox 97 Oxygen Delivery Method Room Air Positive well nourished and well developed General Appearance ED: well developed and NAD HEENT Reports moist mucous membranes Neck supple and no JVD Resp normal respiratory effort and clear to auscultation bilaterally GI soft to palpation, non-tender and non-distended Extremity normal to inspection General Extremety ED: Negative for deformity or edema General Extremity: Negative for deformity or edema Neuro oriented x3 and no sensory deficits noted Neuro Narrative: There is a left facial droop noted. Patient is able to hold both arms off of the bed for 10 seconds. However, the left arm was shaky. And the right arm was held higher. Patient was able to hold the left leg off bed for 5 seconds however there was some mild weakness noted. Strength is 5/5 in the right lower extremity. There are no sensory deficits noted. [place] Coma Scale: document GCS findings Spontaneous Obeys Commands Oriented 15 Sensorium / Orientation: alert Speech: Negative for speech normal Psych mental status grossly normal MDM MDM MDM Narrative Medical decision making narrative: Differential diagnosis includes stroke, electrolyte abnormality, intracranial bleeding, coagulopathy, urinary tract infection, anxiety reaction, and hypoglycemia. CBC will be obtained to assess for leukocytosis. Basic metabolic profile will be obtained to assess for electrolyte abnormality and renal function. PT with INR PTT will be obtained to assess for coagulopathy. High- sensitivity troponin will be obtained to assess for cardiac ischemia. EKG will be obtained to assess for cardiac dysrhythmia and cardiac ischemia. Chest x-ray will be obtained to assess for pneumonia pneumothorax. CT scan of the brain and CTA of the head and neck will be obtained to assess for stroke and large vessel occlusion. Lab Data Attestation: I reviewed the patient's lab results. Lab results narrative: CBC was reviewed. There is a mild leukocytosis of 13.2. The remainder was within normal limits. PT with INR and PTT were reviewed and were within normal limits. Basic metabolic profile was reviewed. BUN was slightly elevated at 23 and creatinine was 1.31. The remainder is within normal limits. High- sensitivity troponin was reviewed and was normal at 4. Labs: Laboratory Results - last 24 hr 07/01/24 15:26 WBC 13.2 H RBC 4.75 Hgb 13.0 Hct 40.9 MCV 86.1 MCH 27.4 MCHC 31.8 L RDW Std Deviation 45.7 H RDW Coeff of Juan 14.6 Plt Count 255 MPV 10.1 Immature Gran % (Auto) 0.400 Neut % (Auto) 74.0 H Lymph % (Auto) 15.6 L O'Brien % (Auto) 8.3 Eos % (Auto) 1.3 Baso % (Auto) 0.4 Absolute Neuts (auto) 9.8 H Absolute Lymphs (auto) 2.05 Nucleated RBC % 0 PT 13.4 INR 1.0 APTT 26.3 Sodium 139 Potassium 3.9 Chloride 108 H Carbon Dioxide 24.0 Anion Gap 7 BUN 23 H Creatinine 1.31 H Estim Creat Clear Calc 32.04 Est GFR (MDRD) Af Amer 51 L Est GFR (MDRD) Non-Af 42 L BUN/Creatinine Ratio 17.6 Glucose 102 Calcium 8.2 L Troponin I High Sens 4 Radiography Chest X-Ray - ED: 1 View, Read by ED Physician, Read by Radiologist and No Acute Disease Diagnostic Testing: Clinical Impression(s) from Imaging Studies Chest X-Ray 07/01/24 06:00 IMPRESSION: No radiographic evidence of acute cardiopulmonary disease. Electronically Signed: Atif Cadet DO at 16:23 EDT , Brain CT 07/01/24 15:29 IMPRESSION: Chronic involutional changes of the brain. N.B. : The above Results were Read Back by Scott Joya MD to Zechariah Burciaga and understanding confirmed on 07/01/2024 15:47:39 (ET). Electronically Signed: Scott Joya MD at 15:50 EDT , ADDENDUM: 07/01/24 1556 IMPRESSION: Chronic involutional changes of the brain. N.B. : The above Results were Read Back by Scott Joya MD to Zechariah Burciaga and understanding confirmed on 07/01/2024 15:47:39 (ET). Electronically Signed: Scott Joya MD at 15:50 EDT , Head/Neck CTA 07/01/24 15:29 IMPRESSION: Calcific plaque at the origin of the right and left internal carotid arteries causing less than 50% stenosis. N.B. : The above Results were Read Back by Scott Joya MD to Zechariah Burciaga and understanding confirmed on 07/01/2024 15:55:01 (ET). Electronically Signed: Scott Joya MD at 15:56 EDT , ADDENDUM: 07/01/24 1603 IMPRESSION: Calcific plaque at the origin of the right and left internal carotid arteries causing less than 50% stenosis. N.B. : The above Results were Read Back by Scott Joya MD to Zechariah Burciaga and understanding confirmed on 07/01/2024 15:55:01 (ET). Electronically Signed: Scott Joya MD at 15:56 EDT , Brain MRI 07/01/24 17:40 IMPRESSION: Involutional changes of the brain, as described above. Electronically Signed: Juan Carlos Parmar MD at 19:29 EDT , CT scan of the brain was obtained. There is no acute intracranial abnormality. There are chronic involutional changes noted. This was interpreted by the radiologist and was also independently reviewed by myself. CTA of the head and neck was obtained. There is a calcific plaque at the origin of the right and left internal carotid arteries causing less than 50% stenosis. This was interpreted by the radiologist and was also independently reviewed by myself. Portable 1 view chest x-ray was obtained. On my independent interpretation, lung lopez are clear. There is normal cardiac silhouette. Bony thorax is normal. There is no acute process noted. Radiologist also interpreted the x- ray and agrees. MRI was reviewed and showed chronic involutional changes. There is no evidence of acute infarct or subacute infarct. This was interpreted by the radiologist and was also independently reviewed by myself. EKG Initial EKG: Attestation: I personally reviewed and interpreted this EKG as follows: Interpretation: Sinus Rhythm (652) and No Acute Injury Pattern Comments: EKG was obtained. On my independent interpretation, it showed a normal sinus rhythm with a rate of 62. [place] interval, QRS interval, and QTc intervals were all normal. [place] was normal. There no acute ST or T wave k[place] nges. Prior EKG tracings: available for review Prior: Unchanged Management Discussion w/another healthcare provider: Hospitalist, Director Of Nuclear Medicine and Radiologist Treatment and Re-Evaluation Narrative: Patient was evaluated by stroke neurology. They did not feel this was an acute stroke requiring tenecteplase. They recommended admission for MRI. Case was discussed with the hospitalist. She was able to get an MRI ordered tonight. This will be obtained. If this is negative, patient will be able to be discharged home. If it is positive, patient will need to be admitted at that time. MRI was reviewed and showed chronic involutional changes. There is no evidence of acute infarct or subacute infarct. This was interpreted by the radiologist and was also independently reviewed by myself. Patient was advised of her findings. Patient was advised that this could have been an anxiety reaction or a flareup of her fibromyalgia. Patient was instructed to follow-up with her primary care physician in 5 to 7 days. Patient understood and was agreeable with the plan. All questions were answered. Stroke Documentation Questions Stroke Team Activated: Yes Reviewed Inclusion/Exclusion criteria: Yes Was Patient considered for Endovascular Intervention?: No-CTA negative, determined not to be an endovascular candidate IV Thrombolytic Administered: No Discharge Plan Triage Chief Complaint: Neuro S/Sx ED Provider: Zechariah Burciaga Dx/Rx/DC Orders Clinical Impression: Anxiety related tremor, Dysphasia Instructions: ED Anxiety Reaction Prescriptions: No Action lorazepam [Ativan] 1 mg tablet 1 mg PO QHS PRN (Reason: Anxiety) clonazepam 0.5 mg tablet 0.5 mg PO BID sertraline [Zoloft] 100 mg tablet 75 mg PO DAILY estriol (bulk) 100 % powder 4 ea miscellaneous UD Patient Comments: APPLY 1 GRAM (4 CLICKS) VAGINALLY TWICE WEEKLY Gemtesa 75 mg tablet 75 mg PO DAILY rosuvastatin 5 mg tablet 5 mg PO QHS Patient Comments: TAKE 1 TABLET BY MOUTH EVERYDAY AT BEDTIME cholecalciferol (vitamin D3) [Vitamin D3] 50 mcg (2,000 unit) Capsule 2,000 unit PO DAILY pantoprazole 40 mg tablet,delayed release (DR/EC) 40 mg PO DAILY Qty: 90 9RF Primary Care Provider: Fe Urbina Referrals: Fe Urbina MD [Primary Care Provider] - 5-7 Days Print Language: Filipino Disposition Disposition: Home, Self Care
[2024-07-01 15:44] LABS: Absolute Lymphocyte Count 2.05 X10^3/uL (0.83-4.51); Absolute Neutrophil Count 9.8 X10^3/uL (2.0-7.7); Basophil# 0.05 X10^3/uL; Basophil% 0.4 % (0-1); Eosinophil# 0.17 X10^3/uL; Eosinophils% 1.3 % (0-5); Hematocrit 40.9 % (37-47); Lymphocyte # 2.05 X10^3/ul (0.83-4.51); Lymphocyte % 15.6 % (19-41); Mean Corp Hgb Conc 31.8 g/dL (32-36); Mean Corpuscular Hgb 27.4 pg (27.0-32.0); Mean Corpuscular Volume 86.1 fL (81-99); Mean Platelet Vol. 10.1 fl (6.2-12.0); Monocyte# 1.09 X10^3/uL; Monocyte% 8.3 % (0-10); NRBC Flagged by Analyzer 0 % (0-5); Neutrophil # 9.77 X10^3/uL (2.7-7.7); Platelet Count 255 K/mm3 (150-450); RBC Distribution Width CV 14.6 % (11.6-14.6); RBC Distribution Width SD 45.7 fl (35.1-43.9); Red Blood Count 4.75 M/mm3 (4.2-5.4); White Blood Count 13.2 K/mm3 (4.4-11.0)
[2024-07-01 15:53] LABS: Prothrombin Time (Protime)PT. 13.4 SECONDS (11.7-14.9)
[2024-07-01 15:54] LABS: Partial Thromboplast Time 26.3 Seconds (24.1-36.2)
[2024-07-01 16:04] LABS: Anion Gap 7 (5-15); BUN 23 mg/dL (7-18); BUN/Creat Ratio 17.6 RATIO (10-20); Calcium,Total 8.2 mg/dL (8.5-10.1); Chloride 108 mmol/L (98-107); Creatinine, Serum 1.31 mg/dL (0.55-1.02); EST Glomerular Filtration Rate 42 mL/min (>60); Est Glom Filt Rate - Afr Amer 51 mL/min (>60); Estimated Creatinine Clearance 32.04 ml/min; Glucose 102 mg/dL (74-106); Potassium 3.9 mmol/L (3.5-5.1); Sodium Level 139 mmol/L (136-145); Troponin-I HS 4 pg/mL (3.0-54.0)
--- NOTE | 2024-07-01 17:29 | PCM.HP.STD ---
HPI - General HPI Narrative JASON GRIGSBY, is a 74 F who presents REPLACED BY [facility] Medical History Injury of head and neck Wears hearing aid Wears glasses Bruising History of renal disease High cholesterol Benign essential tremor History of hiatal hernia Gastric reflux History of IBS Non-smoker History of edema Acute kidney injury Fibromyalgia IBS (irritable bowel syndrome) Hyperlipidemia Hypertension Anxiety Home Medications ?Medication ?Instructions ?Recorded ?Last Taken ?Type clonazepam 0.5 mg tablet 0.5 mg PO BID FIBROMYALGIA 12/08/18 07/09/23 History lorazepam 1 mg tablet (Ativan) 1 mg PO QHS PRN Anxiety 12/08/18 06/23/22 12:10 History sertraline 100 mg tablet (Zoloft) 75 mg PO DAILY Check with primary 12/08/18 07/09/23 History doctor cholecalciferol (vitamin D3) 50 2,000 unit PO DAILY supplement 12/24/21 07/09/23 History mcg (2,000 unit) capsule (Vitamin D3) rosuvastatin 5 mg tablet 5 mg PO QHS cholesterol 12/24/21 07/08/23 History estriol (bulk) 100 % powder 4 ea miscellaneous UD 12/06/23 Unknown History vibegron 75 mg tablet (Gemtesa) 75 mg PO DAILY 12/06/23 Unknown History pantoprazole 40 mg tablet,delayed 40 mg PO DAILY #90 TABLETS 06/12/24 Unknown Rx release Allergy/AdvReac Type Severity Reaction Status Date / Time amoxicillin Allergy Hives Verified 12/18/23 08:16 Penicillins AdvReac Severe Upset Verified 12/18/23 08:16 Stomach Family History Mother AAA (abdominal aortic aneurysm) Father Multiple sclerosis Brother Heart disease Myocardial infarction Kidney disease Sister Liver disease Surgical History History of esophagogastroduodenoscopy (EGD) pelvic floor repair History of total vaginal hysterectomy (TVH) H/O dilation and curettage Social History Smoking Status: Never smoker alcohol intake: never substance use type: does not use caffeine: Yes what type of physical activity do you participate in: walking seatbelt use: always do you feel safe at home: Yes additional social history: Ish Vital Signs Vital Signs Vital Signs: 07/01/24 15:25 07/01/24 15:34 07/01/24 15:45 Temperature 96.8 F L 96.8 F L Temperature Source Temporal Temporal Pulse Rate 69 69 70 Respiratory Rate 14 14 16 Blood Pressure 167/70 H 111/76 Blood Pressure Mean 102 87 Pulse Ox 99 99 99 Oxygen Delivery Method Room Air Room Air Room Air 07/01/24 15:46 07/01/24 16:15 07/01/24 16:24 Temperature Temperature Source Pulse Rate 61 58 L Respiratory Rate 18 16 Blood Pressure 144/60 H 151/64 H Blood Pressure Mean 88 93 Pulse Ox 98 95 Oxygen Delivery Method Room Air Room Air 07/01/24 16:45 07/01/24 17:00 07/01/24 17:15 Temperature Temperature Source Pulse Rate 60 57 L 84 Respiratory Rate 18 16 16 Blood Pressure 151/64 H 151/84 H 131/102 H Blood Pressure Mean 93 106 111 Pulse Ox 98 98 Oxygen Delivery Method Room Air Room Air Weight Weight: 62.2 kg Body Mass Index (BMI) 23.5 Results Lab / Micro Data 07/01/24 15:26 07/01/24 15:26 Labs: Laboratory Results - last 24 hr 07/01/24 15:26: WBC 13.2 H, RBC 4.75, Hgb 13.0, Hct 40.9, MCV 86.1, MCH 27.4, MCHC 31.8 L, RDW Std Deviation 45.7 H, RDW Coeff of Juan 14.6, Plt Count 255, MPV 10.1, Immature Gran % (Auto) 0.400, Neut % (Auto) 74.0 H, Lymph % (Auto) 15.6 L, Wright % (Auto) 8.3, Eos % (Auto) 1.3, Baso % (Auto) 0.4, Absolute Neuts (auto) 9.8 H, Absolute Lymphs (auto) 2.05, Nucleated RBC % 0, PT 13.4, INR 1.0, APTT 26.3, Sodium 139, Potassium 3.9, Chloride 108 H, Carbon Dioxide 24.0, Anion Gap 7, BUN 23 H, Creatinine 1.31 H, Estim Creat Clear Calc 32.04, Est GFR (MDRD) Af Amer 51 L, Est GFR (MDRD) Non-Af 42 L, BUN/Creatinine Ratio 17.6, Glucose 102, Calcium 8.2 L, Troponin I High Sens 4 Imaging Radiology Impression Chest X-Ray 07/01/24 06:00 IMPRESSION: No radiographic evidence of acute cardiopulmonary disease. Electronically Signed: Atif Cadet DO at 16:23 EDT , Brain CT 07/01/24 15:29 IMPRESSION: Chronic involutional changes of the brain. N.B. : The above Results were Read Back by Scott Joya MD to Zechariah Burciaga and understanding confirmed on 07/01/2024 15:47:39 (ET). Electronically Signed: Scott Joya MD at 15:50 EDT , ADDENDUM: 07/01/24 1556 IMPRESSION: Chronic involutional changes of the brain. N.B. : The above Results were Read Back by Scott Joya MD to Zechariah Burciaga and understanding confirmed on 07/01/2024 15:47:39 (ET). Electronically Signed: Scott Joya MD at 15:50 EDT , Head/Neck CTA 07/01/24 15:29 IMPRESSION: Calcific plaque at the origin of the right and left internal carotid arteries causing less than 50% stenosis. N.B. : The above Results were Read Back by Scott Joya MD to Zechariah Burciaga and understanding confirmed on 07/01/2024 15:55:01 (ET). Electronically Signed: Scott Joya MD at 15:56 EDT , ADDENDUM: 07/01/24 1603 IMPRESSION: Calcific plaque at the origin of the right and left internal carotid arteries causing less than 50% stenosis. N.B. : The above Results were Read Back by Scott oJya MD to Zechariah Burciaga and understanding confirmed on 07/01/2024 15:55:01 (ET). Electronically Signed: Scott Joya MD at 15:56 EDT ,
--- NOTE | 2024-07-01 17:40 | MRI_ITS ---
STUDY: MRI BRAIN WITHOUT CONTRAST REASON FOR EXAM: Female, 74 years old. Stroke, L facial droop, L sided weakness, difficulty speaking TECHNIQUE: Standardized multiplanar fat and water weighted pulse sequences were obtained. COMPARISON: CT. FINDINGS: There is mild cerebral atrophy with widening of the extra-axial spaces and ventricular dilatation. Normal white matter tracts of the supratentorial brain. There is no evidence for recent intracranial ischemia or other cause of cytotoxic edema on diffusion weighted imaging (DWI). Normal T2* images of the brain without demonstrated susceptibility artifact. There is no demonstrated hemosiderin stain. Normal bilateral basal ganglia. Normal thalami. There is no extra-axial fluid accumulation. Normal flow voids within the major intracranial circulation suggesting patency by spin echo criteria. Normal sella turcica, pituitary gland, infundibular stalk, optic chiasm and hypothalamus. Normal tectal plate and pineal gland. Normal midbrain, dio and medulla. Normal cerebellum. Normal basal cisterns. Normal bilateral temporal bones. Normal bilateral internal auditory canals. No demonstrated orbital abnormality, within the constraints of a routine brain study. Normal visualized paranasal sinuses. Normal calvarium and skull base. Normal visualized soft tissue structures. Normal visualized upper cervical spine. MRI/Brain without Contrast IMPRESSION: Involutional changes of the brain, as described above. Electronically Signed: Juan Carlos Parmar MD at 19:29 EDT ,
--- NOTE | 2024-07-01 18:20 | ED.RN ---
[facility] cancelled after 1730 per ED .
[2024-07-03 15:18] LABS: Bedside Glucose 97 mg/dL (74-106)
== END 2024-07-01 20:05 | disposition home or self-care (01) ==
PROVIDERS: Emergency Provider Emergency Medicine; PCP Internal Medicine; Visit Provider Emergency Medicine
DX: G25.2 Other specified forms of tremor (principal); R47.02 Dysphasia; R53.1 Weakness
CPT/HCPCS: 70450; 70496; 70498; 70551; 71045; 80048; 82962; 84484; 85025; 85610; 85730; 93005; 99285; Q9967; A4216

== ENCOUNTER 2024-12-22 11:14 | Day surgery (SDC) | payer MEDICARE, OTHER, SELFPAY ==
[2024-12-22] VITALS (7 sets, daily range): BP systolic 105–146; BP diastolic 61–73; PULSE 65–70; RESP 16–18; TEMP 36.1–37.1; O2SAT 94–100; BMI 22.6
--- NOTE | 2024-12-22 11:54 | PCM.PRE.AN2 ---
ASA Classification* ASA Classification ASA Classification: 2 Assessment & Plan Anesthesia* Anesthesia Assessment Anesthesia Assessment: Discussed sedation and/or anesthesia options, risks, benefits, and alternatives with patient/parents/legal guardian/POA. Questions invited. The patient/parents/legal guardian/POA seems to understand and agrees to proceed with anesthesia plan. Reviewed the physical assessment, medical history, allergy history and patient home medications list prior to surgery/procedure/anesthetic and documented any changes. Performed airway and anesthesia risk assessments. Anesthesia Type Anesthesia Type: MAC History Source History Obtained from:: Patient and Chart Anesthesia Focused Assessment* Temperature: 98.0 F Pulse Rate: 70 Blood Pressure: 146/73 Respiratory Rate: 17 Pulse Ox: 100 Oxygen Delivery Method: Room Air Airway Assessment Mouth opens: >3 cm Mallampati Score: I Teeth Condition: Caps/Crowns (Right upper implant is tight.) and Partial (Patient has an upper partial.) Neck Range of motion (ROM): Full ROM Focused Labs Anesthesia Preop lab: CBC WBC 13.2 K/mm3 (4.4-11.0) H 07/01/24 15:07/01/24 RBC 4.75 M/mm3 (4.2-5.4) 07/01/24 15:07/01/24 Hgb 13.0 g/dL (12.0-15.0) 07/01/24 15:26 07/01/24 Hct 40.9 % (37-47) 07/01/24 15:26 07/01/24 Plt Count 255 K/mm3 (150-450) 07/01/24 15:26 07/01/24 CHEMISTRY Potassium 3.9 mmol/L (3.5-5.1) 07/01/24 15:26 07/01/24 Sodium 139 mmol/L (136-145) 07/01/24 15:26 07/01/24 Phosphorus 2.4 mg/dL (2.5-4.9) L 03/17/24 10:13 03/17/24 BUN 23 mg/dL (7-18) H 07/01/24 15:26 07/01/24 Creatinine 1.31 mg/dL (0.55-1.02) H 07/01/24 15:26 07/01/24 Glucose 102 mg/dL (74-106) 07/01/24 15:26 07/01/24 POC Glucose 97 mg/dL (74-106) 07/01/24 15:24 07/01/24 COAG PT 13.4 SECONDS (11.7-14.9) 07/01/24 15:26 07/01/24 Pre-Assessment Diagnosis/Proposed Procedure Planned Operative Procedure(s): EGD Anesthesia History Anesthesia History - junior net developer: Anesthesia History - junior net developer Hx Hospitalization No 12/17/24 13:30 Any Problems With Anesthesia No 12/17/24 13:30 Cholinesterase deficiency No 12/17/24 13:30 You/Your Family Experience No 12/17/24 13:30 fever (hyperthermia) with Relationship Recent Exposure to Contagious No 12/22/24 11:35 Disease Does patient have nerve No 12/17/24 13:30 stimulator Patient instructed to have device shut off --Does patient have Pacemaker No 12/22/24 11:36 or ICD? When Was Last Pacemaker Check QUESTION #4 FULL TEXT: You/Your Family Experience fever (hyperthermia) with Anesthesia Last Oral Intake Last Oral intake: Last Oral Intake NPO since 21:00 12/22/24 11:36 Meds taken in AM with sips of Yes 12/22/24 11:36 water? Meds patient instructed to take am of surgery Any additional information?: Yes Meds taken in AM with sips of water?: Yes PONV PONV - junior net developer: PONV - junior net developer Female Yes 12/17/24 13:30 HX of Motion Sickness No 12/17/24 13:30 HX of N/V After Surgery No 12/17/24 13:30 Non-Smoker Yes 12/17/24 13:30 Duration of Surgery greater No 12/17/24 13:30 than 60 minutes Number of Risk Factors 2 12/17/24 13:30 PONV Score Moderate Risk 12/17/24 13:30 Height & Weight Height & Weight: Anesthesia: Height & Weight Height 5 ft 4 in 12/22/24 11:36 Weight: 59.874 kg 12/22/24 11:36 Body Mass Index (BMI) 22.6 12/22/24 11:36 Respiratory Assessment Respiratory Assessment - junior net developer: Respiratory Tract Infection Hx - junior net developer Hx Respiratory Tract Infection No 12/17/24 13:30 STOP Sleep Apnea STOP Sleep Apnea - junior net developer: STOP Sleep Apnea - junior net developer Hx Hypertension Yes: NO MEDS D/T KIDNEY 12/17/24 13:30 FUNCTION Hx Sleep Apnea No 12/17/24 13:30 CPAP BIPAP Do you snore loudly (louder No 12/17/24 13:30 than talking or can be heard Do you often feel tired/ No 12/17/24 13:30 fatigued/ sleepy during daytime? Has anyone observed you stop No 12/17/24 13:30 breathing during sleep? STOP Results Negative 12/17/24 13:30 QUESTION #5 FULL TEXT : Do you snore loudly (louder than talking or can be heard through closed doors)? Tobacco Use History Tobacco Use History - junior net developer: Tobacco Use History - junior net developer Tobacco Use Smoking Status Never smoker 12/17/24 13:30 Hx Tobacco Use No 12/17/24 13:30 Years Smoking Packs Smoked per Day Smoking Cessation Date was within the last 15 years Hx Smoking Cessation Date Hx Smoking Cessation Counseling Hematologic Medial History Hematologic Hx - junior net developer: Hematologic Medical Hx - golf stud riveter Hx of Blood Transfusion No 12/17/24 13:30 Hx of Transfusion in last 3 No 12/17/24 13:30 Months Date of Last Transfusion (if within last 3 months) Ever experience any problems No 12/17/24 13:30 with transfusion(s)? Specify any problems Hx of Preganancy in last 3 N/A 12/17/24 13:30 Months Nurse Filling Out Transfusion NBUCHER 12/17/24 13:30 & Questions: Date: 12/17/24 12/17/24 13:30 Time: 13:32 12/17/24 13:30 Patient unable to answer at this time (ie. confused, unrespo /Reproduction History /Reproductive History - junior net developer: /Reproductive Hx- junior net developer Hx Now Gestational Age (in weeks): EDC: Hx Hx Para Hx Section SAB No 12/17/24 13:30 PFSH Medical History Arthritis Injury of head and neck Wears hearing aid Wears glasses Bruising History of renal disease High cholesterol Benign essential tremor History of hiatal hernia Gastric reflux History of IBS Non-smoker History of edema Acute kidney injury Fibromyalgia IBS (irritable bowel syndrome) Hyperlipidemia Hypertension Anxiety Home Medications ?Medication ?Instructions ?Recorded ?Last Taken ?Type clonazepam 0.5 mg tablet 0.5 mg PO BID FIBROMYALGIA 12/08/18 12/22/24 09:00 History lorazepam 1 mg tablet (Ativan) 1 mg PO QHS PRN Anxiety 12/08/18 06/23/22 12:10 History sertraline 100 mg tablet (Zoloft) 75 mg PO DAILY Check with primary 12/08/18 12/22/24 09:00 History doctor cholecalciferol (vitamin D3) 50 2,000 unit PO DAILY supplement 12/24/21 12/21/24 History mcg (2,000 unit) capsule (Vitamin D3) rosuvastatin 5 mg tablet 5 mg PO QHS cholesterol 12/24/21 12/21/24 History estriol (bulk) 100 % powder 4 ea miscellaneous UD 12/06/23 12/21/24 History pantoprazole 40 mg tablet,delayed 40 mg PO DAILY #90 TABLETS 06/12/24 12/22/24 09:00 Rx release vibegron 75 mg tablet (Gemtesa) 75 mg PO DAILY 12/17/24 12/21/24 History Allergy/AdvReac Type Severity Reaction Status Date / Time amoxicillin Allergy Hives Verified 12/22/24 11:33 Penicillins AdvReac Severe Upset Verified 12/22/24 11:33 Stomach Family History Mother AAA (abdominal aortic aneurysm) Father Multiple sclerosis Brother Heart disease Myocardial infarction Kidney disease Sister Liver disease Surgical History History of colonoscopy History of esophagogastroduodenoscopy (EGD) pelvic floor repair History of total vaginal hysterectomy (TVH) H/O dilation and curettage Social History Smoking Status: Never smoker alcohol intake: never substance use type: does not use caffeine: Yes what type of physical activity do you participate in: walking seatbelt use: always do you feel safe at home: Yes additional social history: Ish Review of Systems (Anesthesia) ROS Narrative System reviewed and no additional complaints, except as documented.
--- NOTE | 2024-12-22 12:26 | PCM.HP.STD ---
HPI - General General Date of Admission: 12/22/24 Date of Service: 12/22/24 Chief Complaint: Anemia and dysphagia HPI Narrative JASON GRIGSBY, is a 74 F who presentsLINFEI GRIGSBY, is a 74 F who presents to the office today for [facility] hospitalization 12.24.21-12.27.21 for management of LIBERTAD with possible obstructive origin; genitourinary surgery for cystocele, rectocele uterine prolapse and stress related incontinence by Dr. Chairez and Dr. Cazares; hypertension, stable; leukocytosis with neutrophilia, likely reactive state. ? CT abd/pel 12.24.21 found no acute or chronic disease state. *BGI established 01.31.22 for small pebble stools alternating with diarrhea with associated abdominal pain/cramping and difficulty eating. PMH includes anxiety and depression, IBS, fibromyalgia, COVID infection . EGD and colonoscopy 04.19.22. EGD found Benign esophageal stenosis, Savary dilation 36F; LA Grade A reflux esophagitis; erythematous mucosa of gastric body; gastric stenosis at pylorus with metaplasia without dysplasia. H.Pylori negative. Colonoscopy found diverticulosis in sigmoid colon; congested mucosa of RS colon, splenic flexure and hepatic flexure; poor rectal tone with mild rectal prolapse. No pathological changes. OV 6.16. with occasional fecal incontinence; increase fiber intake. Diarrhea doxycycline. GI metaplasia in stomach without ability to use PPI r/t renal failure. OV 9.8.22 BM approximately two times a week which will vary between hard small trini, normal and loose stools. Does not recall taking doxycycline and if it was helpful. OV 1.6.23 with improvement using fiber supplement. Diarrhea now occurring 1-2/month. OV 3.28.23 BM are now alternating between no BM with lower abdominal discomfort and flatulence for several days and then looser, multiple movements with abdominal discomfort resolution when she does have a BM. Will also have normal BM 2-3 days/week. Feels diet is a factor (greasy foods). Fiber supplement continues. EGD 04.29.23 LA Grade B esophagitis; small hiatal hernia; two oozing cratered prepyloric gastric ulcers, epinepherine and heater probe; one non-bleeding cratered prepyloric gastric ulcer. Metaplasia +, dysplasia neg, h.pylori neg. Contact 05.07.23 with results. OV 06.24.23 reports one BM each day but takes an extended period of time to BM to complete, up to 30 minutes; will occasionally have problems with having a BM when she has to urinate. Continues with protonix; she stopped lactulose as it did not taste good and she found expensive. OV 11.26.23 Reports small formed BM daily. Occasional small blood seen after BM after wiping. One episode of bright red blood seen in toilet, reports possibly has hemorrhoids. Occasional abdominal pain, cramping, gas, bloating, constipation and diarrhea. No acute concerns. EGD 12.18.23 Esophageal mucosal changes suspicious for Hurley's esophagus. Biopsied. Non-bleeding gastric ulcer with no stigmata of bleeding. Biopsied. Normal first portion of the duodenum. OV 05.01.24 pt reports continued symptoms from previous visit. reports that she will go 3-4 days without a bm and then will have a small bm; notes blood on the toilet paper after wiping. Continues with Pantoprazole. Continue with lactulose or Amitiza with the increase in Fiber nightly to thicken up her stools for her grade 2 rectal prolapse.?Comfortable wearing a adult diaper when she goes out. Diarrhea is overflow incontinence secondary to poor rectal compliance. Repeat upper endoscopy in a year we will do surveillance on the gastrointestinal metaplasia. blood count is improved. Abnormality on her labs which she had a GI bleed she dropped down to 11 and her hemoglobin is up to 13.6. Her platelet count was 169 her white blood cell count is 7.4 with an MCV of 89.9. Her BUN/creatinine ratio after her GI bleed is also improved from 29 or 2.2 to now 24/1.5. OV 10.19.24 Alternating constipation and diarrhea. BM ever few days. Constipation possibly worse after starting solifenacin about 3 mos ago; f/u urology tomorrow. Hoarse voice, slight sore throat possibly related to recent cold sx. Difficulty swallowing about a week ago possibly related d/t dry mouth r/t medication. [facility] Medical History Arthritis Injury of head and neck Wears hearing aid Wears glasses Bruising History of renal disease High cholesterol Benign essential tremor History of hiatal hernia Gastric reflux History of IBS Non-smoker History of edema Acute kidney injury Fibromyalgia IBS (irritable bowel syndrome) Hyperlipidemia Hypertension Anxiety Home Medications ?Medication ?Instructions ?Recorded ?Last Taken ?Type clonazepam 0.5 mg tablet 0.5 mg PO BID FIBROMYALGIA 12/08/18 12/22/24 09:00 History lorazepam 1 mg tablet (Ativan) 1 mg PO QHS PRN Anxiety 12/08/18 06/23/22 12:10 History sertraline 100 mg tablet (Zoloft) 75 mg PO DAILY Check with primary 12/08/18 12/22/24 09:00 History doctor cholecalciferol (vitamin D3) 50 2,000 unit PO DAILY supplement 12/24/21 12/21/24 History mcg (2,000 unit) capsule (Vitamin D3) rosuvastatin 5 mg tablet 5 mg PO QHS cholesterol 12/24/21 12/21/24 History estriol (bulk) 100 % powder 4 ea miscellaneous UD 12/06/23 12/21/24 History pantoprazole 40 mg tablet,delayed 40 mg PO DAILY #90 TABLETS 06/12/24 12/22/24 09:00 Rx release vibegron 75 mg tablet (Gemtesa) 75 mg PO DAILY 12/17/24 12/21/24 History Allergy/AdvReac Type Severity Reaction Status Date / Time amoxicillin Allergy Hives Verified 12/22/24 11:33 Penicillins AdvReac Severe Upset Verified 12/22/24 11:33 Stomach Family History Mother AAA (abdominal aortic aneurysm) Father Multiple sclerosis Brother Heart disease Myocardial infarction Kidney disease Sister Liver disease Surgical History History of colonoscopy History of esophagogastroduodenoscopy (EGD) pelvic floor repair History of total vaginal hysterectomy (TVH) H/O dilation and curettage Social History Smoking Status: Never smoker alcohol intake: never substance use type: does not use caffeine: Yes what type of physical activity do you participate in: walking seatbelt use: always do you feel safe at home: Yes additional social history: Ish Thacker Constitutional: Reports fatigue and anorexia. Denies fever, chills, and change in weight Eyes: Denies blurry vision, change in eye color, change in vision, discharge from eye(s), double vision, erythema, eye pain, loss of vision or other HEENT: Denies abnormal hearing, dysphagia, ear pain, epistaxis, headache(s), hearing loss, nasal congestion, nasal discharge, post nasal drip, sinus pressure, sore throat or other Cardiovascular: Denies chest pain or palpitations. Denies dyspnea on exertion, orthopnea and paroxysmal nocturnal dyspnea Respiratory/Chest: Denies cough, excessive phlegm production, shortness of breath with exertion and wheezing Gastrointestinal: Reports abdominal pain. Reports loose stools. Denies abdominal pain, coffee ground emesis, constipation, dyspepsia, hematemesis, hematochezia, melena, nausea, vomiting or other Genitourinary: Denies burning urination, difficulty urinating, dysuria, hematuria, nocturia, urinary frequency, urinary hesitancy, urinary incontinence, urinary urgency or other Musculoskeletal: Denies arthralgias, back pain, joint pain, joint stiffness, joint swelling, myalgias, neck pain or other Neurologic: Reports tremors. Denies abnormal gait, abnormal speech, confusion, disequilibrium, dizziness, focal weakness, headache(s), numbness, paresthesias, seizure-like activity, seizures, syncope, tingling, or other Psychiatric: Denies anxiety, homicidal ideation, suicidal ideation or other Endocrinology: Denies change in body appearance, cold intolerance, excessive sweating, heat intolerance, polydipsia, polyuria or other Hematologic/Lymphatic: Denies anemia, easy bleeding, easy bruising, lymphadenopathy or other Integumentary: Denies rashes Allergic/Immunologic: Denies rhinitis, hives, eczema, asthma or other Constitutional Constitutional: Denies fatigue, fever(s), poor appetite, weight gain or weight loss Gastrointestinal Gastrointestinal: Denies belching, bloating, change in bowel habits, change in stool character, chewing difficulty, coffee ground emesis, constipation, cramping, diarrhea, dyspepsia, dysphagia, early satiety, excessive flatus, fecal incontinence, heartburn, hematemesis, hematochezia, hemorrhoids, loose stools, melena, nausea, odynophagia, rectal bleeding, tenesmus, vomiting or weight changes Vital Signs Vital Signs Vital Signs: 12/22/24 11:35 12/22/24 11:36 12/22/24 12:04 Temperature 98.0 F 98.0 F Temperature Source Temporal Pulse Rate 70 70 Respiratory Rate 17 17 Respiratory Pattern Normal Blood Pressure 146/73 H 146/73 H Blood Pressure Mean 97 Blood Pressure Source Monitor Blood Pressure Position Semi-Fowlers Blood Pressure Location Right Arm Pulse Ox 100 100 Oxygen Delivery Method Room Air Room Air Weight Weight: 132 lb Body Mass Index (BMI) 22.6 Physical Exam Const alert, oriented x3, no apparent distress and healthy appearing General Appearance: cooperative GI normal to inspection, nondistended, normoactive bowel sounds, soft to palpation, non-tender and non-distended Percussion: normal to percussion Rectal Exam: deferred Assessment & Plan Assessment/Plan (1) Gastric intestinal metaplasia: (2) Anemia: QUALIFIERS: Anemia type: iron deficiency Iron deficiency anemia type: other iron deficiency Qualified Code(s): D50.8 - Other iron deficiency anemias (3) Dysphagia: PLAN: Plan Assessment and Plan Assessment and Plan (1) Alternating constipation and diarrhea: Status: Chronic Plan: She is going to the bathroom with lactulose or Amitiza with the increase in Fiber that we recommended. We will continue that for now. (2) Rectal prolapse: Status: Chronic Plan: I would like her to take a fiber supplement such as a Metamucil tablet nightly to thicken up her stools for her grade 2 rectal prolapse.? She is comfortable wearing a adult diaper when she goes out.? We also talked about pelvic floor retraining but due to some problems with her grandson currently living with her she does not feel that she can get to appointments for pelvic floor training. ( (3) Gastric intestinal metaplasia: Status: Chronic Plan: She will undergo repeat upper endoscopy in a year we will do surveillance on the gastrointestinal metaplasia.? If it looks like it is starting to transform into dysplasia then we will offer her ablation. (4) Diarrhea: Status: Inactive Qualifiers: Diarrhea type: functional diarrhea Qualified Code(s): K59.1 - Functional diarrhea Plan: . (2) Diarrhea: ?Status:?Chronic ?Plan: I think her diarrhea is overflow incontinence secondary to poor rectal compliance.? Again I encourage supplements and if that does not work we will add prednisone. I think this will help her shoulder or hip and her bowels. She will only take it for 10 days. (5) Anemia: Status: Acute Qualifiers: Anemia type: iron deficiency Iron deficiency anemia type: other iron deficiency Qualified Code(s): D50.8 - Other iron deficiency anemias Plan: Her blood count is improved. Abnormality on her labs which she had a GI bleed she dropped down to 11 and her hemoglobin is up to 13.6. Her platelet count was 169 her white blood cell count is 7.4 with an MCV of 89.9. Her BUN/creatinine ratio after her GI bleed is also improved from 29 or 2.2 to now 24/1.5. She has not started any new medicines. She does have occasional blood on the toilet paper but I believe that this is secondary to her previous diagnosis of rectal prolapse. We will repeat her upper endoscopy to make sure the gastric ulcer is all healed and continue PPI therapy for now until we performed upper endoscopy.
--- NOTE | 2024-12-22 12:30 | EGD_PTH ---
PATIENT: JASON GRIGSBY LOC: EN U#:[id number] AGE/SX: 74/F ROOM: RE12/22/[address]: Dr. Adrian Sneed DO : 1950 BED: DIS: 12/22/2024 SPEC #: [id number] RECD: 12/22/24 13:54 STATUS: NATHALY PAULINO #: [id number] MUSTAPHA: 12/22/24 12:[address]: Adrian Sneed DEPT: SURGICAL PATHOLOGY RECD BY: Lesli Morrissey ENTERED: 12/23/24 08:38 SP TYPE: EGD BIOPSY OT DR: Dr. Fe Urbina MD Tissues: Gastric mucous membrane Procedures: Surgery Specimen Level IV HEADER OPERATION: EGD biopsy, dilation PRE-OP DIAGNOSIS: Gastric intestinal metaplasia, anemia, dysphagia TISSUE SUBMITTED: Gastric antrum biopsy MICROSCOPIC DIAGNOSIS Gastric antrum, biopsy: Mild gastritis. See microscopic description and comment. 12/24/2024 COMMENT The results of immunohistochemistry for Helicobacter pylori will be reported separately ([id number]). MICROSCOPIC DESCRIPTION Slides are reviewed. The specimen shows fragments of gastric mucosa with chronic inflammatory cell infiltrates in the lamina propria consisting of lymphocytes and plasma cells, consistent with mild chronic gastritis. Focal mucosal congestion is also noted. GROSS DESCRIPTION Received in fixative is one container labeled with the patient's name and designated Gastric antrum biopsy. The specimen consists of two irregular fragments of light chery soft tissue that in aggregate measure 1 x 0.3 x 0.1 cm. The specimen is totally submitted in one cassette. 12/23/2024 TC:3 CPT:98162
--- NOTE | 2024-12-22 12:30 | IMM_PTH ---
PATIENT: JASON GRIGSBY LOC: EN U#:[id number] AGE/SX: 74/F ROOM: RE12/22/[address]: Dr. Adrian Sneed DO : 1950 BED: DIS: 12/22/2024 SPEC #: [id number] RECD: 12/23/24 09:42 STATUS: NATHALY RERadha #: [id number] MUSTAPHA: 12/22/24 12:[address]: Adrian Sneed DEPT: IMMUNOHISTOCHEMISTRY RECD BY: Arturo Mcnair ENTERED: 12/23/24 09:42 SP TYPE: IMMUNO OTHR DR: Dr. Fe Urbina MD Tissues: Gastric mucous membrane Procedures: H Pylori (initial) PHYSICIAN & INSTITUTION [place] [id number] SPECIMEN INFORMATION: Tissue Source: Gastric antrum biopsy Clinical Info: Gastric intestinal metaplasia, anemia, dysphagia Specimen Number: [id number] CPT code: 79293 METHODOLOGY: Deparaffinized sections of prefer/formalin-fixed tissue or PAP/DQ stained slides are incubated with monoclonal/polyclonal antibodies/oligonucleotide probes. Localization is made via biotin free immunoperoxidase method. Appropriate controls are performed and reacted as expected. Results on target cell population are indicated in the following table: RESULTS: ANTIBODY / CLONE RESULT H Pylori (polyclonal) negative These tests were developed and their performance characteristics determined by [facility]. They may not have been cleared or approved by the [place]. Food and Drug Administration. The FDA has determined that such clearance or approval is not necessary. The above immunohistochemical/dualISH markers are ordered and reviewed by the Pathologist. INTERPRETATION: Gastric antrum, biopsy: Negative for Helicobacter pylori organisms. 12/24/2024
--- NOTE | 2024-12-22 12:54 | OP.EGD_ITS ---
Patient Name: Abril Christine Procedure Date: 12/22/2024 12:31 PM Date of : 1950 Age: 74 Procedure: Upper GI endoscopy Indications: Iron deficiency anemia, Dysphagia Providers: Adrian Sneed DO Referring MD: Fe Urbina Medicines: Monitored Anesthesia Care Patient Profile: This is a 74 year old female. Refer to note in patient chart for documentation of history and physical. Patient has symptoms of chronic dysphagia and dysphagia with solids. Complications: No immediate complications. Procedure: Pre-Anesthesia Assessment: - Prior to the procedure, a History and Physical was performed, and patient medications and allergies were reviewed. The patient is competent. The risks and benefits of the procedure and the sedation options and risks were discussed with the patient. All questions were answered and informed consent was obtained. Patient identification and proposed procedure were verified by the physician in the pre-procedure area. Mental Status Examination: alert and oriented. Airway Examination: normal oropharyngeal airway and neck mobility. Respiratory Examination: clear to auscultation. CV Examination: normal. Prophylactic Antibiotics: The patient does not require prophylactic antibiotics. Prior Anticoagulants: The patient has taken no anticoagulant or antiplatelet agents except for NSAID medication. ASA Grade Assessment: II - A patient with mild systemic disease. After reviewing the risks and benefits, the patient was deemed in satisfactory condition to undergo the procedure. The anesthesia plan was to use monitored anesthesia care (MAC). Immediately prior to administration of medications, the patient was re-assessed for adequacy to receive sedatives. The heart rate, respiratory rate, oxygen saturations, blood pressure, adequacy of pulmonary ventilation, and response to care were monitored throughout the procedure. The physical status of the patient was re-assessed after the procedure. After obtaining informed consent, the endoscope was passed under direct vision. Throughout the procedure, the patient's blood pressure, pulse, and oxygen saturations were monitored continuously. The Endoscope was introduced through the mouth, and advanced to the second part of duodenum. The upper GI endoscopy was accomplished without difficulty. The patient tolerated the procedure well. Scope In: 12:41:46 PM Scope Out: 12:46:51 PM Total Procedure Duration Time 0 hours 5 minutes 5 seconds Findings: A moderate Schatzki ring was found in the upper third of the esophagus. A guidewire was placed and the scope was withdrawn. Dilation was performed with a Savary dilator with no resistance at 51 Fr. The dilation site was examined and showed moderate improvement in luminal narrowing. Estimated blood loss was minimal. Patchy moderate inflammation characterized by erosions and erythema was found in the gastric antrum. Biopsies were taken with a cold forceps for histology. Verification of patient identification for the specimen was done. Estimated blood loss was minimal. Biopsies were taken with a cold forceps for Helicobacter pylori testing. Verification of patient identification for the specimen was done. Estimated blood loss was minimal. The second portion of the duodenum was normal. Biopsies were taken with a cold forceps for histology. Verification of patient identification for the specimen was done. Estimated blood loss was minimal. Impression: - Moderate Schatzki ring. Dilated. - Chronic gastritis. Biopsied. - Normal second portion of the duodenum. Biopsied. Recommendation: - Discharge patient to home. - Resume previous diet. - Continue present medications. - Await pathology results. Procedure Code(s): --- Professional --- 08185, Esophagogastroduodenoscopy, flexible, transoral; with insertion of guide wire followed by passage of dilator(s) through esophagus over guide wire 74461, 59,51, Esophagogastroduodenoscopy, flexible, transoral; with biopsy, single or multiple CPT copyright 2021 [employer]. All rights reserved. The codes documented in this report are preliminary and upon kitchen chef review may be revised to meet current compliance requirements. Adrian Sneed DO 12/22/2024 12:53:42 PM This report has been signed electronically. Number of Addenda: 0 Note Initiated On: 12/22/2024 12:31 PM
--- NOTE | 2024-12-22 12:54 | OP.CCLET_ITS ---
12/22/2024 Fe Urbina [address] [place] [address] Re : Upper GI endoscopy procedure for Abril Cleveland Dear Dr. Urbina This procedure was performed on Sunday, December 22, 2024. My impressions and recommendations are as follows: Impressions : - Moderate Schatzki ring. Dilated. - Chronic gastritis. Biopsied. - Normal second portion of the duodenum. Biopsied. Recommendations : - Discharge patient to home. - Resume previous diet. - Continue present medications. - Await pathology results. My findings are described in the full procedure note, which is enclosed. If I can be of further assistance, please feel free to contact me at . Sincerely, Adrian Sneed, 12/22/2024 12:53:42 PM This report has been signed electronically.
--- NOTE | 2024-12-22 12:54 | PCM.POST.ANE ---
Anesthesia: Postop Eval I Current Vital Signs Temperature: 97.0 F Pulse Rate: 69 Blood Pressure: 112/62 Respiratory Rate: 18 Pulse Ox: 96 Oxygen Delivery Method: Room Air Assessment Airway patent: Yes Spontaneous unlabored respirations: Yes Mental status: Calm and Asleep nausea: No Vomiting: No Anesthesia Complication: No Fluid Hydration Crystalloid volume administer (ml): 10 Total IV fluid infused: 10 Progress Note Anesthesia document: Postop Eval 1 completed: Yes
--- NOTE | 2024-12-22 15:06 | POSTOPAN2_ITS ---
Anesthesia Postop Eval I Sum Postop Eval Completion status Anesthesia document: Postop Eval 1 completed: Yes Anesthesia Postop Eval I Summary Anesthesia Postop Eval I Summary: Anesthesia Postop Eval I: Assessment Summary Airway patent Yes 12/22/24 12:55 SOIL [email or web address] Spontaneous unlabored Yes 12/22/24 12:55 SOIL [email or web address].[email or web address] respirations Mental status Calm,Asleep 12/22/24 12:55 SOIL [email or web address].[email or web address] nausea No 12/22/24 12:55 SOIL [email or web address].[email or web address] Vomiting No 12/22/24 12:55 SOIL [email or web address].[email or web address] Anesthesia Postop Eval I: Fluid Summary Crystalloid volume administer 10 12/22/24 12:55 SOIL [email or web address].[email or web address] (ml) Colloids volume administered ( ml) Blood Product volume administered (ml) Total IV fluid infused 10 12/22/24 12:55 SOIL [email or web address].[email or web address] Anesthesia Postop Eval I: Summary Notes Anesthesia Complication No 12/22/24 12:55 SOIL [email or web address].[email or web address] Anesthesia Complication Comment: Post-operative progress note Anesthesia: Postop Eval II Evaluation Mental status: Awake Pain Level: 0 nausea: No Vomiting: No
--- NOTE | 2024-12-22 15:06 | PCM.POSTANE2 ---
Anesthesia Postop Eval I Sum Postop Eval Completion status Anesthesia document: Postop Eval 1 completed: Yes Anesthesia Postop Eval I Summary Anesthesia Postop Eval I Summary: Anesthesia Postop Eval I: Assessment Summary Airway patent Yes 12/22/24 12:55 BOILER [email or web address] Spontaneous unlabored Yes 12/22/24 12:55 BOILER RELINER.[email or web address] respirations Mental status Calm,Asleep 12/22/24 12:55 BOILER RELINER.[email or web address] nausea No 12/22/24 12:55 BOILER RELINER.DBAK Vomiting No 12/22/24 12:55 BOILER RELINER.[email or web address] Anesthesia Postop Eval I: Fluid Summary Crystalloid volume administer 10 12/22/24 12:55 BOILER RELINER.DBAK (ml) Colloids volume administered ( ml) Blood Product volume administered (ml) Total IV fluid infused 10 12/22/24 12:55 BOILER RELINER.[email or web address] Anesthesia Postop Eval I: Summary Notes Anesthesia Complication No 12/22/24 12:55 BOILER RELINER.[email or web address] Anesthesia Complication Comment: Post-operative progress note Anesthesia: Postop Eval II Evaluation Mental status: Awake Pain Level: 0 nausea: No Vomiting: No
== END 2024-12-22 13:30 | disposition home or self-care (01) ==
LOC: EN 11:15 → AC 11:16
PROVIDERS: PCP Internal Medicine; Referring Provider Internal Medicine; Visit Provider Internal Medicine Gastroenterology
PROC: 0DJ08ZZ Inspection of Upper Intestinal Tract, Via Natural or Artificial Opening Endoscopic (ICD-10-PCS; CPT 43235; principal; 2024-12-22 12:25)
DX: R13.10 Dysphagia, unspecified (principal); D50.9 Iron deficiency anemia, unspecified; K29.50 Unspecified chronic gastritis without bleeding; K59.00 Constipation, unspecified; E78.00 Pure hypercholesterolemia, unspecified; K31.89 Other diseases of stomach and duodenum; I10 Essential (primary) hypertension; Z90.710 Acquired absence of both cervix and uterus; M79.7 Fibromyalgia; F41.9 Anxiety disorder, unspecified; Z79.899 Other long term (current) drug therapy; K62.3 Rectal prolapse; K22.2 Esophageal obstruction; K21.9 Gastro-esophageal reflux disease without esophagitis
CPT/HCPCS: 43248; 43239; 88305; 88342; A4216; C1769

== ENCOUNTER → 2025-03-15 | Outpatient (CLI) | payer MEDICARE, OTHER, SELFPAY ==
[2025-03-15 10:44] LABS: Albumin, Serum 3.5 g/dL (3.4-4.8); Anion Gap 11 (5-15); BUN 19 mg/dL (4-19); BUN/Creat Ratio 16.2 RATIO (10-20); Calcium,Total 8.8 mg/dL (7.6-11.0); Carbon Dioxide 21.6 mmol/L (21.0-32.0); Chloride 110 mmol/L (98-108); Creatinine, Serum 1.17 mg/dL (0.70-1.20); EST Glomerular Filtration Rate 48 (>60); Glucose 72 mg/dL (70-99); Phosphorus 3.5 mg/dL (2.7-4.5); Sodium Level 143 mmol/L (133-145)
== END | disposition home or self-care (01) ==
LOC: LAB 09:34
PROVIDERS: PCP Internal Medicine; Referring Provider Internal Medicine Nephrology; Visit Provider Internal Medicine Nephrology
DX: N18.32 Chronic kidney disease, stage 3b (principal)
CPT/HCPCS: 36415; 80069

== ENCOUNTER 2025-05-20 08:30 | Day surgery (SDC) | payer MEDICARE, OTHER, SELFPAY ==
[2025-05-20] VITALS (8 sets, daily range): BP systolic 82–134; BP diastolic 47–86; PULSE 65–77; RESP 14–16; TEMP 36.1–37; O2SAT 96–100; BMI 21.2
[2025-05-20] MEDS: Lactated Ringers 1,000 ML 15 ML IV (09:05)
== END 2025-05-20 11:09 | disposition home or self-care (01) ==
LOC: EN 08:31 → AC 08:32
PROVIDERS: PCP Internal Medicine; Referring Provider Internal Medicine; Visit Provider Internal Medicine Gastroenterology
PROC: 0DJD8ZZ Inspection of Lower Intestinal Tract, Via Natural or Artificial Opening Endoscopic (ICD-10-PCS; CPT 45330; principal; 2025-05-20 09:40)
DX: K62.3 Rectal prolapse (principal); K62.5 Hemorrhage of anus and rectum; K64.2 Third degree hemorrhoids; K64.4 Residual hemorrhoidal skin tags; Z90.710 Acquired absence of both cervix and uterus; E78.00 Pure hypercholesterolemia, unspecified; I10 Essential (primary) hypertension; R19.7 Diarrhea, unspecified; K59.00 Constipation, unspecified; D50.8 Other iron deficiency anemias; K31.A0 Gastric intestinal metaplasia, unspecified; R13.10 Dysphagia, unspecified; M79.7 Fibromyalgia; Z79.899 Other long term (current) drug therapy; F41.9 Anxiety disorder, unspecified; K21.9 Gastro-esophageal reflux disease without esophagitis
CPT/HCPCS: 45330

== ENCOUNTER 2025-08-25 14:58 | Emergency (ER) | payer MEDICARE, OTHER, SELFPAY ==
[2025-08-25 14:59] VITALS: BP 130/98; PULSE 79; RESP 16; TEMP 36.6; O2SAT 100; BMI 21.2
--- NOTE | 2025-08-25 15:29 | CT_ITS ---
PROCEDURE: ABDOMEN/PELVIS W IV CONT ONLY 08/25/2025 REASON FOR EXAM: INTERMITTENT LEFT SIDED ABD PAIN TECHNIQUE: Procedure Code: [id number] Modality: CT Procedure: ABDOMEN/PELVIS W IV CONT ONLY Coronal and Sagittal reconstruction series were provided. CONTRAST: Isovue 300 VOLUME: 95 mL One or more dose reduction techniques were used (e.g., Automated exposure control, adjustment of the mA and/or kV according to patient size, use of iterative reconstruction technique. RADIATION DOSE SUMMARY: CTDlvol: 11.3 mGy DLP: 591.2 mGycm COMPARISON: CT abdomen and pelvis without contrast 12/24/2021 FINDINGS: Lung bases: Bibasilar atelectasis with adjacent reticulation and nodularity. Bilateral trace pleural effusion, left more than right partially visualized coronary artery calcifications Liver: Diffuse hepatic steatosis Gallbladder: Markedly distended gallbladder with sludge. Spleen: Borderline enlarged spleen measuring 11 cm. Pancreas: Normal size without evidence of mass surrounding inflammation or ductal dilation. Adrenals: Unremarkable Kidneys: [id number] left hydronephrosis there is mild dilatation of distal left ureter with mild thickening. Right large extrarenal pelvis. Multiple bilateral hypodense renal lesion likely representing cyst. Bladder: Markedly distended urinary bladder with urine. Reproductive Organs: Patient is status post hysterectomy. Bowel: Stomach is distended with food particles there is high attenuation material within multiple small bowel loops with attenuation up to 103. Findings are concerning for underlying blood products. Widespread colonic diverticulosis without evidence of diverticulitis. Appendix: The appendix is not identified. There is no inflammatory process identified in the right lower quadrant to suggest appendicitis. Lymph nodes: Multiple scattered mesenteric lymph nodes. Vasculature: Diffuse atherosclerotic calcification of abdominal aorta and its branches. Peritoneum / Retroperitoneum: Unremarkable Bones: Age-related degenerative changes of spine. CT/Abdomen/Pelvis W IV Cont ONLY IMPRESSION: Diffuse hepatic steatosis. There is high density material within multiple small bowel loops predominantly within left upper abdomen. Findings are indeterminate and could be related to underlying blood products versus ingested material. If there is high clinical concern for ongoing bleeding CTA with arterial and venous phase versus endoscopy can be obt ained for better characterization. Mild left hydronephrosis with dilatation of distal left ureter. Findings could be related to recent passage of stone. Furthermore CT cystogram can be obtained for better delineation to exclude any mass at this site. Widespread colonic diverticulosis without evidence of diverticulitis. Bilateral small pleural effusions. Red Alert: The critical findings in the findings and impression above were relayed directl y by me by telephone to Amna Kothari on 08/25/2025 at 5:48 pm with readback verification. Reading Location: [id number]
--- NOTE | 2025-08-25 15:30 | ED.VIS.GI ---
HPI HPI - GI History of Present Illness Chief Complaint: GI Bleed Narrative Narrative: Patient is a 75-year-old female presenting to the emergency department for an episode of bright red blood per rectum today. Patient has a past medical history of GI bleed, alternating constipation/diarrhea, gastric intestinal metaplasia, rectal prolapse, renal failure and anemia. Patient follows with DAVE Mireles. She reports that today she went to breakfast and then came home and took a nap and when she woke up she had a bowel movement. States that it was not painful. She reports when she wiped there was bright red blood on the toilet paper as well as in the toilet. She describes no black tarry melanotic stool. She states she will intermittently have left-sided abdominal pain states she did not have any today. Denies any fever, chills, nausea, vomiting, lightheadedness or dizziness. Denies any dysuria or hematuria. Denies any vaginal bleeding. She is not on OAC. Sigmoidoscopy was done on 05/25/25 which showed hemorrhoids on perianal exam, moderate rectal prolapse. Non-bleeding external hemorrhoids were found. It was recommended that she undergo MRI defecography and possible referral to a colorectal surgeon. [facility] Medical History Arthritis Injury of head and neck Wears hearing aid Wears glasses Bruising History of renal disease High cholesterol Benign essential tremor History of hiatal hernia Gastric reflux History of IBS Non-smoker History of edema Acute kidney injury Fibromyalgia IBS (irritable bowel syndrome) Hyperlipidemia Hypertension Anxiety Home Medications ?Medication ?Instructions ?Recorded ?Last Taken ?Type clonazepam 0.5 mg tablet 0.5 mg PO BID FIBROMYALGIA 12/08/18 12/22/24 09:00 History lorazepam 1 mg tablet (Ativan) 1 mg PO QHS PRN Anxiety 12/08/18 06/23/22 12:10 History sertraline 100 mg tablet (Zoloft) 75 mg PO DAILY Check with primary 12/08/18 12/22/24 09:00 History doctor cholecalciferol (vitamin D3) 50 2,000 unit PO DAILY supplement 12/24/21 12/21/24 History mcg (2,000 unit) capsule (Vitamin D3) rosuvastatin 5 mg tablet 5 mg PO QHS cholesterol 12/24/21 12/21/24 History pantoprazole 40 mg tablet,delayed 40 mg PO DAILY #90 TABLETS 06/12/24 12/22/24 09:00 Rx release vibegron 75 mg tablet (Gemtesa) 75 mg PO DAILY 12/17/24 12/21/24 History acetaminophen 500 mg tablet 500 mg PO Q6H PRN pain 03/12/25 Unknown History (Tylenol Extra Strength) Allergy/AdvReac Type Severity Reaction Status Date / Time amoxicillin Allergy Hives Verified 08/25/25 14:59 Penicillins AdvReac Severe Upset Verified 08/25/25 14:59 Stomach Family History Mother AAA (abdominal aortic aneurysm) Father Multiple sclerosis Brother Heart disease Myocardial infarction Kidney disease Sister Liver disease Surgical History History of colonoscopy History of esophagogastroduodenoscopy (EGD) pelvic floor repair History of total vaginal hysterectomy (TVH) H/O dilation and curettage Social History Smoking Status: Never smoker alcohol intake: never substance use type: does not use caffeine: Yes what type of physical activity do you participate in: walking seatbelt use: always do you feel safe at home: Yes additional social history: Ish BELL ED ROS Narrative see HPI EXAM Physical Exam Narrative Exam Narrative: Vital signs: Reviewed General: Alert and oriented x 3. No acute distress HEENT: Head is normocephalic and atraumatic, sinuses nontender, pupils equal round and reactive. Nares are patent. Oropharynx and throat exams normal. Neck: Supple without lymphadenopathy nontender Cardiovascular: Regular rate and rhythm, no murmurs. No rubs or gallops. Normal S1 and S2 Respiratory: Clear to auscultation bilaterally. No wheezes, rales, rhonchi Abdominal: Soft and nontender. Normal bowel sounds. No guarding or rebound. Nonsurgical abdomen : Done with gizzard puller RN at bedside. Excoriated skin. No fissures or hemorrhoids seen externally. On internal exam, no gross blood noted. Extremities: No tenderness. No bruising. Normal range of motion. Normal sensation. Skin: No rash or redness. The rest of the physical exam is unremarkable Const Vital Signs: 08/25/25 14:59 08/25/25 17:00 08/25/25 19:10 Temperature 97.9 F 97.2 F L Temperature Source Temporal Pulse Rate 79 71 71 Respiratory Rate 16 16 18 Blood Pressure 130/98 H 147/78 H 134/88 H Blood Pressure Mean 108 101 103 Pulse Ox 100 100 99 Oxygen Delivery Method Room Air Room Air MDM MDM MDM Narrative Medical decision making narrative: Patient is a 75-year-old female presenting to the emergency department for bright red blood per rectum 1 time today. Patient was seen and examined. Vitals are stable. Patient resting bed comfortably no acute distress. Differential includes but is not limited to: Hemorrhoids, fissure, diverticulitis CBC with no leukocytosis and slight drop in hemoglobin to 11.0 from the 12-13's baseline. Last hemoglobin we have is from February. CMP with slight bump in BUN at 22 and very slightly elevated BUN/creatinine ratio at 21. Urinalysis with 1+ bacteria and small amount of leukocyte esterase however no nitrates or WBCs. She is not having any urinary symptoms, I doubt this is urinary tract infection. CT abd was obtained to rule out diverticulitis with the intermittent left sided abdominal pain and reported bright red blood per rectum. No gross blood noted on rectal exam. No hemorrhoids, thrombosed hemorrhoid or fissure. No rectal prolapse. CT shows diffuse hepatic steatosis. There is high density material within multiple small bowel loops predominantly within left upper abdomen. Findings are indeterminate and could be related to underlying blood products versus ingested material. If there is high clinical concern for ongoing bleeding CTA with arterial and venous phase versus endoscopy can be obtained for better characterization. Mild left hydronephrosis with dilatation of distal left ureter. Findings could be related to recent passage of stone. Furthermore CT cystogram can be obtained for better delineation to exclude any mass at this site. Widespread colonic diverticulosis without evidence of diverticulitis. Bilateral small pleural effusions. I do not think this is an UGIB with the findings in the small bowel loops given she has melanotic stool. Would expect her to have blood on rectal exam if she was having a brisk upper GI bleed that showed high density material in the small bowel loops. I discussed with on-call GI doctor, Dr. Sneed. He agrees with outpatient management and follow-up with him as soon as possible. He thinks this is likely related to her frequent rectal prolapse when she tries to have a bowel movement. Updated the patient, significant other and friend at bedside on the findings. Conveyed that Dr. Sneed recommended high-fiber diet and sitz bath's given the history of rectal prolapse and excoriation on exam. Patient discharged from the Emergency Department. I do not feel that the patient's evaluation reveals any acute reason for admission at this time. I instructed them to either follow-up with their primary care physician or promptly return to the Emergency Department for reevaluation should symptoms worsen or new symptoms develop. I explained what symptoms would indicate the need to return to the emergency department. Shared decision making was used. The patient voiced understanding of the treatment plan and is agreeable with it. Clinical impression: Bright red blood per rectum History & Record Review Discussion w/independent historian: Patient, Family and Significant other Additional record(s) reviewed:: Prior outpatient record and Prior labs Lab Data Attestation: I reviewed the patient's lab results. Labs: Laboratory Results - last 24 hr 08/25/25 08/25/25 16:00 17:25 WBC 7.1 RBC 4.38 Hgb 11.0 L Hct 35.9 L MCV 82.0 MCH 25.1 L MCHC 30.6 L RDW Std Deviation 43.3 RDW Coeff of Juan 14.6 Plt Count 285 MPV 10.1 Immature Gran % (Auto) 0.300 Neut % (Auto) 82.1 H Lymph % (Auto) 12.6 L [place] % (Auto) 4.5 Eos % (Auto) 0.1 Baso % (Auto) 0.4 Absolute Neuts (auto) 5.8 Absolute Lymphs (auto) 0.89 Nucleated RBC % 0 Sodium 139 Potassium 4.5 Chloride 105 Carbon Dioxide 22.9 Anion Gap 11 BUN 22 H Creatinine 1.04 Estim Creat Clear Calc 39.74 L Est GFR (MDRD) Non-Af 56 L BUN/Creatinine Ratio 21.1 H Glucose 128 H Calcium 8.8 Total Bilirubin 0.26 AST 9 ALT 8 Alkaline Phosphatase 63 Total Protein 6.3 Albumin 3.4 Globulin 2.9 Albumin/Globulin Ratio 1.2 Urine Color Straw Urine Clarity Sl. Cloudy Urine pH 6.0 Ur Specific [place] 1.010 Urine Protein 15 H Urine Glucose (UA) Normal Urine Ketones Negative Urine Occult Blood 50 H Urine Nitrite Negative Urine Bilirubin Negative Urine Urobilinogen Normal Ur Leukocyte Esterase 100 H Urine RBC 0-5 SEEN Urine WBC 0-5 SEEN Ur Squamous Epith Cells 0-5 SEEN Urine Bacteria 1+ Urine Mucus 0 SEEN Radiography Diagnostic Testing: Clinical Impression(s) from Imaging Studies Abdomen/Pelvis CT 08/25/25 15:29 IMPRESSION: Diffuse hepatic steatosis. There is high density material within multiple small bowel loops predominantly within left upper abdomen. Findings are indeterminate and could be related to underlying blood products versus ingested material. If there is high clinical concern for ongoing bleeding CTA with arterial and venous phase versus endoscopy can be obtained for better characterization. Mild left hydronephrosis with dilatation of distal left ureter. Findings could be related to recent passage of stone. Furthermore CT cystogram can be obtained for better delineation to exclude any mass at this site. Widespread colonic diverticulosis without evidence of diverticulitis. Bilateral small pleural effusions. Red Alert: The critical findings in the findings and impression above were relayed directly by me by telephone to Amna Kothari on 08/25/2025 at 5:48 pm with readback verification. Reading Location: [facility] Discharge Plan Triage Chief Complaint: GI Bleed ED Provider: Amna Kothari Dx/Rx/DC Orders Clinical Impression: BRBPR (bright red blood per rectum), Anemia Instructions: Anemia, ED Lower GI Bleeding (Stable) Prescriptions: No Action lorazepam [Ativan] 1 mg tablet 1 mg PO QHS PRN (Reason: Anxiety) clonazepam 0.5 mg tablet 0.5 mg PO BID sertraline [Zoloft] 100 mg tablet 75 mg PO DAILY acetaminophen [Tylenol Extra Strength] 500 mg tablet 500 mg PO Q6H PRN (Reason: pain) rosuvastatin 5 mg tablet 5 mg PO QHS Patient Comments: TAKE 1 TABLET BY MOUTH EVERYDAY AT BEDTIME cholecalciferol (vitamin D3) [Vitamin D3] 50 mcg (2,000 unit) Capsule 2,000 unit PO DAILY Gemtesa 75 mg tablet 75 mg PO DAILY pantoprazole 40 mg tablet,delayed release (DR/EC) 40 mg PO DAILY Qty: 90 9RF Primary Care Provider: Fe Urbina Referrals: Fe Urbina MD [Primary Care Provider, Internal Medicine] - As soon as possible Friend,DO Adrian [Med Staff - Active Staff, Gastroenterology] - As soon as possible Activity Restrictions/Additional Instructions: If you develop any worsening bleeding from your rectum, developed lightheadedness, dizziness or worsening abdominal pain you need to return to the emergency department immediately. Your evaluation in the Emergency Department did not reveal any acute reason for admission. However, I want to emphasize that you may be early in the course of a disease process or illness even if it is not present. For this reason you should follow-up within 24 hours for reevaluation with either your primary care physician or if necessary back here in the Emergency Department. You should return to the Emergency Department immediately if your symptoms worsen or new symptoms develop. Print Language: Divehi Disposition Disposition: Home, Self Care Discharge Date/Time: 08/25/25 19:23
[2025-08-25 16:17] LABS: Hematocrit 35.9 % (37-47); Hemoglobin 11.0 g/dL (12.0-15.0); Immature Granulocytes Count 0.020 X10^3/uL (0.0-0.0); Mean Corp Hgb Conc 30.6 g/dL (32-36); Mean Corpuscular Volume 82.0 fL (81-99); Mean Platelet Vol. 10.1 fl (6.2-12.0); NRBC Flagged by Analyzer 0 % (0-5); Platelet Count 285 K/mm3 (150-450); RBC Distribution Width CV 14.6 % (11.6-14.6); RBC Distribution Width SD 43.3 fl (35.1-43.9); Red Blood Count 4.38 M/mm3 (4.2-5.4); White Blood Count 7.1 K/mm3 (4.4-11.0)
[2025-08-25 16:33] LABS: AST(SGOT) 9 U/L (<=31); Alanine Aminotransfer ALT/SGPT 8 U/L (<=34); Albumin, Serum 3.4 g/dL (3.4-4.8); Alkaline Phosphatase 63 U/L (35-104); Anion Gap 11 (5-15); BUN 22 mg/dL (4-19); BUN/Creat Ratio 21.1 RATIO (10-20); Calcium,Total 8.8 mg/dL (7.6-11.0); Carbon Dioxide 22.9 mmol/L (21.0-32.0); Chloride 105 mmol/L (98-108); Estimated Creatinine Clearance 39.74 ml/min (50-250); Globulin 2.9 g/dL (2.2-4.2); Glucose 128 mg/dL (70-99); Potassium 4.5 mmol/L (3.3-5.1)
[2025-08-25 17:00] VITALS: BP 147/78; PULSE 71; RESP 16; O2SAT 100
[2025-08-25 17:33] LABS: Mucous, Urine 0 SEEN /hpf (<or=2+)
[2025-08-25 17:57] LABS: Color, Urine Straw (Yellow); Glucose, Dipstick Normal (Normal); Ketone-Dipstick Negative (Negative); Leukocyte Esterase-Dipstick 100 /ul (Negative); Nitrite-Dipstick Negative (Negative); Occult Blood-Urine 50 /ul (Negative); Protein-Dipstick 15 mg/dl (Negative); Specific Gravity, Urine 1.010 (1.002-1.030); Urine Bilirubin Dipstick Negative (Negative)
[2025-08-25 18:04] LABS: Squamous Epithelial Cells - UA 0-5 SEEN /hpf (5-10)
[2025-08-25 18:06] LABS: Red Blood Cells-Urine 0-5 SEEN /hpf (0-5)
[2025-08-25 19:10] VITALS: BP 134/88; PULSE 71; RESP 18; TEMP 36.2; O2SAT 99
== END 2025-08-25 19:23 | disposition home or self-care (01) ==
PROVIDERS: Emergency Provider Student in an Organized Health Care Education/Training Program; PCP Internal Medicine; Visit Provider Student in an Organized Health Care Education/Training Program
DX: K62.5 Hemorrhage of anus and rectum (principal); I10 Essential (primary) hypertension; D64.9 Anemia, unspecified; E78.00 Pure hypercholesterolemia, unspecified; M79.7 Fibromyalgia; F41.9 Anxiety disorder, unspecified; K21.9 Gastro-esophageal reflux disease without esophagitis; Z79.899 Other long term (current) drug therapy; Z90.710 Acquired absence of both cervix and uterus
CPT/HCPCS: 74177; 80053; 81001; 82274; 85025; 99283; Q9967; A4216

== ENCOUNTER → 2025-09-13 | Outpatient (CLI) | payer MEDICARE, OTHER, SELFPAY ==
[2025-09-13 16:44] LABS: Hematocrit 35.4 % (37-47); Hemoglobin 10.9 g/dL (12.0-15.0); Immature Granulocytes Count 0.020 X10^3/uL (0.0-0.0); Mean Corp Hgb Conc 30.8 g/dL (32-36); Mean Corpuscular Volume 81.0 fL (81-99); Mean Platelet Vol. 10.3 fl (6.2-12.0); NRBC Flagged by Analyzer 0 % (0-5); Platelet Count 285 K/mm3 (150-450); RBC Distribution Width CV 14.7 % (11.6-14.6); RBC Distribution Width SD 43.5 fl (35.1-43.9); Red Blood Count 4.37 M/mm3 (4.2-5.4); White Blood Count 7.9 K/mm3 (4.4-11.0)
== END | disposition home or self-care (01) ==
LOC: LAB 15:18
PROVIDERS: PCP Internal Medicine; Referring Provider Nurse Practitioner Acute Care; Visit Provider Nurse Practitioner Acute Care
DX: D64.9 Anemia, unspecified (principal)
CPT/HCPCS: 36415; 85025

== ENCOUNTER → 2025-09-21 | Outpatient (CLI) | payer MEDICARE, OTHER, SELFPAY ==
--- NOTE | 2025-09-21 08:47 | US_ITS ---
PROCEDURE: ABDOMEN LIMITED 09/21/2025 REASON FOR EXAM: ABNORMAL US OF GB TECHNIQUE: Procedure Code: USABDL Modality: US Procedure: ABDOMEN LIMITED COMPARISON: Prior CT scan of the abdomen dated August 25, 2025. FINDINGS: Liver: Grossly normal size and echotexture. Gallbladder: There is a 3 mm x 3 mm x 3 mm gallbladder polyp. No evidence of gallstones. Common bile duct: Normal measuring 2.7 mm . Pancreas: Normal Other: The right kidney measures 10.2 cm x 4.3 cm 3.6 cm. There is thinning of the renal cortex measuring 0.6 cm. 2 cysts are seen within the right kidney. The larger measures 1.3 cm 1 cm 1.1 cm. The spleen is not enlarged. It measures 12.6 cm 5.7 cm 6.3 cm. US/Abdomen Limited IMPRESSION: 3 mm x 3 mm x 3 mm gallbladder polyp. No evidence of gallstones. Right renal cysts. Right renal cortical thinning. Reading Location: [facility]
== END | disposition home or self-care (01) ==
LOC: US 08:42
PROVIDERS: PCP Internal Medicine; Referring Provider Nurse Practitioner Acute Care; Visit Provider Nurse Practitioner Acute Care
DX: R93.2 Abnormal findings on diagnostic imaging of liver and biliary tract (principal); D50.8 Other iron deficiency anemias
CPT/HCPCS: 76705

== ENCOUNTER → 2025-10-06 | Outpatient (CLI) | payer MEDICARE, OTHER, SELFPAY ==
[2025-10-06 11:56] LABS: Albumin, Serum 3.3 g/dL (3.4-4.8); Anion Gap 9 (5-15); BUN 18 mg/dL (4-19); BUN/Creat Ratio 17.6 RATIO (10-20); Calcium,Total 8.4 mg/dL (7.6-11.0); Carbon Dioxide 23.1 mmol/L (21.0-32.0); Chloride 108 mmol/L (98-108); Glucose 96 mg/dL (70-99); Potassium 4.1 mmol/L (3.3-5.1)
== END | disposition home or self-care (01) ==
LOC: POLAB3 10:42
PROVIDERS: PCP Internal Medicine; Visit Provider Internal Medicine Nephrology
DX: N18.31 Chronic kidney disease, stage 3a (principal)
CPT/HCPCS: 36415; 80069